=== PATIENT | male | born 1945 | race Caucasian/White ===

== ENCOUNTER → 2019-11-29 13:04 | Outpatient (BNVA) | payer MEDICARE, SELFPAY | PROVIDERS: PCP Internal Medicine; Visit Provider Internal Medicine | DX: Z86.718 Personal history of other venous thrombosis and embolism (principal); Z79.01 Long term (current) use of anticoagulants; Z51.81 Encounter for therapeutic drug level monitoring | CPT/HCPCS: 85610; 99211 ==

== ENCOUNTER → 2019-12-05 09:19 | Outpatient (BNVA) | payer MEDICARE, SELFPAY | PROVIDERS: PCP Internal Medicine; Visit Provider Internal Medicine | DX: Z86.718 Personal history of other venous thrombosis and embolism (principal); Z51.81 Encounter for therapeutic drug level monitoring; Z79.01 Long term (current) use of anticoagulants | CPT/HCPCS: 85610; 99211 ==

== ENCOUNTER → 2019-12-08 13:10 | Outpatient (BNVA) | payer MEDICARE, SELFPAY | PROVIDERS: PCP Internal Medicine; Visit Provider Internal Medicine | DX: Z86.718 Personal history of other venous thrombosis and embolism (principal); Z51.81 Encounter for therapeutic drug level monitoring; Z79.01 Long term (current) use of anticoagulants | CPT/HCPCS: 85610; 99211 ==

== ENCOUNTER → 2019-12-15 13:49 | Outpatient (BNVA) | payer MEDICARE, SELFPAY | PROVIDERS: PCP Internal Medicine; Referring Provider Internal Medicine; Visit Provider Internal Medicine | DX: I82.622 Acute embolism and thrombosis of deep veins of left upper extremity (principal); Z79.01 Long term (current) use of anticoagulants; Z51.81 Encounter for therapeutic drug level monitoring | CPT/HCPCS: 85610; 99211 ==

== ENCOUNTER → 2019-12-29 13:13 | Outpatient (BNVA) | payer MEDICARE, SELFPAY | PROVIDERS: PCP Internal Medicine; Visit Provider Internal Medicine | DX: Z86.718 Personal history of other venous thrombosis and embolism (principal); Z51.81 Encounter for therapeutic drug level monitoring; Z79.01 Long term (current) use of anticoagulants | CPT/HCPCS: 85610; 99211 ==

== ENCOUNTER → 2020-01-22 13:05 | Outpatient (BNVA) | payer MEDICARE, SELFPAY | PROVIDERS: PCP Internal Medicine; Visit Provider Internal Medicine | DX: Z86.718 Personal history of other venous thrombosis and embolism (principal); Z51.81 Encounter for therapeutic drug level monitoring; Z79.01 Long term (current) use of anticoagulants | CPT/HCPCS: 85610; 99211 ==

== ENCOUNTER → 2020-02-06 13:13 | Outpatient (BNVA) | payer MEDICARE, SELFPAY | PROVIDERS: PCP Internal Medicine; Visit Provider Internal Medicine | DX: Z86.718 Personal history of other venous thrombosis and embolism (principal); Z51.81 Encounter for therapeutic drug level monitoring; Z79.01 Long term (current) use of anticoagulants | CPT/HCPCS: 85610; 99211 ==

== ENCOUNTER → 2020-02-20 13:04 | Outpatient (BNVA) | payer MEDICARE, SELFPAY | PROVIDERS: PCP Internal Medicine; Visit Provider Internal Medicine | DX: Z86.718 Personal history of other venous thrombosis and embolism (principal); Z79.01 Long term (current) use of anticoagulants; Z51.81 Encounter for therapeutic drug level monitoring | CPT/HCPCS: 85610; 99211 ==

== ENCOUNTER → 2020-03-12 13:05 | Outpatient (BNVA) | payer MEDICARE, SELFPAY | PROVIDERS: PCP Internal Medicine; Visit Provider Internal Medicine | DX: Z86.718 Personal history of other venous thrombosis and embolism (principal); Z51.81 Encounter for therapeutic drug level monitoring; Z79.01 Long term (current) use of anticoagulants | CPT/HCPCS: 85610; 99211 ==

== ENCOUNTER → 2020-04-09 13:00 | Outpatient (BNVA) | payer MEDICARE, SELFPAY | PROVIDERS: PCP Internal Medicine; Visit Provider Internal Medicine | DX: Z86.718 Personal history of other venous thrombosis and embolism (principal); Z51.81 Encounter for therapeutic drug level monitoring; Z79.01 Long term (current) use of anticoagulants | CPT/HCPCS: 85610; 99211 ==

== ENCOUNTER → 2020-05-08 13:05 | Outpatient (BNVA) | payer MEDICARE, SELFPAY | PROVIDERS: PCP Internal Medicine; Visit Provider Internal Medicine | DX: Z86.718 Personal history of other venous thrombosis and embolism (principal); Z51.81 Encounter for therapeutic drug level monitoring; Z79.01 Long term (current) use of anticoagulants | CPT/HCPCS: 85610; 99211 ==

== ENCOUNTER → 2020-06-05 13:22 | Outpatient (BNVA) | payer MEDICARE, SELFPAY | PROVIDERS: PCP Internal Medicine; Visit Provider Internal Medicine | DX: Z86.718 Personal history of other venous thrombosis and embolism (principal); Z51.81 Encounter for therapeutic drug level monitoring; Z79.01 Long term (current) use of anticoagulants | CPT/HCPCS: 85610; 99211 ==

== ENCOUNTER → 2020-06-17 12:58 | Outpatient (BNVA) | payer MEDICARE, SELFPAY | PROVIDERS: PCP Internal Medicine; Visit Provider Internal Medicine | DX: I48.91 Unspecified atrial fibrillation (principal); Z79.01 Long term (current) use of anticoagulants; Z51.81 Encounter for therapeutic drug level monitoring | CPT/HCPCS: 85610; 99211 ==

== ENCOUNTER → 2020-06-27 13:01 | Outpatient (BNVA) | payer MEDICARE, SELFPAY | PROVIDERS: PCP Internal Medicine; Visit Provider Internal Medicine | DX: I48.91 Unspecified atrial fibrillation (principal); Z51.81 Encounter for therapeutic drug level monitoring; Z79.01 Long term (current) use of anticoagulants | CPT/HCPCS: 85610; 99211 ==

== ENCOUNTER → 2020-07-10 13:01 | Outpatient (BNVA) | payer MEDICARE, SELFPAY | PROVIDERS: PCP Internal Medicine; Visit Provider Internal Medicine | DX: I48.91 Unspecified atrial fibrillation (principal); Z51.81 Encounter for therapeutic drug level monitoring; Z79.01 Long term (current) use of anticoagulants | CPT/HCPCS: 85610; 99211 ==

== ENCOUNTER → 2020-07-15 13:31 | Outpatient (BNVA) | payer MEDICARE, SELFPAY | PROVIDERS: PCP Internal Medicine; Visit Provider Internal Medicine | DX: I48.91 Unspecified atrial fibrillation (principal); Z51.81 Encounter for therapeutic drug level monitoring; Z79.01 Long term (current) use of anticoagulants | CPT/HCPCS: 85610; 99211 ==

== ENCOUNTER → 2020-07-19 13:53 | Outpatient (BNVA) | payer MEDICARE, SELFPAY | PROVIDERS: PCP Internal Medicine; Visit Provider Internal Medicine | DX: I48.91 Unspecified atrial fibrillation (principal); Z51.81 Encounter for therapeutic drug level monitoring; Z79.01 Long term (current) use of anticoagulants | CPT/HCPCS: 85610; 99211 ==

== ENCOUNTER → 2020-07-26 13:15 | Outpatient (BNVA) | payer MEDICARE, SELFPAY | PROVIDERS: PCP Internal Medicine; Visit Provider Internal Medicine | DX: I48.91 Unspecified atrial fibrillation (principal); Z51.81 Encounter for therapeutic drug level monitoring; Z79.01 Long term (current) use of anticoagulants | CPT/HCPCS: 85610; 99211 ==

== ENCOUNTER → 2020-08-02 13:34 | Outpatient (BNVA) | payer MEDICARE, SELFPAY | PROVIDERS: PCP Internal Medicine; Visit Provider Internal Medicine | DX: I48.91 Unspecified atrial fibrillation (principal); Z51.81 Encounter for therapeutic drug level monitoring; Z79.01 Long term (current) use of anticoagulants | CPT/HCPCS: 85610; 99211 ==

== ENCOUNTER → 2020-08-09 13:15 | Outpatient (BNVA) | payer MEDICARE, SELFPAY | PROVIDERS: PCP Internal Medicine; Visit Provider Internal Medicine | DX: I48.91 Unspecified atrial fibrillation (principal); Z51.81 Encounter for therapeutic drug level monitoring; Z79.01 Long term (current) use of anticoagulants | CPT/HCPCS: 85610; 99211 ==

== ENCOUNTER → 2020-08-20 13:03 | Outpatient (BNVA) | payer MEDICARE, SELFPAY | PROVIDERS: PCP Internal Medicine; Visit Provider Internal Medicine | DX: I48.91 Unspecified atrial fibrillation (principal); Z51.81 Encounter for therapeutic drug level monitoring; Z79.01 Long term (current) use of anticoagulants | CPT/HCPCS: 85610; 99211 ==

== ENCOUNTER → 2020-08-29 13:28 | Outpatient (BNVA) | payer MEDICARE, SELFPAY | PROVIDERS: PCP Internal Medicine; Visit Provider Internal Medicine | DX: I48.91 Unspecified atrial fibrillation (principal); Z51.81 Encounter for therapeutic drug level monitoring; Z79.01 Long term (current) use of anticoagulants | CPT/HCPCS: 85610; 99211 ==

== ENCOUNTER → 2020-09-05 13:12 | Outpatient (BNVA) | payer MEDICARE, SELFPAY | PROVIDERS: PCP Internal Medicine; Visit Provider Internal Medicine | DX: I82.622 Acute embolism and thrombosis of deep veins of left upper extremity (principal); Z79.01 Long term (current) use of anticoagulants; Z51.81 Encounter for therapeutic drug level monitoring | CPT/HCPCS: 85610; 99212 ==

== ENCOUNTER → 2020-09-12 11:28 | Outpatient (BNVA) | payer MEDICARE, SELFPAY | PROVIDERS: PCP Internal Medicine; Visit Provider Internal Medicine | DX: I48.91 Unspecified atrial fibrillation (principal); Z86.718 Personal history of other venous thrombosis and embolism; Z51.81 Encounter for therapeutic drug level monitoring; Z79.01 Long term (current) use of anticoagulants | CPT/HCPCS: 85610; 99211 ==

== ENCOUNTER → 2020-09-19 13:45 | Outpatient (BNVA) | payer MEDICARE, SELFPAY | PROVIDERS: PCP Internal Medicine; Visit Provider Internal Medicine | DX: Z86.718 Personal history of other venous thrombosis and embolism (principal); I48.91 Unspecified atrial fibrillation; Z79.01 Long term (current) use of anticoagulants; Z51.81 Encounter for therapeutic drug level monitoring | CPT/HCPCS: 85610; 99211 ==

== ENCOUNTER → 2020-10-03 11:13 | Outpatient (BNVA) | payer MEDICARE, SELFPAY | PROVIDERS: PCP Internal Medicine; Visit Provider Internal Medicine | DX: Z86.718 Personal history of other venous thrombosis and embolism (principal); Z51.81 Encounter for therapeutic drug level monitoring; Z79.01 Long term (current) use of anticoagulants | CPT/HCPCS: 85610; 99211 ==

== ENCOUNTER → 2020-10-17 11:25 | Outpatient (BNVA) | payer MEDICARE, SELFPAY | PROVIDERS: PCP Internal Medicine; Visit Provider Internal Medicine | DX: Z86.718 Personal history of other venous thrombosis and embolism (principal); Z51.81 Encounter for therapeutic drug level monitoring; Z79.01 Long term (current) use of anticoagulants | CPT/HCPCS: 85610; 99211 ==

== ENCOUNTER → 2020-10-31 11:31 | Outpatient (BNVA) | payer MEDICARE, SELFPAY | PROVIDERS: PCP Internal Medicine; Visit Provider Internal Medicine | DX: Z86.718 Personal history of other venous thrombosis and embolism (principal); Z51.81 Encounter for therapeutic drug level monitoring; Z79.01 Long term (current) use of anticoagulants | CPT/HCPCS: 85610; 99211 ==

== ENCOUNTER → 2020-11-14 11:34 | Outpatient (BNVA) | payer MEDICARE, SELFPAY | PROVIDERS: PCP Internal Medicine; Visit Provider Internal Medicine | DX: Z86.718 Personal history of other venous thrombosis and embolism (principal); Z51.81 Encounter for therapeutic drug level monitoring; Z79.01 Long term (current) use of anticoagulants | CPT/HCPCS: 85610; 99211 ==

== ENCOUNTER → 2020-11-28 11:29 | Outpatient (BNVA) | payer MEDICARE, SELFPAY | PROVIDERS: PCP Internal Medicine; Visit Provider Internal Medicine | DX: Z86.718 Personal history of other venous thrombosis and embolism (principal); Z51.81 Encounter for therapeutic drug level monitoring; Z79.01 Long term (current) use of anticoagulants | CPT/HCPCS: 85610; 99211 ==

== ENCOUNTER → 2020-12-12 13:14 | Outpatient (BNVA) | payer MEDICARE, SELFPAY | PROVIDERS: PCP Internal Medicine; Visit Provider Internal Medicine | DX: Z86.718 Personal history of other venous thrombosis and embolism (principal); Z51.81 Encounter for therapeutic drug level monitoring; Z79.01 Long term (current) use of anticoagulants | CPT/HCPCS: 85610; 99211 ==

== ENCOUNTER → 2020-12-26 13:03 | Outpatient (BNVA) | payer MEDICARE, SELFPAY | PROVIDERS: PCP Internal Medicine; Visit Provider Internal Medicine | DX: Z86.718 Personal history of other venous thrombosis and embolism (principal); Z51.81 Encounter for therapeutic drug level monitoring; Z79.01 Long term (current) use of anticoagulants | CPT/HCPCS: 85610; 99211 ==

== ENCOUNTER → 2021-01-09 13:28 | Outpatient (BNVA) | payer MEDICARE, SELFPAY | PROVIDERS: PCP Internal Medicine; Visit Provider Internal Medicine | DX: Z86.718 Personal history of other venous thrombosis and embolism (principal); Z51.81 Encounter for therapeutic drug level monitoring; Z79.01 Long term (current) use of anticoagulants | CPT/HCPCS: 85610; 99211 ==

== ENCOUNTER → 2021-01-16 13:06 | Outpatient (BNVA) | payer MEDICARE, SELFPAY | PROVIDERS: PCP Internal Medicine; Visit Provider Internal Medicine | DX: Z86.718 Personal history of other venous thrombosis and embolism (principal); Z51.81 Encounter for therapeutic drug level monitoring; Z79.01 Long term (current) use of anticoagulants | CPT/HCPCS: 85610; 99211 ==

== ENCOUNTER → 2021-01-23 13:02 | Outpatient (BNVA) | payer MEDICARE, SELFPAY | PROVIDERS: PCP Internal Medicine; Visit Provider Internal Medicine | DX: Z86.718 Personal history of other venous thrombosis and embolism (principal); Z51.81 Encounter for therapeutic drug level monitoring; Z79.01 Long term (current) use of anticoagulants | CPT/HCPCS: 85610; 99211 ==

== ENCOUNTER → 2021-02-06 13:04 | Outpatient (BNVA) | payer MEDICARE, SELFPAY | PROVIDERS: PCP Internal Medicine; Visit Provider Internal Medicine | DX: Z86.718 Personal history of other venous thrombosis and embolism (principal); Z51.81 Encounter for therapeutic drug level monitoring; Z79.01 Long term (current) use of anticoagulants | CPT/HCPCS: 85610; 99211 ==

== ENCOUNTER → 2021-02-20 13:05 | Outpatient (BNVA) | payer MEDICARE, SELFPAY | PROVIDERS: PCP Internal Medicine; Visit Provider Internal Medicine | DX: Z86.718 Personal history of other venous thrombosis and embolism (principal); Z51.81 Encounter for therapeutic drug level monitoring; Z79.01 Long term (current) use of anticoagulants | CPT/HCPCS: 85610; 99211 ==

== ENCOUNTER → 2021-02-27 11:32 | Outpatient (BNVA) | payer MEDICARE, SELFPAY | PROVIDERS: PCP Internal Medicine; Visit Provider Internal Medicine | DX: I48.91 Unspecified atrial fibrillation (principal); Z86.718 Personal history of other venous thrombosis and embolism; Z51.81 Encounter for therapeutic drug level monitoring; Z79.01 Long term (current) use of anticoagulants | CPT/HCPCS: 85610; 99211 ==

== ENCOUNTER → 2021-03-13 11:34 | Outpatient (BNVA) | payer MEDICARE, SELFPAY | PROVIDERS: PCP Internal Medicine; Visit Provider Internal Medicine | DX: I48.91 Unspecified atrial fibrillation (principal); Z86.718 Personal history of other venous thrombosis and embolism; Z51.81 Encounter for therapeutic drug level monitoring; Z79.01 Long term (current) use of anticoagulants | CPT/HCPCS: 85610; 99211 ==

== ENCOUNTER → 2021-03-26 11:43 | Outpatient (BNVA) | payer MEDICARE, SELFPAY | PROVIDERS: PCP Internal Medicine; Visit Provider Internal Medicine | DX: I82.402 Acute embolism and thrombosis of unspecified deep veins of left lower extremity (principal); Z51.81 Encounter for therapeutic drug level monitoring; Z79.01 Long term (current) use of anticoagulants | CPT/HCPCS: 85610; 99211 ==

== ENCOUNTER → 2021-04-10 11:35 | Outpatient (BNVA) | payer MEDICARE, SELFPAY | PROVIDERS: PCP Internal Medicine; Visit Provider Internal Medicine | DX: Z86.718 Personal history of other venous thrombosis and embolism (principal); Z51.81 Encounter for therapeutic drug level monitoring; Z79.01 Long term (current) use of anticoagulants | CPT/HCPCS: 85610; 99211 ==

== ENCOUNTER → 2021-04-30 11:11 | Outpatient (BNVA) | payer MEDICARE, SELFPAY | PROVIDERS: PCP Internal Medicine; Visit Provider Internal Medicine | DX: Z86.718 Personal history of other venous thrombosis and embolism (principal); Z51.81 Encounter for therapeutic drug level monitoring; Z79.01 Long term (current) use of anticoagulants | CPT/HCPCS: 85610; 99211 ==

== ENCOUNTER → 2021-05-07 11:23 | Outpatient (BNVA) | payer MEDICARE, SELFPAY | PROVIDERS: PCP Internal Medicine; Visit Provider Internal Medicine | DX: Z86.718 Personal history of other venous thrombosis and embolism (principal); Z51.81 Encounter for therapeutic drug level monitoring; Z79.01 Long term (current) use of anticoagulants | CPT/HCPCS: 85610; 99211 ==

== ENCOUNTER 2021-05-21 11:14 | Outpatient (REF) | payer MEDICARE, SELFPAY ==
[2021-05-21 11:48] LABS: Prothrombin Time 85.7 SEC (9.9-13.0)
[2021-05-21 11:58] LABS: INTERNATIONAL NORM RATIO 7.2 (0.9-1.1)
== END 2021-05-21 11:15 | disposition home or self-care (01) ==
LOC: HO.LAB 11:14
PROVIDERS: PCP Internal Medicine; Visit Provider Internal Medicine
DX: Z79.01 Long term (current) use of anticoagulants (principal)
CPT/HCPCS: 36415; 85610; 99212

== ENCOUNTER → 2021-05-23 11:28 | Outpatient (BNVA) | payer MEDICARE, SELFPAY | PROVIDERS: PCP Internal Medicine; Visit Provider Internal Medicine | DX: Z86.718 Personal history of other venous thrombosis and embolism (principal); Z79.01 Long term (current) use of anticoagulants; Z51.81 Encounter for therapeutic drug level monitoring | CPT/HCPCS: 85610; 99211 ==

== ENCOUNTER → 2021-05-30 11:30 | Outpatient (BNVA) | payer MEDICARE, SELFPAY | PROVIDERS: PCP Internal Medicine; Visit Provider Internal Medicine | DX: Z86.718 Personal history of other venous thrombosis and embolism (principal); Z79.01 Long term (current) use of anticoagulants; Z51.81 Encounter for therapeutic drug level monitoring | CPT/HCPCS: 85610; 99211 ==

== ENCOUNTER → 2021-06-11 11:34 | Outpatient (BNVA) | payer MEDICARE, SELFPAY | PROVIDERS: PCP Internal Medicine; Visit Provider Internal Medicine | DX: Z86.718 Personal history of other venous thrombosis and embolism (principal); Z79.01 Long term (current) use of anticoagulants; Z51.81 Encounter for therapeutic drug level monitoring | CPT/HCPCS: 85610; 99211 ==

== ENCOUNTER → 2021-06-18 11:35 | Outpatient (BNVA) | payer MEDICARE, SELFPAY | PROVIDERS: PCP Internal Medicine; Visit Provider Internal Medicine | DX: Z86.718 Personal history of other venous thrombosis and embolism (principal); Z79.01 Long term (current) use of anticoagulants; Z51.81 Encounter for therapeutic drug level monitoring | CPT/HCPCS: 85610; 99211 ==

== ENCOUNTER → 2021-07-02 11:33 | Outpatient (BNVA) | payer MEDICARE, SELFPAY | PROVIDERS: PCP Internal Medicine; Visit Provider Internal Medicine | DX: Z86.718 Personal history of other venous thrombosis and embolism (principal); Z79.01 Long term (current) use of anticoagulants; Z51.81 Encounter for therapeutic drug level monitoring | CPT/HCPCS: 85610; 99211 ==

== ENCOUNTER → 2021-07-16 11:30 | Outpatient (BNVA) | payer MEDICARE, SELFPAY | PROVIDERS: PCP Internal Medicine; Visit Provider Internal Medicine | DX: Z86.718 Personal history of other venous thrombosis and embolism (principal); Z79.01 Long term (current) use of anticoagulants; Z51.81 Encounter for therapeutic drug level monitoring | CPT/HCPCS: 85610; 99211; 99212; Q3014 ==

== ENCOUNTER → 2021-07-30 11:31 | Outpatient (BNVA) | payer MEDICARE, SELFPAY | PROVIDERS: PCP Internal Medicine; Visit Provider Internal Medicine | DX: Z86.718 Personal history of other venous thrombosis and embolism (principal); Z79.01 Long term (current) use of anticoagulants; Z51.81 Encounter for therapeutic drug level monitoring | CPT/HCPCS: 85610; 99211 ==

== ENCOUNTER → 2021-08-13 11:32 | Outpatient (BNVA) | payer MEDICARE, SELFPAY | PROVIDERS: PCP Internal Medicine; Visit Provider Internal Medicine | DX: Z86.718 Personal history of other venous thrombosis and embolism (principal); Z79.01 Long term (current) use of anticoagulants; Z51.81 Encounter for therapeutic drug level monitoring | CPT/HCPCS: 85610; 99211 ==

== ENCOUNTER → 2021-09-03 11:22 | Outpatient (BNVA) | payer MEDICARE, SELFPAY | PROVIDERS: PCP Internal Medicine; Visit Provider Internal Medicine | DX: Z86.718 Personal history of other venous thrombosis and embolism (principal); Z79.01 Long term (current) use of anticoagulants; Z51.81 Encounter for therapeutic drug level monitoring | CPT/HCPCS: 85610; 99211 ==

== ENCOUNTER → 2021-09-17 11:36 | Outpatient (BNVA) | payer MEDICARE, SELFPAY | PROVIDERS: PCP Internal Medicine; Visit Provider Internal Medicine | DX: Z86.718 Personal history of other venous thrombosis and embolism (principal); Z79.01 Long term (current) use of anticoagulants; Z51.81 Encounter for therapeutic drug level monitoring | CPT/HCPCS: 85610; 99211 ==

== ENCOUNTER → 2021-10-08 11:30 | Outpatient (BNVA) | payer MEDICARE, SELFPAY | PROVIDERS: PCP Internal Medicine; Visit Provider Internal Medicine | DX: Z86.718 Personal history of other venous thrombosis and embolism (principal); Z51.81 Encounter for therapeutic drug level monitoring; Z79.01 Long term (current) use of anticoagulants | CPT/HCPCS: 85610; 99211 ==

== ENCOUNTER → 2021-10-22 11:11 | Outpatient (BNVA) | payer MEDICARE, SELFPAY | PROVIDERS: PCP Internal Medicine; Visit Provider Internal Medicine | DX: Z86.718 Personal history of other venous thrombosis and embolism (principal); Z79.01 Long term (current) use of anticoagulants; Z51.81 Encounter for therapeutic drug level monitoring | CPT/HCPCS: 85610; 99211 ==

== ENCOUNTER → 2021-11-12 11:26 | Outpatient (BNVA) | payer MEDICARE, SELFPAY | PROVIDERS: PCP Internal Medicine; Visit Provider Internal Medicine | DX: Z86.718 Personal history of other venous thrombosis and embolism (principal); Z51.81 Encounter for therapeutic drug level monitoring; Z79.01 Long term (current) use of anticoagulants | CPT/HCPCS: 85610; 99211 ==

== ENCOUNTER → 2021-11-26 11:41 | Outpatient (BNVA) | payer MEDICARE, SELFPAY | PROVIDERS: PCP Internal Medicine; Visit Provider Internal Medicine | DX: Z86.718 Personal history of other venous thrombosis and embolism (principal); Z79.01 Long term (current) use of anticoagulants; Z51.81 Encounter for therapeutic drug level monitoring | CPT/HCPCS: 85610; 99211 ==

== ENCOUNTER → 2021-12-10 11:29 | Outpatient (BNVA) | payer MEDICARE, SELFPAY | PROVIDERS: PCP Internal Medicine; Visit Provider Internal Medicine | DX: Z86.718 Personal history of other venous thrombosis and embolism (principal); Z79.01 Long term (current) use of anticoagulants; Z51.81 Encounter for therapeutic drug level monitoring | CPT/HCPCS: 85610; 99211 ==

== ENCOUNTER → 2021-12-24 11:25 | Outpatient (BNVA) | payer MEDICARE, SELFPAY | PROVIDERS: PCP Internal Medicine; Visit Provider Internal Medicine | DX: Z86.718 Personal history of other venous thrombosis and embolism (principal); Z79.01 Long term (current) use of anticoagulants; Z51.81 Encounter for therapeutic drug level monitoring | CPT/HCPCS: 85610; 99211 ==

== ENCOUNTER → 2022-01-07 11:36 | Outpatient (BNVA) | payer MEDICARE, SELFPAY | PROVIDERS: PCP Internal Medicine; Visit Provider Internal Medicine | DX: Z86.718 Personal history of other venous thrombosis and embolism (principal); Z79.01 Long term (current) use of anticoagulants; Z51.81 Encounter for therapeutic drug level monitoring | CPT/HCPCS: 85610; 99211 ==

== ENCOUNTER → 2022-01-28 11:27 | Outpatient (BNVA) | payer MEDICARE, SELFPAY | PROVIDERS: PCP Internal Medicine; Visit Provider Internal Medicine | DX: Z86.718 Personal history of other venous thrombosis and embolism (principal); Z51.81 Encounter for therapeutic drug level monitoring; Z79.01 Long term (current) use of anticoagulants | CPT/HCPCS: 85610; 99211 ==

== ENCOUNTER → 2022-02-18 11:34 | Outpatient (BNVA) | payer MEDICARE, SELFPAY | PROVIDERS: PCP Internal Medicine; Visit Provider Internal Medicine | DX: Z86.718 Personal history of other venous thrombosis and embolism (principal); Z79.01 Long term (current) use of anticoagulants; Z51.81 Encounter for therapeutic drug level monitoring | CPT/HCPCS: 85610; 99211 ==

== ENCOUNTER → 2022-03-11 11:26 | Outpatient (BNVA) | payer MEDICARE, SELFPAY | PROVIDERS: PCP Internal Medicine; Visit Provider Internal Medicine | DX: Z86.718 Personal history of other venous thrombosis and embolism (principal); Z79.01 Long term (current) use of anticoagulants; Z51.81 Encounter for therapeutic drug level monitoring | CPT/HCPCS: 85610; 99211 ==

== ENCOUNTER → 2022-04-01 11:16 | Outpatient (BNVA) | payer MEDICARE, SELFPAY | PROVIDERS: PCP Internal Medicine; Visit Provider Internal Medicine | DX: Z86.73 Personal history of transient ischemic attack (TIA), and cerebral infarction without residual deficits (principal); Z79.01 Long term (current) use of anticoagulants; Z51.81 Encounter for therapeutic drug level monitoring | CPT/HCPCS: 85610; 99211 ==

== ENCOUNTER → 2022-04-22 11:32 | Outpatient (BNVA) | payer MEDICARE, SELFPAY | PROVIDERS: PCP Internal Medicine; Visit Provider Internal Medicine | DX: Z86.718 Personal history of other venous thrombosis and embolism (principal); Z79.01 Long term (current) use of anticoagulants; Z51.81 Encounter for therapeutic drug level monitoring | CPT/HCPCS: 85610; 99211 ==

== ENCOUNTER → 2022-05-06 11:38 | Outpatient (BNVA) | payer MEDICARE, SELFPAY | PROVIDERS: PCP Internal Medicine; Visit Provider Internal Medicine | DX: Z86.718 Personal history of other venous thrombosis and embolism (principal); Z79.01 Long term (current) use of anticoagulants; Z51.81 Encounter for therapeutic drug level monitoring | CPT/HCPCS: 85610; 99211 ==

== ENCOUNTER → 2022-05-27 11:26 | Outpatient (BNVA) | payer MEDICARE, SELFPAY | PROVIDERS: PCP Internal Medicine; Visit Provider Internal Medicine | DX: Z86.718 Personal history of other venous thrombosis and embolism (principal); Z79.01 Long term (current) use of anticoagulants; Z51.81 Encounter for therapeutic drug level monitoring | CPT/HCPCS: 85610; 99211 ==

== ENCOUNTER → 2022-06-17 11:30 | Outpatient (BNVA) | payer MEDICARE, SELFPAY | PROVIDERS: PCP Internal Medicine; Visit Provider Internal Medicine | DX: Z86.718 Personal history of other venous thrombosis and embolism (principal); Z79.01 Long term (current) use of anticoagulants; Z51.81 Encounter for therapeutic drug level monitoring | CPT/HCPCS: 85610; 99211 ==

== ENCOUNTER → 2022-07-01 11:34 | Outpatient (BNVA) | payer MEDICARE, SELFPAY | PROVIDERS: PCP Internal Medicine; Visit Provider Internal Medicine | DX: Z86.718 Personal history of other venous thrombosis and embolism (principal); Z79.01 Long term (current) use of anticoagulants; Z51.81 Encounter for therapeutic drug level monitoring | CPT/HCPCS: 85610; 99211 ==

== ENCOUNTER → 2022-07-22 11:32 | Outpatient (BNVA) | payer MEDICARE, SELFPAY | PROVIDERS: PCP Internal Medicine; Visit Provider Internal Medicine | DX: Z86.718 Personal history of other venous thrombosis and embolism (principal); Z79.01 Long term (current) use of anticoagulants; Z51.81 Encounter for therapeutic drug level monitoring | CPT/HCPCS: 85610; 99211 ==

== ENCOUNTER → 2022-08-05 11:23 | Outpatient (BNVA) | payer MEDICARE, SELFPAY | PROVIDERS: PCP Internal Medicine; Visit Provider Internal Medicine | DX: Z86.718 Personal history of other venous thrombosis and embolism (principal); Z79.01 Long term (current) use of anticoagulants; Z51.81 Encounter for therapeutic drug level monitoring | CPT/HCPCS: 85610; 99211 ==

== ENCOUNTER 2022-09-16 11:21 | Outpatient (AMB) | payer MEDICARE, SELFPAY ==
--- NOTE | 2022-09-16 11:28 | MHC.OFFVISCO ---
Intake Intake Visit Reasons: Anticoagulation Allergies shrimp Allergy (Mild, Verified 09/16/22 11:22) HIVES FuadA. Allergy (Unknown, Uncoded 09/16/22 11:22) PT STATES NO KNOWN DRUG ALLERGIES Medication List - Last Reconciled 09/16/22 by Zoe Bruce RN amiodarone 200 mg PO DAILY atorvastatin 80 mg PO DAILY blood sugar diagnostic As directed cholecalciferol (vitamin D3) 25 mcg PO DAILY clobetasol 0.05% 1 appl topical BID cyanocobalamin (vitamin B-12) (Vitamin B-12) 500 mcg PO DAILY ferrous sulfate 325 mg PO QAM gabapentin 300 mg PO BEDTIME glipizide 5 mg PO BID lancets (OneTouch Delica Plus Lancet) As directed metformin 1,000 mg PO BID metoprolol succinate ER 75 mg PO DAILY torsemide 100 mg PO BID trazodone 50 mg PO BEDTIME triamcinolone acetonide 0.1% 1 appl topical BID warfarin See Protocol 5MG X1DAY/ 2.5MG X6DAYS; Nursing Note INR 3.1-?? out of therapeutic range Medications and supplements reviewed Patient status: increased stress Medications or supplements: pt states stopped furosemide, enc to speak to md regarding this and purpose of this med, pt weighs himself daily- aware to report weight gain Diet: same Denies any signs and symptoms of bleeding or clotting or unusual bruising Bleeding, bruising, clotting discussed Nutritional guidance given: eat greens today Dose: 2.5mg x 2, 1.25mg x 5 F/U INR Date : pt req 3 weeks?? Patient verbalizing understanding of instructions given. Coding Level of Care Code Est Patient Level 1 Diagnoses Current use of anticoagulant therapy Z79.01 Assessment & Plan Assessment & Plan (1) Current use of anticoagulant therapy: Code(s): Z79.01 - senior care (current) use of anticoagulants Category: Medical
[2022-09-16 11:29] LABS: Prothrombin Time Whole Bld POC 37.3 sec (11.1-13.5); ~PT, ~INR - Anti Coag Clinic 3.1 (0.9-1.1)
== END 2022-09-16 11:37 | disposition home or self-care (01) ==
LOC: HO.ACS 11:21
PROVIDERS: PCP Internal Medicine; Visit Provider Internal Medicine
DX: Z79.01 Long term (current) use of anticoagulants (principal)

== ENCOUNTER → 2022-09-16 11:21 | Outpatient (BNVA) | payer MEDICARE, SELFPAY | PROVIDERS: PCP Internal Medicine; Visit Provider Internal Medicine | DX: Z86.718 Personal history of other venous thrombosis and embolism (principal); Z79.01 Long term (current) use of anticoagulants; Z51.81 Encounter for therapeutic drug level monitoring | CPT/HCPCS: 85610; 99211 ==

== ENCOUNTER 2022-10-07 11:22 | Outpatient (AMB) | payer MEDICARE, SELFPAY ==
[2022-10-07 11:46] LABS: Prothrombin Time Whole Bld POC 33.1 sec (11.1-13.5); ~PT, ~INR - Anti Coag Clinic 2.8 (0.9-1.1)
--- NOTE | 2022-10-07 11:57 | MHC.OFFVISCO ---
Intake Intake Visit Reasons: Anticoagulation Allergies shrimp Allergy (Mild, Verified 10/07/22 11:39) HIVMARIO MeridaA. Allergy (Unknown, Uncoded 09/16/22 11:22) PT STATES NO KNOWN DRUG ALLERGIES Medication List - Last Reconciled 10/07/22 by Frieda Manley RN amiodarone 200 mg PO DAILY atorvastatin 80 mg PO DAILY blood sugar diagnostic As directed cholecalciferol (vitamin D3) 25 mcg PO DAILY clobetasol 0.05% 1 appl topical BID cyanocobalamin (vitamin B-12) (Vitamin B-12) 500 mcg PO DAILY ferrous sulfate 325 mg PO QAM gabapentin 300 mg PO BEDTIME glipizide 5 mg PO BID lancets (OneTouch Delica Plus Lancet) As directed metformin 1,000 mg PO BID metoprolol succinate ER 75 mg PO DAILY torsemide 100 mg PO BID trazodone 50 mg PO BEDTIME triamcinolone acetonide 0.1% 1 appl topical BID warfarin See Protocol 5MG X1DAY/ 2.5MG X6DAYS; Nursing Note NO CFP,SOB,DIET/MED CHANGES,FALLS OR SX OF BLEEDING. CONTINUE PRESENT DOSE AND FOLLOW-UP IN 4 WEEKS. GOOD UNDERSTANDING OF DOSING INSTR. 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
== END 2022-10-07 12:00 | disposition home or self-care (01) ==
LOC: HO.ACS 11:22
PROVIDERS: PCP Internal Medicine; Visit Provider Internal Medicine
DX: Z79.01 Long term (current) use of anticoagulants (principal)

== ENCOUNTER → 2022-10-07 11:22 | Outpatient (BNVA) | payer MEDICARE, SELFPAY | PROVIDERS: PCP Internal Medicine; Visit Provider Internal Medicine | DX: Z86.718 Personal history of other venous thrombosis and embolism (principal); Z79.01 Long term (current) use of anticoagulants; Z51.81 Encounter for therapeutic drug level monitoring | CPT/HCPCS: 85610; 99211 ==

== ENCOUNTER 2022-11-04 11:25 | Outpatient (AMB) | payer MEDICARE, SELFPAY ==
--- NOTE | 2022-11-04 11:36 | MHC.OFFVISCO ---
Intake Intake Visit Reasons: Anticoagulation Allergies shrimp Allergy (Mild, Verified 11/04/22 11:31) JUNE MeridaA. Allergy (Unknown, Uncoded 11/04/22 11:31) PT STATES NO KNOWN DRUG ALLERGIES Medication List - Last Reconciled 11/04/22 by Mary Styles RN amiodarone 200 mg PO DAILY atorvastatin 80 mg PO DAILY blood sugar diagnostic As directed cholecalciferol (vitamin D3) 25 mcg PO DAILY clobetasol 0.05% 1 appl topical BID cyanocobalamin (vitamin B-12) (Vitamin B-12) 500 mcg PO DAILY ferrous sulfate 325 mg PO QAM gabapentin 300 mg PO BEDTIME glipizide 5 mg PO BID lancets (OneTouch Delica Plus Lancet) As directed metformin 1,000 mg PO BID metoprolol succinate ER 75 mg PO DAILY torsemide 100 mg PO BID trazodone 50 mg PO BEDTIME triamcinolone acetonide 0.1% 1 appl topical BID warfarin See Protocol 5MG X1DAY/ 2.5MG X6DAYS; Nursing Note PT VISIT DELAYED DUE TO INTERFACING ISSUES WITH CLINIC METER BY 5-7 MINUTES INR: 2.8 in therapeutic range Medications and supplements reviewed No changes in health, diet, medications, or supplements, Denies any signs and symptoms of bleeding or bruising or clotting. Bleeding, bruising, clotting discussed Nutritional guidance given Dose: 2.5MG X 2 DAYS/ 1.25MG X 5 DAYS F/U INR: 1 MONTH Patient verbalizes understanding of instructions given Coding Level of Care Code Est Patient Level 1 Diagnoses Current use of anticoagulant therapy Z79.01 Assessment & Plan Assessment & Plan (1) Current use of anticoagulant therapy: Code(s): Z79.01 - detention (current) use of anticoagulants Category: Medical
[2022-11-04 11:41] LABS: Prothrombin Time Whole Bld POC 33.2 sec (11.1-13.5); ~PT, ~INR - Anti Coag Clinic 2.8 (0.9-1.1)
== END 2022-11-04 11:48 | disposition home or self-care (01) ==
LOC: HO.ACS 11:25
PROVIDERS: PCP Internal Medicine; Visit Provider Internal Medicine
DX: Z79.01 Long term (current) use of anticoagulants (principal)

== ENCOUNTER → 2022-11-04 11:25 | Outpatient (BNVA) | payer MEDICARE, SELFPAY | PROVIDERS: PCP Internal Medicine; Visit Provider Internal Medicine | DX: Z86.718 Personal history of other venous thrombosis and embolism (principal); Z79.01 Long term (current) use of anticoagulants; Z51.81 Encounter for therapeutic drug level monitoring | CPT/HCPCS: 85610; 99211 ==

== ENCOUNTER 2022-12-03 11:38 | Outpatient (AMB) | payer MEDICARE, SELFPAY ==
[2022-12-03 11:48] LABS: ~PT, ~INR - Anti Coag Clinic 2.3 (0.9-1.1)
--- NOTE | 2022-12-03 11:52 | MHC.OFFVISCO ---
Intake Intake Visit Reasons: Anticoagulation Allergies shrimp Allergy (Mild, Verified 12/03/22 11:38) HIVES N.K.D.A. Allergy (Unknown, Uncoded 12/03/22 11:38) PT STATES NO KNOWN DRUG ALLERGIES Medication List - Last Reconciled 12/03/22 by Adelaida Mccall, RN amiodarone 200 mg PO DAILY atorvastatin 80 mg PO DAILY blood sugar diagnostic As directed cholecalciferol (vitamin D3) 25 mcg PO DAILY cyanocobalamin (vitamin B-12) (Vitamin B-12) 500 mcg PO DAILY ferrous sulfate 325 mg PO QAM glipizide 5 mg PO BID lancets (OneTouch Delica Plus Lancet) As directed metformin 1,000 mg PO BID metoprolol succinate ER 75 mg PO DAILY torsemide 100 mg PO BID triamcinolone acetonide 0.1% 1 appl topical BID warfarin See Protocol 5MG X1DAY/ 2.5MG X6DAYS; Nursing Note Amb to [facility] feeling well Medications and supplements reviewed EMAR updated as a few medds no longer taking for quite a awhile No changes in health, diet, medications, or supplements Flu shot 2 weeks ago and planning on covid vaccine in a week or so Denies any unusual signs and symptoms of bruising, bleeding Denies any new Chest pain, SOB, or clotting INR: 2.3 in therapeutic range Nutritional guidance given: balance greens and reds in diet, be consistent, watch the reds over the Dose: continue usual dosing;2.5mg x 2 days and 1.25mg x 5 days F/U INR: 4 weeks Patient verbalizes understanding of instructions given with accurate read back/ teach back of dosing Coding Level of Care Code Est Patient Level 1 Diagnoses Current use of anticoagulant therapy Z79.01 Time Spent (min) 15 Assessment & Plan Assessment & Plan (1) Current use of anticoagulant therapy: Code(s): Z79.01 - assisted (current) use of anticoagulants Category: Medical
== END 2022-12-03 11:58 | disposition home or self-care (01) ==
LOC: HO.ACS 11:38
PROVIDERS: PCP Internal Medicine; Visit Provider Internal Medicine
DX: Z79.01 Long term (current) use of anticoagulants (principal)

== ENCOUNTER → 2022-12-03 11:38 | Outpatient (BNVA) | payer MEDICARE, SELFPAY | PROVIDERS: PCP Internal Medicine; Visit Provider Internal Medicine | DX: Z86.718 Personal history of other venous thrombosis and embolism (principal); Z79.01 Long term (current) use of anticoagulants; Z51.81 Encounter for therapeutic drug level monitoring | CPT/HCPCS: 85610; 99211 ==

== ENCOUNTER 2023-01-06 11:43 | Outpatient (AMB) | payer MEDICARE, SELFPAY ==
--- NOTE | 2023-01-06 11:50 | MHC.OFFVISCO ---
Intake Intake Visit Reasons: Anticoagulation Allergies shrimp Allergy (Mild, Verified 12/03/22 11:38) HIVES N.K.D.A. Allergy (Unknown, Uncoded 12/03/22 11:38) PT STATES NO KNOWN DRUG ALLERGIES Medication List - Last Reconciled 01/06/23 by Mary Styles RN atorvastatin 80 mg PO DAILY blood sugar diagnostic As directed cholecalciferol (vitamin D3) 25 mcg PO DAILY cyanocobalamin (vitamin B-12) (Vitamin B-12) 500 mcg PO DAILY ferrous sulfate 325 mg PO QAM glipizide 5 mg PO BID lancets (OneTouch Delica Plus Lancet) As directed metformin 1,000 mg PO DAILY metoprolol succinate ER 75 mg PO DAILY torsemide 100 mg PO DAILY triamcinolone acetonide 0.1% 1 appl topical BID warfarin See Protocol 5MG X1DAY/ 2.5MG X6DAYS; Nursing Note INR: 1.9 OUT OF therapeutic range Medications and supplements reviewed- TORSEMIDE DECREASED TO 100MG PO DAIILY AND AMIODARONE WAS D/C 12/17/22 PT ATE A LOT OF GREENS RECENTLY INCLUDING YESTERDAY Denies any signs and symptoms of bleeding or bruising or clotting. Bleeding, bruising, clotting discussed Nutritional guidance given - AVOID GREENS TODAY AND TOMORROW Dose: INCREASE WEEKLKY DOSE DUE TO MED CHANGES 2.5MG X 3 DAYS/ 1.25MG X 4 DAYS F/U INR:2 WEEKS Patient verbalizes understanding of instructions given Coding Level of Care Code Est Patient Level 1 Diagnoses Current use of anticoagulant therapy Z79.01 Results AMB INR Fingerstick AMB INR Fingerstick 1.9 Last Edit by Mary Styles RN on 01/06/23 11:51 MANUAL ENTRY DELAYED INTERFACING Assessment & Plan Assessment & Plan (1) Current use of anticoagulant therapy: Code(s): Z79.01 - senior care (current) use of anticoagulants Category: Medical
[2023-01-07 08:37] LABS: Prothrombin Time Whole Bld POC 23.1 sec (11.1-13.5); ~PT, ~INR - Anti Coag Clinic 1.9 (0.9-1.1)
== END 2023-01-06 12:13 | disposition home or self-care (01) ==
LOC: HO.ACS 11:43
PROVIDERS: PCP Internal Medicine; Visit Provider Internal Medicine
DX: Z79.01 Long term (current) use of anticoagulants (principal)

== ENCOUNTER → 2023-01-06 11:43 | Outpatient (BNVA) | payer MEDICARE, SELFPAY | PROVIDERS: PCP Internal Medicine; Visit Provider Internal Medicine | DX: Z86.718 Personal history of other venous thrombosis and embolism (principal); Z79.01 Long term (current) use of anticoagulants; Z51.81 Encounter for therapeutic drug level monitoring | CPT/HCPCS: 85610; 99211 ==

== ENCOUNTER 2023-01-20 11:29 | Outpatient (AMB) | payer MEDICARE, SELFPAY ==
[2023-01-20 11:45] LABS: ~PT, ~INR - Anti Coag Clinic 3.7 (0.9-1.1)
--- NOTE | 2023-01-20 11:50 | MHC.OFFVISCO ---
Intake Intake Visit Reasons: Anticoagulation Allergies shrimp Allergy (Mild, Verified 01/20/23 11:32) HIVES N.KMichelaD.A. Allergy (Unknown, Uncoded 12/03/22 11:38) PT STATES NO KNOWN DRUG ALLERGIES Medication List - Last Reconciled 01/20/23 by Frieda Malney RN atorvastatin 80 mg PO DAILY blood sugar diagnostic As directed cholecalciferol (vitamin D3) 25 mcg PO DAILY cyanocobalamin (vitamin B-12) (Vitamin B-12) 500 mcg PO DAILY ferrous sulfate 325 mg PO QAM glipizide 5 mg PO BID lancets (OneTouch Delica Plus Lancet) As directed metformin 1,000 mg PO DAILY metoprolol succinate ER 75 mg PO DAILY torsemide 100 mg PO DAILY triamcinolone acetonide 0.1% 1 appl topical BID warfarin See Protocol 5MG X1DAY/ 2.5MG X6DAYS; Nursing Note PT.STATES THAT HE HAS HAD INCREASED STRESS THIS WEEK. NO CP,SOB,DIET/MED CHANGES,FALLS OR SX OF BLEEDING. HOLD WARFARIN TODAY THEN RTEDUCE WEEKLY DOSE SLIGHTLY AND FOLLOW-UP IN 3 WEEKS. GOOD UNDERSTADING OF DOSING INSTR. 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
== END 2023-01-20 11:52 | disposition home or self-care (01) ==
LOC: HO.ACS 11:29
PROVIDERS: PCP Internal Medicine; Visit Provider Internal Medicine
DX: Z79.01 Long term (current) use of anticoagulants (principal)

== ENCOUNTER → 2023-01-20 11:29 | Outpatient (BNVA) | payer MEDICARE, SELFPAY | PROVIDERS: PCP Internal Medicine; Visit Provider Internal Medicine | DX: Z86.718 Personal history of other venous thrombosis and embolism (principal); Z79.01 Long term (current) use of anticoagulants; Z51.81 Encounter for therapeutic drug level monitoring | CPT/HCPCS: 85610; 99211 ==

== ENCOUNTER 2023-02-10 11:15 | Outpatient (AMB) | payer MEDICARE, SELFPAY ==
--- NOTE | 2023-02-10 11:31 | MHC.OFFVISCO ---
Intake Intake Visit Reasons: Anticoagulation Allergies shrimp Allergy (Mild, Verified 02/10/23 11:27) JUNE Sparrow Allergy (Unknown, Uncoded 02/10/23 11:27) PT STATES NO KNOWN DRUG ALLERGIES Medication List - Last Reconciled 02/10/23 by Zoe Bruce, RN atorvastatin 80 mg PO DAILY blood sugar diagnostic As directed cholecalciferol (vitamin D3) 25 mcg PO DAILY cyanocobalamin (vitamin B-12) (Vitamin B-12) 500 mcg PO DAILY ferrous sulfate 325 mg PO QAM glipizide 5 mg PO BID lancets (OneTouch Delica Plus Lancet) As directed metformin 1,000 mg PO DAILY metoprolol succinate ER 75 mg PO DAILY torsemide 100 mg PO DAILY triamcinolone acetonide 0.1% 1 appl topical BID warfarin See Protocol 5MG X1DAY/ 2.5MG X6DAYS; Nursing Note INR: 2.1- in therapeutic range of 2-3 Medications and supplements reviewed No changes in health, diet, medications, or supplements, Denies any signs and symptoms of bleeding or bruising or clotting. 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
== END 2023-02-10 11:37 | disposition home or self-care (01) ==
LOC: HO.ACS 11:15
PROVIDERS: PCP Internal Medicine; Visit Provider Internal Medicine
DX: Z79.01 Long term (current) use of anticoagulants (principal)

== ENCOUNTER → 2023-02-10 11:15 | Outpatient (BNVA) | payer MEDICARE, SELFPAY | PROVIDERS: PCP Internal Medicine; Visit Provider Internal Medicine | DX: Z86.718 Personal history of other venous thrombosis and embolism (principal); Z51.81 Encounter for therapeutic drug level monitoring; Z79.01 Long term (current) use of anticoagulants | CPT/HCPCS: 85610; 99211 ==

== ENCOUNTER 2023-03-03 11:29 | Outpatient (AMB) | payer MEDICARE, SELFPAY ==
--- NOTE | 2023-03-03 11:33 | MHC.OFFVISCO ---
Intake Intake Visit Reasons: Anticoagulation Allergies shrimp Allergy (Mild, Verified 03/03/23 11:29) JUNE MeridaA. Allergy (Unknown, Uncoded 03/03/23 11:29) PT STATES NO KNOWN DRUG ALLERGIES Medication List - Last Reconciled 03/03/23 by Zoe Bruce RN atorvastatin 80 mg PO DAILY blood sugar diagnostic As directed cholecalciferol (vitamin D3) 25 mcg PO DAILY cyanocobalamin (vitamin B-12) (Vitamin B-12) 500 mcg PO DAILY ferrous sulfate 325 mg PO QAM glipizide 5 mg PO BID lancets (OneTouch Delica Plus Lancet) As directed metformin 1,000 mg PO DAILY metoprolol succinate ER 75 mg PO DAILY torsemide 100 mg PO DAILY triamcinolone acetonide 0.1% 1 appl topical BID warfarin See Protocol 5MG X1DAY/ 2.5MG X6DAYS; Nursing Note INR: 2.5- in therapeutic range of 2-3 Medications and supplements reviewed No changes in health, diet, medications, or supplements, Denies any signs and symptoms of bleeding or bruising or clotting. Bleeding, bruising, clotting discussed Nutritional guidance given Dose: 2.5mg x 2, 1.25mg x 5 F/U INR: 3 weeks Patient verbalizes understanding of instructions given Coding Level of Care Code Est Patient Level 1 Diagnoses Current use of anticoagulant therapy Z79.01 Results AMB INR Fingerstick AMB INR Fingerstick 2.5 Last Edit by Zoe Bruce RN on 03/03/23 11:34 Assessment & Plan Assessment & Plan (1) Current use of anticoagulant therapy: Code(s): Z79.01 - shelter (current) use of anticoagulants Category: Medical
[2023-03-03 11:34] LABS: Prothrombin Time Whole Bld POC 29.9 sec (11.1-13.5); ~PT, ~INR - Anti Coag Clinic 2.5 (0.9-1.1)
== END 2023-03-03 11:40 | disposition home or self-care (01) ==
LOC: HO.ACS 11:29
PROVIDERS: PCP Internal Medicine; Visit Provider Internal Medicine
DX: Z79.01 Long term (current) use of anticoagulants (principal)

== ENCOUNTER → 2023-03-03 11:29 | Outpatient (BNVA) | payer MEDICARE, SELFPAY | PROVIDERS: PCP Internal Medicine; Visit Provider Internal Medicine | DX: Z86.718 Personal history of other venous thrombosis and embolism (principal); Z79.01 Long term (current) use of anticoagulants; Z51.81 Encounter for therapeutic drug level monitoring | CPT/HCPCS: 85610; 99211 ==

== ENCOUNTER 2023-03-24 11:30 | Outpatient (AMB) | payer MEDICARE, SELFPAY ==
--- NOTE | 2023-03-24 11:34 | MHC.OFFVISCO ---
Intake Intake Visit Reasons: Anticoagulation Allergies shrimp Allergy (Mild, Verified 03/24/23 11:31) JUNE MeridaA. Allergy (Unknown, Uncoded 03/24/23 11:31) PT STATES NO KNOWN DRUG ALLERGIES Medication List - Last Reconciled 03/24/23 by Zoe Bruce RN atorvastatin 80 mg PO DAILY blood sugar diagnostic As directed cholecalciferol (vitamin D3) 25 mcg PO DAILY cyanocobalamin (vitamin B-12) (Vitamin B-12) 500 mcg PO DAILY ferrous sulfate 325 mg PO QAM glipizide 5 mg PO BID lancets (OneTouch Delica Plus Lancet) As directed metformin 1,000 mg PO DAILY metoprolol succinate ER 75 mg PO DAILY torsemide 100 mg PO DAILY triamcinolone acetonide 0.1% 1 appl topical BID warfarin See Protocol 5MG X1DAY/ 2.5MG X6DAYS; Nursing Note INR: 2.0- in therapeutic range of 2-3 Medications and supplements reviewed- taking mvi/ centrum silver- has 60mcg of vit k also had 2 vaccines 03/18/23 No changes in health, diet, medications, or supplements, Denies any signs and symptoms of bleeding or bruising or clotting. 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
[2023-03-24 11:36] LABS: Prothrombin Time Whole Bld POC 23.5 sec (11.1-13.5)
== END 2023-03-24 11:47 | disposition home or self-care (01) ==
LOC: HO.ACS 11:30
PROVIDERS: PCP Internal Medicine; Visit Provider Internal Medicine
DX: Z79.01 Long term (current) use of anticoagulants (principal)

== ENCOUNTER → 2023-03-24 11:30 | Outpatient (BNVA) | payer MEDICARE, SELFPAY | PROVIDERS: PCP Internal Medicine; Visit Provider Internal Medicine | DX: Z86.718 Personal history of other venous thrombosis and embolism (principal); Z79.01 Long term (current) use of anticoagulants; Z51.81 Encounter for therapeutic drug level monitoring | CPT/HCPCS: 85610; 99211 ==

== ENCOUNTER 2023-04-01 11:19 | Outpatient (AMB) | payer MEDICARE, SELFPAY ==
--- NOTE | 2023-04-01 11:37 | MHC.OFFVISCO ---
Intake Intake Visit Reasons: Anticoagulation Allergies shrimp Allergy (Mild, Verified 04/01/23 11:32) JUNE Sparrow Allergy (Unknown, Uncoded 04/01/23 11:32) PT STATES NO KNOWN DRUG ALLERGIES Medication List - Last Reconciled 04/01/23 by Zoe Bruce, RN atorvastatin 80 mg PO DAILY blood sugar diagnostic As directed cholecalciferol (vitamin D3) 25 mcg PO DAILY cyanocobalamin (vitamin B-12) (Vitamin B-12) 500 mcg PO DAILY ferrous sulfate 325 mg PO QAM glipizide 5 mg PO BID lancets (OneTouch Delica Plus Lancet) As directed metformin 1,000 mg PO DAILY metoprolol succinate ER 75 mg PO DAILY torsemide 100 mg PO DAILY triamcinolone acetonide 0.1% 1 appl topical BID warfarin See Protocol 5MG X1DAY/ 2.5MG X6DAYS; Nursing Note INR 1.8-?? out of therapeutic range of 2-3 Medications and supplements reviewed Patient status: pt states now has cirrhosis, he has been advised by pcp to stop etoh Medications or supplements: recent centrum silver mvi Diet: same Denies any signs and symptoms of bleeding or clotting or unusual bruising Bleeding, bruising, clotting discussed Nutritional guidance given: no greens for 2 days Dose: 2.5mg today and tomm , increase weekly dosing to 2.5mg x 3, 1.25mg x 4 F/U INR Date : 1 week?? Patient verbalizing understanding of instructions given. 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
[2023-04-01 11:38] LABS: Prothrombin Time Whole Bld POC 22.1 sec (11.1-13.5); ~PT, ~INR - Anti Coag Clinic 1.8 (0.9-1.1)
== END 2023-04-01 11:49 | disposition home or self-care (01) ==
LOC: HO.ACS 11:19
PROVIDERS: PCP Internal Medicine; Visit Provider Internal Medicine
DX: Z79.01 Long term (current) use of anticoagulants (principal)

== ENCOUNTER → 2023-04-01 11:19 | Outpatient (BNVA) | payer MEDICARE, SELFPAY | PROVIDERS: PCP Internal Medicine; Visit Provider Internal Medicine | DX: Z86.718 Personal history of other venous thrombosis and embolism (principal); Z79.01 Long term (current) use of anticoagulants; Z51.81 Encounter for therapeutic drug level monitoring | CPT/HCPCS: 85610; 99211 ==

== ENCOUNTER 2023-04-07 11:55 | Outpatient (AMB) | payer MEDICARE, SELFPAY ==
[2023-04-07 12:02] LABS: Prothrombin Time Whole Bld POC 22.6 sec (11.1-13.5); ~PT, ~INR - Anti Coag Clinic 1.9 (0.9-1.1)
--- NOTE | 2023-04-07 12:22 | MHC.OFFVISCO ---
Intake Intake Visit Reasons: Anticoagulation Allergies shrimp Allergy (Mild, Verified 04/07/23 11:56) JUNE MeridaA. Allergy (Unknown, Uncoded 04/07/23 11:56) PT STATES NO KNOWN DRUG ALLERGIES Medication List - Last Reconciled 04/07/23 by Mary Styles RN atorvastatin 80 mg PO DAILY blood sugar diagnostic As directed cholecalciferol (vitamin D3) 25 mcg PO DAILY cyanocobalamin (vitamin B-12) (Vitamin B-12) 500 mcg PO DAILY ferrous sulfate 325 mg PO QAM glipizide 5 mg PO BID lancets (OneTouch Delica Plus Lancet) As directed metformin 1,000 mg PO DAILY metoprolol succinate ER 75 mg PO DAILY gmwmiiffvitp-czanydve-vargyj 1 tab PO DAILY torsemide 100 mg PO DAILY triamcinolone acetonide 0.1% 1 appl topical BID warfarin See Protocol 5MG X1DAY/ 2.5MG X6DAYS; Nursing Note INR: 1.9 ALMOST in therapeutic range Medications and supplements reviewed has stopped ETOH due to cirrhosis and started and MVI both of which may lower INR Denies any signs and symptoms of bleeding or bruising or clotting. Bleeding, bruising, clotting discussed Nutritional guidance given - eat a mix of fruits and vegetables, have orange and reds today Dose: try dose again 2.5mg mwf/ 1.25mg x 4 days F/U INR: 2 weeks due to liver health Patient verbalizes understanding of instructions given Coding Level of Care Code Est Patient Level 1 Diagnoses Current use of anticoagulant therapy Z79.01 Assessment & Plan Assessment & Plan (1) Current use of anticoagulant therapy: Code(s): Z79.01 - custodial (current) use of anticoagulants Category: Medical
== END 2023-04-07 12:26 | disposition home or self-care (01) ==
LOC: HO.ACS 11:55
PROVIDERS: PCP Internal Medicine; Visit Provider Internal Medicine
DX: Z79.01 Long term (current) use of anticoagulants (principal)

== ENCOUNTER → 2023-04-07 11:55 | Outpatient (BNVA) | payer MEDICARE, SELFPAY | PROVIDERS: PCP Internal Medicine; Visit Provider Internal Medicine | DX: Z86.718 Personal history of other venous thrombosis and embolism (principal); Z79.01 Long term (current) use of anticoagulants; Z51.81 Encounter for therapeutic drug level monitoring | CPT/HCPCS: 85610; 99211 ==

== ENCOUNTER 2023-04-21 11:20 | Outpatient (AMB) | payer MEDICARE, SELFPAY ==
[2023-04-21 11:26] LABS: Prothrombin Time Whole Bld POC 21.3 sec (11.1-13.5); ~PT, ~INR - Anti Coag Clinic 1.8 (0.9-1.1)
--- NOTE | 2023-04-21 11:26 | MHC.OFFVISCO ---
Intake Intake Visit Reasons: Anticoagulation Allergies shrimp Allergy (Mild, Verified 04/21/23 11:21) JUNE MeridaA. Allergy (Unknown, Uncoded 04/21/23 11:21) PT STATES NO KNOWN DRUG ALLERGIES Medication List - Last Reconciled 04/21/23 by Zoe Bruce, RN atorvastatin 80 mg PO DAILY blood sugar diagnostic As directed cholecalciferol (vitamin D3) 25 mcg PO DAILY cyanocobalamin (vitamin B-12) (Vitamin B-12) 500 mcg PO DAILY ferrous sulfate 325 mg PO QAM glipizide 5 mg PO BID lancets (OneTouch Delica Plus Lancet) As directed metformin 1,000 mg PO DAILY metoprolol succinate ER 75 mg PO DAILY ddjioiqlwjnr-nwargdai-xydnze 1 tab PO DAILY torsemide 100 mg PO DAILY triamcinolone acetonide 0.1% 1 appl topical BID warfarin See Protocol 5MG X1DAY/ 2.5MG X6DAYS; Nursing Note INR 1.8-? out of therapeutic range of 2-3 Medications and supplements reviewed Patient status: denies missed dose Medications or supplements: no changes Diet: appetite good, ate greens Denies any signs and symptoms of bleeding or clotting or unusual bruising Bleeding, bruising, clotting discussed Nutritional guidance given: no greens for 2 days Dose: 2.5mg today and tomm, then increase weekly dosing 2.5mg x 4, 1.25mg x 3 F/U INR Date : 2 weeks? Patient verbalizing understanding of instructions given. 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
== END 2023-04-21 11:38 | disposition home or self-care (01) ==
LOC: HO.ACS 11:20
PROVIDERS: PCP Internal Medicine; Visit Provider Internal Medicine
DX: Z79.01 Long term (current) use of anticoagulants (principal)

== ENCOUNTER → 2023-04-21 11:20 | Outpatient (BNVA) | payer MEDICARE, SELFPAY | PROVIDERS: PCP Internal Medicine; Visit Provider Internal Medicine | DX: Z86.718 Personal history of other venous thrombosis and embolism (principal); Z79.01 Long term (current) use of anticoagulants; Z51.81 Encounter for therapeutic drug level monitoring | CPT/HCPCS: 85610; 99211 ==

== ENCOUNTER 2023-05-05 11:29 | Outpatient (AMB) | payer MEDICARE, SELFPAY ==
[2023-05-05 11:36] LABS: Prothrombin Time Whole Bld POC 20.2 sec (11.1-13.5); ~PT, ~INR - Anti Coag Clinic 1.7 (0.9-1.1)
--- NOTE | 2023-05-05 11:50 | MHC.OFFVISCO ---
Intake Intake Visit Reasons: Anticoagulation Allergies shrimp Allergy (Mild, Verified 05/05/23 11:30) HIVES PamKMichelaD.A. Allergy (Unknown, Uncoded 05/05/23 11:30) PT STATES NO KNOWN DRUG ALLERGIES Medication List - Last Reconciled 05/05/23 by Mary Styles RN atorvastatin 80 mg PO DAILY blood sugar diagnostic As directed cholecalciferol (vitamin D3) 25 mcg PO DAILY cyanocobalamin (vitamin B-12) (Vitamin B-12) 500 mcg PO DAILY ferrous sulfate 325 mg PO QAM glipizide 5 mg PO BID lancets (OneTouch Delica Plus Lancet) As directed metformin 1,000 mg PO DAILY metoprolol succinate ER 75 mg PO DAILY fluucfntjqvi-trcgwtlu-vyddnw 1 tab PO DAILY torsemide 100 mg PO DAILY triamcinolone acetonide 0.1% 1 appl topical BID warfarin See Protocol 2.5mg x 4, 1.25mg x 3 Nursing Note INR: 1.7 OUT OF therapeutic range Medications and supplements reviewed No changes in health, diet, medications, or supplements, Denies any signs and symptoms of bleeding or bruising or clotting. 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
== END 2023-05-05 11:57 | disposition home or self-care (01) ==
LOC: HO.ACS 11:29
PROVIDERS: PCP Internal Medicine; Visit Provider Internal Medicine
DX: Z79.01 Long term (current) use of anticoagulants (principal)

== ENCOUNTER → 2023-05-05 11:29 | Outpatient (BNVA) | payer MEDICARE, SELFPAY | PROVIDERS: PCP Internal Medicine; Visit Provider Internal Medicine | DX: Z86.718 Personal history of other venous thrombosis and embolism (principal); Z79.01 Long term (current) use of anticoagulants; Z51.81 Encounter for therapeutic drug level monitoring | CPT/HCPCS: 85610; 99211 ==

== ENCOUNTER 2023-05-12 11:26 | Outpatient (AMB) | payer MEDICARE, SELFPAY ==
[2023-05-12 11:33] LABS: Prothrombin Time Whole Bld POC 24.3 sec (11.1-13.5)
--- NOTE | 2023-05-12 11:34 | MHC.OFFVISCO ---
Intake Intake Visit Reasons: Anticoagulation Allergies shrimp Allergy (Mild, Verified 05/12/23 11:27) HIVMARIO MeridaA. Allergy (Unknown, Uncoded 05/12/23 11:27) PT STATES NO KNOWN DRUG ALLERGIES Medication List - Last Reconciled 05/12/23 by Zoe Bruce, RN atorvastatin 80 mg PO DAILY blood sugar diagnostic As directed cholecalciferol (vitamin D3) 25 mcg PO DAILY cyanocobalamin (vitamin B-12) (Vitamin B-12) 500 mcg PO DAILY ferrous sulfate 325 mg PO QAM glipizide 5 mg PO BID lancets (OneTouch Delica Plus Lancet) As directed metformin 1,000 mg PO DAILY metoprolol succinate ER 75 mg PO DAILY [id number]-rtfvfrfv-xobwkp 1 tab PO DAILY torsemide 100 mg PO DAILY triamcinolone acetonide 0.1% 1 appl topical BID warfarin See Protocol 2.5mg x 4, 1.25mg x 3 Nursing Note INR: 2.0- in therapeutic range of 2-3 Medications and supplements reviewed No changes in health, diet, medications, or supplements, Denies any signs and symptoms of bleeding or bruising or clotting. Bleeding, bruising, clotting discussed Nutritional guidance given - no greens for 2 days, eat a red today Dose: 2.5mg x 6, 1.25mg x 1 F/U INR: 2 weeks Patient verbalizes understanding of instructions given Coding Level of Care Code Est Patient Level 1 Diagnoses Current use of anticoagulant therapy Z79.01 Assessment & Plan Assessment & Plan (1) Current use of anticoagulant therapy: Code(s): Z79.01 - [facility] (current) use of anticoagulants Category: Medical
== END 2023-05-12 11:43 | disposition home or self-care (01) ==
LOC: HO.ACS 11:26
PROVIDERS: PCP Internal Medicine; Visit Provider Internal Medicine
DX: Z79.01 Long term (current) use of anticoagulants (principal)

== ENCOUNTER → 2023-05-12 11:26 | Outpatient (BNVA) | payer MEDICARE, SELFPAY | PROVIDERS: PCP Internal Medicine; Visit Provider Internal Medicine | DX: Z86.718 Personal history of other venous thrombosis and embolism (principal); Z51.81 Encounter for therapeutic drug level monitoring; Z79.01 Long term (current) use of anticoagulants | CPT/HCPCS: 85610; 99211 ==

== ENCOUNTER 2023-05-26 11:32 | Outpatient (AMB) | payer MEDICARE, SELFPAY ==
--- NOTE | 2023-05-26 11:41 | MHC.OFFVISCO ---
Intake Intake Visit Reasons: Anticoagulation Allergies shrimp Allergy (Mild, Verified 05/26/23 11:37) HIVES FuadA. Allergy (Unknown, Uncoded 05/26/23 11:37) PT STATES NO KNOWN DRUG ALLERGIES Medication List - Last Reconciled 05/26/23 by Zoe Bruce, RN atorvastatin 80 mg PO DAILY blood sugar diagnostic As directed cholecalciferol (vitamin D3) 25 mcg PO DAILY cyanocobalamin (vitamin B-12) (Vitamin B-12) 500 mcg PO DAILY ferrous sulfate 325 mg PO QAM glipizide 5 mg PO BID lancets (OneTouch Delica Plus Lancet) As directed metformin 1,000 mg PO DAILY metoprolol succinate ER 75 mg PO DAILY emxzeoffimfv-efjvokqx-wkktei 1 tab PO DAILY torsemide 100 mg PO DAILY triamcinolone acetonide 0.1% 1 appl topical BID warfarin See Protocol 2.5mg x 4, 1.25mg x 3 Nursing Note INR: 2.3- in therapeutic range of 2-3 Medications and supplements reviewed- no changes, however stopped mvi approx 2 weeks ago/centrum silver No changes in health, diet, medications, or supplements, Denies any signs and symptoms of bleeding or bruising or clotting. 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
[2023-05-26 11:42] LABS: Prothrombin Time Whole Bld POC 27.2 sec (11.1-13.5); ~PT, ~INR - Anti Coag Clinic 2.3 (0.9-1.1)
== END 2023-05-26 11:57 | disposition home or self-care (01) ==
LOC: HO.ACS 11:32
PROVIDERS: PCP Internal Medicine; Visit Provider Internal Medicine
DX: Z79.01 Long term (current) use of anticoagulants (principal)

== ENCOUNTER → 2023-05-26 11:32 | Outpatient (BNVA) | payer MEDICARE, SELFPAY | PROVIDERS: PCP Internal Medicine; Visit Provider Internal Medicine | DX: I82.622 Acute embolism and thrombosis of deep veins of left upper extremity (principal); Z79.01 Long term (current) use of anticoagulants; Z51.81 Encounter for therapeutic drug level monitoring | CPT/HCPCS: 85610; 99211 ==

== ENCOUNTER 2023-06-09 11:27 | Outpatient (AMB) | payer MEDICARE, SELFPAY ==
--- NOTE | 2023-06-09 11:31 | MHC.OFFVISCO ---
Intake Intake Visit Reasons: Anticoagulation Allergies shrimp Allergy (Mild, Verified 06/09/23 11:27) HIVES NMichelaKMichelaD.A. Allergy (Unknown, Uncoded 06/09/23 11:27) PT STATES NO KNOWN DRUG ALLERGIES Medication List - Last Reconciled 06/09/23 by Zoe Bruce, RN atorvastatin 80 mg PO DAILY blood sugar diagnostic As directed cholecalciferol (vitamin D3) 25 mcg PO DAILY cyanocobalamin (vitamin B-12) (Vitamin B-12) 500 mcg PO DAILY ferrous sulfate 325 mg PO QAM glipizide 5 mg PO BID lancets (OneTouch Delica Plus Lancet) As directed metformin 1,000 mg PO DAILY metoprolol succinate ER 75 mg PO DAILY [id number]-[id number] 1 tab PO DAILY torsemide 100 mg PO DAILY triamcinolone acetonide 0.1% 1 appl topical BID warfarin See Protocol 2.5mg x 4, 1.25mg x 3 Nursing Note INR received from [facility] INR?? 1.8- out of therapeutic range of 2-3j pt states missed a dose on wednesday dosing- 3.75mg today then 2.5mg x 6, 1.25mg x 1 No changes indicated per patient assessment questionnaire No changes in health, diet, supplements or meds No signs and symptoms of bleeding or bruising or clotting- no further nosebleeds Retest 2 weeks Coding Level of Care Code Est Patient Level 1 Diagnoses Current use of anticoagulant therapy Z79.01 Results AMB INR Fingerstick AMB INR Fingerstick 1.8 Last Edit by Zoe Bruce RN on 06/09/23 11:34 Assessment & Plan Assessment & Plan (1) Current use of anticoagulant therapy: Code(s): Z79.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
== END 2023-06-09 11:40 | disposition home or self-care (01) ==
LOC: HO.ACS 11:27
PROVIDERS: PCP Internal Medicine; Visit Provider Internal Medicine
DX: Z79.01 Long term (current) use of anticoagulants (principal)

== ENCOUNTER → 2023-06-09 11:27 | Outpatient (BNVA) | payer MEDICARE, SELFPAY | PROVIDERS: PCP Internal Medicine; Visit Provider Internal Medicine | DX: Z86.718 Personal history of other venous thrombosis and embolism (principal); Z51.81 Encounter for therapeutic drug level monitoring; Z79.01 Long term (current) use of anticoagulants | CPT/HCPCS: 85610; 99211 ==

== ENCOUNTER 2023-06-23 11:38 | Outpatient (AMB) | payer MEDICARE, SELFPAY ==
--- NOTE | 2023-06-23 11:43 | MHC.OFFVISCO ---
Intake Intake Visit Reasons: Anticoagulation Allergies shrimp Allergy (Mild, Verified 06/23/23 11:38) HIVMARIO MeridaA. Allergy (Unknown, Uncoded 06/23/23 11:38) PT STATES NO KNOWN DRUG ALLERGIES Medication List - Last Reconciled 06/23/23 by Zoe Bruce, RN atorvastatin 80 mg PO DAILY blood sugar diagnostic As directed cholecalciferol (vitamin D3) 25 mcg PO DAILY cyanocobalamin (vitamin B-12) (Vitamin B-12) 500 mcg PO DAILY ferrous sulfate 325 mg PO QAM glipizide 5 mg PO BID lancets (OneTouch Delica Plus Lancet) As directed metformin 1,000 mg PO DAILY metoprolol succinate ER 75 mg PO DAILY wbcotmxguebs-andksrod-gryocf 1 tab PO DAILY torsemide 100 mg PO DAILY triamcinolone acetonide 0.1% 1 appl topical BID warfarin See Protocol 2.5mg x 4, 1.25mg x 3 Nursing Note INR: 2.4- in therapeutic range of 2-3 Medications and supplements reviewed- no changes No changes in health, diet, medications, or supplements, Denies any signs and symptoms of bleeding or bruising or clotting. Bleeding, bruising, clotting discussed - no nosebleeds Nutritional guidance given - balance Dose: 1.25mg x 1, 2.5mg x 6 F/U INR: pt req 3 weeks Patient verbalizes understanding of instructions given Coding Level of Care Code Est Patient Level 1 Diagnoses Current use of anticoagulant therapy Z79.01 Assessment & Plan Assessment & Plan (1) Current use of anticoagulant therapy: Code(s): Z79.01 - shelter (current) use of anticoagulants Category: Medical
[2023-06-23 11:44] LABS: Prothrombin Time Whole Bld POC 28.4 sec (11.1-13.5); ~PT, ~INR - Anti Coag Clinic 2.4 (0.9-1.1)
== END 2023-06-23 11:50 | disposition home or self-care (01) ==
LOC: HO.ACS 11:38
PROVIDERS: PCP Internal Medicine; Visit Provider Internal Medicine
DX: Z79.01 Long term (current) use of anticoagulants (principal)

== ENCOUNTER → 2023-06-23 11:38 | Outpatient (BNVA) | payer MEDICARE, SELFPAY | PROVIDERS: PCP Internal Medicine; Visit Provider Internal Medicine | DX: Z86.718 Personal history of other venous thrombosis and embolism (principal); Z79.01 Long term (current) use of anticoagulants; Z51.81 Encounter for therapeutic drug level monitoring | CPT/HCPCS: 85610; 99211 ==

== ENCOUNTER 2023-07-14 12:59 | Outpatient (AMB) | payer MEDICARE, SELFPAY ==
[2023-07-14 13:08] LABS: Prothrombin Time Whole Bld POC 28.6 sec (11.1-13.5); ~PT, ~INR - Anti Coag Clinic 2.4 (0.9-1.1)
--- NOTE | 2023-07-14 13:23 | MHC.OFFVISCO ---
Intake Intake Visit Reasons: Anticoagulation Allergies shrimp Allergy (Mild, Verified 07/14/23 13:01) JUNE MeridaA. Allergy (Unknown, Uncoded 06/23/23 11:38) PT STATES NO KNOWN DRUG ALLERGIES Medication List - Last Reconciled 07/14/23 by Frieda Manley RN atorvastatin 80 mg PO DAILY blood sugar diagnostic As directed cholecalciferol (vitamin D3) 25 mcg PO DAILY cyanocobalamin (vitamin B-12) (Vitamin B-12) 500 mcg PO DAILY ferrous sulfate 325 mg PO QAM glipizide 5 mg PO BID lancets (OneTouch Delica Plus Lancet) As directed metformin 1,000 mg PO DAILY metoprolol succinate ER 75 mg PO DAILY liulmmdcpiwg-hxpgzonm-fciiee 1 tab PO DAILY torsemide 100 mg PO DAILY triamcinolone acetonide 0.1% 1 appl topical BID warfarin See Protocol 2.5mg x 4, 1.25mg x 3 Nursing Note NO CP,SOB,DIET/MED CHANGES,FALLS OR SX OF BLEEDING. CONTINUE PRESENT DOSE AND FOLLOW-UP IN 4 WEEKS. GOOD UNDERSTANDING OF DOSING INSTR./ Coding Level of Care Code Est Patient Level 1 Diagnoses Current use of anticoagulant therapy Z79.01 Assessment & Plan Assessment & Plan (1) Current use of anticoagulant therapy: Code(s): Z79.01 - [facility] (current) use of anticoagulants Category: Medical
== END 2023-07-14 13:24 | disposition home or self-care (01) ==
LOC: HO.ACS 12:59
PROVIDERS: PCP Internal Medicine; Visit Provider Internal Medicine
DX: Z79.01 Long term (current) use of anticoagulants (principal)

== ENCOUNTER → 2023-07-14 12:59 | Outpatient (BNVA) | payer MEDICARE, SELFPAY | PROVIDERS: PCP Internal Medicine; Visit Provider Internal Medicine | DX: Z86.718 Personal history of other venous thrombosis and embolism (principal); Z79.01 Long term (current) use of anticoagulants; Z51.81 Encounter for therapeutic drug level monitoring | CPT/HCPCS: 85610; 99211 ==

== ENCOUNTER 2023-08-11 12:59 | Outpatient (AMB) | payer MEDICARE, SELFPAY ==
--- NOTE | 2023-08-11 13:04 | MHC.OFFVISCO ---
Intake Intake Visit Reasons: Anticoagulation Allergies shrimp Allergy (Mild, Verified 08/11/23 13:01) JUNE MeridaA. Allergy (Unknown, Uncoded 08/11/23 13:01) PT STATES NO KNOWN DRUG ALLERGIES Medication List - Last Reconciled 08/11/23 by Zoe Bruce, RN atorvastatin 80 mg PO DAILY blood sugar diagnostic As directed cholecalciferol (vitamin D3) 25 mcg PO DAILY cyanocobalamin (vitamin B-12) (Vitamin B-12) 500 mcg PO DAILY ferrous sulfate 325 mg PO QAM glipizide 5 mg PO BID lancets (OneTouch Delica Plus Lancet) As directed metformin 1,000 mg PO DAILY metoprolol succinate ER 75 mg PO DAILY scbwrmqyjtmi-gfozdvfi-uekcxe 1 tab PO DAILY torsemide 100 mg PO DAILY triamcinolone acetonide 0.1% 1 appl topical BID warfarin See Protocol 2.5mg x 4, 1.25mg x 3 Nursing Note INR: 2.9-in therapeutic range Medications and supplements reviewed- no changes No changes in health, diet, medications, or supplements, Denies any signs and symptoms of bleeding or bruising or clotting. Bleeding, bruising, clotting discussed Nutritional guidance given Dose: 2.5mg x 6, `1.25mg x 1 F/U INR: 4 weeks Patient verbalizes understanding of instructions given Coding Level of Care Code Est Patient Level 1 Diagnoses Current use of anticoagulant therapy Z79.01 Assessment & Plan Assessment & Plan (1) Current use of anticoagulant therapy: Code(s): Z79.01 - nursing home (current) use of anticoagulants Category: Medical
[2023-08-11 13:05] LABS: Prothrombin Time Whole Bld POC 34.2 sec (11.1-13.5); ~PT, ~INR - Anti Coag Clinic 2.9 (0.9-1.1)
== END 2023-08-11 13:12 | disposition home or self-care (01) ==
LOC: HO.ACS 12:59
PROVIDERS: PCP Internal Medicine; Visit Provider Internal Medicine
DX: Z79.01 Long term (current) use of anticoagulants (principal)

== ENCOUNTER → 2023-08-11 12:59 | Outpatient (BNVA) | payer MEDICARE, SELFPAY | PROVIDERS: PCP Internal Medicine; Visit Provider Internal Medicine | DX: Z86.718 Personal history of other venous thrombosis and embolism (principal); Z51.81 Encounter for therapeutic drug level monitoring; Z79.01 Long term (current) use of anticoagulants | CPT/HCPCS: 85610; 99211 ==

== ENCOUNTER 2023-09-08 12:57 | Outpatient (AMB) | payer MEDICARE, SELFPAY ==
--- NOTE | 2023-09-08 13:07 | MHC.OFFVISCO ---
Intake Intake Visit Reasons: Anticoagulation Allergies shrimp Allergy (Mild, Verified 09/08/23 13:02) HIVMARIO MeridaA. Allergy (Unknown, Uncoded 09/08/23 13:02) PT STATES NO KNOWN DRUG ALLERGIES Medication List - Last Reconciled 09/08/23 by Zoe Bruce RN atorvastatin 80 mg PO DAILY blood sugar diagnostic As directed cholecalciferol (vitamin D3) 25 mcg PO DAILY cyanocobalamin (vitamin B-12) (Vitamin B-12) 500 mcg PO DAILY glipizide 5 mg PO BID lancets (OneTouch Delica Plus Lancet) As directed metformin 1,000 mg PO DAILY metoprolol succinate ER 75 mg PO DAILY teltzhgaqpga-bajdjddv-ykxiwz 1 tab PO DAILY torsemide 100 mg PO DAILY triamcinolone acetonide 0.1% 1 appl topical BID warfarin See Protocol 2.5mg x 4, 1.25mg x 3 Nursing Note INR: 2.3- in therapeutic range of 2-3 Medications and supplements reviewed- no longer taking ferrous sulfate- no interaction with warfarin per micromedex and up to date No changes in health, diet, medications, or supplements, Denies any signs and symptoms of bleeding or bruising or clotting. Bleeding, bruising, clotting discussed Nutritional guidance given Dose: 2.5mg x 6, 1.25mg x 1 F/U INR: 4 weeks Patient verbalizes understanding of instructions given pt states self dosed and took 1.25mg when he had etoh- aware etoh raises inr. pt aware he must follow dosing Coding Level of Care Code Est Patient Level 1 Diagnoses Current use of anticoagulant therapy Z79.01 Results AMB INR Fingerstick AMB INR Fingerstick 2.3 Last Edit by Zoe Bruce RN on 09/08/23 13:09 Assessment & Plan Assessment & Plan (1) Current use of anticoagulant therapy: Code(s): Z79.01 - [facility] (current) use of anticoagulants Category: Medical
[2023-09-08 13:09] LABS: Prothrombin Time Whole Bld POC 27.2 sec (11.1-13.5); ~PT, ~INR - Anti Coag Clinic 2.3 (0.9-1.1)
== END 2023-09-08 13:18 | disposition home or self-care (01) ==
LOC: HO.ACS 12:57
PROVIDERS: PCP Internal Medicine; Visit Provider Internal Medicine
DX: Z79.01 Long term (current) use of anticoagulants (principal)

== ENCOUNTER → 2023-09-08 12:57 | Outpatient (BNVA) | payer MEDICARE, SELFPAY | PROVIDERS: PCP Internal Medicine; Visit Provider Internal Medicine | DX: Z86.718 Personal history of other venous thrombosis and embolism (principal); Z79.01 Long term (current) use of anticoagulants; Z51.81 Encounter for therapeutic drug level monitoring | CPT/HCPCS: 85610; 99211 ==

== ENCOUNTER 2023-10-07 12:59 | Outpatient (AMB) | payer MEDICARE, SELFPAY ==
[2023-10-07 13:12] LABS: Prothrombin Time Whole Bld POC 51.3 sec (11.1-13.5); ~PT, ~INR - Anti Coag Clinic 4.3 (0.9-1.1)
--- NOTE | 2023-10-07 13:22 | MHC.OFFVISCO ---
Intake Intake Visit Reasons: Anticoagulation Allergies shrimp Allergy (Mild, Verified 10/07/23 13:05) JUNE Sparrow Allergy (Unknown, Uncoded 10/07/23 13:05) PT STATES NO KNOWN DRUG ALLERGIES Medication List - Last Reconciled 10/07/23 by Mary Styles RN atorvastatin 80 mg PO DAILY blood sugar diagnostic As directed cholecalciferol (vitamin D3) 25 mcg PO DAILY cyanocobalamin (vitamin B-12) (Vitamin B-12) 500 mcg PO DAILY glipizide 5 mg PO BID lancets (OneTouch Delica Plus Lancet) As directed metformin 1,000 mg PO DAILY metoprolol succinate ER 75 mg PO DAILY torsemide 100 mg PO DAILY triamcinolone acetonide 0.1% 1 appl topical BID warfarin See Protocol 2.5mg x 4, 1.25mg x 3 Nursing Note INR 4.3?? out of therapeutic range Medications and supplements reviewed Patient status: To have labs and some kind of test to be done - pt not sure what it is and to call name of test Medications or supplements: no longer taking MVI Diet: has been eating more fruits like grapes, and had a few beers recently and tylenol last week Denies any signs and symptoms of bleeding or clotting or unusual bruising Bleeding, bruising, clotting discussed Nutritional guidance given: greens today Dose: hold today then resume usual dose 1.25mg x 1 day/ 2.5mg x 6 days F/U INR Date: 2 weeks?? Patient verbalizing understanding of instructions given. Coding Level of Care Code Est Patient Level 1 Diagnoses Current use of anticoagulant therapy Z79.01 Assessment & Plan Assessment & Plan (1) Current use of anticoagulant therapy: Code(s): Z79.01 - correction (current) use of anticoagulants Category: Medical
== END 2023-10-07 13:30 | disposition home or self-care (01) ==
LOC: HO.ACS 12:59
PROVIDERS: PCP Internal Medicine; Visit Provider Internal Medicine
DX: Z79.01 Long term (current) use of anticoagulants (principal)

== ENCOUNTER → 2023-10-07 12:59 | Outpatient (BNVA) | payer MEDICARE, SELFPAY | PROVIDERS: PCP Internal Medicine; Visit Provider Internal Medicine | DX: Z86.718 Personal history of other venous thrombosis and embolism (principal); Z79.01 Long term (current) use of anticoagulants; Z51.81 Encounter for therapeutic drug level monitoring | CPT/HCPCS: 85610; 99211 ==

== ENCOUNTER 2023-10-21 13:38 | Outpatient (AMB) | payer MEDICARE, SELFPAY ==
[2023-10-21 13:49] LABS: Prothrombin Time Whole Bld POC 39.4 sec (11.1-13.5); ~PT, ~INR - Anti Coag Clinic 3.3 (0.9-1.1)
--- NOTE | 2023-10-21 13:57 | MHC.OFFVISCO ---
Intake Intake Visit Reasons: Anticoagulation Allergies shrimp Allergy (Mild, Verified 10/21/23 13:45) JUNE Shahid. Allergy (Unknown, Uncoded 10/21/23 13:45) PT STATES NO KNOWN DRUG ALLERGIES Medication List - Last Reconciled 10/21/23 by Adelaida Alfaro, RN atorvastatin 80 mg PO DAILY blood sugar diagnostic As directed cholecalciferol (vitamin D3) 25 mcg PO DAILY cyanocobalamin (vitamin B-12) (Vitamin B-12) 500 mcg PO DAILY ferrous sulfate 325 mg PO DAILY glipizide 5 mg PO BID lancets (OneTouch Delica Plus Lancet) As directed metformin 1,000 mg PO DAILY metoprolol succinate ER 75 mg PO DAILY torsemide 100 mg PO DAILY triamcinolone acetonide 0.1% 1 appl topical BID warfarin See Protocol 2.5mg x 4, 1.25mg x 3 Nursing Note INR 3.3?out of therapeutic range of 2-3 Medications and supplements reviewed Patient status: feels well Medications or supplements: no changes Diet: pt states he eats different in the summer and now that weather is changing, hes eating less vegetables Denies any signs and symptoms of bleeding or clotting or unusual bruising Bleeding, bruising, clotting discussed Nutritional guidance given: have a serving of greens today. Food list reviewed. Dose: 2.5mg X 6 days and 1.25mg X 1 day F/U INR Date : 3 weeks?? Patient verbalizing understanding of instructions given. 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
== END 2023-10-21 14:00 | disposition home or self-care (01) ==
LOC: HO.ACS 13:38
PROVIDERS: PCP Internal Medicine; Visit Provider Internal Medicine
DX: Z79.01 Long term (current) use of anticoagulants (principal)

== ENCOUNTER → 2023-10-21 13:38 | Outpatient (BNVA) | payer MEDICARE, SELFPAY | PROVIDERS: PCP Internal Medicine; Visit Provider Internal Medicine | DX: Z86.718 Personal history of other venous thrombosis and embolism (principal); Z79.01 Long term (current) use of anticoagulants; Z51.81 Encounter for therapeutic drug level monitoring | CPT/HCPCS: 85610; 99211 ==

== ENCOUNTER 2023-11-10 11:29 | Outpatient (AMB) | payer MEDICARE, SELFPAY ==
[2023-11-10 11:39] LABS: Prothrombin Time Whole Bld POC 35.1 sec (11.1-13.5); ~PT, ~INR - Anti Coag Clinic 2.9 (0.9-1.1)
--- NOTE | 2023-11-10 11:39 | MHC.OFFVISCO ---
Intake Intake Visit Reasons: Anticoagulation Allergies shrimp Allergy (Mild, Verified 11/10/23 11:32) JUNE Sparrow Allergy (Unknown, Uncoded 11/10/23 11:32) PT STATES NO KNOWN DRUG ALLERGIES Medication List - Last Reconciled 11/10/23 by Zoe Bruce RN atorvastatin 80 mg PO DAILY blood sugar diagnostic As directed cholecalciferol (vitamin D3) 25 mcg PO DAILY clobetasol 0.05% topical BID cyanocobalamin (vitamin B-12) (Vitamin B-12) 500 mcg PO DAILY ferrous sulfate 325 mg PO DAILY glipizide 5 mg PO BID hydroxyzine pamoate 25 mg PO TID PRN lancets (OneTouch Delica Plus Lancet) As directed metformin 1,000 mg PO DAILY metoprolol succinate ER 75 mg PO DAILY torsemide 100 mg PO DAILY triamcinolone acetonide 0.1% 1 appl topical BID warfarin See Protocol 2.5mg x 4, 1.25mg x 3 Nursing Note INR: 2.9- in therapeutic range OF 2-3 Medications and supplements reviewed- topical hydroxyzine for itch prn- no interaction per micromedex No changes in health, diet, medications, or supplements, Denies any signs and symptoms of bleeding or bruising or clotting. Bleeding, bruising, clotting discussed Nutritional guidance given Dose: 1.25MG X 1, 2.5MG X6 F/U INR: 2 WEEKS Patient verbalizes understanding of instructions given pt unsure if missed a dose Questionnaires HAS-BLED Does the patient had uncontrolled Hypertension?: No Does the patient have renal disease?: No Does the patient have liver disease?: No (denies) Does the patient have a history of stroke?: No Has the patient had major bleeding or predisposition to bleeding?: Yes Does the patient have labile INRs?: No Is the patient over 65 years of age?: Yes Is the patient on medications that gives them a predisposition to bleeding?: Yes Does the patient use alcohol?: Yes HAS-BLED Score: 4 CHADSVASC Age: 75 or over Gender: Male Does the patient have a history of CHF?: No Does the patient have a history of Hypertension?: No Does the patient have a history of Stroke/TIA/Thromboembolism?: No Does the patient have a history of Vascular Disease (prior TX, PAD or aortic plaque)?: No Does the patient have a history of Diabetes?: Yes CHADS VACS Score: 3 Tacos Prediction Score Rsk VTE Active Cancer: No Previous VTE, excluding superficial vein thrombosis: Yes Reduced mobility: No Already known Thrombophilic Condition: No With-in last month Trauma and/or Surgery: No Elderly 70 year or older: Yes Heart and/or Respiratory Failure: No Acute Myocardial infarction and/or Ischemic Stroke: No Acute Infection and/or Rheumatologic Disorder: No (PT STATES A KID HE WAS ALWAYS SOB) Obesity (BMI 30 or greater): No Ongoing Hormonal Treatment: No Score: 4 Tacos Score less than 4; Low Risk of VTE Tacos Score 4 or greater; High Risk of VTE Coding Level of Care Code Est Patient Level 1 Diagnoses Current use of anticoagulant therapy Z79.01 Assessment & Plan Assessment & Plan (1) Current use of anticoagulant therapy: Code(s): 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
== END 2023-11-10 11:57 | disposition home or self-care (01) ==
LOC: HO.ACS 11:29
PROVIDERS: PCP Internal Medicine; Visit Provider Internal Medicine
DX: Z79.01 Long term (current) use of anticoagulants (principal)

== ENCOUNTER → 2023-11-10 11:29 | Outpatient (BNVA) | payer MEDICARE, SELFPAY | PROVIDERS: PCP Internal Medicine; Visit Provider Internal Medicine | DX: Z86.718 Personal history of other venous thrombosis and embolism (principal); Z79.01 Long term (current) use of anticoagulants; Z51.81 Encounter for therapeutic drug level monitoring | CPT/HCPCS: 85610; 99211 ==

== ENCOUNTER 2023-11-24 11:23 | Outpatient (AMB) | payer MEDICARE, SELFPAY ==
--- NOTE | 2023-11-24 11:41 | MHC.OFFVISCO ---
Intake Intake Visit Reasons: Anticoagulation Allergies shrimp Allergy (Mild, Verified 11/24/23 11:37) HIVMARIO NMichelaKGabby.A. Allergy (Unknown, Uncoded 11/24/23 11:37) PT STATES NO KNOWN DRUG ALLERGIES Medication List - Last Reconciled 11/24/23 by Zoe Bruce RN atorvastatin 80 mg PO DAILY blood sugar diagnostic As directed cholecalciferol (vitamin D3) 25 mcg PO DAILY clobetasol 0.05% topical BID cyanocobalamin (vitamin B-12) (Vitamin B-12) 500 mcg PO DAILY ferrous sulfate 325 mg PO DAILY glipizide 5 mg PO BID hydroxyzine pamoate 25 mg PO TID PRN lancets (OneTouch Delica Plus Lancet) As directed metformin 1,000 mg PO DAILY metoprolol succinate ER 75 mg PO DAILY torsemide 100 mg PO DAILY triamcinolone acetonide 0.1% 1 appl topical BID warfarin See Protocol 2.5mg x 4, 1.25mg x 3 Nursing Note INR 3.9-?? out of therapeutic range of 2-3 Medications and supplements reviewed Patient status: pt states had etoh Medications or supplements: flu vaccine wednesday Diet: same Denies any signs and symptoms of bleeding or clotting or unusual bruising Bleeding, bruising, clotting discussed Nutritional guidance given: eat greens to lower, no reds for 2 days Dose: no warfarin today- then cont reg 1.25mg x 1. 2.5mg x 6 F/U INR Date : pt req 2 weeks Patient verbalizing understanding of instructions given. 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
[2023-11-24 11:52] LABS: Prothrombin Time Whole Bld POC 47.2 sec (11.1-13.5); ~PT, ~INR - Anti Coag Clinic 3.9 (0.9-1.1)
== END 2023-11-24 11:51 | disposition home or self-care (01) ==
LOC: HO.ACS 11:23
PROVIDERS: PCP Internal Medicine; Visit Provider Internal Medicine
DX: Z79.01 Long term (current) use of anticoagulants (principal)

== ENCOUNTER → 2023-11-24 11:23 | Outpatient (BNVA) | payer MEDICARE, SELFPAY | PROVIDERS: PCP Internal Medicine; Visit Provider Internal Medicine | DX: Z86.718 Personal history of other venous thrombosis and embolism (principal); Z79.01 Long term (current) use of anticoagulants; Z51.81 Encounter for therapeutic drug level monitoring | CPT/HCPCS: 85610; 99211 ==

== ENCOUNTER 2023-12-08 11:28 | Outpatient (AMB) | payer MEDICARE, SELFPAY ==
[2023-12-08 11:42] LABS: Prothrombin Time Whole Bld POC 39.8 sec (11.1-13.5); ~PT, ~INR - Anti Coag Clinic 3.3 (0.9-1.1)
--- NOTE | 2023-12-08 11:51 | MHC.OFFVISCO ---
Intake Intake Visit Reasons: Anticoagulation Allergies shrimp Allergy (Mild, Verified 12/08/23 11:35) HIVES N.K.D.A. Allergy (Unknown, Uncoded 11/24/23 11:37) PT STATES NO KNOWN DRUG ALLERGIES Medication List - Last Reconciled 12/08/23 by Frieda Manley RN atorvastatin 80 mg PO DAILY blood sugar diagnostic As directed cholecalciferol (vitamin D3) 25 mcg PO DAILY clobetasol 0.05% topical BID cyanocobalamin (vitamin B-12) (Vitamin B-12) 500 mcg PO DAILY ferrous sulfate 325 mg PO DAILY glipizide 5 mg PO BID hydroxyzine pamoate 25 mg PO TID PRN lancets (OneTouch Delica Plus Lancet) As directed metformin 1,000 mg PO DAILY metoprolol succinate ER 75 mg PO DAILY torsemide 100 mg PO DAILY triamcinolone acetonide 0.1% 1 appl topical BID warfarin See Protocol 2.5mg x 4, 1.25mg x 3 Nursing Note NO CP,SOB,DIET/MED CHANGES,FALLS OR SX OF BLEEDING. REDUCE WEEKLY DOSE AND FOLLOW-UP IN 3 WEEKS. 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
== END 2023-12-08 11:52 | disposition home or self-care (01) ==
LOC: HO.ACS 11:28
PROVIDERS: PCP Internal Medicine; Visit Provider Internal Medicine
DX: Z79.01 Long term (current) use of anticoagulants (principal)

== ENCOUNTER → 2023-12-08 11:28 | Outpatient (BNVA) | payer MEDICARE, SELFPAY | PROVIDERS: PCP Internal Medicine; Visit Provider Internal Medicine | DX: Z86.718 Personal history of other venous thrombosis and embolism (principal); Z79.01 Long term (current) use of anticoagulants; Z51.81 Encounter for therapeutic drug level monitoring | CPT/HCPCS: 85610; 99211 ==

== ENCOUNTER 2023-12-29 11:33 | Outpatient (AMB) | payer MEDICARE, SELFPAY ==
--- NOTE | 2023-12-29 11:41 | MHC.OFFVISCO ---
Intake Intake Visit Reasons: Anticoagulation Allergies shrimp Allergy (Mild, Verified 12/29/23 11:37) HIVES N.K.D.A. Allergy (Unknown, Uncoded 12/29/23 11:37) PT STATES NO KNOWN DRUG ALLERGIES Medication List - Last Reconciled 12/29/23 by Zoe Bruce RN atorvastatin 80 mg PO DAILY blood sugar diagnostic As directed cholecalciferol (vitamin D3) 25 mcg PO DAILY clobetasol 0.05% topical BID cyanocobalamin (vitamin B-12) (Vitamin B-12) 500 mcg PO DAILY ferrous sulfate 325 mg PO DAILY glipizide 5 mg PO BID hydroxyzine pamoate 25 mg PO TID PRN lancets (OneTouch Delica Plus Lancet) As directed metformin 1,000 mg PO DAILY metoprolol succinate ER 75 mg PO DAILY torsemide 100 mg PO DAILY triamcinolone acetonide 0.1% 1 appl topical BID warfarin See Protocol 2.5mg x 4, 1.25mg x 3 Nursing Note INR: 2.6- in therapeutic range of 2-3 Medications and supplements reviewed No changes in health, diet, medications, or supplements, Denies any signs and symptoms of bleeding or bruising or clotting. Bleeding, bruising, clotting discussed Nutritional guidance given Dose: 1.25mg x 2, 2.5mg x 5 F/U INR: pt req 2 weeks Patient verbalizes understanding of instructions given pt c.o cold symptoms, bobby cough, yellow sputum, no fever at present - instructed to go to urgent care or pcp for f/u Coding Level of Care Code Est Patient Level 1 Diagnoses Current use of anticoagulant therapy Z79.01 Results AMB INR Fingerstick AMB INR Fingerstick 2.6 Last Edit by Zoe Bruce RN on 12/29/23 11:43 interface delay Assessment & Plan Assessment & Plan (1) Current use of anticoagulant therapy: Code(s): Z79.01 - half-way (current) use of anticoagulants Category: Medical
[2023-12-30 09:30] LABS: Prothrombin Time Whole Bld POC 31.6 sec (11.1-13.5); ~PT, ~INR - Anti Coag Clinic 2.6 (0.9-1.1)
== END 2023-12-29 11:48 | disposition home or self-care (01) ==
LOC: HO.ACS 11:33
PROVIDERS: PCP Internal Medicine; Visit Provider Internal Medicine
DX: Z79.01 Long term (current) use of anticoagulants (principal)

== ENCOUNTER → 2023-12-29 11:33 | Outpatient (BNVA) | payer MEDICARE, SELFPAY | PROVIDERS: PCP Internal Medicine; Visit Provider Internal Medicine | DX: Z86.718 Personal history of other venous thrombosis and embolism (principal); Z79.01 Long term (current) use of anticoagulants; Z51.81 Encounter for therapeutic drug level monitoring | CPT/HCPCS: 85610; 99211 ==

== ENCOUNTER 2024-01-12 11:36 | Outpatient (AMB) | payer MEDICARE, SELFPAY ==
[2024-01-12 11:42] LABS: Prothrombin Time Whole Bld POC 37.6 sec (11.1-13.5); ~PT, ~INR - Anti Coag Clinic 3.1 (0.9-1.1)
--- NOTE | 2024-01-12 11:51 | MHC.OFFVISCO ---
Intake Intake Visit Reasons: Anticoagulation Allergies shrimp Allergy (Mild, Verified 01/12/24 11:37) JUNE MeridaA. Allergy (Unknown, Uncoded 12/29/23 11:37) PT STATES NO KNOWN DRUG ALLERGIES Medication List - Last Reconciled 01/12/24 by Frieda Manley RN atorvastatin 80 mg PO DAILY blood sugar diagnostic As directed cholecalciferol (vitamin D3) 25 mcg PO DAILY clobetasol 0.05% topical BID cyanocobalamin (vitamin B-12) (Vitamin B-12) 500 mcg PO DAILY ferrous sulfate 325 mg PO DAILY glipizide 5 mg PO BID hydroxyzine pamoate 25 mg PO TID PRN lancets (OneTouch Delica Plus Lancet) As directed metformin 1,000 mg PO DAILY metoprolol succinate ER 75 mg PO DAILY torsemide 100 mg PO DAILY triamcinolone acetonide 0.1% 1 appl topical BID warfarin See Protocol 2.5mg x 4, 1.25mg x 3 Nursing Note NO CP,SOB,DIET/MED CHANGES,FALLS OR SX OF BLEEDING. CONTINUE PRESENT DOSE AND FOLLOW-UP IN 3 WEEKS. PATRICIA DOS SANTOS GOOD UNDERSTANDING OF DOSING INSTR. 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
== END 2024-01-12 12:13 | disposition home or self-care (01) ==
LOC: HO.ACS 11:36
PROVIDERS: PCP Internal Medicine; Visit Provider Internal Medicine
DX: Z79.01 Long term (current) use of anticoagulants (principal)

== ENCOUNTER → 2024-01-12 11:36 | Outpatient (BNVA) | payer MEDICARE, SELFPAY | PROVIDERS: PCP Internal Medicine; Visit Provider Internal Medicine | DX: Z86.718 Personal history of other venous thrombosis and embolism (principal); Z79.01 Long term (current) use of anticoagulants; Z51.81 Encounter for therapeutic drug level monitoring | CPT/HCPCS: 85610; 99211 ==

== ENCOUNTER 2024-01-31 11:24 | Outpatient (AMB) | payer MEDICARE, SELFPAY ==
--- NOTE | 2024-01-31 11:30 | MHC.OFFVISCO ---
Intake Intake Visit Reasons: Anticoagulation Allergies shrimp Allergy (Mild, Verified 01/31/24 11:26) HIVES N.K.D.A. Allergy (Unknown, Uncoded 01/31/24 11:26) PT STATES NO KNOWN DRUG ALLERGIES Medication List - Last Reconciled 01/31/24 by Zoe Bruce RN atorvastatin 80 mg PO DAILY blood sugar diagnostic As directed cholecalciferol (vitamin D3) 25 mcg PO DAILY clobetasol 0.05% topical BID cyanocobalamin (vitamin B-12) (Vitamin B-12) 500 mcg PO DAILY ferrous sulfate 325 mg PO DAILY glipizide 5 mg PO BID hydroxyzine pamoate 25 mg PO TID PRN lancets (OneTouch Delica Plus Lancet) As directed metformin 1,000 mg PO DAILY metoprolol succinate ER 75 mg PO DAILY torsemide 100 mg PO DAILY triamcinolone acetonide 0.1% 1 appl topical BID warfarin See Protocol 2.5mg x 4, 1.25mg x 3 Nursing Note INR: 2.8- in therapeutic range of 2-3 Medications and supplements reviewed- no changes No changes in health, diet, medications, or supplements, Denies any signs and symptoms of bleeding or bruising or clotting. Bleeding, bruising, clotting discussed Nutritional guidance given Dose: 1,25ng x 2m 2,5ng x 5 F/U INR: 3 weeks Patient verbalizes understanding of instructions given Coding Level of Care Code Est Patient Level 1 Diagnoses Current use of anticoagulant therapy Z79.01 Results AMB INR Fingerstick AMB INR Fingerstick 2.8 Last Edit by Zoe Bruce RN on 01/31/24 11:31 Assessment & Plan Assessment & Plan (1) Current use of anticoagulant therapy: Code(s): Z79.01 - retirement (current) use of anticoagulants Category: Medical
[2024-01-31 11:32] LABS: ~PT, ~INR - Anti Coag Clinic 2.8 (0.9-1.1)
== END 2024-01-31 11:37 | disposition home or self-care (01) ==
LOC: HO.ACS 11:24
PROVIDERS: PCP Internal Medicine; Visit Provider Internal Medicine
DX: Z79.01 Long term (current) use of anticoagulants (principal)

== ENCOUNTER → 2024-01-31 11:24 | Outpatient (BNVA) | payer MEDICARE, SELFPAY | PROVIDERS: PCP Internal Medicine; Visit Provider Internal Medicine | DX: Z86.718 Personal history of other venous thrombosis and embolism (principal); Z79.01 Long term (current) use of anticoagulants; Z51.81 Encounter for therapeutic drug level monitoring | CPT/HCPCS: 85610; 99211 ==

== ENCOUNTER 2024-02-23 11:33 | Outpatient (AMB) | payer MEDICARE, SELFPAY ==
[2024-02-23 11:47] LABS: Prothrombin Time Whole Bld POC 29.8 sec (11.1-13.5); ~PT, ~INR - Anti Coag Clinic 2.5 (0.9-1.1)
--- NOTE | 2024-02-23 11:59 | MHC.OFFVISCO ---
Intake Intake Visit Reasons: Anticoagulation Allergies shrimp Allergy (Mild, Verified 02/23/24 11:40) JUNE Shahid. Allergy (Unknown, Uncoded 01/31/24 11:26) PT STATES NO KNOWN DRUG ALLERGIES Medication List - Last Reconciled 02/23/24 by Frieda Manley RN atorvastatin 80 mg PO DAILY blood sugar diagnostic As directed cholecalciferol (vitamin D3) 25 mcg PO DAILY clobetasol 0.05% topical BID cyanocobalamin (vitamin B-12) (Vitamin B-12) 500 mcg PO DAILY ferrous sulfate 325 mg PO DAILY glipizide 5 mg PO BID hydroxyzine pamoate 25 mg PO TID PRN lancets (OneTouch Delica Plus Lancet) As directed metformin 1,000 mg PO DAILY metoprolol succinate ER 75 mg PO DAILY torsemide 100 mg PO DAILY triamcinolone acetonide 0.1% 1 appl topical BID warfarin See Protocol 2.5mg x 4, 1.25mg x 3 Nursing Note NO CP,SOB,DIET/MED CHANGES,FALLS OR SX OF BLEEDING. CONTINUE PRESENT DOSE AND FOLLOW-UP IN 4 WEEKS. GOOD UNDERSTANDING OF DOSING INSTR. 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
== END 2024-02-23 12:01 | disposition home or self-care (01) ==
LOC: HO.ACS 11:33
PROVIDERS: PCP Internal Medicine; Visit Provider Internal Medicine
DX: Z79.01 Long term (current) use of anticoagulants (principal)

== ENCOUNTER → 2024-02-23 11:33 | Outpatient (BNVA) | payer MEDICARE, SELFPAY | PROVIDERS: PCP Internal Medicine; Visit Provider Internal Medicine | DX: Z86.718 Personal history of other venous thrombosis and embolism (principal); Z79.01 Long term (current) use of anticoagulants; Z51.81 Encounter for therapeutic drug level monitoring | CPT/HCPCS: 85610; 99211 ==

== ENCOUNTER 2024-03-22 11:21 | Outpatient (AMB) | payer MEDICARE, SELFPAY ==
[2024-03-22 11:28] LABS: Prothrombin Time Whole Bld POC 28.3 sec (11.1-13.5); ~PT, ~INR - Anti Coag Clinic 2.4 (0.9-1.1)
--- NOTE | 2024-03-22 11:39 | MHC.OFFVISCO ---
Intake Intake Visit Reasons: Anticoagulation Allergies shrimp Allergy (Mild, Verified 03/22/24 11:23) JUNE Shahid. Allergy (Unknown, Uncoded 01/31/24 11:26) PT STATES NO KNOWN DRUG ALLERGIES Medication List - Last Reconciled 03/22/24 by Frieda Manley RN atorvastatin 80 mg PO DAILY blood sugar diagnostic As directed cholecalciferol (vitamin D3) 25 mcg PO DAILY clobetasol 0.05% topical BID cyanocobalamin (vitamin B-12) (Vitamin B-12) 500 mcg PO DAILY ferrous sulfate 325 mg PO DAILY glipizide 5 mg PO BID hydroxyzine pamoate 25 mg PO TID PRN lancets (OneTouch Delica Plus Lancet) As directed metformin 1,000 mg PO DAILY metoprolol succinate ER 75 mg PO DAILY torsemide 100 mg PO DAILY triamcinolone acetonide 0.1% 1 appl topical BID warfarin See Protocol 2.5mg x 4, 1.25mg x 3 Nursing Note NO CP,SOB,DIET/MED CHANGES,FALLS OR SX OF BLEEDING. CONTINUE PRESENT DOSE AND FOLLOW-UP IN 4 WEEKS. GOOD UNDERSTANDING OF DOSING INSTR. 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
== END 2024-03-22 11:41 | disposition home or self-care (01) ==
LOC: HO.ACS 11:21
PROVIDERS: PCP Internal Medicine; Visit Provider Internal Medicine
DX: Z79.01 Long term (current) use of anticoagulants (principal)

== ENCOUNTER → 2024-03-22 11:21 | Outpatient (BNVA) | payer MEDICARE, SELFPAY | PROVIDERS: PCP Internal Medicine; Visit Provider Internal Medicine | DX: Z86.718 Personal history of other venous thrombosis and embolism (principal); Z79.01 Long term (current) use of anticoagulants; Z51.81 Encounter for therapeutic drug level monitoring | CPT/HCPCS: 85610; 99211 ==

== ENCOUNTER 2024-04-19 11:33 | Outpatient (AMB) | payer MEDICARE, SELFPAY ==
--- NOTE | 2024-04-19 11:37 | MHC.OFFVISCO ---
Intake Intake Visit Reasons: Anticoagulation Allergies shrimp Allergy (Mild, Verified 04/19/24 11:33) JUNE Sparrow Allergy (Unknown, Uncoded 04/19/24 11:33) PT STATES NO KNOWN DRUG ALLERGIES Medication List - Last Reconciled 04/19/24 by Zoe Bruce RN atorvastatin 80 mg PO DAILY blood sugar diagnostic As directed cholecalciferol (vitamin D3) 25 mcg PO DAILY clobetasol 0.05% topical BID cyanocobalamin (vitamin B-12) (Vitamin B-12) 500 mcg PO DAILY ferrous sulfate 325 mg PO DAILY glipizide 5 mg PO BID hydroxyzine pamoate 25 mg PO TID PRN lancets (OneTouch Delica Plus Lancet) As directed metformin 1,000 mg PO DAILY metoprolol succinate ER 75 mg PO DAILY torsemide 100 mg PO DAILY triamcinolone acetonide 0.1% 1 appl topical BID warfarin See Protocol 2.5mg x 4, 1.25mg x 3 Nursing Note INR 4.3-?? out of therapeutic range of 2-3 Medications and supplements reviewed Patient status: pt with increased stress, states had etoh and dark chocolate Medications or supplements: no changes Diet: same Denies any signs and symptoms of bleeding or clotting or unusual bruising Bleeding, bruising, clotting discussed - aware risk of bleeding Nutritional guidance given: eat greens to lower, no reds for 2 days Dose: hold dose today then cont reg 1.25mg x 2. 5mg x 5 F/U INR Date : ??pt req 2 weeks Patient verbalizing understanding of instructions given. 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
[2024-04-19 11:38] LABS: Prothrombin Time Whole Bld POC 51.3 sec (11.1-13.5); ~PT, ~INR - Anti Coag Clinic 4.3 (0.9-1.1)
== END 2024-04-19 11:44 | disposition home or self-care (01) ==
LOC: HO.ACS 11:33
PROVIDERS: PCP Internal Medicine; Visit Provider Internal Medicine
DX: Z79.01 Long term (current) use of anticoagulants (principal)

== ENCOUNTER → 2024-04-19 11:33 | Outpatient (BNVA) | payer MEDICARE, SELFPAY | PROVIDERS: PCP Internal Medicine; Visit Provider Internal Medicine | DX: Z86.718 Personal history of other venous thrombosis and embolism (principal); Z79.01 Long term (current) use of anticoagulants; Z51.81 Encounter for therapeutic drug level monitoring | CPT/HCPCS: 85610; 99211 ==

== ENCOUNTER 2024-05-03 11:10 | Outpatient (AMB) | payer MEDICARE, SELFPAY ==
--- NOTE | 2024-05-03 11:21 | MHC.OFFVISCO ---
Intake Intake Visit Reasons: Anticoagulation Allergies shrimp Allergy (Mild, Verified 05/03/24 11:16) HIVES N.K.D.A. Allergy (Unknown, Uncoded 05/03/24 11:16) PT STATES NO KNOWN DRUG ALLERGIES Medication List - Last Reconciled 05/03/24 by Zoe Bruce RN atorvastatin 80 mg PO DAILY blood sugar diagnostic As directed cholecalciferol (vitamin D3) 25 mcg PO DAILY clobetasol 0.05% topical BID cyanocobalamin (vitamin B-12) (Vitamin B-12) 500 mcg PO DAILY ferrous sulfate 325 mg PO DAILY glipizide 5 mg PO BID hydroxyzine pamoate 25 mg PO TID PRN lancets (OneTouch Delica Plus Lancet) As directed metformin 1,000 mg PO DAILY metoprolol succinate ER 75 mg PO DAILY torsemide 100 mg PO BID triamcinolone acetonide 0.1% 1 appl topical BID warfarin See Protocol 2.5mg x 4, 1.25mg x 3 Nursing Note INR: 2.4- in therapeutic range 2-3 Medications and supplements reviewed- torsemide increased to bid due to issues with sob, but may decrease to daily soon per pt No changes in health, diet, medications, or supplements, Denies any signs and symptoms of bleeding or bruising or clotting. 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
[2024-05-03 15:50] LABS: Prothrombin Time Whole Bld POC 29.1 sec (11.1-13.5); ~PT, ~INR - Anti Coag Clinic 2.4 (0.9-1.1)
== END 2024-05-03 11:27 | disposition home or self-care (01) ==
LOC: HO.ACS 11:10
PROVIDERS: PCP Internal Medicine; Visit Provider Internal Medicine Medical Oncology
DX: Z79.01 Long term (current) use of anticoagulants (principal)

== ENCOUNTER → 2024-05-03 11:10 | Outpatient (BNVA) | payer MEDICARE, SELFPAY | PROVIDERS: PCP Internal Medicine; Visit Provider Internal Medicine Medical Oncology | DX: Z86.718 Personal history of other venous thrombosis and embolism (principal); Z51.81 Encounter for therapeutic drug level monitoring; Z79.01 Long term (current) use of anticoagulants | CPT/HCPCS: 85610; 99211 ==

== ENCOUNTER 2024-05-17 11:31 | Outpatient (AMB) | payer MEDICARE, SELFPAY ==
[2024-05-17 11:39] LABS: Prothrombin Time Whole Bld POC 40.1 sec (11.1-13.5); ~PT, ~INR - Anti Coag Clinic 3.3 (0.9-1.1)
--- NOTE | 2024-05-17 11:50 | MHC.OFFVISCO ---
Intake Intake Visit Reasons: Anticoagulation Allergies shrimp Allergy (Mild, Verified 05/17/24 11:32) JUNE MeridaA. Allergy (Unknown, Uncoded 05/03/24 11:16) PT STATES NO KNOWN DRUG ALLERGIES Medication List - Last Reconciled 05/17/24 by Frieda Manley RN atorvastatin 80 mg PO DAILY blood sugar diagnostic As directed cholecalciferol (vitamin D3) 25 mcg PO DAILY clobetasol 0.05% topical BID cyanocobalamin (vitamin B-12) (Vitamin B-12) 500 mcg PO DAILY ferrous sulfate 325 mg PO DAILY glipizide 5 mg PO BID hydroxyzine pamoate 25 mg PO TID PRN lancets (OneTouch Delica Plus Lancet) As directed metformin 1,000 mg PO DAILY metoprolol succinate ER 75 mg PO DAILY torsemide 100 mg PO BID triamcinolone acetonide 0.1% 1 appl topical BID warfarin See Protocol 2.5mg x 4, 1.25mg x 3 Nursing Note NO CP,SOB,DIET/MED CHANGES,FALLS OR SX OF BLEEDING. DECREASE DOSE TODAY THEN RESUME USUAL DOSING AND FOLLOW-UP IN 2 WEEKS. GREENS TODAY GOOD UNDERSTANDING VERB. Coding Level of Care Code Est Patient Level 1 Diagnoses Current use of anticoagulant therapy Z79.01 Assessment & Plan Assessment & Plan (1) Current use of anticoagulant therapy: Code(s): Z79.01 - custodial (current) use of anticoagulants Category: Medical
== END 2024-05-17 11:52 | disposition home or self-care (01) ==
LOC: HO.ACS 11:31
PROVIDERS: PCP Internal Medicine; Visit Provider Internal Medicine Medical Oncology
DX: Z79.01 Long term (current) use of anticoagulants (principal)

== ENCOUNTER → 2024-05-17 11:31 | Outpatient (BNVA) | payer MEDICARE, SELFPAY | PROVIDERS: PCP Internal Medicine; Visit Provider Internal Medicine Medical Oncology | DX: Z86.718 Personal history of other venous thrombosis and embolism (principal); Z79.01 Long term (current) use of anticoagulants; Z51.81 Encounter for therapeutic drug level monitoring | CPT/HCPCS: 85610; 99211 ==

== ENCOUNTER 2024-06-01 11:32 | Outpatient (AMB) | payer MEDICARE, SELFPAY ==
--- NOTE | 2024-06-01 11:47 | MHC.OFFVISCO ---
Intake Intake Visit Reasons: Anticoagulation Allergies shrimp Allergy (Mild, Verified 06/01/24 11:35) HIVES N.KMichelaD.A. Allergy (Unknown, Uncoded 06/01/24 11:35) PT STATES NO KNOWN DRUG ALLERGIES Medication List - Last Reconciled 06/01/24 by Adelaida Alfaro, RN atorvastatin 80 mg PO DAILY blood sugar diagnostic As directed cholecalciferol (vitamin D3) 25 mcg PO DAILY clobetasol 0.05% topical BID cyanocobalamin (vitamin B-12) (Vitamin B-12) 500 mcg PO DAILY ferrous sulfate 325 mg PO DAILY glipizide 5 mg PO BID hydroxyzine pamoate 25 mg PO TID PRN lancets (OneTouch Delica Plus Lancet) As directed metformin 1,000 mg PO DAILY metoprolol succinate ER 75 mg PO DAILY torsemide 100 mg PO BID triamcinolone acetonide 0.1% 1 appl topical BID warfarin See Protocol 2.5mg x 4, 1.25mg x 3 Nursing Note INR: 2.9 in therapeutic range of 2-3 Medications and supplements reviewed No changes in health, diet, medications, or supplements, Denies any signs and symptoms of bleeding or bruising or clotting. 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
[2024-06-01 11:49] LABS: Prothrombin Time Whole Bld POC 35.3 sec (11.1-13.5); ~PT, ~INR - Anti Coag Clinic 2.9 (0.9-1.1)
== END 2024-06-01 11:50 | disposition home or self-care (01) ==
LOC: HO.ACS 11:32
PROVIDERS: PCP Internal Medicine; Visit Provider Internal Medicine Medical Oncology
DX: Z79.01 Long term (current) use of anticoagulants (principal)

== ENCOUNTER → 2024-06-01 11:32 | Outpatient (BNVA) | payer MEDICARE, SELFPAY | PROVIDERS: PCP Internal Medicine; Visit Provider Internal Medicine Medical Oncology | DX: Z86.718 Personal history of other venous thrombosis and embolism (principal); Z79.01 Long term (current) use of anticoagulants; Z51.81 Encounter for therapeutic drug level monitoring | CPT/HCPCS: 85610; 99211 ==

== ENCOUNTER 2024-06-21 11:26 | Outpatient (AMB) | payer MEDICARE, SELFPAY ==
[2024-06-21 11:37] LABS: Prothrombin Time Whole Bld POC 40.7 sec (11.1-13.5); ~PT, ~INR - Anti Coag Clinic 3.4 (0.9-1.1)
--- NOTE | 2024-06-21 11:49 | MHC.OFFVISCO ---
Intake Intake Visit Reasons: Anticoagulation Allergies shrimp Allergy (Mild, Verified 06/21/24 11:31) JUNE MeridaA. Allergy (Unknown, Uncoded 06/01/24 11:35) PT STATES NO KNOWN DRUG ALLERGIES Medication List - Last Reconciled 06/21/24 by Frieda Manley RN atorvastatin 80 mg PO DAILY blood sugar diagnostic As directed cholecalciferol (vitamin D3) 25 mcg PO DAILY clobetasol 0.05% topical BID cyanocobalamin (vitamin B-12) (Vitamin B-12) 500 mcg PO DAILY ferrous sulfate 325 mg PO DAILY glipizide 5 mg PO BID hydroxyzine pamoate 25 mg PO TID PRN lancets (OneTouch Delica Plus Lancet) As directed metformin 1,000 mg PO DAILY metoprolol succinate ER 75 mg PO DAILY torsemide 100 mg PO BID triamcinolone acetonide 0.1% 1 appl topical BID warfarin See Protocol 2.5mg x 4, 1.25mg x 3 Nursing Note NO CP,SOB,DIET/MED CHANGES,FALLS OR SX OF BLEEDING. HOLD WARFARIN TODAY THEN RESUME USUAL DOSE AND FOLLOW-UP IN 3 WEEKS. GOOD UNDERSTANDING OF DOSING INSTR. Coding Level of Care Code Est Patient Level 1 Diagnoses Current use of anticoagulant therapy Z79.01 Assessment & Plan Assessment & Plan (1) Current use of anticoagulant therapy: Code(s): Z79.01 - [facility] (current) use of anticoagulants Category: Medical
== END 2024-06-21 11:51 | disposition home or self-care (01) ==
LOC: HO.ACS 11:26
PROVIDERS: PCP Internal Medicine; Visit Provider Internal Medicine Medical Oncology
DX: Z79.01 Long term (current) use of anticoagulants (principal)

== ENCOUNTER → 2024-06-21 11:26 | Outpatient (BNVA) | payer MEDICARE, SELFPAY | PROVIDERS: PCP Internal Medicine; Visit Provider Internal Medicine Medical Oncology | DX: Z86.718 Personal history of other venous thrombosis and embolism (principal); Z79.01 Long term (current) use of anticoagulants; Z51.81 Encounter for therapeutic drug level monitoring | CPT/HCPCS: 85610; 99211 ==

== ENCOUNTER 2024-07-12 11:20 | Outpatient (AMB) | payer MEDICARE, SELFPAY ==
[2024-07-12 11:28] LABS: Prothrombin Time Whole Bld POC 27.1 sec (11.1-13.5); ~PT, ~INR - Anti Coag Clinic 2.3 (0.9-1.1)
--- NOTE | 2024-07-12 11:33 | MHC.OFFVISCO ---
Intake Intake Visit Reasons: Anticoagulation Allergies shrimp Allergy (Mild, Verified 07/12/24 11:24) JUNE MeridaA. Allergy (Unknown, Uncoded 06/01/24 11:35) PT STATES NO KNOWN DRUG ALLERGIES Medication List - Last Reconciled 07/12/24 by Frieda Manley RN atorvastatin 80 mg PO DAILY blood sugar diagnostic As directed cholecalciferol (vitamin D3) 25 mcg PO DAILY clobetasol 0.05% topical BID cyanocobalamin (vitamin B-12) (Vitamin B-12) 500 mcg PO DAILY ferrous sulfate 325 mg PO DAILY glipizide 5 mg PO BID hydroxyzine pamoate 25 mg PO TID PRN lancets (OneTouch Delica Plus Lancet) As directed metformin 1,000 mg PO DAILY metoprolol succinate ER 75 mg PO DAILY torsemide 100 mg PO BID triamcinolone acetonide 0.1% 1 appl topical BID warfarin See Protocol 2.5mg x 4, 1.25mg x 3 Nursing Note NO CP,SOB,DIET/MED CHANGES,FALLS OR SX OF BLEEDING. CONTINUE PRESENT DOSING AND FOLLOW-UP IN 4 WEEKS GOOD UNDERSTANDING OF DOSING INSTR. Coding Level of Care Code Est Patient Level 1 Diagnoses Current use of anticoagulant therapy Z79.01 Assessment & Plan Assessment & Plan (1) Current use of anticoagulant therapy: Code(s): Z79.01 - senior care (current) use of anticoagulants Category: Medical
== END 2024-07-12 11:34 | disposition home or self-care (01) ==
LOC: HO.ACS 11:20
PROVIDERS: PCP Internal Medicine; Visit Provider Internal Medicine Medical Oncology
DX: Z79.01 Long term (current) use of anticoagulants (principal)

== ENCOUNTER → 2024-07-12 11:20 | Outpatient (BNVA) | payer MEDICARE, SELFPAY | PROVIDERS: PCP Internal Medicine; Visit Provider Internal Medicine Medical Oncology | DX: Z86.718 Personal history of other venous thrombosis and embolism (principal); Z79.01 Long term (current) use of anticoagulants; Z51.81 Encounter for therapeutic drug level monitoring | CPT/HCPCS: 85610; 99211 ==

== ENCOUNTER 2024-08-09 11:31 | Outpatient (AMB) | payer MEDICARE, SELFPAY ==
--- NOTE | 2024-08-09 11:39 | MHC.OFFVISCO ---
Intake Intake Visit Reasons: Anticoagulation Allergies shrimp Allergy (Mild, Verified 08/09/24 11:36) HIVES N.K.D.A. Allergy (Unknown, Uncoded 08/09/24 11:36) PT STATES NO KNOWN DRUG ALLERGIES Medication List - Last Reconciled 08/09/24 by Zoe Bruce RN atorvastatin 80 mg PO DAILY blood sugar diagnostic As directed cholecalciferol (vitamin D3) 25 mcg PO DAILY clobetasol 0.05% topical BID cyanocobalamin (vitamin B-12) (Vitamin B-12) 500 mcg PO DAILY ferrous sulfate 325 mg PO DAILY glipizide 5 mg PO BID hydroxyzine pamoate 25 mg PO TID PRN lancets (OneTouch Delica Plus Lancet) As directed metformin 1,000 mg PO DAILY metoprolol succinate ER 75 mg PO DAILY torsemide 100 mg PO BID triamcinolone acetonide 0.1% 1 appl topical BID warfarin See Protocol 2.5mg x 4, 1.25mg x 3 Nursing Note INR: 2.9- in therapeutic range 2-3 Medications and supplements reviewed- no changes No changes in health, diet, medications, or supplements, Denies any signs and symptoms of bleeding or bruising or clotting. Bleeding, bruising, clotting discussed Nutritional guidance given Dose: 1.25mg x 2, 2.5mg x 5 F/U INR: 4 weeks Patient verbalizes understanding of instructions given Coding Level of Care Code Est Patient Level 1 Diagnoses Current use of anticoagulant therapy Z79.01 Results AMB INR Fingerstick AMB INR Fingerstick 2.9 Last Edit by Zoe Bruce RN on 08/09/24 11:41 interface delay Assessment & Plan Assessment & Plan (1) Current use of anticoagulant therapy: Code(s): Z79.01 - assisted (current) use of anticoagulants Category: Medical
[2024-08-09 12:42] LABS: Prothrombin Time Whole Bld POC 34.8 sec (11.1-13.5); ~PT, ~INR - Anti Coag Clinic 2.9 (0.9-1.1)
== END 2024-08-09 11:51 | disposition home or self-care (01) ==
LOC: HO.ACS 11:31
PROVIDERS: PCP Internal Medicine; Visit Provider Internal Medicine Medical Oncology
DX: Z79.01 Long term (current) use of anticoagulants (principal)

== ENCOUNTER → 2024-08-09 11:31 | Outpatient (BNVA) | payer MEDICARE, SELFPAY | PROVIDERS: PCP Internal Medicine; Visit Provider Internal Medicine Medical Oncology | DX: Z86.718 Personal history of other venous thrombosis and embolism (principal); Z79.01 Long term (current) use of anticoagulants; Z51.81 Encounter for therapeutic drug level monitoring | CPT/HCPCS: 85610; 99211 ==

== ENCOUNTER 2024-09-06 11:11 | Outpatient (AMB) | payer MEDICARE, SELFPAY ==
--- NOTE | 2024-09-06 11:24 | MHC.OFFVISCO ---
Intake Intake Visit Reasons: Anticoagulation Allergies shrimp Allergy (Mild, Verified 09/06/24 11:20) HIVES N.K.D.A. Allergy (Unknown, Uncoded 09/06/24 11:20) PT STATES NO KNOWN DRUG ALLERGIES Medication List - Last Reconciled 09/06/24 by Zoe Bruce RN atorvastatin 80 mg PO DAILY blood sugar diagnostic As directed cholecalciferol (vitamin D3) 25 mcg PO DAILY clobetasol 0.05% topical BID cyanocobalamin (vitamin B-12) (Vitamin B-12) 500 mcg PO DAILY ferrous sulfate 325 mg PO DAILY glipizide 5 mg PO BID hydroxyzine pamoate 25 mg PO TID PRN lancets (OneTouch Delica Plus Lancet) As directed metformin 1,000 mg PO DAILY metoprolol succinate ER 75 mg PO DAILY torsemide 100 mg PO BID triamcinolone acetonide 0.1% 1 appl topical BID warfarin See Protocol 2.5mg x 4, 1.25mg x 3 Nursing Note INR: 2.4- in therapeutic range of 2-3 Medications and supplements reviewed- no changes No changes in health, diet, medications, or supplements, Denies any signs and symptoms of bleeding or bruising or clotting. Bleeding, bruising, clotting discussed Nutritional guidance given Dose: 2.5mg x 5, 1.25mg x 2 F/U INR: 4 weeks Patient verbalizes understanding of instructions given Coding Level of Care Code Est Patient Level 1 Diagnoses Current use of anticoagulant therapy Z79.01 Results AMB INR Fingerstick AMB INR Fingerstick 2.4 Last Edit by Zoe Bruce RN on 09/06/24 11:25 interface delay Assessment & Plan Assessment & Plan (1) Current use of anticoagulant therapy: Code(s): Z79.01 - assisted (current) use of anticoagulants Category: Medical
[2024-09-06 16:06] LABS: Prothrombin Time Whole Bld POC 28.6 sec (11.1-13.5); ~PT, ~INR - Anti Coag Clinic 2.4 (0.9-1.1)
== END 2024-09-06 11:32 | disposition home or self-care (01) ==
LOC: HO.ACS 11:11
PROVIDERS: PCP Internal Medicine; Visit Provider Internal Medicine Medical Oncology
DX: Z79.01 Long term (current) use of anticoagulants (principal)

== ENCOUNTER → 2024-09-06 11:11 | Outpatient (BNVA) | payer MEDICARE, SELFPAY | PROVIDERS: PCP Internal Medicine; Visit Provider Internal Medicine Medical Oncology | DX: Z86.718 Personal history of other venous thrombosis and embolism (principal); Z79.01 Long term (current) use of anticoagulants; Z51.81 Encounter for therapeutic drug level monitoring | CPT/HCPCS: 85610; 99211 ==

== ENCOUNTER 2024-10-04 11:35 | Outpatient (AMB) | payer MEDICARE, SELFPAY ==
--- OUTSIDE RECORDS SUMMARY | 2024-10-04 12:34 | XMS_ITS | Encounter Summary ---
Author Organization [facility] Address [address] [place] [address] Phone Care Team Providers Care Senior Accounting Manager Name Role Phone Jose Elaine MD Unavailable Fahad Nolasco MD Primary Care Provider Junior Mclain MD Unavailable [phone] Encounter Details Date Type Department Care Team (Late st Contact Info) Description 03/09/2022 Procedure Pass Non-Invasive Cardiology [address] [place] [address] Social History Tobacco Use Types Packs/Day Years Used Date Smoking Tobacco: Former Cigarettes 0.5 30 1 958 - 1987 Smokeless Tobacco: Never Alcohol Use Standard Drinks/Week Comments Not Currently 20 (1 standard drink = 0.6 oz pu re alcohol) Sex and Gender Information Value Date Recorded Sex Assigned at Male 02/15/2017 9:38 AM EST Legal Sex Male 10:07 PM EDT Gender Identity Male 02/15/2017 9:38 AM EST Sexual Orientation Straight 02/15/2017 9: 38 AM EST documented as of this encounter Plan of Treatment Upcoming Encounters Date Type Department Care Team (Late st Contact Info) Description 01/12/2025 10:40 AM EST Office Visit [facility] [address] Floor, [address] [place] [address] Dillon Zazueta MD [address] [place] [address] documented as of this encounter Visit Diagnoses Not on filedocumented in this encounter Additional Health Concerns Assessment Noted Time PHQ-2 Depression Total Score: 0 07/12/19 19 2:17 PM EDT documented as of this encounter Care Teams Senior Accounting Manager Relationship Specialty Start Date End Date Fahad Nolasco MD [address] [place] [address], [address] [place] [address] PCP - General 07/11/18 Jose Elaine MD [address] [place] [address], [address] [place] [address] Loop Sewer Cardiology 04/21/18 Junior Mclain MD [address] [place] [address] Gastroenterology 12/01/19 documented as of this encounter Additional Source Comments The information contained in this document represents components of the legal health record. It is not the complete legal health record.[facility]
--- OUTSIDE RECORDS SUMMARY | 2024-10-04 12:34 | XMS_ITS | Encounter Summary ---
Author Organization [facility] Address [address] [place] [address] Phone Care Team Providers Care Integrity Engineer Name Role Phone Jose Elaine MD Unavailable [phone] Fahad Nolasco MD Primary Care Provider Junior Mclain MD Unavailable [phone] Encounter Details Date Type Department Care Team (Late st Contact Info) Description 05/11/2022 Procedure Pass [facility] [address] [place] [address] Social History Tobacco Use Types Packs/Day Years Used Date Smoking Tobacco: Former Cigarettes 0.5 30 1 958 - 1988 Smokeless Tobacco: Never Alcohol Use Standard Drinks/Week [...] Description 01/12/2025 10:40 AM EST Office Visit [facility] [address], [address] [place], [place] [id number] Dillon Zazueta MD [address] [place] [address] documented as of this encounter Visit Diagnoses Not on filedocumented in this encounter Additional Health Concerns Assessment Noted Time PHQ-2 Depression Total Score: 0 07/12/19 19 2:17 PM EDT documented as of this encounter Care Teams Integrity Engineer Relationship Specialty Start Date End Date Fahad Nolasco MD [address] [place] [address], [address] [place] [address] PCP - General 07/11/18 Jose Elaine MD [address] [place] [address], [address] [place] [address] Roofer Cardiology 04/21/18 Junior Mclain MD [address] [place] [address] Gastroenterology 12/01/19 documented as of this encounter Additional Source Comments The information contained in this document represents components of the legal health record. It is not the complete legal health record.[facility]
--- OUTSIDE RECORDS SUMMARY | 2024-10-04 12:34 | XMS_ITS | Encounter Summary ---
Author Organization [facility] Address [address] [place] [address] Phone Care Team Providers Care Fingerprint Clerk Name Role Phone Jose Elaine MD Unavailable [phone] Fahad Nolasco MD Primary Care Provider [phone] Junior Mclain MD Unavailable [phone] Encounter Details Date Type Department Care Team (Late st Contact Info) Description 12/11/2020 Procedure Pass Non-Invasive Cardiology [address] [place] [address] Social History Tobacco Use Types Packs/Day Years Used Date Smoking Tobacco: Former Cigarettes 0.5 30 1 958 - 1988 Smokeless Tobacco: Never Alcohol Use Standard Drinks/Week Comments Yes 20 (1 standard drink = 0.6 oz [...] Description 01/12/2025 10:40 AM EST Office Visit [facility] [address], [address] [place] [address] Dillon Zazueta MD [address] [place] [address] documented as of this encounter Visit Diagnoses Not on filedocumented in this encounter Additional Health Concerns Infection Onset Date Last Indicated Resolved Time CoV-Risk 07/24/2021 07/24/2021 08/04/2021 1:22 AM EDT Assessment Noted Time PHQ-2 Depression Total Score: 0 07/12/19 2:17 PM EDT documented as of this encounter Care Teams Fingerprint Clerk Relationship Specialty Start Date End Date Fahad Nolasco MD [address] [place] [address], [address] [place] [address] PCP - General 07/11/18 Jose Elaine MD [address] [place] [address], [address] [place] [address] Outreach Consultant Cardiology 04/21/18 Junior Mclain MD [address] [place] [address] Gastroenterology 12/01/19 documented as of this encounter Additional Source Comments The information contained in this document represents components of the legal health record. It is not the complete legal health record.[facility]
--- OUTSIDE RECORDS SUMMARY | 2024-10-04 12:34 | XMS_ITS | Encounter Summary ---
Author Organization [facility] Address [address] [place] [address] Phone Care Team Providers Care Melangeur Operator Name Role Phone Jose Elaine MD Unavailable [phone] Fahad Nolasco MD Primary Care Provider Junior Mclain MD Unavailable [phone] Encounter Details Date Type Department Care Team (Late st Contact Info) Description 12/11/2020 Procedure Pass Echo Lab [facility] [address] [place] [address] Social History Tobacco Use Types Packs/Day Years [...] Description 01/12/2025 10:40 AM EST Office Visit [facility] [address], [address] [place] [address] Dillon Zazueta MD [address] [place] [address] documented as of this encounter Visit Diagnoses Not on filedocumented in this encounter Additional Health Concerns Infection Onset Date Last Indicated Resolved Time CoV-Risk 07/24/2021 07/24/2021 08/04/2021 1:22 AM EDT Assessment Noted Time PHQ-2 Depression Total Score: 0 07/12/19 2:17 PM EDT documented as of this encounter Care Teams Melangeur Operator Relationship Specialty Start Date End Date Fahad Nolasco MD [address] [place] [address], [address] [place] [address] PCP - General 07/11/18 Jose Elaine MD [address] [place] [address], [address] [place] [address] Side Sawyer Cardiology 04/21/18 Junior Mclain MD [address] [place] [address] Gastroenterology 12/01/19 documented as of this encounter Additional Source Comments The information contained in this document represents components of the legal health record. It is not the complete legal health record.[facility]
--- OUTSIDE RECORDS SUMMARY | 2024-10-04 12:34 | XMS_ITS | Encounter Summary ---
Author Organization [facility] Address [address] [place] [address] Phone Care Team Providers Care Furnace Erector Name Role Phone Jose Elaine MD Unavailable [phone] Fahad Nolasco MD Primary Care Provider [phone] Junior Mclain MD Unavailable [phone] Encounter Details Date Type Department Care Team (Late st Contact Info) Description 11/19/2021 Procedure Pass Non-Invasive Cardiology [address] [place] [address] Social History Tobacco Use Types Packs/Day Years [...] Description 01/12/2025 10:40 AM EST Office Visit [facility] [address], [address] [place] [address] Dillon Zazueta MD [address] [place] [address] documented as of this encounter Visit Diagnoses Not on filedocumented in this encounter Additional Health Concerns Assessment Noted Time PHQ-2 Depression Total Score: 0 07/12/19 19 2:17 PM EDT documented as of this encounter Care Teams Furnace Erector Relationship Specialty Start Date End Date Fahad Nolasco MD [address] [place] [address], [address] [place] [address] PCP - General 07/11/18 Jose Elaine MD [address] [place] [address], [address] [place] [address] Radio Assembler Cardiology 04/21/18 Junior Mclain MD [address] [place] [address] Gastroenterology 12/01/19 documented as of this encounter Additional Source Comments The information contained in this document represents components of the legal health record. It is not the complete legal health record.[facility]
--- OUTSIDE RECORDS SUMMARY | 2024-10-04 12:34 | XMS_ITS | Encounter Summary ---
Author Organization [facility] Address [address] [place] [address] Phone Care Team Providers Care Vp Scientific Affairs Name Role Phone Jose Elaine MD Unavailable [phone] Fahad Nolasco MD Primary Care Provider Junior Mclain MD Unavailable [phone] Encounter Details Date Type Department Care Team (Late st Contact Info) Description 01/08/2020 Procedure Pass Echo [facility] [address] [place] [address] Social History Tobacco Use Types Packs/Day Years Used Date Smoking Tobacco: Former Cigarettes Q uit: 1988 Smokeless Tobacco: Former Alcohol Use Standard Drinks/Week Comments Not Currently 7 (1 standard drink = 0.6 oz pure alcohol) has stopped drinking weeks ago Sex and Gender Information Value Date Recorded Sex Assigned at Male 02/15/2017 9:38 AM EST Legal Sex Male 10:07 PM EDT Gender Identity Male 02/15/2017 9:38 AM EST Sexual Orientation Straight 02/15/2017 9: 38 AM EST documented as of this encounter Plan of Treatment Upcoming Encounters Date Type Department Care Team (Late st Contact Info) Description 01/12/2025 10:40 AM EST Office Visit [facility] [address], [address] [place] [address] Dillon Zazueta MD [address] [place] [address] documented as of this encounter Visit Diagnoses Not on filedocumented in this encounter Additional Health Concerns Infection Onset Date Last Indicated Resolved Time CoV-Risk 07/24/2021 07/24/2021 08/04/2021 1:22 AM EDT Assessment Noted Time PHQ-2 Depression Total Score: 0 07/12/19 2:17 PM EDT documented as of this encounter Care Teams Vp Scientific Affairs Relationship Specialty Start Date End Date Fahad Nolasco MD [address] [place] [address], [address] [place] [address] PCP - General 07/11/18 Jose Elaine MD [address] [place] [address], [address] [place] [address] Pay Agent Cardiology 04/21/18 Junior Mclain MD [address] [place] [id number] Gastroenterology 12/01/19 documented as of this encounter Additional Source Comments The information contained in this document represents components of the legal health record. It is not the complete legal health record.[facility]
--- OUTSIDE RECORDS SUMMARY | 2024-10-04 12:35 | XMS_ITS | Encounter Summary ---
Author Organization [facility] Address [address] [place] [address] Phone Care Team Providers Care Uniform Force Captain Name Role Phone Jose Elaine MD Unavailable [phone] Fahad Nolasco MD Primary Care Provider Junior Mclain MD Unavailable [phone] Encounter Details Date Type Department Care Team (Late st Contact Info) Description 07/31/2020 Procedure Pass Non-Invasive Cardiology [address] [place] [address] Social History Tobacco Use Types Packs/Day Years [...] Description 01/12/2025 10:40 AM EST Office Visit [facility] [address], [address] [place] [address] Dillon Zazueta MD [address] [place] [address] documented as of this encounter Visit Diagnoses Not on filedocumented in this encounter Additional Health Concerns Infection Onset Date Last Indicated Resolved Time CoV-Risk 07/24/2021 07/24/2021 08/04/2021 1:22 AM EDT Assessment Noted Time PHQ-2 Depression Total Score: 0 07/12/19 2:17 PM EDT documented as of this encounter Care Teams Uniform Force Captain Relationship Specialty Start Date End Date Fahad Nolasco MD [address] [place] [address], [address] [place] [address] PCP - General 07/11/18 Jose Elaine MD [address] [place] [address], [address] [place] [address] Student Development Specialist Cardiology 04/21/18 Junior Mclain MD [address] [place] [address] Gastroenterology 12/01/19 documented as of this encounter Additional Source Comments The information contained in this document represents components of the legal health record. It is not the complete legal health record.[facility]
--- OUTSIDE RECORDS SUMMARY | 2024-10-04 12:35 | XMS_ITS | Encounter Summary ---
Author Organization [facility] Address [address] [place] [address] Phone Care Team Providers Care [employer] Boat [employer] Finisher Name Role Phone Jose Elaine MD Unavailable [phone] Fahad Nolasco MD Primary Care Provider [phone] Junior Mclain MD Unavailable [phone] Encounter Details Date Type Department Care Team (Late st Contact Info) Description 03/17/2021 Procedure Pass Non-Invasive Cardiology [address] [place] [address] Social History Tobacco Use Types Packs/Day Years [...] Description 01/12/2025 10:40 AM EST Office Visit [facility] [address], [address] [place] [address] Dillon Zazueta MD [address] [place] [address] documented as of this encounter Visit Diagnoses Not on filedocumented in this encounter Additional Health Concerns Infection Onset Date Last Indicated Resolved Time CoV-Risk 07/24/2021 07/24/2021 08/04/2021 1:22 AM EDT Assessment Noted Time PHQ-2 Depression Total Score: 0 07/12/19 2:17 PM EDT documented as of this encounter Care Teams [employer] Boat [employer] Finisher Relationship Specialty Start Date End Date Fahad Nolasco MD [address] [place] [address], [address] [place] [address] PCP - General 07/11/18 Jose Elaine MD [address] [place] [address], [address] [place] [address] Merchandise Adjustment Clerk Cardiology 04/21/18 Junior Mclain MD [address] [place] [address] Gastroenterology 12/01/19 documented as of this encounter Additional Source Comments The information contained in this document represents components of the legal health record. It is not the complete legal health record.[facility]
--- OUTSIDE RECORDS SUMMARY | 2024-10-04 12:35 | XMS_ITS | Encounter Summary ---
Author Organization [facility] Address [address] [place] [address] Phone Care Team Providers Care Home Comfort Advisor Name Role Phone Jose Elaine MD Unavailable [phone] Fahad Nolasco MD Primary Care Provider Junior Mclain MD Unavailable [phone] Encounter Details Date Type Department Care Team (Late st Contact Info) Description 09/13/2018 Ancillary Orders Non-Invasive Cardiology [address] [place] [address] [place] [address] Kem Bowers MD [address] [place] [address] [email or web address] CHB (complete heart block) Social History Tobacco Use Types Packs/Day Years Used Date Smoking Tobacco: Former Cigarettes Q uit: 1988 Smokeless Tobacco: Former Alcohol Use Standard Drinks/Week Comments Yes 7 (1 standard drink = 0.6 oz pur e alcohol) Sex and Gender Information Value Date Recorded Sex Assigned at Male 02/15/2017 9:38 AM EST Legal Sex Male 10:07 PM EDT Gender Identity Male 02/15/2017 9:38 AM EST Sexual Orientation Straight 02/15/2017 9: 38 AM EST documented as of this encounter Plan of Treatment Upcoming Encounters Date Type Department Care Team (Late st Contact Info) Description 01/12/2025 10:40 AM EST Office Visit [facility] [address], [address] [place], [place] [id number] Dillon Zazueta MD [address] [place] [address] [email or web address] documented as of this encounter Visit Diagnoses Diagnosis CHB (complete heart block) Atrioventricular block, complete documented in this encounter Additional Health Concerns Infection Onset Date Last Indicated Resolved Time CoV-Risk 07/24/2021 07/24/2021 08/04/2021 1:22 AM EDT Assessment Noted Time PHQ-2 Depression Total Score: 0 07/12/19 2:17 PM EDT documented as of this encounter Care Teams Home Comfort Advisor Relationship Specialty Start Date End Date Fahad Nolasco MD [address] [place] [address], [address] [place] [address] PCP - General 07/11/18 Jose Elaine MD [address] [place] [address], [address] [place] [address] Newspaper Peddler Cardiology 04/21/18 Junior Mclain MD [address] [place] [address] Gastroenterology 12/01/19 documented as of this encounter Additional Source Comments The information contained in this document represents components of the legal health record. It is not the complete legal health record.[facility]
--- OUTSIDE RECORDS SUMMARY | 2024-10-04 12:35 | XMS_ITS | Encounter Summary ---
Author Organization [facility] Address [address] [place] [address] Phone Care Team Providers Care Attending Physician Name Role Phone Jose Elaine MD Unavailable [phone] Fahad Nolasco MD Primary Care Provider Junior Mclain MD Unavailable [phone] Encounter Details Date Type Department Care Team (Late st Contact Info) Description 10/21/2020 Procedure Pass Non-Invasive Cardiology [address] [place] [address] Social History Tobacco Use Types Packs/Day Years [...] Description 01/12/2025 10:40 AM EST Office Visit [facility] [address], [address] [place] [address] Dillon Zazueta MD [address] [place] [address] documented as of this encounter Visit Diagnoses Not on filedocumented in this encounter Additional Health Concerns Infection Onset Date Last Indicated Resolved Time CoV-Risk 07/24/2021 07/24/2021 08/04/2021 1:22 AM EDT Assessment Noted Time PHQ-2 Depression Total Score: 0 07/12/19 2:17 PM EDT documented as of this encounter Care Teams Attending Physician Relationship Specialty Start Date End Date Fahad Nolasco MD [address] [place] [address], [address] [place] [address] PCP - General 07/11/18 Jose Elaine MD [address] [place] [address], [address] [place] [address] Promotions Intern Cardiology 04/21/18 Junior Mclain MD [address] [place] [address] Gastroenterology 12/01/19 documented as of this encounter Additional Source Comments The information contained in this document represents components of the legal health record. It is not the complete legal health record.[facility]
--- OUTSIDE RECORDS SUMMARY | 2024-10-04 12:35 | XMS_ITS | Clinical Summary ---
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 echocardiogram but he still has moderate pulmonary hypertension. The cause is unclear. It may be due to diastolic heart failure versus lung disease. I suspect he has obstructive sleep apnea. I would like to get a sleep study to see if this is the case. If his symptoms do not improve, then I may consider a right left heart catheterization. Assessment & Plan (12/14/2016 3:55 PM EST): He has moderate pulmonary hypertension and had severe pulmonary hypertension on his echo when he was in the hospital. He continues to have severe shortness of breath. It's unclear why he has such severe pulmonary hypertension. I would like to get a chest CT to evaluate for pulmonary disease and rule out chronic thromboembolic pulmonary hypertension. I will set up a CTA with contrast and will follow-up with him after this is done. If no clear cause for his pulmonary hypertension can be found then I will set up a right left heart catheterization. Leg pain, right 12/14/2016 Assessment & Plan (12/14/2016 3:55 PM EST): His pain is better. He had no evidence of significant peripheral arterial disease. Pure hypercholesterolemia 12/14/2016 Assessment & Plan (04/30/2022 2:05 PM EDT): LDL 42 Continue high statin therapy Assessment & Plan (11/20/2021 11:53 AM EDT): Continue high intensity statin with Lipitor 80 mg daily. Assessment & Plan (05/03/2017 2:45 PM EDT): Continue atorvastatin. Assessment & Plan (01/14/2017 4:43 PM EST): Continue atorvastatin. Assessment & Plan (12/14/2016 3:55 PM EST): Continue atorvastatin. Shortness of breath 12/14/2016 Assessment & Plan (12/14/2016 3:56 PM EST): The cause of his severe pulmonary hypertension is unclear. I am getting a try going up on his furosemide to 40 mg daily and see if this improves his symptoms. He's not getting much of a diuretic effect from the 20 mg dose. I'll plan to see him back after the CTA of his chest is done in a few weeks. Anemia Overview (03/07/2021): never transfused. Lab testing in October shows B12 and iron deficiency. December 2019: Needed RBC and Ferraheme at [facility] in November, EGD/COLO neg, capsule planned. Stopped etoh. June 2020: Likely still has low-grade ongoing bleeding, requires daily iron. Has not yet seen GI to schedule capsule endoscopy. CT scan ordered due to firmness palpable in the lower abdomen. Feb 2021: Recheck CBC. CT essentially neg. Never went to Gi. Assessment & Plan (10/28/2023 1:59 PM EDT): Being monitored, continued eval by GI. Assessment & Plan (05/30/2018 1:50 PM EDT): He has had some anemia postoperatively. I have ordered a CBC which he will have drawn today after this visit. 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 Assessment & Plan (06/28/2018 10:26 AM EDT): Blood pressure in the office is normal on his current meds. Assessment & Plan (05/30/2018 1:51 PM EDT): Blood pressure today is normal on his current meds. Sleep apnea Overview (04/05/2018): no CPAP Resolved Problems Problem Noted Date Diagnosed Date Resolved Date Preop examination 05/03/2017 10/14/2018 Assessment & Plan (05/03/2017 2:49 PM EDT): He has intermediate risk factors for perioperative cardiac vascular events. A umbilical hernia repair is a low risk surgery. I will feel that there are any contraindications to proceeding with this time. His warfarin will likely need to be held 5 days prior to the surgery but should be restarted as soon postoperatively as possible. Encounters Date Type Department Care Team Description 10/01/[address] [place] [address] Rinku Avery CNP Medication Refill 09/27/2024 Telephone [facility] [address] [place] [address] Fahad Nolasco MD Referral ([facility]) 09/01/2024 Orders Only [facility] [address] [place] [address] 3rd Floor, [address] [place] [address] ProviderCharles MD 09/01/[address] [place] [address] Viktoria Buckner MA Forms & Paperwork (Orthotics and prosthetics lab Diabetic shoes ) 08/10/2024 Telephone [facility] [address] [place] [address] Viktoria Buckner MA Forms & Paperwork ([facility]) 07/19/2024 Telephone [facility] [address] [place] [address] Fahad Nolasco MD Referral ([facility]) 07/13/2024 11:30 AM EDT Office Visit [facility] [address] [place] [address] Dr [address]rd Floor, [address] [place] [address] Sadaf Nava DNP Muse, Hannah, DNP Permanent atrial fibrillation (Primary Dx); Primary hypertension; Complete heart block; Pacemaker 07/13/2024 Refill [facility] [address] [place] [address] Fahad Nolasco MD Medication Refill from Last 3 Months Immunizations Immunization Administration Dates Next Due COVID-19 (Pre-11/30) Pfizer Vaccine, mRNA, PF 01/29/2021,07/11/2020,06/15/2020 Influenza High-Dose Quadriva lent Preservative Free IM 11/21/2022,12/03/2019 Influenza Quadrivalent Adjuv anted Preservative Free IM 11/25/2021,01/29/2021 Pneumococcal conjugate PCV20 03/18/2023 Td (adult),2 Lf Tetanus Toxo id, PF, Adsorbed 03/18/2023 Zoster recombinant 10/09/2020,08/10/2020, 020 Family History Medical History Relation Comments No Known Problems Father No Known Problems Mother Cancer Neg Hx Coronary artery disease Neg Hx Relation Status Comments Brother Father Mother Sister 1 Alive Sister 2 Alive Son 1 Alive Son 2 Alive Social History Tobacco Use Types Packs/Day Years Used Date Smoking Tobacco: Former Cigarettes 30 1 958 - 1987 Smokeless Tobacco: Never Tobacco Cessation:Counseling Given: Not Answered Alcohol Use Standard Drinks/Week Comments Yes 3 (1 standard drink = 0.6 oz pure alcohol) prior 20-30 beers/wk, alcohol abuse Education Answer Date Recorded Are you interested in more education? Not on renzo e 06/05/2022 Are you concerned about learning? Not on file 06/05/2022 No 06/05/2022 No 06/05/2022 Digital Access Answer Date Recorded No 07/03/2022 No 07/03/2022 Reliable internet access at home? Not on file 07/03/2022 Device with a working camera? Not on file Intimate Partner Violence Answer Date R ecorded Denied Basic Needs Not on file 03/18/2023 In the past 12 months have y ou been in a relationship with a person who hurts, threatens, or tries to control you? No 03/18/2023 Worried food would run out Not on file 03/18 In the past 12 months have y ou been in a relationship with a person who hurts, threatens, or tries to control you? No 03/18/2023 Sex and Gender Information Value Date Recorded Sex Assigned at Male 02/15/2017 9:38 AM EST Legal Sex Male 10:07 PM EDT Gender Identity Male 02/15/2017 9:38 AM EST Sexual Orientation Straight 02/15/2017 9: 38 AM EST Last Filed Vital Signs Vital Sign Reading Time Taken Comments Blood Pressure 148/70 07/13/2024 11:29 AM EDT Pulse 80 07/13/2024 11:29 AM EDT Temperature 36.7 C (98.1 F) 10/28/2023 1:44 PM EDT Respiratory Rate 16 08/28/2022 2:11 PM EDT Oxygen Saturation 98% 07/13/2024 11:29 AM EDT Inhaled Oxygen Concentration 40% 04/12/2018 1 0:51 PM EST Weight 80 kg (176 lb 6.4 oz) 07/13/2024 11:29 AM EDT Height 166 cm (5' 5.35 ) 01/10/2024 11:01 AM EST Body Mass Index 29.04 01/10/2024 11:01 AM EST Plan of Treatment Upcoming Encounters Date Type Department Care Team (Late st Contact Info) Description 01/12/2025 10:40 AM EST Office Visit [facility] [address] 3rd Floor, [address] [place] [address] Dillon Zazueta MD [address] [place] [id number] Health Maintenance Due Date Last Done Comments SMOKING Hx and SMOKELESS TOBACCO SCREENING 1958 HEPATITIS A VACCINES (1 of 2 - Risk 2-dose series) 1964 RSV VACCINE (1 - 1-dose 75+ series) 2020 COVID-19 VACCINE ( - season) 2023 01/02/2023, 01/29/2021, 07/11/2020, Additional history exists DEPRESSION SCREENING 03/18/2024 03/18/2023 HEMOGLOBIN A1C 05/03/2024 11/04/2023, 0209/2023, 03/13/2022, Additional history exists INFLUENZA VACCINE (#1) 2024 , 11/25/2021, 01/29/2021, Additional history exists CREATININE LEVEL 11/03/2024 11/04/2023, 01/2024, 05/03/2023, Additional history exists BLOOD PRESSURE 01/12/2025 07/13/2024 DIABETIC EYE EXAM 01/31/2025 02/01/2024, , 12/18/2019, Additional history exists Adult Td,Tdap Booster 03/18/2033 03/18/2023 ZOSTER VACCINES Completed 10/09/2020, 07/0 04/2020, 12/28/2019 PNEUMOCOCCAL VACCINES (50+ years) Completed 03/18/2023 HEPATITIS C SCREENING Completed 05/03/2023, 024 HIB VACCINES Aged Out No longer eligi ble based on patient's age to complete this topic MENINGOCOCCAL VACCINES (ACWY) Aged Out No longer eligible based on patient's age to complete this topic MENINGOCOCCAL VACCINES (B) Aged Out N o longer eligible based on patient's age to complete this topic Medical Devices Implanted Type Area Contractor Field Hauling Device Identifier Shelf Expiration Date Model / Serial / Lot Lead Pacemaker Capsure Fix Novus Is-1 Bi Atr/Vntr Pia 58 Cm - [id number] Implanted:Qty: 1 on 04/16/2018 by Katerin Carmona MD, MS at [facility] Lead Right: Ventricle [employer] 01/28/2020 5076-58 / [id number] / Lead Pacemaker Capsure Fix Novus Is-1 Bi Atr/Vntr Pia 52 Cm - [id number] Implanted:Qty: 1 on 04/16/2018 by Katerin Carmona MD, MS at [facility] Lead Atrium [employer] 02/16/2020 [id number] / [id number] / Device Pacemaker [place] Xt Mri - [id number] Implanted:Qty: 1 on 04/16/2018 by Katerin Carmona MD, MS at [facility] Pacemaker Left: Chest [employer] 08/22/2019 [id number] / [id number] / Ring Annuloplasty 32mm Sjm Graft Cardiovascular Saddle Titanium Core Rigid - [id number] Implanted:Qty: 1 on 04/12/2018 by Doc Funes MD at [facility] SMDA N/A: Heart [employer] 04/27/2021 [id number]-[id number] / [id number] / Ring Annuloplasty 34mm Mc3 Titanium Alloy Silicone Polyester Tricuspid - [id number] Implanted:Qty: 1 on 04/12/2018 by Doc Funes MD at [facility] SMDA N/A: Heart [employer] 10/19/2021 [id number] / [id number] / Procedures Procedure Name Priority Date/Time Associated Diagnosis Comments OUTSIDE EP STUDY Routine 07/28/2024 3:58 PM EDT DIABETES EYE EXAM FOR RESULT ENTRY ONLY Routine 02/01/2024 2:23 PM EST HEMOGLOBIN A1C Routine 11/04/2023 11:42 AM EDT Type 2 diabetes mellitus with chronic kidney disease, without long-term current use of insulin, unspecified CKD stage BASIC METABOLIC PANEL Routine 11/04/2023 11:42 AM EDT Type 2 diabetes mellitus with chronic kidney disease, without long-term current use of insulin, unspecified CKD stage HEPATITIS C ANTIBODY, QUALITATIVE Routine 05/03/2023 11:17 AM EDT Anemia, unspecified type Abnormal finding on GI tract imaging from Last 3 Months or Most Recently Relevant to Health Maintenance Results * Outside EP Study Report Only (07/28/2024 3:58 PM EDT) Historical Provider CV ELECTROPHYSIOLOGY KIM ONEIL Final Result * DIABETES EYE EXAM FOR RESULT ENTRY ONLY (02/01/2024 2:23 PM EST) Historical Provider HEALTH MAINTENANCE Edited Result - Final * Hemoglobin A1c (11/04/2023 11:42 AM EDT) HEMOGLOBIN A1C 5.8 4.3 - 5.8 % [facility] Blood 11/04/2023 11:4 2 AM EDT 11/04/2023 4:00 PM EDT Fahad Nolasco MD LAB BLOOD ORDERABLES Final Resu lt [address] [address] * (ABNORMAL) Basic metabolic panel (11/04/2023 11:42 AM EDT) SODIUM 138 133 - 146 mmol/L [facility] CHLORIDE 99 96 - 108 mmol/L [facility] POTASSIUM 4.3 3.3 - 5.1 mmol/L [facility] CO2 27 21 - 35 mmol/L [facility] BUN 30(H) 6 - 19 mg/dL [facility] CREATININE 1.10 0.5 - 1.5 mg/dL [facility] GLUCOSE 145(H) 70 - 99 mg/dL [facility] CALCIUM 9.1 8.4 - 10.3 mg/dL [facility] EGFR 69 >59 mL/min/1.7 3m2 [facility] Comment:Estimated glomerular filtration rate calculated using the CKD-EPI refit equation. ANION GAP 16 10 - 20 mmol/L [facility] Blood 11/04/2023 11:4 2 AM EDT 11/04/2023 12:03 PM EDT us Fahad Nolasco MD LAB BLOOD ORDERABLES Final Resu lt Performing Organization Address City/[facility]/ZIP Co de Phone Number [address] [address] * Hepatitis C antibody, qualitative (05/03/2023 11:17 AM EDT) HCV NON-REACTIV E NON-REACTI VE [facility] Blood 05/03/2023 11:1 7 AM EDT 05/03/2023 11:21 AM EDT us Isabel Katz PA-C LAB BLOOD ORDERABLES Final Resu lt Performing Organization Address City/[facility]/ZIP Co de Phone Number [address] [address] from Last 3 Months or Most Recently Relevant to Health Maintenance Insurance [employer] Advance Directives For more information, please contact: [phone] (9AM - 5PM [facility], Wednesday-Wednesday) Documents on File Type Date Recorded Patient Cullet Crusher Expl anation Healthcare Proxy 04/13/2018 12:43 PM E-SIGN HIPAA * Full Code (Latest Code Status on File) Date Activated Date Inactivated Comments 12/01/2019 4:13 PM Question Answer Comments Code Status Confirmed With: Patient Code Status Communicated To: Inpatient Attending * Full Code (Presumed) Date Activated Date Inactivated Comments 04/16/2018 4:33 PM 04/18/2018 2:18 PM * Full Code (Presumed) Date Activated Date Inactivated Comments 04/12/2018 7:48 PM 04/16/2018 4:33 PM * Full Code (Presumed) Date Activated Date Inactivated Comments 03/10/2018 9:12 AM 03/11/2018 6:24 AM * Full Code (Presumed) Date Activated Date Inactivated Comments 12/16/2017 8:00 AM 12/17/2017 6:45 AM Healthcare Agents on File Name Relationship Healthcare Agent Relationshi p Communication Marissa Warren Spouse .Primary Health Care Agent (Proxy form on file) Care Teams Economic Development Director Relationship Specialty Start Date End Date Fahad Nolasco MD [address] [place] [address], [address] [place], [place] [id number] PCP - General 07/11/18 Jose Elaine MD [address] [place] [address], [facility] [address] [place] [address] Spring Tacker Cardiology 04/21/18 Junior Mclain MD [address] [place] [address] Gastroenterology 12/01/19 Additional Source Comments The information contained in this document represents components of the legal health record. It is not the complete legal health record.[facility]
--- OUTSIDE RECORDS SUMMARY | 2024-10-04 12:35 | XMS_ITS | Encounter Summary ---
Author Organization [facility] Address [address] [place] [address] Phone Care Team Providers Care Deflector Operator Name Role Phone Jose Elaine MD Unavailable [phone] Fahad Nolasco MD Primary Care Provider [phone] Junior Mclain MD Unavailable [phone] Encounter Details Date Type Department Care Team (Late st Contact Info) Description 03/09/2020 Procedure Pass Non-Invasive Cardiology [address] [place] [address] Social History Tobacco Use Types Packs/Day Years [...] Description 01/12/2025 10:40 AM EST Office Visit [facility] [address] Floor, [address] [place], [place] [id number] Dillon Zazueta MD [address] [place] [address] documented as of this encounter Visit Diagnoses Not on filedocumented in this encounter Additional Health Concerns Infection Onset Date Last Indicated Resolved Time CoV-Risk 07/24/2021 07/24/2021 08/04/2021 1:22 AM EDT Assessment Noted Time PHQ-2 Depression Total Score: 0 07/12/19 2:17 PM EDT documented as of this encounter Care Teams Deflector Operator Relationship Specialty Start Date End Date Fahad Nolasco MD [address] [place] [address], [address] [place] [address] PCP - General 07/11/18 Jose Elaine MD [address] [place] [address], [address] [place] [address] Communications Program Manager Cardiology 04/21/18 Junior Mclain MD [address] [place] [address] Gastroenterology 12/01/19 documented as of this encounter Additional Source Comments The information contained in this document represents components of the legal health record. It is not the complete legal health record.[facility]
--- OUTSIDE RECORDS SUMMARY | 2024-10-04 12:35 | XMS_ITS | Encounter Summary ---
Author Organization [facility] Address [address] [facility] [place] [address] Phone Care Team Providers Care Electrician Supervisor Name Role Phone Jose Elaine MD Unavailable [phone] Fahad Nolasco MD Primary Care Provider Junior Mclain MD Unavailable [phone] Encounter Details Date Type Department Care Team (Late st Contact Info) Description 09/06/2019 Ancillary Orders Non-Invasive Cardiology [address] [place] [address] Kem Bowers MD [address] [place] [address] [email or web address] Complete heart block Social History Tobacco Use Types Packs/Day Years [...] Description 01/12/2025 10:40 AM EST Office Visit [facility] [address], [address] [place], [place] [phone] Dillon Zazueta MD [address] [place] [address] [email or web address] documented as of this encounter Results * DEVICE CHECK: PPM IN-HOME INTERROGATION (09/25/2019 10:41 AM EDT) Narrative Kem Bowers MD - 09/26/2019 1:03 PM EDT Reason for appointment: Remote pacemaker interrogation HPI: Routine 3 month remote pacemaker interrogation. No device related complaints. Indication for device: CHB. Examination: Device type: Pacemaker Reinsurance Analyst: [employer]tr[employer] Mode: AAIR-DDDR LRL/UPL: 70/120 bpm Mode switches: 40 episodes, AF burden 31.5% High V rates: 0 Thresholds, impedances, and sensing stable. AF/AT: Patient is currently taking Coumadin daily. Atrial pacin.9% Ventricular pacin.9% Battery: 12.4 yrs Additional comments: Device functioning appropriately. Normal device function. Patient to follow-up for continued monitoring every 3 months. Report prepared by Maya Zaragoza RN us Kem Bowers MD CV CARDIAC SERVICES ORDER [email or web address] Final Result documented in this encounter Visit Diagnoses Diagnosis Complete heart block Atrioventricular block, complete Complete heart block Atrioventricular block, complete documented in this encounter Additional Health Concerns Infection Onset Date Last Indicated Resolved Time CoV-Risk 07/24/2021 07/24/2021 08/04/2021 1:22 AM EDT Assessment Noted Time PHQ-2 Depression Total Score: 0 07/12/19 19 2:17 PM EDT documented as of this encounter Care Teams Electrician Supervisor Relationship Specialty Start Date End Date Fahad Nolasco MD [address] [place] [address], [address] [place] [address] [email or web address] PCP - General 07/11/18 Jose Elaine MD [address] [place] [address], [address] [place] [address] [email or web address] Glass Blowing Instructor Cardiology 04/21/18 Junior Mclain MD [address] [place] [address] [email or web address] Gastroenterology 12/01/19 documented as of this encounter Additional Source Comments The information contained in this document represents components of the legal health record. It is not the complete legal health record.[facility]
--- OUTSIDE RECORDS SUMMARY | 2024-10-04 12:35 | XMS_ITS | Encounter Summary ---
Author Organization [facility] Address [address] [place] [address] Phone Care Team Providers Care Engraver Wood Name Role Phone Jose Elaine MD Unavailable [phone] Fahad Nolasco MD Primary Care Provider Junior Mclain MD Unavailable [phone] Encounter Details Date Type Department Care Team (Late st Contact Info) Description 12/02/2019 Procedure Pass [facility] Endoscopy Admitting Dept Virtual Department [address] [place] [address] Social History Tobacco Use Types Packs/Day Years [...] Encounters Date Type Department Care Team (Late Contact Info) Description 01/12/2025 10:40 AM EST Office Visit [facility] [address] [facility] 3rd Floor, [address] [place] [address] Dillon Zazueta MD [address] [place] [address] documented as of this encounter Visit Diagnoses Not on filedocumented in this encounter Additional Health Concerns Infection Onset Date Last Indicated Resolved Time CoV-Risk 07/24/2021 07/24/2021 08/04/2021 1:22 AM EDT Assessment Noted Time PHQ-2 Depression Total Score: 0 07/12/19 2:17 PM EDT documented as of this encounter Care Teams Engraver Wood Relationship Specialty Start Date End Date Fahad Nolasco MD [address] [place] [address], [address] [place] [address] PCP - General 07/11/18 Jose Elaine MD [address] [place] [address], [address] [place] [address] Real Estate Marketing Coordinator Cardiology 04/21/18 Junior Mclain MD [address] [place] [address] Gastroenterology 12/01/19 documented as of this encounter Additional Source Comments The information contained in this document represents components of the legal health record. It is not the complete legal health record.[facility]
--- OUTSIDE RECORDS SUMMARY | 2024-10-04 12:35 | XMS_ITS | Encounter Summary ---
Author Organization [facility] Address [address] [place] [address] Phone Care Team Providers Care Jigger Machine Operator Name Role Phone Jose Elaine MD Unavailable [phone] Fahad Nolasco MD Primary Care Provider [phone] Junior Mclain MD Unavailable [phone] Encounter Details Date Type Department Care Team (Late st Contact Info) Description 06/10/2021 Procedure Pass Non-Invasive Cardiology [address] [place] [address] Social History Tobacco Use Types Packs/Day Years [...] Description 01/12/2025 10:40 AM EST Office Visit [facility] [address], [address] [place] [address] Dillon Zazueta MD [address] [place] [address] documented as of this encounter Visit Diagnoses Not on filedocumented in this encounter Additional Health Concerns Infection Onset Date Last Indicated Resolved Time CoV-Risk 07/24/2021 07/24/2021 08/04/2021 1:22 AM EDT Assessment Noted Time PHQ-2 Depression Total Score: 0 07/12/19 2:17 PM EDT documented as of this encounter Care Teams Jigger Machine Operator Relationship Specialty Start Date End Date Fahad Nolasco MD [address] [place] [address], [address] [place] [address] PCP - General 07/11/18 Jose Elaine MD [address] [place] [address], [address] [place] [address] Anthropology Professor Cardiology 04/21/18 Junior Mclain MD [address] [place] [address] Gastroenterology 12/01/19 documented as of this encounter Additional Source Comments The information contained in this document represents components of the legal health record. It is not the complete legal health record.[facility]
--- OUTSIDE RECORDS SUMMARY | 2024-10-04 12:35 | XMS_ITS | Encounter Summary ---
Author Organization [facility] Address [address] [place] [address] Phone Care Team Providers Care Padder Cushion Name Role Phone Jose Elaine MD Unavailable [phone] Fahad Nolasco MD Primary Care Provider Junior Mclain MD Unavailable [phone] Encounter Details Date Type Department Care Team (Latest Contact Info) Description 11/30/2019 Transcribe Orders [facility] [address] [place] [address] Isabel Katz PA-C [address], [address] [place] [address] [email or web address] Iron deficiency anemia, unspecified iron deficiency anemia type (Primary Dx) Social History Tobacco Use Types Packs/Day Years [...] Description 01/12/2025 10:40 AM EST Office Visit [facility] [address] [place] [address] 3rd Floor, [address] [place] [address] Dillon Zazueta MD [address] [place] [address] [email or web address] documented as of this encounter Results * Vitamin B12 (11/30/2019 12:16 PM EDT) VITAMIN B12 491 232 - 1,245 pg/mL [facility] Blood 11/30/2019 12:1 6 PM EDT 11/30/2019 12:23 PM EDT us Isabel Katz PA-C LAB BLOOD ORDERABLES Final Resu lt Performing Organization Address City/[facility]/ZIP Co de Phone Number [address] [address] * (ABNORMAL) Ferritin (11/30/2019 12:16 PM EDT) FERRITIN 19(L) 30 - 400 ug/L [facility] Blood 11/30/2019 12:1 6 PM EDT 11/30/2019 12:23 PM EDT us Isabel Katz PA-C LAB BLOOD ORDERABLES Final Resu lt Performing Organization Address [facility]/ZIP Co de Phone Number [address] [address] * Folate (11/30/2019 12:16 PM EDT) FOLIC ACID 15.7 4.2 - 19.9 ng/mL [facility] Blood 11/30/2019 12:1 6 PM EDT 11/30/2019 12:23 PM EDT us Isabel Katz PA-C LAB BLOOD ORDERABLES Final Resu lt Performing Organization Address [facility]/ZIP Co de Phone Number [address] [address] * (ABNORMAL) Iron and iron binding capacity (11/30/2019 12:16 PM EDT) IRON 25(L) 45 - 160 ug/dL [facility] IRON BINDING CAPACITY 510(H) 228 - 428 ug/dL [facility] TRANSFERRIN SATURAT. 5(L) 20 - 55 % [facility] Blood 11/30/2019 12:1 6 PM EDT 11/30/2019 12:23 PM EDT us Isabel Katz PA-C LAB BLOOD ORDERABLES Final Resu lt [facility] [address] [place] [address] * (ABNORMAL) Comprehensive metabolic panel (11/30/2019 12:16 PM EDT) SODIUM 133 133 - 146 mmol/L [facility] POTASSIUM 4.7 3.3 - 5.1 mmol/L [facility] CHLORIDE 95(L) 96 - 108 mmol/L [facility] CO2 23 21 - 35 mmol/L [facility] BUN 13 6 - 19 mg/dL [facility] CREATININE 0.70 0.5 - 1.5 mg/dL [facility] GLUCOSE 159(H) 70 - 99 mg/dL [facility] ALBUMIN 4.2 3.9 - 4.8 g/dL [facility] TOTAL PROTEIN 6.9 6.5 - 8.0 g/dL [facility] CALCIUM 9.2 8.4 - 10.3 mg/dL [facility] ALKALINE PHOSPHATASE 72 39 - 117 U/L [facility] TOTAL BILIRUBIN 0.5 0.0 - 1.2 mg/dL [facility] AST 39(H) 0 - 37 U/L [facility] ALT 25 0 - 40 U/L [facility] GLOBULIN 2.7 1 - 4.8 g/dL [facility] EGFR 93 >59 mL/min/1.7 3m2 [facility] Comment:Estimated glomerular filtration rate calculated using the CKD-EPI equation. ANION GAP 20 10 - 20 mmol/L [facility] Blood 11/30/2019 12:1 6 PM EDT 11/30/2019 12:23 PM EDT us Isabel Katz PA-C LAB BLOOD ORDERABLES Final Resu lt Performing Organization Address City/[facility]/ZIP Co de Phone Number [address] [address] * (ABNORMAL) CBC (11/30/2019 12:16 PM EDT) WBC 5.84 4.00 - 11.00 K/uL [facility] Comment:Note Reference Range updates to all CBC and Differential results. RBC 2.83(L) 3.90 - 5.69 M/uL [facility] HGB 7.0(LL) 12.4 - 17.3 g/dL [facility] Comment: checked by repeat analysis This result has been called to PROSPER Lundberg by Madhuri Butt on 11 30 2019 at 1601, and has been read back. Note updated Reference Ranges for all CBC and Differential results. HCT 23.2(L) 37.0 - 51.0 % [facility] PLT 294 140 - 430 K/uL [facility] MCV 82.0 78.0 - 97.0 fL [facility] MCH 24.7(L) 25.0 - 33.0 pg [facility] MCHC 30.2(L) 32.0 - 36.0 g/dL [facility] RDW 14.7 11.0 - 15.0 % [facility] MPV 10.3 8.4 - 12.8 fl [facility] NRBC 0.00 0 /100 WBCs [facility] ABSOLUTE NRBC 0.00 0 K/uL [facility] Blood 11/30/2019 12:1 6 PM EDT 11/30/2019 12:23 PM EDT us Isabel Katz PA-C LAB BLOOD ORDERABLES Final Resu lt Performing Organization Address [facility]/ZIP Co de Phone Number [address] [address] * (ABNORMAL) Immunoglobulin A (11/30/2019 12:16 PM EDT) IgA 460(H) 70 - 400 mg/dL [facility] Blood 11/30/2019 12:1 6 PM EDT 11/30/2019 12:23 PM EDT us Isabel Katz PA-C LAB BLOOD ORDERABLES Final Resu lt Performing Organization Address City/[facility]/ZIP Co de Phone Number [facility] [address] [place] [address] * Tissue transglutaminase IgA (11/30/2019 12:16 PM EDT) TTG IGA ANTIBODY <1.2 <4.0 (Negative) U/mL [facility] Blood 11/30/2019 12:1 6 PM EDT 11/30/2019 12:22 PM EDT Isabel Katz PA-C LAB BLOOD ORDERABLES Final Resu lt [facility] [address] [place] [address] documented in this encounter Visit Diagnoses Diagnosis Iron deficiency anemia, unspecified iron deficiency anemia type- Primary documented in this encounter Additional Health Concerns Infection Onset Date Last Indicated Resolved Time CoV-Risk 07/24/2021 07/24/2021 08/04/2021 1:22 AM EDT Assessment Noted Time PHQ-2 Depression Total Score: 0 07/12/19 19 2:17 PM EDT documented as of this encounter Care Teams Padder Cushion Relationship Specialty Start Date End Date Fahad Nolasco MD [address] [facility] [place] [address] PCP - General 07/11/18 Jose Elaine MD [address] [facility], [address] [place] [address] Blow Torch Operator Cardiology 04/21/18 Junior Mclain MD [address] [place] [address] [email or web address] Gastroenterology 12/01/19 documented as of this encounter Additional Source Comments The information contained in this document represents components of the legal health record. It is not the complete legal health record.[facility]
--- OUTSIDE RECORDS SUMMARY | 2024-10-04 12:35 | XMS_ITS | Encounter Summary ---
Author Organization [facility] Address [address] [place] [address] Phone Care Team Providers Care Radiation Protection Technician Name Role Phone Jose Elaine MD Unavailable [phone] Fahad Nolasco MD Primary Care Provider Junior Mclain MD Unavailable [phone] Encounter Details Date Type Department Care Team (Latest Contact Info) Description 08/10/2023 Transcribe Orders [facility] Laboratory [address] 2nd [place] [address] Isabel Katz PA-C [address] [place] [address] Anemia, unspecified type (Primary Dx) Social History Tobacco Use Types Packs/Day Years Used Date Smoking Tobacco: Former Cigarettes 30 1 958 - 1988 Smokeless Tobacco: Never Alcohol Use Standard Drinks/Week Comments Yes 3 [...] Description 01/12/2025 10:40 AM EST Office Visit [facility] [address] [place] [address] 3rd Floor, [address] [place] [address] Dillon Zazueta MD [address] [place] [address] documented as of this encounter Results * Ferritin (08/10/2023 2:26 PM EDT) FERRITIN 89 30 - 400 ug/L [facility] Blood 08/10/2023 2:26 PM EDT 08/10/2023 2:28 PM EDT us Isabel Katz PA-C LAB BLOOD ORDERABLES Final Resu lt [facility] [address] [place] [address] * Iron and iron binding capacity (08/10/2023 2:26 PM EDT) IRON 92 45 - 160 ug/dL [facility] IRON BINDING CAPACITY 366 228 - 428 ug/dL [facility] TRANSFERRIN SATURAT. 25 20 - 55 % [facility] Blood 08/10/2023 2:26 PM EDT 08/10/2023 2:28 PM EDT Isabel Katz PA-C LAB BLOOD ORDERABLES Final Resu lt Performing Organization Address City/[facility]/ZIP Co de Phone Number [address] [address] * (ABNORMAL) CBC (08/10/2023 2:26 PM EDT) Pathologist [facility] WBC 7.41 4.00 - 11.00 K/uL [facility] RBC 3.58(L) 3.90 - 5.69 M/uL [facility] HGB 11.0(L) 12.4 - 17.3 g/dL [facility] HCT 34.4(L) 37.0 - 51.0 % [facility] PLT 183 140 - 430 K/uL [facility] MCV 96.1 78.0 - 97.0 fL [facility] MCH 30.7 25.0 - 33.0 pg [facility] MCHC 32.0 32.0 - 36.0 g/dL [facility] RDW 12.9 11.0 - 15.0 % [facility] MPV 11.9 8.4 - 12.8 fl [facility] Blood 08/10/2023 2:26 PM EDT 08/10/2023 2:28 PM EDT Isabel Katz PA-C LAB BLOOD ORDERABLES Final Resu lt Performing Organization Address City/[facility]/ZIP Co de Phone Number [address] [address] documented in this encounter Visit Diagnoses Diagnosis Anemia, unspecified type- Primary documented in this encounter Additional Health Concerns Assessment Noted Time PHQ-2 Depression Total Score: 0 03/18/19 24 1:10 PM EST documented as of this encounter Care Teams Radiation Protection Technician Relationship Specialty Start Date End Date Fahad Nolasco MD [address] [place] [address], [address] [place] [address] PCP - General 07/11/18 Jose Elaine MD [address] [place] [address] [address] [place] [address] Software Installer Cardiology 04/21/18 Junior Mclain MD [address] [place] [address] [email or web address] Gastroenterology 12/01/19 documented as of this encounter Additional Source Comments The information contained in this document represents components of the legal health record. It is not the complete legal health record.[facility]
--- OUTSIDE RECORDS SUMMARY | 2024-10-04 12:35 | XMS_ITS | Encounter Summary ---
Author Organization [facility] Address [address] [facility] [address] [place] [address] Phone Care Team Providers Care Draw Hand Name Role Phone Jose Elaine MD Unavailable [phone] Andrew Bah MD Primary Care Provider [phone] Andrew Bah MD Primary Care Provider [phone] Fahad Nolasco MD Primary Care Provider [phone] Andrew Bah MD Primary Care Provider [phone] Fahad Nolasco MD Primary Care Provider [phone] Junior Mclain MD Unavailable Encounter Details Date Type Department Care Team (Late st Contact Info) Description 12/14/2016 Procedure Pass [facility], Ct Scan - [address] [address] Social History Tobacco Use Types Packs/Day Years Used Date Smoking Tobacco: Former Smokeless Tobacco: Former Alcohol Use Standard Drinks/Week Comments Yes 0 (1 standard drink = 0.6 oz pur e alcohol) occasionally Sex and Gender Information Value Date Recorded Sex Assigned at Male 02/15/2017 9:38 AM EST Legal Sex Male 10:07 PM EDT Gender Identity Male 02/15/2017 9:38 AM EST Sexual Orientation Straight 02/15/2017 9: 38 AM EST documented as of this encounter Plan of Treatment Upcoming Encounters Date Type Department Care Team (Late st Contact Info) Description 01/12/2025 10:40 AM EST Office Visit [facility] [address] [place] [address] 3rd Floor, [address] [place] [address] Dillon Zazueta MD [address] [place] [address] [email or web address] documented as of this encounter Visit Diagnoses Not on filedocumented in this encounter Additional Health Concerns Infection Onset Date Last Indicated Resolved Time CoV-Risk 07/24/2021 07/24/2021 08/04/2021 1:22 AM EDT documented as of this encounter Care Teams Draw Hand Relationship Specialty Start Date End Date Andrew Bah MD [address] [place] [address], [address] [place] [address] PCP - General Family Medicine 05/17/18 05/30/18 Andrew Bah MD [address] [place] [address], [address] [place] [address] PCP - General 06/07/18 06/29/18 Fahad Nolasco MD [address] [place] [address], [address] [place] [address] PCP - General 07/11/18 Andrew Bah MD [address] [place] [address], [address] [place] [address] PCP - General 07/05/18 07/09/18 Fahad Nolasco MD [address] [place] [address], [address] [place] [address] PCP - General Internal Medicine 07/10/18 07/10/18 Jose Elaine MD [address] [place] [address], [facility] [address] [place] [address] [email or web address] Data Warehousing Specialist Cardiology 04/21/18 Junior Mclain MD [address] [place] [address] [email or web address] Gastroenterology 12/01/19 documented as of this encounter Additional Source Comments The information contained in this document represents components of the legal health record. It is not the complete legal health record.[facility]
--- OUTSIDE RECORDS SUMMARY | 2024-10-04 12:35 | XMS_ITS | Encounter Summary ---
Author Organization [facility] Address [address] [place] [address] Phone Care Team Providers Care Product Development Coordinator Name Role Phone Jose Elaine MD Unavailable [phone] Fahad Nolasco MD Primary Care Provider [phone] Junior Mclain MD Unavailable [phone] Encounter Details Date Type Department Care Team (Late st Contact Info) Description 05/06/2023 Procedure Pass [facility], Ct Scan - [facility] [address] [place] [address] Social History Tobacco Use Types Packs/Day Years Used Date Smoking Tobacco: Former Cigarettes 03 09 1 958 - 1987 Smokeless Tobacco: Never [...] Description 01/12/2025 10:40 AM EST Office Visit [facility] [address] [place] [address] 3rd Floor, [address] [place] [address] Dillon Zazueta MD [address] [place] [address] [email or web address] documented as of this encounter Visit Diagnoses Not on filedocumented in this encounter Additional Health Concerns Assessment Noted Time PHQ-2 Depression Total Score: 0 03/18/19 24 1:10 PM EST documented as of this encounter Care Teams Product Development Coordinator Relationship Specialty Start Date End Date Fahad Nolasco MD [address] [place] [address], [address] [place] [address] PCP - General 07/11/18 Jose Elaine MD [address] [place] [address], [address] [place] [address] Weight Loss Physician Cardiology 04/21/18 Junior Mclain MD [address] [place] [address] Gastroenterology 12/01/19 documented as of this encounter Additional Source Comments The information contained in this document represents components of the legal health record. It is not the complete legal health record.[facility]
--- OUTSIDE RECORDS SUMMARY | 2024-10-04 12:35 | XMS_ITS | Encounter Summary ---
Author Organization [facility] Address [address] [place] [address] Phone Care Team Providers Care Vp Packaging Name Role Phone Jose Elaine MD Unavailable [phone] Fahad Nolasco MD Primary Care Provider [phone] Junior Mclain MD Unavailable [phone] Encounter Details Date Type Department Care Team (Late st Contact Info) Description 12/03/2019 Procedure Pass [facility] Endoscopy Admitting Dept Virtual Department [address] [place] [address] Social History Tobacco Use Types Packs/Day Years [...] Description 01/12/2025 10:40 AM EST Office Visit [facility] [address] [facility] 3rd Floor, [address] [place] [address] Dillon Zazueta MD [address] [place] [address] documented as of this encounter Visit Diagnoses Not on filedocumented in this encounter Additional Health Concerns Infection Onset Date Last Indicated Resolved Time CoV-Risk 07/24/2021 07/24/2021 08/04/2021 1:22 AM EDT Assessment Noted Time PHQ-2 Depression Total Score: 0 07/12/19 2:17 PM EDT documented as of this encounter Care Teams Vp Packaging Relationship Specialty Start Date End Date Fahad Nolasco MD [address] [place] [address], [address] [place] [address] PCP - General 07/11/18 Jose Elaine MD [address] [place] [address], [address] [place] [address] Bottle House Pumper Cardiology 04/21/18 Junior Mclain MD [address] [place] [address] Gastroenterology 12/01/19 documented as of this encounter Additional Source Comments The information contained in this document represents components of the legal health record. It is not the complete legal health record.[facility]
--- OUTSIDE RECORDS SUMMARY | 2024-10-04 12:35 | XMS_ITS | Encounter Summary ---
Author Organization [facility] Address [address] [facility] [address] [place] [address] Phone Care Team Providers Care Bag Loader Name Role Phone Jose Elaine MD Unavailable [phone] Fahad Nolasco MD Primary Care Provider [phone] Junior Mclain MD Unavailable [phone] Encounter Details Date Type Department Care Team (Late st Contact Info) Description 02/20/2019 Ancillary Orders Non-Invasive Cardiology [address] [place] [address] Kem Bowers MD [address] [place] [address] [email or web address] Complete heart block Social History Tobacco Use [...] Description 01/12/2025 10:40 AM EST Office Visit [facility] [address] Floor, [address] [place], [place] [address] Dillon Zazueta MD [address] [place] [address] [email or web address] documented as of this encounter Results * DEVICE CHECK: PPM REMOTE INTERROGATION WITH CLAY DRY PRESS MIXER OPERATOR REVIEW (03/21/2019 4:59 PM EST) Narrative Kem Bowers MD - 03/22/2019 12:39 PM EST Reason for appointment: Remote pacemaker interrogation HPI: Routine 3 month remote pacemaker interrogation. No device related complaints. Indication for device: CHB. Examination: Device type: Pacemaker Business Intelligence Engineer: [employer] Mode: AAIR-DDDR LRL/UPL: 70/120 bpm Mode switches: Continuous since end of summer High V rates: 0 Thresholds, impedances, and sensing stable. AF/AT: Patient is currently taking Coumadin daily. Atrial pacin.6% Ventricular pacin.1% Battery: 13.4 yrs Additional comments: Device functioning appropriately. Normal [...] documented as of this encounter Care Teams Bag Loader Relationship Specialty Start Date End Date Fahad Nolasco MD [address] [facility] [place] [address] [email or web address] PCP - General 07/11/18 Jose Elaine MD [address] [place] [address], [address] [place] [address] [email or web address] Hearing Therapy Director Cardiology 04/21/18 Junior Mclain MD [address] [place] [address] [email or web address] Gastroenterology 12/01/19 documented as of this encounter Additional Source Comments The information contained in this document represents components of the legal health record. It is not the complete legal health record.[facility]
--- OUTSIDE RECORDS SUMMARY | 2024-10-04 12:35 | XMS_ITS | Encounter Summary ---
Author Organization [facility] Address [address] [place] [address] Phone Care Team Providers Care Senior Controls Technician Name Role Phone Jose Elaine MD Unavailable [phone] Fahad Nolasco MD Primary Care Provider Junior Mclain MD Unavailable Encounter Details Date Type Department Care Team (Late st Contact Info) Description 12/15/2021 Procedure Pass [facility], Ct Scan - [facility] [address] [place] [address] Social History Tobacco Use Types Packs/Day Years [...] Description 01/12/2025 10:40 AM EST Office Visit [facility] [address] [place] [address] 3rd Floor, [address] [place] [address] Dillon Zazueta MD [address] [place] [address] documented as of this encounter Visit Diagnoses Not on filedocumented in this encounter Additional Health Concerns Assessment Noted Time PHQ-2 Depression Total Score: 0 07/12/19 19 2:17 PM EDT documented as of this encounter Care Teams Senior Controls Technician Relationship Specialty Start Date End Date Fahad Nolasco MD [address] [facility] [place] [address] PCP - General 07/11/18 Jose Elaine MD [address] [facility], [address] [place] [address] Quail Farmer Cardiology 04/21/18 Junior Mclain MD [address] [place] [address] Gastroenterology 12/01/19 documented as of this encounter Additional Source Comments The information contained in this document represents components of the legal health record. It is not the complete legal health record.[facility]
--- OUTSIDE RECORDS SUMMARY | 2024-10-04 12:35 | XMS_ITS | Encounter Summary ---
Author Organization [facility] Address [address] [place] [address] Phone Care Team Providers Care Youth Services Specialist Name Role Phone Jose Elaine MD Unavailable [phone] Fahad Nolasco MD Primary Care Provider Junior Mclain MD Unavailable [phone] Encounter Details Date Type Department Care Team (Late st Contact Info) Description 06/11/2020 Procedure Pass [facility], Ct Scan - [address] [address] Social History Tobacco Use Types Packs/Day Years Used Date Smoking Tobacco: Former Cigarettes Q uit: 1988 Smokeless Tobacco: Never Alcohol Use Standard Drinks/Week Comments Not Currently 0 (1 standard drink = 0.6 oz pur e alcohol) Stopped 12/01/2019 Sex and Gender Information Value Date Recorded Sex Assigned at Male 02/15/2017 9:38 AM EST Legal Sex Male 10:07 PM EDT Gender Identity Male 02/15/2017 9:38 AM EST Sexual Orientation Straight 02/15/2017 9: 38 AM EST documented as of this encounter Plan of Treatment Upcoming Encounters Date Type Department Care Team (Late st Contact Info) Description 01/12/2025 10:40 AM EST Office Visit [facility] [address] [facility] 3rd Floor, [address] [place] [address] Dillon Zazueta MD [address] [place] [address] documented as of this encounter Visit Diagnoses Not on filedocumented in this encounter Additional Health Concerns Infection Onset Date Last Indicated Resolved Time CoV-Risk 07/24/2021 07/24/2021 08/04/2021 1:22 AM EDT Assessment Noted Time PHQ-2 Depression Total Score: 0 07/12/19 2:17 PM EDT documented as of this encounter Care Teams Youth Services Specialist Relationship Specialty Start Date End Date Fahad Nolasco MD [address] [place] [address], [address] [place] [address] PCP - General 07/11/18 Jose Elaine MD [address] [place] [address], [address] [place] [address] Lead Systems Developer Cardiology 04/21/18 Junior Mclain MD [address] [place] [address] Gastroenterology 12/01/19 documented as of this encounter Additional Source Comments The information contained in this document represents components of the legal health record. It is not the complete legal health record.[facility]
--- OUTSIDE RECORDS SUMMARY | 2024-10-04 12:35 | XMS_ITS | Encounter Summary ---
Author Organization [facility] Address [address] [place] [address] Phone Care Team Providers Care Accounting Manager Name Role Phone Jose Elaine MD Unavailable [phone] Fahad Nolasco MD Primary Care Provider [phone] Junior Mclain MD Unavailable [phone] Encounter Details Date Type Department Care Team (Late st Contact Info) Description 04/08/2020 Procedure Pass Non-Invasive Cardiology [address] [place] [address] Social History Tobacco Use Types Packs/Day Years [...] Description 01/12/2025 10:40 AM EST Office Visit [facility] [address], [address] [place], [place] [id number] Dillon Zazueta MD [address] [place] [address] documented as of this encounter Visit Diagnoses Not on filedocumented in this encounter Additional Health Concerns Infection Onset Date Last Indicated Resolved Time CoV-Risk 07/24/2021 07/24/2021 08/04/2021 1:22 AM EDT Assessment Noted Time PHQ-2 Depression Total Score: 0 07/12/19 2:17 PM EDT documented as of this encounter Care Teams Accounting Manager Relationship Specialty Start Date End Date Fahad Nolasco MD [address] [place] [address], [address] [place] [address] PCP - General 07/11/18 Jose Elaine MD [address] [place] [address], [address] [place] [address] Operations Forester Cardiology 04/21/18 Junior Mclain MD [address] [place] [address] Gastroenterology 12/01/19 documented as of this encounter Additional Source Comments The information contained in this document represents components of the legal health record. It is not the complete legal health record.[facility]
--- OUTSIDE RECORDS SUMMARY | 2024-10-04 12:35 | XMS_ITS | Encounter Summary ---
Author Organization [facility] Address [address] [place] [address] Phone Care Team Providers Care Filemaker Developer Name Role Phone Jose Elaine MD Unavailable Fahad Nolasco MD Primary Care Provider Junior Mclain MD Unavailable [phone] Encounter Details Date Type Department Care Team (Late st Contact Info) Description 08/30/2018 Prep for Surgery [facility] [address], [address] [place], [place] [id number] Jose Elaine MD [address] [facility], [address] [place] [address] [phone] [email or web address] Social History Tobacco Use Types Packs/Day Years [...] Description 01/12/2025 10:40 AM EST Office Visit [facility] [address], [address] [place], [place] 7[address] Dillon Zazueta MD [address] [place] [address] documented as of this encounter Visit Diagnoses Not on filedocumented in this encounter Additional Health Concerns Infection Onset Date Last Indicated Resolved Time CoV-Risk 07/24/2021 07/24/2021 08/04/2021 1:22 AM EDT Assessment Noted Time PHQ-2 Depression Total Score: 0 07/12/19 2:17 PM EDT documented as of this encounter Care Teams Filemaker Developer Relationship Specialty Start Date End Date Fahad Nolasco MD [address] [facility], [address] [place] [address] PCP - General 07/11/18 Jose Elaine MD [address] [place] [address], [address] [place] [address] Supervisor Area Cardiology 04/21/18 Junior Mclain MD [address] [place] [address] Gastroenterology 12/01/19 documented as of this encounter Additional Source Comments The information contained in this document represents components of the legal health record. It is not the complete legal health record.[facility]
--- OUTSIDE RECORDS SUMMARY | 2024-10-04 12:35 | XMS_ITS | Encounter Summary ---
Author Organization [facility] Address [address] [facility] [address] [place] [address] Phone Care Team Providers Care Chief Science Officer Name Role Phone Jose Elanie MD Unavailable [phone] Fahad Nolasco MD Primary Care Provider [phone] Junior Mclain MD Unavailable [phone] Encounter Details Date Type Department Care Team (Late st Contact Info) Description 09/25/2019 Ancillary Orders Non-Invasive Cardiology [address] [place] [address] Kem Bowers MD [address] [place] [address] [email or web address] Complete heart block Social History Tobacco [...] Description 01/12/2025 10:40 AM EST Office Visit [facility] [address], [address] [place], [place] [phone] Dillon Zazueta MD [address] [place] [address] [email or web address] documented as of this encounter Visit Diagnoses Diagnosis Complete heart block Atrioventricular block, complete documented in this encounter Additional Health Concerns Infection Onset Date Last Indicated Resolved Time CoV-Risk 07/24/2021 07/24/2021 08/04/2021 1:22 AM EDT Assessment Noted Time PHQ-2 Depression Total Score: 0 07/12/19 2:17 PM EDT documented as of this encounter Care Teams Chief Science Officer Relationship Specialty Start Date End Date Fahad Nolasco MD [address] [place] [address], [address] [place] [address] PCP - General 07/11/18 Jose Elaine MD [address] [place] [address], [address] [place] [address] Campaign Fundraiser Cardiology 04/21/18 Junior Mclain MD [address] [place] [address] Gastroenterology 12/01/19 documented as of this encounter Additional Source Comments The information contained in this document represents components of the legal health record. It is not the complete legal health record.[facility]
--- OUTSIDE RECORDS SUMMARY | 2024-10-04 12:35 | XMS_ITS | Encounter Summary ---
Author Organization [facility] Address [address] [place] [address] Phone Care Team Providers Care Letterer Name Role Phone Jose Elaine MD Unavailable [phone] Fahad Nolasco MD Primary Care Provider [phone] Junior Mclain MD Unavailable Encounter Details Date Type Department Care Team (Late st Contact Info) Description 07/10/2020 Procedure Pass Non-Invasive Cardiology [address] [place] [address] Social History Tobacco Use Types Packs/Day Years [...] Description 01/12/2025 10:40 AM EST Office Visit [facility] [address], [address] [place], [place] [address] Dillon Zazueta MD [address] [place] [address] documented as of this encounter Visit Diagnoses Not on filedocumented in this encounter Additional Health Concerns Infection Onset Date Last Indicated Resolved Time CoV-Risk 07/24/2021 07/24/2021 08/04/2021 1:22 AM EDT Assessment Noted Time PHQ-2 Depression Total Score: 0 07/12/19 2:17 PM EDT documented as of this encounter Care Teams Letterer Relationship Specialty Start Date End Date Fahad Nolasco MD [address] [place] [address], [address] [place] [address] PCP - General 07/11/18 Jose Elaine MD [address] [place] [address], [address] [place] [address] Registered Nurse Hh Case Manager Cardiology 04/21/18 Junior Mclain MD [address] [place] [address] Gastroenterology 12/01/19 documented as of this encounter Additional Source Comments The information contained in this document represents components of the legal health record. It is not the complete legal health record.[facility]
--- OUTSIDE RECORDS SUMMARY | 2024-10-04 12:35 | XMS_ITS | Encounter Summary ---
Author Organization [facility] Address [address] [place] [address] Phone Care Team Providers Care Satellite Tv Technician Name Role Phone Jose Elaine MD Unavailable [phone] Fahad Nolasco MD Primary Care Provider [phone] Junior Mclain MD Unavailable [phone] Encounter Details Date Type Department Care Team (Late st Contact Info) Description 09/13/2018 Ancillary Orders [facility] [address] [place] [address] Kem Bowers MD [address] [place], [place] [id number] [email or web address] Social History Tobacco Use Types Packs/Day Years [...] Description 01/12/2025 10:40 AM EST Office Visit [facility] [address], [address] [place], [place] [address] Dillon Zazueta MD [address] [place] [address] documented as of this encounter Visit Diagnoses Not on filedocumented in this encounter Additional Health Concerns Infection Onset Date Last Indicated Resolved Time CoV-Risk 07/24/2021 07/24/2021 08/04/2021 1:22 AM EDT Assessment Noted Time PHQ-2 Depression Total Score: 0 07/12/19 2:17 PM EDT documented as of this encounter Care Teams Satellite Tv Technician Relationship Specialty Start Date End Date Fahad Nolasco MD [address] [place] [address], [address] [place] [address] PCP - General 07/11/18 Jose Elaine MD [address] [place] [address], [address] [place] [address] Lining Caser Cardiology 04/21/18 Junior Mclain MD [address] [place] [address] Gastroenterology 12/01/19 documented as of this encounter Additional Source Comments The information contained in this document represents components of the legal health record. It is not the complete legal health record.[facility]
--- OUTSIDE RECORDS SUMMARY | 2024-10-04 12:35 | XMS_ITS | Encounter Summary ---
Author Organization [facility] Address [address] [place] [address] Phone Care Team Providers Care Operations Mgr Name Role Phone Jose Elaine MD Unavailable [phone] Fahad Nolasco MD Primary Care Provider Junior Mclain MD Unavailable [phone] Encounter Details Date Type Department Care Team (Late st Contact Info) Description 10/21/2020 Procedure Pass Non-Invasive Cardiology [address] [place] [address] Social History Tobacco Use Types Packs/Day Years [...] Description 01/12/2025 10:40 AM EST Office Visit [facility] [address], [address] [place], [place] [address] Dillon Zazueta MD [address] [place] [address] documented as of this encounter Visit Diagnoses Not on filedocumented in this encounter Additional Health Concerns Infection Onset Date Last Indicated Resolved Time CoV-Risk 07/24/2021 07/24/2021 08/04/2021 1:22 AM EDT Assessment Noted Time PHQ-2 Depression Total Score: 0 07/12/19 2:17 PM EDT documented as of this encounter Care Teams Operations Mgr Relationship Specialty Start Date End Date Fahad Nolasco MD [address] [facility], [address] [place] [address] PCP - General 07/11/18 Jose Elaine MD [address] [place] [address], [address] [place] [address] Software Asset Management Analyst Cardiology 04/21/18 Junior Mclain MD [address] [place] [address] Gastroenterology 12/01/19 documented as of this encounter Additional Source Comments The information contained in this document represents components of the legal health record. It is not the complete legal health record.[facility]
--- OUTSIDE RECORDS SUMMARY | 2024-10-04 12:35 | XMS_ITS | Encounter Summary ---
Author Organization [facility] Address [address] [facility] [address] [place] [address] Phone Care Team Providers Care Claims Processor Name Role Phone Jose Elaine MD Unavailable [phone] Andrew Bah MD Primary Care Provider [phone] Andrew Bah MD Primary Care Provider [phone] Fahad Nolasco MD Primary Care Provider [phone] Andrew Bah MD Primary Care Provider [phone] Fahad Nolasco MD Primary Care Provider [phone] Junior Mclain MD Unavailable [phone] Encounter Details Date Type Department Care Team (Latest Contact Info) Description 03/23/2017 Transcribe Orders [facility] [address] [place] [address] Pieter Alamo DO [address] [place] [address] Essential hypertension, benign (Primary Dx); 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, without long-term current use of insulin; Vitamin D insufficiency Social History Tobacco Use Types Packs/Day Years [...] Description 01/12/2025 10:40 AM EST Office Visit [facility] [address], [address] [place] [address] Dillon Zazueta MD [address] [place] [address] [email or web address] documented as of this encounter Results * Microalbumin/creatinine ratio, random urine (10/22/2017 10:08 AM EDT) [facility] URINE MICROALBUMIN 0.8 0 - 2.3 mg/dL [facility] URINE CREATININE 52 mg/dL [facility] MICROALB/CRE RATIO NOT CALCULATED 0 - 20 mg/g Cre [facility] Comment:due to Microalbumin <1.2 Urine (Urine) 10/22/2017 10: 08 AM EDT 10/22/2017 10:11 AM EDT Pietre Alamo DO URINE ORDERABLES Final Result Performing Organization Address [facility] Co de Phone Number [address] [address] * (ABNORMAL) 25-OH vitamin D (03/23/2017 3:01 PM EST) [facility] 25 [place] VIT D (TOTAL) 27(L) 30 - 1,000 ng/mL [facility] Blood 03/23/2017 3:01 PM EST 03/23/2017 3:03 PM EST Pieter Alamo DO LAB BLOOD ORDERABLES Final Resu lt Performing Organization Address [facility] Co de Phone Number [address] [address] * (ABNORMAL) CBC and differential (03/23/2017 3:01 PM EST) WBC 8.50 3.40 - 11.20 K/uL [facility] RBC 3.86(L) 4.50 - 5.50 M/uL [facility] HGB 10.3(L) 13.0 - 17.0 g/dL [facility] HCT 32.7(L) 40.0 - 51.0 % [facility] PLT 179 130 - 400 K/uL [facility] MCV 84.7 79.0 - 98.0 fL [facility] MCH 26.7(L) 27.0 - 34.8 pg [facility] MCHC 31.5 31.5 - 36.0 g/dL [facility] RDW 17.7(H) 10.8 - 14.6 % [facility] MPV 11.7 9.4 - 12.4 fl [facility] NRBC 0.00 /100 WBCs [facility] ABSOLUTE NRBC 0.00 K/uL [facility] DIFF METHOD Auto [facility] NEUTS 61.4 45.30 - 77.70 % [facility] LYMPHS 26.8 12.30 - 39.70 % [facility] MONOS 9.6 4.10 - 12.80 % [facility] EOS 1.6 0 - 7.2 % [facility] BASOS 0.5 0 - 2.80 % [facility] Granulocytes, immature (%) 0.1 0.0 - 0.9 % [facility] ABSOLUTE NEUTS 5.21 1.40 - 7.70 K/uL [facility] ABSOLUTE LYMPHS 2.28 0.60 - 3.20 K/uL [facility] ABSOLUTE MONOS 0.82(H) 0.11 - 0.59 K/uL [facility] ABSOLUTE EOS 0.14 0.01 - 0.50 K/uL [facility] ABSOLUTE BASOS 0.04 0.00 - 0.08 K/uL [facility] Granulocytes, immature 0.01 0.00 - 0.05 K/uL [facility] Blood 03/23/2017 3:01 PM EST 03/23/2017 3:03 PM EST Pieter Alamo DO LAB BLOOD ORDERABLES Final Resu lt Performing Organization Address [facility]/ZIP Co de Phone Number [address] [address] * (ABNORMAL) Lipid panel (03/23/2017 3:01 PM EST) HDL 39 mg/dL [facility] Comment: Interpretation: Risk Level Males Decreased >45 mg/dL Average 40-45 mg/dL Increased <40 mg/dL CHOLESTEROL 111 0 - 240 mg/dL [facility] TRIGLYCERIDES 61 30 - 160 mg/dL [facility] LDL 60 50 - 129 mg/dL [facility] Comment: LDL levels in terms of risk for coronary heart disease: <100 mg/dL: Optimal 100-129 mg/dL: Near or above optimal 130-159 mg/dL: Borderline high 160-189 mg/dL: High >190 mg/dL: Very High CARDIAC RISK RATIO 2.8(L) 3.4 - 5.0 [facility] Blood 03/23/2017 3:01 PM EST 03/23/2017 3:03 PM EST [facility] LAB BLOOD ORDERABLES Final Resu lt Performing Organization Address [facility] Co de Phone Number [address] [address] * (ABNORMAL) Hemoglobin A1c (03/23/2017 3:01 PM EST) HEMOGLOBIN A1C 6.3(H) 4.3 - 5.8 % [facility] Blood 03/23/2017 3:01 PM EST 03/23/2017 3:03 PM EST [facility] LAB BLOOD ORDERABLES Final Resu lt Performing Organization Address [facility]/ZIP Co de Phone Number [address] [address] * Comprehensive metabolic panel (03/23/2017 3:01 PM EST) SODIUM 135 133 - 146 mmol/L [facility] POTASSIUM 4.7 3.3 - 5.1 mmol/L [facility] CHLORIDE 98 96 - 108 mmol/L [facility] CO2 27 21 - 35 mmol/L [facility] BUN 15 6 - 19 mg/dL [facility] CREATININE 0.60 0.5 - 1.5 mg/dL [facility] GLUCOSE 90 70 - 99 mg/dL [facility] ALBUMIN 4.1 3.9 - 4.8 g/dL [facility] TOTAL PROTEIN 7.0 6.5 - 8.0 g/dL [facility] CALCIUM 8.8 8.4 - 10.3 mg/dL [facility] ALKALINE PHOSPHATASE 66 39 - 117 U/L [facility] TOTAL BILIRUBIN 0.5 0 - 1.2 mg/dL [facility] AST 26 0 - 37 U/L [facility] ALT 24 0 - 40 U/L [facility] GLOBULIN 2.9 1 - 4.8 g/dL [facility] EGFR >60 mL/min/1.7 3m2 [facility] Comment:Abnormal if <60. If patient is -Russian, multiply the result by 1.21. 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, without long-term current use of insulin Vitamin D insufficiency documented in this encounter Additional Health Concerns Infection Onset Date Last Indicated Resolved Time CoV-Risk 07/24/2021 07/24/2021 08/04/2021 1:22 AM EDT documented as of this encounter Care Teams Claims Processor Relationship Specialty Start Date End Date Andrew Bah MD [address] [place] [address], [address] [place] [address] PCP - General Family Medicine 05/17/18 05/30/18 Andrew Bah MD [address] [place] [address], [address] [place] [address] PCP - General 06/07/18 06/29/18 Fahad Nolasco MD [address] [place] [address], [address] [place] [address] PCP - General 07/11/18 Andrew Bah MD [address] [place] [address], [address] [place] [address] PCP - General 07/05/18 07/09/18 Fahad Nolasco MD [address] [place] [address], [address] [place] [address] PCP - General Internal Medicine 07/10/18 07/10/18 Jose Elaine MD [address] [place] [address], [address] [place] [address] Butter Maker Cardiology 04/21/18 Junior Mclain MD [address] [place] [address] Gastroenterology 12/01/19 documented as of this encounter Additional Source Comments The information contained in this document represents components of the legal health record. It is not the complete legal health record.[facility]
--- OUTSIDE RECORDS SUMMARY | 2024-10-04 12:35 | XMS_ITS | Encounter Summary ---
Author Organization [facility] Address [address] [place] [address] Phone Care Team Providers Care Automotive Accessory Installer Name Role Phone Jose Elaine MD Unavailable [phone] Fahad Nolasco MD Primary Care Provider Junior Mclain MD Unavailable [phone] Encounter Details Date Type Department Care Team (Late st Contact Info) Description 08/05/2020 Procedure Pass [facility] [address] [place] [address] Social History Tobacco Use Types Packs/Day Years [...] EST Office Visit [facility] [address] [facility] 3rd Floor, [address] [place] [address] Dillon Zazueta MD [address] [place] [address] documented as of this encounter Visit Diagnoses Not on filedocumented in this encounter Additional Health Concerns Infection Onset Date Last Indicated Resolved Time CoV-Risk 07/24/2021 07/24/2021 08/04/2021 1:22 AM EDT Assessment Noted Time PHQ-2 Depression Total Score: 0 07/12/19 2:17 PM EDT documented as of this encounter Care Teams Automotive Accessory Installer Relationship Specialty Start Date End Date Fahad Nolasco MD [address] [place] [address], [address] [place] [address] PCP - General 07/11/18 Jose Elaine MD [address] [place] [address], [address] [place] [address] Special Warfare Operator Cardiology 04/21/18 Junior Mclain MD [address] [place] [address] Gastroenterology 12/01/19 documented as of this encounter Additional Source Comments The information contained in this document represents components of the legal health record. It is not the complete legal health record.[facility]
--- OUTSIDE RECORDS SUMMARY | 2024-10-04 12:35 | XMS_ITS | Encounter Summary ---
Author Organization [facility] Address [address] [place] [address] Phone Care Team Providers Care Golf Club Manager Name Role Phone Jose Elaine MD Unavailable [phone] Fahad Nolasco MD Primary Care Provider [phone] Junior Mclain MD Unavailable [phone] Encounter Details Date Type Department Care Team (Late st Contact Info) Description 09/01/2024 Orders Only [facility] [address] Floor, [address] [place] [address] Provider, MD Charles [facility] [place] [address] Social History Tobacco Use Types Packs/Day Years Used Date Smoking Tobacco: Former Cigarettes 1 30 1 958 - 1988 Smokeless Tobacco: [...] Description 01/12/2025 10:40 AM EST Office Visit [facility] [address] [place] [address] 3rd Floor, [address] [place] [address] Dillon Zazueta MD [address] [place] [address] documented as of this encounter Procedures Procedure Name Priority Date/Time Associated Diagnosis Comments OUTSIDE EP STUDY Routine 07/28/2024 3:58 PM EDT documented in this encounter Results * Outside EP Study Report Only (07/28/2024 3:58 PM EDT) us Historical Provider CV ELECTROPHYSIOLOGY KIM ONEIL Final Result documented in this encounter Visit Diagnoses Not on filedocumented in this encounter Additional Health Concerns Assessment Noted Time PHQ-2 Depression Total Score: 0 03/18/19 24 1:10 PM EST documented as of this encounter Care Teams Golf Club Manager Relationship Specialty Start Date End Date Fahad Nolasco MD [address] [place] [address], [address] [place] [address] PCP - General 07/11/18 Jose Elaine MD [address] [place] [address], [address] [place] [address] General Superintendent Cardiology 04/21/18 Junior Mclain MD [address] [place] [address] [email or web address] Gastroenterology 12/01/19 documented as of this encounter Additional Source Comments The information contained in this document represents components of the legal health record. It is not the complete legal health record.[facility]
--- OUTSIDE RECORDS SUMMARY | 2024-10-04 12:35 | XMS_ITS | Encounter Summary ---
Author Organization [facility] Address [address] [place] [address] Phone Care Team Providers Care Land Manager Name Role Phone Jose Elaine MD Unavailable Fahad Nolasco MD Primary Care Provider [phone] Junior Mclain MD Unavailable Encounter Details Date Type Department Care Team (Latest Contact Info) Description 10/21/2020 Ancillary Orders [facility] [address] Floor, [address] [place] [address] Ayala Morfin MD [address] [place] [phone] [email or web address] Complete heart block Social History Tobacco Use [...] Description 01/12/2025 10:40 AM EST Office Visit [facility] [address] Floor, [address] [place] [address] Dillon Zazueta MD [address] [place] [address] [email or web address] documented as of this encounter Visit Diagnoses Diagnosis Complete heart block Atrioventricular block, complete documented in this encounter Additional Health Concerns Infection Onset Date Last Indicated Resolved Time CoV-Risk 07/24/2021 07/24/2021 08/04/2021 1:22 AM EDT Assessment Noted Time PHQ-2 Depression Total Score: 0 07/12/19 2:17 PM EDT documented as of this encounter Care Teams Land Manager Relationship Specialty Start Date End Date Fahad Nolasco MD [address] [place] [address], [address] [place] [address] PCP - General 07/11/18 Jose Elaine MD [address] [place] [address], [address] [place] [address] Jewelry Sales Associate Cardiology 04/21/18 Junior Mclain MD [address] [place] [address] Gastroenterology 12/01/19 documented as of this encounter Additional Source Comments The information contained in this document represents components of the legal health record. It is not the complete legal health record.[facility]
--- OUTSIDE RECORDS SUMMARY | 2024-10-04 12:35 | XMS_ITS | Encounter Summary ---
Author Organization [facility] Address [address] [facility] [address] [place] [address] Phone Care Team Providers Care Clinical Data Management Director Name Role Phone Jose Elaine MD Unavailable [phone] Andrew Bah MD Primary Care Provider [phone] Andrew Bah MD Primary Care Provider [phone] Fahad Nolasco MD Primary Care Provider [phone] Andrew Bah MD Primary Care Provider [phone] Fahad Nolasco MD Primary Care Provider [phone] Junior Mclain MD Unavailable [phone] Encounter Details Date Type Department Care Team (Latest Contact Info) Description 10/22/2017 Transcribe Orders [facility] [address] [place] [address] Pieter Alamo DO [address] [place] [address] Hyperlipidemia, unspecified hyperlipidemia type (Primary Dx); Essential hypertension, malignant Social History Tobacco Use Types Packs/Day Years [...] Description 01/12/2025 10:40 AM EST Office Visit [facility] [address] Floor, [address] [place] [address] Dillon Zazueta MD [address] [place] [address] [email or web address] documented as of this encounter Procedures Procedure Name Priority Date/Time Associated Diagnosis Comments ALANINE AMINOTRANSFERASE (ALT) Routine 10/22/2017 10:08 AM EDT Hyperlipidemia, unspecified hyperlipidemia type Essential hypertension, malignant ASPARTATE AMINOTRANSFERASE (AST) Routine 10/22/2017 10:08 AM EDT Hyperlipidemia, unspecified hyperlipidemia type Essential hypertension, malignant documented in this encounter Results * (ABNORMAL) Comprehensive metabolic panel (10/22/2017 10:08 AM EDT) SODIUM 139 133 - 146 mmol/L [facility] POTASSIUM 5.4(H) 3.3 - 5.1 mmol/L [facility] CHLORIDE 100 96 - 108 mmol/L [facility] CO2 24 21 - 35 mmol/L [facility] BUN 18 6 - 19 mg/dL [facility] CREATININE 0.70 0.5 - 1.5 mg/dL [facility] GLUCOSE 141(H) 70 - 99 mg/dL [facility] ALBUMIN 4.4 3.9 - 4.8 g/dL [facility] TOTAL PROTEIN 7.6 6.5 - 8.0 g/dL [facility] CALCIUM 9.7 8.4 - 10.3 mg/dL [facility] ALKALINE PHOSPHATASE 75 39 - 117 U/L [facility] TOTAL BILIRUBIN 0.6 0.0 - 1.2 mg/dL [facility] AST 23 0 - 37 U/L [facility] ALT 20 0 - 40 U/L [facility] GLOBULIN 3.2 1 - 4.8 g/dL [facility] EGFR 95 >59 mL/min/1.7 3m2 [facility] Comment:If patient is black, multiply result by 1.159. Estimated glomerular filtration rate calculated using the CKD-EPI equation. ANION GAP 20 10 - 20 mmol/L [facility] Blood 10/22/2017 10:0 8 AM EDT 10/22/2017 10:10 AM EDT [facility] LAB BLOOD ORDERABLES Final Resu lt Performing Organization Address [facility] Co de Phone Number [address] [address] * Alanine aminotransferase (ALT) (10/22/2017 10:08 AM EDT) ALT 20 0 - 40 U/L [facility] Blood 10/22/2017 10:0 8 AM EDT 10/22/2017 10:11 AM EDT [facility] LAB BLOOD ORDERABLES Final Resu lt Performing Organization Address [facility] de Phone Number [address] [address] * Aspartate aminotransferase (AST) (10/22/2017 10:08 AM EDT) AST 24 0 - 37 U/L [facility] Blood 10/22/2017 10:0 8 AM EDT 10/22/2017 10:11 AM EDT [facility] LAB BLOOD ORDERABLES Final Resu lt Performing Organization Address [facility] Co de Phone Number [address] [address] * (ABNORMAL) Lipid panel (10/22/2017 10:08 AM EDT) HDL 42 mg/dL [facility] Comment: Interpretation: Risk Level Males Decreased >45 mg/dL Average 40-45 mg/dL Increased <40 mg/dL CHOLESTEROL 107 0 - 240 mg/dL [facility] TRIGLYCERIDES 51 30 - 160 mg/dL [facility] LDL 55 50 - 129 mg/dL [facility] Comment: LDL levels in terms of risk for coronary heart disease: <100 mg/dL: Optimal 100-129 mg/dL: Near or above optimal 130-159 mg/dL: Borderline high 160-189 mg/dL: High >190 mg/dL: Very High CARDIAC RISK RATIO 2.5(L) 3.4 - 5.0 [facility] Blood 10/22/2017 10:0 8 AM EDT 10/22/2017 10:10 AM EDT [facility] LAB BLOOD ORDERABLES Final Resu lt [facility] [address] [place] [address] documented in this encounter Visit Diagnoses Diagnosis Hyperlipidemia, unspecified hyperlipidemia type- Primary Essential hypertension, malignant documented in this encounter Additional Health Concerns Infection Onset Date Last Indicated Resolved Time CoV-Risk 07/24/2021 07/24/2021 08/04/2021 1:22 AM EDT documented as of this encounter Care Teams Clinical Data Management Director Relationship Specialty Start Date End Date Andrew Bah MD [address] [place] [address], [address] [place] [address] [email or web address] PCP - General Family Medicine 05/17/18 05/30/18 Andrew Bah MD [address] [place] [address], [address] [place] [address] PCP - General 06/07/18 06/29/18 Fahad Nolasco MD [address] [place] [address], [address] [place] [address] PCP - General 07/11/18 Andrew Bah MD [address] [place] [address], [address] [place] [address] PCP - General 07/05/18 07/09/18 Fahad Nolasco MD [address] [place] [address], [address] [place] [address] PCP - General Internal Medicine 07/10/18 07/10/18 Jose Elaine MD [address] [place] [address], [address] [place] [address] Cs Associate Cardiology 04/21/18 Junior Mclain MD [address] [place] [address] Gastroenterology 12/01/19 documented as of this encounter Additional Source Comments The information contained in this document represents components of the legal health record. It is not the complete legal health record.[facility]
--- OUTSIDE RECORDS SUMMARY | 2024-10-04 12:36 | XMS_ITS | Encounter Summary ---
Author Organization [facility] Address [address] [facility] [address] [place] [address] Phone Care Team Providers Care Lining Strap Closer Name Role Phone Jose Elaine MD Unavailable [phone] Andrew Bah MD Primary Care Provider [phone] Andrew Bah MD Primary Care Provider [phone] Fahad Nolasco MD Primary Care Provider [phone] Andrew Bah MD Primary Care Provider [phone] Fahad Nolasco MD Primary Care Provider [phone] Junior Mclain MD Unavailable [phone] Encounter Details Date Type Department Care Team (Late st Contact Info) Description 12/02/2017 Procedure Pass [facility] [address] [place] [address] Social History Tobacco Use Types Packs/Day Years Used Date Smoking Tobacco: Former Cigarettes Q uit: 1988 Smokeless Tobacco: Former Alcohol Use Standard Drinks/Week Comments Yes 0 (1 standard drink = 0.6 oz pur e alcohol) 0-5 beers a day Sex and Gender Information Value Date Recorded Sex Assigned at Male 02/15/2017 9:38 AM EST Legal Sex Male 10:07 PM EDT Gender Identity Male 02/15/2017 9:38 AM EST Sexual Orientation Straight 02/15/2017 9: 38 AM EST documented as of this encounter Plan of Treatment Upcoming Encounters Date Type Department Care Team (Late st Contact Info) Description 01/12/2025 10:40 AM EST Office Visit [facility] [address] [facility] 3rd Floor, [address] [place] [address] Dillon Zazueta MD [address] [place] [address] documented as of this encounter Visit Diagnoses Not on filedocumented in this encounter Additional Health Concerns Infection Onset Date Last Indicated Resolved Time CoV-Risk 07/24/2021 07/24/2021 08/04/2021 1:22 AM EDT documented as of this encounter Care Teams Lining Strap Closer Relationship Specialty Start Date End Date Andrew Bah MD [address] [place] [address], [address] [place] [address] PCP - General Family Medicine 05/17/18 05/30/18 Andrew Bah MD [address] [place] [address], [address] [place] [address] PCP - General 06/07/18 06/29/18 Fahad Nolasco MD [address] [place] [address], [address] [place] [address] PCP - General 07/11/18 Andrew Bah MD [address] [place] [address], [address] [place] [address] PCP - General 07/05/18 07/09/18 Fahad Nolasco MD [address] [place] [address], [address] [place] [address] PCP - General Internal Medicine 07/10/18 07/10/18 Jose Elaine MD [address] [facility] [address] [place] [address] [email or web address] Ballet Teacher Cardiology 04/21/18 Junior Mclain MD [address] [place] [address] [email or web address] Gastroenterology 12/01/19 documented as of this encounter Additional Source Comments The information contained in this document represents components of the legal health record. It is not the complete legal health record.[facility]
--- OUTSIDE RECORDS SUMMARY | 2024-10-04 12:36 | XMS_ITS | Encounter Summary ---
Author Organization [facility] Address [address] [facility] [address] [place] [address] Phone Care Team Providers Care Gelatin Plant Supervisor Name Role Phone Jose Elaine MD Unavailable [phone] Andrew Bah MD Primary Care Provider [phone] Andrew Bah MD Primary Care Provider [phone] Fahad Nolasco MD Primary Care Provider [phone] Andrew Bah MD Primary Care Provider [phone] Fahad Nolasco MD Primary Care Provider [phone] Junior Mclain MD Unavailable [phone] Encounter Details Date Type Department Care Team (Late st Contact Info) Description 04/12/2018 Procedure Pass [facility] [address] [place] [address] Social History Tobacco Use Types Packs/Day Years Used Date Smoking Tobacco: Former Cigarettes Q uit: 1986 Smokeless Tobacco: Former Alcohol Use Standard Drinks/Week Comments Yes 0 (1 standard drink = 0.6 oz pure alcohol) 0-5 beers a day, until 03/17/2017 when stopped all alcohol Sex and Gender Information Value Date Recorded Sex Assigned at Male 02/15/2017 9:38 AM EST Legal Sex Male 10:07 PM EDT Gender Identity Male 02/15/2017 9:38 AM EST Sexual Orientation Straight 02/15/2017 9: 38 AM EST documented as of this encounter Plan of Treatment Upcoming Encounters Date Type Department Care Team (Late st Contact Info) Description 01/12/2025 10:40 AM EST Office Visit [facility] [address] [facility] 3rd Floor, [address] [place] [address] Dillon Zazueta MD [address] [place] [address] documented as of this encounter Visit Diagnoses Not on filedocumented in this encounter Additional Health Concerns Infection Onset Date Last Indicated Resolved Time CoV-Risk 07/24/2021 07/24/2021 08/04/2021 1:22 AM EDT Assessment Noted Time PHQ-2 Depression Total Score: 0 03/17/19 12:19 PM EST documented as of this encounter Care Teams Gelatin Plant Supervisor Relationship Specialty Start Date End Date Andrew Bah MD [address] [place] [address], [address] [place] [address] PCP - General Family Medicine 05/17/18 05/30/18 Andrew Bah MD [address] [place] [address], [address] [place] [address] PCP - General 06/07/18 06/29/18 Fahad Nolasco MD [address] [place] [address], [address] [place] [address] PCP - General 07/11/18 Andrew Bah MD [address] [place] [address], [address] [place] [address] PCP - General 07/05/18 07/09/18 Fahad Nolasco MD [address] [place] [address], [address] [place] [address] [email or web address] PCP - General Internal Medicine 07/10/18 07/10/18 Jose Elaine MD [address] [place] [address] Order Analyst Cardiology 04/21/18 Junior Mclain MD [address] [place] [address] Gastroenterology 12/01/19 documented as of this encounter Additional Source Comments The information contained in this document represents components of the legal health record. It is not the complete legal health record.[facility]
--- OUTSIDE RECORDS SUMMARY | 2024-10-04 12:36 | XMS_ITS | Encounter Summary ---
Author Organization [facility] Address [address] [facility] [address] [place] [address] Phone Care Team Providers Care Traffic Controller Cable Name Role Phone Jose Elaine MD Unavailable [phone] Fahad Nolasco MD Primary Care Provider [phone] Junior Mclain MD Unavailable [phone] Reason for Referral * MRI/CAT Scan - Closed Specialty Diagnoses / Procedures Referred By Aramis t Referred To Contact Radiology Diagnoses Anemia, unspecified type Elevated lipase Procedures CT Abdomen/Pelvis Isabel Katz PA-C Phone: tel: fax: mailto:[email or web address] Referral ID Status Reason Start Date Expiration Date Visits Re quested Visits Authorized [id number] Closed 05/06/2023 05/05/2024 1 1 Encounter Details Date Type Department Care Team (Latest Contact Info) Description 04/30/2023 Transcribe Orders Virtual Department [address] [place] [address] Isabel Katz PA-C [address] [place] [place] [address] [email or web address] Anemia, unspecified type (Primary Dx); Abnormal digestive system diagnostic imaging; Elevated lipase Social History Tobacco Use Types Packs/Day Years Used Date Smoking Tobacco: Former Cigarettes 0.5 30 1 958 - 0355 Smokeless Tobacco: Never Alcohol Use Standard Drinks/Week Comments Not Currently 20 (1 standard drink = 0.6 oz pu re alcohol) Education Answer Date Recorded Are you interested [...] Description 01/12/2025 10:40 AM EST Office Visit [facility] [address] [place] [address] 3rd Floor, [address] [place] [address] Dillon Zazueta MD [address] [place] [address] documented as of this encounter Results * CT ABDOMEN/PELVIS WITH CONTRAST (07/23/2023 12:07 PM EDT) Anatomical Region Laterality Modality Abdomen, Pelvis Computed Tomogra phy 07/24/2023 6:19 AM EDT Impressions 07/25/2023 7:48 PM EDT No cause for anemia identified in the abdomen/pelvis. Narrative 07/25/2023 7:[address] ABDOMEN/PELVIS WITH CONTRAST Referring clinician's provided indication for this examination in [facility]: Outside Radiology Order; anemia TECHNIQUE: Multidetector-row CT of the abdomen and pelvis was performed after administration of intravenous contrast using tailored dose modulation techniques. Images were reconstructed in the axial, coronal, and sagittal planes. COMPARISON: CT abdomen/pelvis 06/27/2020 FINDINGS: Lower Chest: Biatrial enlargement. Partially imaged cardiac pacer wires. Prior mitral valve surgery. No lung base consolidation. Liver: No suspicious focal liver lesion. Biliary: No biliary ductal dilatation. Spleen: Normal. No splenomegaly or focal lesions. Pancreas: Scattered foci of calcification in the pancreas, predominantly in the head and uncinate, likely reflecting sequela of prior pancreatitis. Adrenal Glands: Normal. No nodules. Kidneys/Ureters: No solid renal mass or hydronephrosis. Multiple subcentimeter renal hypodensities are too small to characterize but most likely benign. Multiple subcentimeter renal hypodensities are too small to characterize but most likely benign. Bowel: No bowel obstruction or wall thickening. Normal appendix. Peritoneum/Retroperitoneum: Normal. No masses, pneumoperitoneum, or fluid. Lymph Nodes: Normal. No lymphadenopathy. Pelvic Organs/Bladder: Normal. No mass. Vessels: No abdominal aortic aneurysm. Vascular calcification. Bones/Soft Tissues: No suspicious focal osseous lesion. Spine degenerative changes. Mild T11 compression deformity.Focal thickening subjacent to the umbilicus region, likely related to prior hernia repair surgery. Procedure Note Mikey Iverson MD - 07/25/2023 CT ABDOMEN/PELVIS WITH CONTRAST Referring clinician's provided indication for this examination in [facility]:Outside Radiology Order; anemia TECHNIQUE: Multidetector-row CT of the abdomen and pelvis was performedafter administration of intravenous contrast using tailored dosemodulation techniques. Images were reconstructed in the axial, coronal,and sagittal planes. COMPARISON: CT abdomen/pelvis 06/27/2020 FINDINGS: Lower Chest: Biatrial enlargement. Partially imaged cardiac pacer wires.Prior mitral valve surgery. No lung base consolidation. Liver: No suspicious focal liver lesion. Biliary: No biliary ductal dilatation. Spleen: Normal. No splenomegaly or focal lesions. Pancreas: Scattered foci of calcification in the pancreas, predominantlyin the head and uncinate, likely reflecting sequela of priorpancreatitis. Adrenal Glands: Normal. No nodules. Kidneys/Ureters: No solid renal mass or hydronephrosis. Multiplesubcentimeter renal hypodensities are too small to characterize but mostlikely benign. Multiple subcentimeter renal hypodensities are too small tocharacterize but most likely benign. Bowel: No bowel obstruction or wall thickening. Normal appendix. Peritoneum/Retroperitoneum: Normal. No masses, pneumoperitoneum, orfluid. Lymph Nodes: Normal. No lymphadenopathy. Pelvic Organs/Bladder: Normal. No mass. Vessels: No abdominal aortic aneurysm. Vascular calcification. Bones/Soft Tissues: No suspicious focal osseous lesion. Spine degenerativechanges. Mild T11 compression deformity.Focal thickening subjacent to theumbilicus region, likely related to prior hernia repair surgery. IMPRESSION: No cause for anemia identified in the abdomen/pelvis. us Isabel Katz PA-C IMG CT ABD/PELVIS Final Result * US LIVER WITH ELASTOGRAPHY (05/06/2023 12:16 PM EDT) Anatomical Region Laterality Modality Abdomen Ultrasound 05/06/2023 1:51 PM EDT Impressions 05/06/2023 1:55 PM EDT 1. Mean Liver Stiffness Value 5.48 kPa 2. Echogenic focus at the gallbladder wall with ringdown artifact suggestive of adenomyomatosis Narrative 05/06/2023 1:55 PM EDT US LIVER WITH ELASTOGRAPHY Referring clinician's provided indication for this examination in Epic: Outside Radiology Order; anemia TECHNIQUE: US Limited Abdomen with Liver Elastography. COMPARISON: CT abdomen pelvis 07/05/2020 FINDINGS: MIDLINE VASCULATURE: The visualized IVC is patent. Portal vein is patent. The aorta is patent where visualized. LIVER: No focal lesions. BILIARY: Gallbladder: Normal, nondistended with normal gallbladder wall thickness. There is a 3 mm echogenic focus at the gallbladder wall with ringdown artifact suggestive of adenomyomatosis Common bile duct measures 3 mm. PANCREAS: Incompletely visualized due to overlying bowel gas. PERITONEUM: No free fluid. RIGHT KIDNEY: Normal in size. No hydronephrosis or calculus. Elastography: Sonographic assessment (kPa): 5.48. (IQR/Med: 29 %) Risk of fibrosis: This is less than 9 kPa, which in the absence of other known clinical signs, rules out compensated advanced chronic liver disease. Small echogenic focus at the gallbladder wall with ring down artifact suggesting adenomyomatosis SOCIETY OF RADIOLOGISTS IN ULTRASOUND CONSENSUS: In the setting of elevated liver function tests, nonfasting, vascular congestion, etc., the stage of liver fibrosis may be overestimated. In some patients with NAFLD, the cut-off values for compensated advanced chronic liver disease may be lower. In causes other than viral hepatitis and NAFLD, the cut-off values are not well established. Canelo RG, Eduardo SR, Sukumar D, Cr-Christy G, Howard G. Update to the Society of Radiologists in Ultrasound Liver Elastography Consensus Statement. Radiology. 2020 Sep;296(2):263-274. doi: 10.1148/radiol.0861414074. Epub 2019Jul 17. PMID: 55538652. Procedure Note Marisel De La Cruz MD - 05/06/2023 US LIVER WITH ELASTOGRAPHY Referring clinician's provided indication for this examination in Epic:Outside Radiology Order; anemia TECHNIQUE: US Limited Abdomen with Liver Elastography. COMPARISON: CT abdomen pelvis 07/05/2020 FINDINGS: MIDLINE VASCULATURE: The visualized IVC is patent. Portal vein is patent.The aorta is patent where visualized. LIVER: No focal lesions. BILIARY: Gallbladder: Normal, nondistended with normal gallbladder wallthickness. There is a 3 mm echogenic focus at the gallbladder wall withringdown artifact suggestive of adenomyomatosis Common bile duct measures 3 mm. PANCREAS: Incompletely visualized due to overlying bowel gas. PERITONEUM: No free fluid. RIGHT KIDNEY: Normal in size. No hydronephrosis or calculus. Elastography: Sonographic assessment (kPa): 5.48. (IQR/Med: 29 %) Risk of fibrosis: This is less than 9 kPa, which in theabsence of other known clinical signs, rules out compensated advancedchronic liver disease. Small echogenic focus at the gallbladder wall withring down artifact suggesting adenomyomatosis SOCIETY OF RADIOLOGISTS IN ULTRASOUND CONSENSUS: In the setting of elevated liver function tests, nonfasting, vascularcongestion, etc., the stage of liver fibrosis may be overestimated. Insome patients with NAFLD, the cut-off values for compensated advancedchronic liver disease may be lower. In causes other than viral hepatitisand NAFLD, the cut-off values are not well established. Canelo RG, Eduardo SR, Sukumar D, Charly G, Howard G. Update to theSociety of Radiologists in Ultrasound Liver Elastography ConsensusStatement. Radiology. 2020 Sep;296(2):263-274. doi:10.1148/radiol.4758651517. Epub 2019Jul 17. PMID: 63250041. IMPRESSION: 1. Mean Liver Stiffness Value 5.48 kPa 2. Echogenic focus at the gallbladder wall with ringdown artifactsuggestive of adenomyomatosis us Isabel Katz PA-C IMG US ABDOMEN Final Result documented in this encounter Visit Diagnoses Diagnosis Anemia, unspecified type- Primary Abnormal digestive system diagnostic imaging Elevated lipase Anemia, unspecified type Abnormal digestive system diagnostic imaging Anemia, unspecified type Elevated lipase documented in this encounter Additional Health Concerns Assessment Noted Time PHQ-2 Depression Total Score: 0 03/18/19 24 1:10 PM EST documented as of this encounter Care Teams Traffic Controller Cable Relationship Specialty Start Date End Date Fahad Nolasco MD [address] [place] [address], [address] [place] [address] PCP - General 07/11/18 Jose Elaine MD [address] [place] [address], [address] [place] [address] Charter Driver Cardiology 04/21/18 Junior Mclain MD [address] [place] [address] [email or web address] Gastroenterology 12/01/19 documented as of this encounter Additional Source Comments The information contained in this document represents components of the legal health record. It is not the complete legal health record.[facility]
--- OUTSIDE RECORDS SUMMARY | 2024-10-04 12:36 | XMS_ITS | Encounter Summary ---
Author Organization [facility] Address [address] [place] [address] Phone Care Team Providers Care Steel Handler Name Role Phone Jose Elaine MD Unavailable [phone] Fahad Nolasco MD Primary Care Provider Junior Mclain MD Unavailable [phone] Encounter Details Date Type Department Care Team (Latest Contact Info) Description 08/16/2023 Transcribe Orders Virtual Department [address] [place] [address] Isabel Katz PA-C [address] [place] [address] [email or web address] Anemia, unspecified type (Primary Dx); Pancreatic calcification Social History Tobacco Use Types Packs/Day Years Used Date Smoking Tobacco: Former Cigarettes 30 1 978 - 1987 Smokeless Tobacco: Never Alcohol Use [...] Description 01/12/2025 10:40 AM EST Office Visit [facility] [address] [place] [address] 3rd Floor, [address] [place] [address] Dillon Zazueta MD [address] [place] [address] [email or web address] documented as of this encounter Visit Diagnoses Diagnosis Anemia, unspecified type- Primary Pancreatic calcification documented in this encounter Additional Health Concerns Assessment Noted Time PHQ-2 Depression Total Score: 0 03/18/19 24 1:10 PM EST documented as of this encounter Care Teams Steel Handler Relationship Specialty Start Date End Date Fahad Nolasco MD [address] [place] [address], [address] [place] [address] PCP - General 07/11/18 Jose Elaine MD [address] [place] [address], [address] [place] [address] Civil Rights Representative Cardiology 04/21/18 Junior Mclain MD [address] [place] [address] [email or web address] Gastroenterology 12/01/19 documented as of this encounter Additional Source Comments The information contained in this document represents components of the legal health record. It is not the complete legal health record.[facility]
--- OUTSIDE RECORDS SUMMARY | 2024-10-04 12:36 | XMS_ITS | Encounter Summary ---
Author Organization [facility] Address [address] [facility] [address] [place] [address] Phone Care Team Providers Care Stage Manager Name Role Phone Jose Elaine MD Unavailable [phone] Andrew Bah MD Primary Care Provider [phone] Andrew Bah MD Primary Care Provider [phone] Fahad Nolasco MD Primary Care Provider [phone] Andrew Bah MD Primary Care Provider [phone] Fahad Nolasco MD Primary Care Provider [phone] Junior Mclain MD Unavailable [phone] Encounter Details Date Type Department Care Team (Late st Contact Info) Description 04/18/2018 Procedure Pass [facility] Electrophysiology Lab [address] [place] [address] Social History Tobacco Use Types Packs/Day Years [...] Description 01/12/2025 10:40 AM EST Office Visit [facility] [address] [place] [address] 3rd Floor, [address] [place] [address] Dillon Zazueta MD [address] [place] [address] documented as of this encounter Visit Diagnoses Not on filedocumented in this encounter Additional Health Concerns Infection Onset Date Last Indicated Resolved Time CoV-Risk 07/24/2021 07/24/2021 08/04/2021 1:22 AM EDT Assessment Noted Time PHQ-2 Depression Total Score: 0 03/17/19 12:19 PM EST documented as of this encounter Care Teams Stage Manager Relationship Specialty Start Date End Date Andrew Bah MD [address] [place] [address], [address] [place] [address] PCP - General Family Medicine 05/17/18 05/30/18 Andrew Bah MD [address] [place] [address], [address] [place] [address] PCP - General 06/07/18 06/29/18 Fahad Nolasco MD [address] [place] [address], [address] [place] [address] PCP - General 07/11/18 Andrew Bah MD [address] [place] [address], [address] [place] [address] PCP - General 07/05/18 07/09/18 Fahad Nolasco MD [address] [place] [address], [address] [place] [address] PCP - General Internal Medicine 07/10/18 07/10/18 Jose Ealine MD [address] [place] [address] Metalsmith Apprentice Cardiology 04/21/18 Junior Mclain MD [address] [place] [address] Gastroenterology 12/01/19 documented as of this encounter Additional Source Comments The information contained in this document represents components of the legal health record. It is not the complete legal health record.[facility]
--- OUTSIDE RECORDS SUMMARY | 2024-10-04 12:36 | XMS_ITS | Encounter Summary ---
Author Organization [facility] Address [address] [facility] [address] [place] [address] Phone Care Team Providers Care Career Services Director Name Role Phone Jose Elaine MD Unavailable [phone] Andrew Bah MD Primary Care Provider [phone] Andrew Bah MD Primary Care Provider [phone] Fahad Nolasco MD Primary Care Provider [phone] Andrew Bah MD Primary Care Provider [phone] Fahad Nolasco MD Primary Care Provider [phone] Junior Mclain MD Unavailable [phone] Encounter Details Date Type Department Care Team (Late st Contact Info) Description 04/16/2018 Procedure Pass [facility] Periop [address] [place] [address] Social History Tobacco Use Types Packs/Day Years [...] Description 01/12/2025 10:40 AM EST Office Visit [facility] [address] [facility] 3rd Floor, [address] [place] [address] Dillon Zazueta MD [address] [place] [address] documented as of this encounter Visit Diagnoses Not on filedocumented in this encounter Additional Health Concerns Infection Onset Date Last Indicated Resolved Time CoV-Risk 07/24/2021 07/24/2021 08/04/2021 1:22 AM EDT Assessment Noted Time PHQ-2 Depression Total Score: 0 03/17/19 12:19 PM EST documented as of this encounter Care Teams Career Services Director Relationship Specialty Start Date End Date Andrew Bah MD [address] [place] [address], [address] [place] [address] PCP - General Family Medicine 05/17/18 05/30/18 Andrew Bah MD [address] [place] [address], [address] [place] [address] PCP - General 06/07/18 06/29/18 Fahad Nolasco MD [address] [place] [address], [address] [place] [address] PCP - General 07/11/18 Andrew Bah MD [address] [place] [address], [address] [place] [address] PCP - General 07/05/18 07/09/18 Fahad Nolasco MD [address] [place] [address], [address] [place] [address] [email or web address] PCP - General Internal Medicine 07/10/18 07/10/18 Jose Elaine MD [address] [place] [address] Date Pitter Cardiology 04/21/18 Junior Mclain MD [address] [place] [address] Gastroenterology 12/01/19 documented as of this encounter Additional Source Comments The information contained in this document represents components of the legal health record. It is not the complete legal health record.[facility]
--- OUTSIDE RECORDS SUMMARY | 2024-10-04 12:36 | XMS_ITS | Encounter Summary ---
Author Organization [facility] Address [address] [place] [address] Phone Care Team Providers Care Airplane Pilot Crop Dusting Name Role Phone Jose Elaine MD Unavailable [phone] Fahad Nolasco MD Primary Care Provider [phone] Junior Mclain MD Unavailable [phone] Reason for Visit * Reason Comments Medication Refill Encounter Details Date Type Department Care Team (Late st Contact Info) Description 10/01/2024 Refill [facility] Medicine [address] [place], [place] [id number] Rinku Avery, INSPECTOR PACKAGER [address] [facility], [address] [place] [address] [email or web address] Medication Refill Social History Tobacco Use Types Packs/Day Years [...] AM EST documented as of this encounter Progress Notes * Viktoria Buckner MA - 10/02/2024 11:05 AM EDT Rx Care Gap Status - Instructions for Clinical Staff (prescriber discretion applies): > Mismatch review guide > At least one request does not meet full criteria. Specifics below. > No future appt: Please schedule if appropriate. > Labs due: Please remind patient. > Orders needed: Click OPA and Accept to open SmartSet. A1c - Needs order * Lipid panel Urine Microalbumin - Needs order * Visit Info Last visit: 10/28/2023 Fahad Nolasco MD - Family Medicine [facility] > Requested f/u: Not specified Upcoming visit: None ACTIONS TAKEN BY Viktoria Buckner MA - Protocol not met. Diabetes Rx Protocol (on Diabetes Registry) - glipizide Criteria not met; renew for up to 3 months. Visit in the past 14 months: Yes Clinical criteria: - BMP within past year: Yes - A1c within past 6 months: No - Lipid panel within past year: None (has active order) (LDL 50 on 03/18/2023) - Urine microalbumin within past year or on CHIKI/ARB: No Lab Results Component Value Date SODIUM 138 11/04/2023 POTASSIUM 4.3 11/04/2023 CHLORIDE 99 11/04/2023 CO2 27 11/04/2023 BUN 30 (H) 11/04/2023 CREATININE 1.10 11/04/2023 EGFR 69 11/04/2023 Lab Results Component Value Date HEMOGLOBIN A1C 5.8 11/04/2023 MICROALB/CRE RATIO NOT CALCULATED 06/23/2023 URINE MICROALBUMIN <1.2 06/23/2023 Lab Results Component Value Date LDL 50 03/18/2023 HDL 62 03/18/2023 CARDIAC RISK RATIO 2.0 (L) 03/18/2023 TRIGLYCERIDES 70 03/18/2023 CHOLESTEROL 126 03/18/2023 Health Maintenance Labs Due / Due Soon Topic Date Due HEMOGLOBIN A1C 05/03/2024 documented in this encounter Plan of Treatment Upcoming Encounters Date Type Department Care Team (Late st Contact Info) Description 01/12/2025 10:40 AM EST Office Visit [facility] [address] [place] [address] [address]rd [facility], [address] [place] [address] Dillon Zazueta MD [address] [place] [address] Scheduled Orders Name Type Priority Associated Diagnoses Orde r Schedule Hemoglobin A1c Lab Routine Type 2 diabetes mellitus with chronic kidney disease, without long-term current use of insulin, unspecified CKD stage Expected: 10/02/2024, Expires: 01/02/2025 Microalbumin/creatinine ratio, random urine Lab Routine Type 2 diabetes mellitus with chronic kidney disease, without long-term current use of insulin, unspecified CKD stage Expected: 10/02/2024, Expires: 01/02/2025 documented as of this encounter Visit Diagnoses Diagnosis Type 2 diabetes mellitus with chronic kidney disease, without long-term current use of insulin, unspecified CKD stage- Primary documented in this encounter Additional Health Concerns Assessment Noted Time PHQ-2 Depression Total Score: 0 03/18/19 24 1:10 PM EST documented as of this encounter Care Teams Airplane Pilot Crop Dusting Relationship Specialty Start Date End Date Fahad Nolasco MD [address] [place] [address], [address] [place] [address] PCP - General 07/11/18 Jose Elaine MD [address] [place] [address], [facility] [address] [place] [address] [email or web address] Double Surface Operator Cardiology 04/21/18 Junior Mclain MD [address] [place] [address] [email or web address] Gastroenterology 12/01/19 documented as of this encounter Additional Source Comments The information contained in this document represents components of the legal health record. It is not the complete legal health record.[facility]
--- OUTSIDE RECORDS SUMMARY | 2024-10-04 12:36 | XMS_ITS | Encounter Summary ---
Author Organization [facility] Address [address] [facility] [address] [place] [address] Phone Care Team Providers Care Valet Runner Name Role Phone Jose Elaine MD Unavailable [phone] Fahad Nolasco MD Primary Care Provider Junior Mclain MD Unavailable [phone] Encounter Details Date Type Department Care Team (Late st Contact Info) Description 11/10/2022 Procedure Pass Non-Invasive Cardiology [address] [place] [address] Social History Tobacco Use Types Packs/Day Years [...] with a working camera? Not on file Sex and Gender Information Value Date Recorded Sex Assigned at Male 02/15/2017 9:38 AM EST Legal Sex Male 10:07 PM EDT Gender Identity Male 02/15/2017 9:38 AM EST Sexual Orientation Straight 02/15/2017 9: 38 AM EST documented as of this encounter Plan of Treatment Upcoming Encounters Date Type Department Care Team (Late st Contact Info) Description 01/12/2025 10:40 AM EST Office Visit [facility] [address] [facility] 3rd Floor, [address] [place] [address] Dillon Zazueta MD [address] [place] [address] documented as of this encounter Visit Diagnoses Not on filedocumented in this encounter Additional Health Concerns Assessment Noted Time PHQ-2 Depression Total Score: 0 07/12/19 19 2:17 PM EDT documented as of this encounter Care Teams Valet Runner Relationship Specialty Start Date End Date Fahad Nolasco MD [address] [place] [address], [address] [place] [address] PCP - General 07/11/18 Jose Elaine MD [address] [place] [address], [address] [place] [address] Hog Stomach Preparer Cardiology 04/21/18 Junior Mclain MD [address] [place] [address] Gastroenterology 12/01/19 documented as of this encounter Additional Source Comments The information contained in this document represents components of the legal health record. It is not the complete legal health record.[facility]
--- OUTSIDE RECORDS SUMMARY | 2024-10-04 12:36 | XMS_ITS | Encounter Summary ---
Author Organization [facility] Address [address] [place] [address] Phone Care Team Providers Care Drag Car Racer Name Role Phone Jose Elaine MD Unavailable [phone] Fahad Nolasco MD Primary Care Provider Junior Mclain MD Unavailable [phone] Encounter Details Date Type Department Care Team (Late st Contact Info) Description 01/11/2020 Procedure Pass [facility] Endoscopy Admitting Dept Virtual Department [address] [place] [address] Social History Tobacco Use Types Packs/Day Years [...] Description 01/12/2025 10:40 AM EST Office Visit [facility] [address] [facility] 3rd Floor, [address] [place] [address] Dillon Zazueta MD [address] [place] [address] documented as of this encounter Visit Diagnoses Not on filedocumented in this encounter Additional Health Concerns Infection Onset Date Last Indicated Resolved Time CoV-Risk 07/24/2021 07/24/2021 08/04/2021 1:22 AM EDT Assessment Noted Time PHQ-2 Depression Total Score: 0 07/12/19 2:17 PM EDT documented as of this encounter Care Teams Drag Car Racer Relationship Specialty Start Date End Date Fahad Nolasco MD [address] [place] [address], [address] [place] [address] [email or web address] PCP - General 07/11/18 Jose Elaine MD [address] [place] [address], [address] [place] [address] Avionics Manager Cardiology 04/21/18 Junior Mclain MD [address] [place] [address] Gastroenterology 12/01/19 documented as of this encounter Additional Source Comments The information contained in this document represents components of the legal health record. It is not the complete legal health record.[facility]
--- OUTSIDE RECORDS SUMMARY | 2024-10-04 12:36 | XMS_ITS | Encounter Summary ---
Author Organization [facility] Address [address] [facility] [address] [place] [address] Phone Care Team Providers Care Program Aide Group Work Name Role Phone Jose Elaine MD Unavailable [phone] Andrew Bah MD Primary Care Provider [phone] Andrew Bah MD Primary Care Provider [phone] Fahad Nolasco MD Primary Care Provider [phone] Andrew Bah MD Primary Care Provider [phone] Fahad Nolasco MD Primary Care Provider [phone] Junior Mclain MD Unavailable [phone] Encounter Details Date Type Department Care Team (Latest Contact Info) Description 04/14/2018 Transcribe Orders [facility] Echocardiography [address] [place] [address] Sadaf Martinez [address] [place] [address] [email or web address] Cardiac arrhythmia, unspecified cardiac arrhythmia type (Primary Dx) Social History Tobacco Use Types Packs/Day Years Used Date Smoking Tobacco: Former Cigarettes Q uit: 1985 Smokeless Tobacco: Former Alcohol Use Standard Drinks/Week [...] Description 01/12/2025 10:40 AM EST Office [facility] [address] [place], [place] [id number] Dillon Zazueta MD [address] [place] [address] [email or web address] documented as of this encounter Procedures Procedure Name Priority Date/Time Associated Diagnosis Comments ECG 12-LEAD Routine 04/14/2018 5:47 AM EST Cardiac arrhythmia, unspecified cardiac arrhythmia type documented in this encounter Results * ECG 12-LEAD (04/14/2018 5:47 AM EST) Systolic Blood Pressure 119 mmHg [facility] Diastolic Blood Pressure 55 mmHg [facility] Ventricular Rate EKG/MIN 54 BPM [facility] QRS Duration 100 ms [facility] QT Interval 434 ms [facility] QTC Interval 411 ms [facility] R Wave [place] 73 degrees [facility] T Wave [place] 34 degrees [facility] 04/14/2018 5:47 AM EST Narrative [facility] - 04/18/2018 4:50 PM EDT Junctional rhythm Occasional , and consecutive Premature ventricular complexes and Fusion complexes Abnormal ECG When compared with ECG of 13-APR-2018 13:58, Premature ventricular complexes are now Present Vent. rate has increased BY 23 BPM QT has lengthened us Saima DOUGLAS ECG ORDERABLES Final Resu lt [facility] documented in this encounter Visit Diagnoses Diagnosis Cardiac arrhythmia, unspecified cardiac arrhythmia type- Primary documented in this encounter Additional Health Concerns Infection Onset Date Last Indicated Resolved Time CoV-Risk 07/24/2021 07/24/2021 08/04/2021 1:22 AM EDT Assessment Noted Time PHQ-2 Depression Total Score: 0 03/17/19 19 12:19 PM EST documented as of this encounter Care Teams Program Aide Group Work Relationship Specialty Start Date End Date Andrew Bah MD [address] [place] [address], [address] [place] [address] PCP - General Family Medicine 05/17/18 05/30/18 Andrew Bah MD [address] [place] [address], [address] [place] [address] PCP - General 06/07/18 06/29/18 Fhaad Nolasco MD [address] [place] [address], [address] [place] [address] PCP - General 07/11/18 Andrew Bah MD [address] [place] [address], [address] [place] [address] PCP - General 07/05/18 07/09/18 Fahad Nolasco MD [address] [place] [address], [address] [place] [address] PCP - General Internal Medicine 07/10/18 07/10/18 Jose Elaine MD [address] [place] [address], [address] [place] [address] Hospital Security Officer Cardiology 04/21/18 Junior Mclain MD [address] [place] [address] [email or web address] Gastroenterology 12/01/19 documented as of this encounter Additional Source Comments The information contained in this document represents components of the legal health record. It is not the complete legal health record.[facility]
--- NOTE | 2024-10-04 14:38 | MHC.OFFVISCO ---
Intake Intake Visit Reasons: Anticoagulation Allergies shrimp Allergy (Mild, Verified 10/04/24 11:39) HIVES N.KMichelaD.A. Allergy (Unknown, Uncoded 09/06/24 11:20) PT STATES NO KNOWN DRUG ALLERGIES Medication List - Last Reconciled 10/04/24 by Frieda Manley RN atorvastatin 80 mg PO DAILY blood sugar diagnostic As directed cholecalciferol (vitamin D3) 25 mcg PO DAILY clobetasol 0.05% topical BID cyanocobalamin (vitamin B-12) (Vitamin B-12) 500 mcg PO DAILY ferrous sulfate 325 mg PO DAILY glipizide 5 mg PO BID hydroxyzine pamoate 25 mg PO TID PRN lancets (OneTouch Delica Plus Lancet) As directed metformin 1,000 mg PO DAILY metoprolol succinate ER 75 mg PO DAILY torsemide 100 mg PO BID triamcinolone acetonide 0.1% 1 appl topical BID warfarin See Protocol 2.5mg x 4, 1.25mg x 3 Nursing Note NO CP,SOB,DIET/MED CHANGES,FALLS OR SX OF BLEEDING. BOOST TO 5MGM TODAY THEN RESUME USUAL DOSING AND FOLLOW-UP IN 4 WEEKS GOOD UNDERSTANDING OF DOSING INSTR. Coding Level of Care Code Est Patient Level 1 Diagnoses Current use of anticoagulant therapy Z79.01 Results AMB INR Fingerstick AMB INR Fingerstick 1.9 Last Edit by Frieda Manley RN on 10/04/24 11:44 Assessment & Plan Assessment & Plan (1) Current use of anticoagulant therapy: Code(s): Z79.01 - terminal carman (current) use of anticoagulants Category: Medical
[2024-10-05 08:08] LABS: Prothrombin Time Whole Bld POC 23.0 sec (11.1-13.5); ~PT, ~INR - Anti Coag Clinic 1.9 (0.9-1.1)
== END 2024-10-04 14:37 | disposition home or self-care (01) ==
LOC: HO.ACS 11:35
PROVIDERS: PCP Internal Medicine; Visit Provider Internal Medicine Medical Oncology
DX: Z79.01 Long term (current) use of anticoagulants (principal)

== ENCOUNTER → 2024-10-04 11:35 | Outpatient (BNVA) | payer MEDICARE, SELFPAY | PROVIDERS: PCP Internal Medicine; Visit Provider Internal Medicine Medical Oncology | DX: Z86.718 Personal history of other venous thrombosis and embolism (principal); Z79.01 Long term (current) use of anticoagulants; Z51.81 Encounter for therapeutic drug level monitoring | CPT/HCPCS: 85610; 99211 ==

== ENCOUNTER 2024-11-03 11:26 | Outpatient (AMB) | payer MEDICARE, SELFPAY ==
--- OUTSIDE RECORDS SUMMARY | 2024-10-31 13:30 | XMS_ITS | Encounter Summary ---
Author Organization [facility] Address [address] [facility] [address] [place] [address] Phone Care Team Providers Care Warehouseman Name Role Phone Jose Elaine MD Unavailable [phone] Fahad Nolasco MD Primary Care Provider Junior Mclain MD Unavailable [phone] Reason for Visit * Reason Comments Diabetes Follow up on medicat ion. Cough Cough x 2 weeks with chest congestion. Denies fever or sore throat Encounter Details Date Type Department Care Team (Latest Contact Info) Description 10/31/2024 1:30 PM EDT Office Visit [facility] Medicine [address] [place] [address] Fahad Nolasco MD [address] [facility], [address] [place] [address] [email or web address] Primary hypertension (Primary Dx); Permanent atrial fibrillation; Chronic combined systolic and diastolic congestive heart failure; Bilateral carpal tunnel syndrome; Type 2 diabetes mellitus with chronic kidney disease, without long-term current use of insulin, unspecified CKD stage; Pure hypercholesterolemia; Vitamin D deficiency, unspecified Social History Tobacco Use Types Packs/Day Years Used Date Smoking Tobacco: Former Cigarettes 1987 Smokeless Tobacco: Never Alcohol Use Standard [...] AM EST documented as of this encounter Last Filed Vital Signs Vital Sign Reading Time Taken Comments Blood Pressure 124/60 10/31/2024 1:31 PM EDT Pulse 77 10/31/2024 1:31 PM EDT Temperature 36.3 C (97.4 F) 10/31/2024 1:31 PM EDT Respiratory Rate - - Oxygen Saturation 97% 10/31/2024 1:31 PM EDT Inhaled Oxygen Concentration - - Weight 78.7 kg (173 lb 6.4 oz) 10/31/2024 1:31 P M EDT Height 166 cm (5' 5.35 ) 10/31/2024 1:31 PM EDT Body Mass Index 28.54 10/31/2024 1:31 PM EDT documented in this encounter Progress Notes * Fahad Nolasco MD - 10/31/2024 1:30 PM EDT Chief Complaint: Diabetes (Follow up on medication. ) and Cough (Cough x 2 weeks with chest congestion. 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 [employer] in [place]. , has 2 children Lives with significant other Stephani Here for medication follow-up last visit with me October 2023. History of atrial fibrillation on anticoagulation, peripheral arterial disease, history of mitral and tricuspid repairs, chronic CHF, pacemaker, type 2 diabetes, hyperlipidemia, cirrhosis. He is followed by cardiology and gastroenterology. I referred him to sleep medicine due to reported history of ROD which he and his were unaware of. Last year I recommended he cut back on alcohol use due to some nodularity of the liver and transaminase elevations. I ordered microalbumin urine, and A1c which have not been done. No routine labs since 2023 Lipids March 2023, LDL 50, HDL 62, TG 70 He is on high-dose atorvastatin, warfarin, metformin, glipizide, metoprolol, torsemide 100 mg Jake Peacock, is a 78 y.o. male reports feeling well overall. Home BS, usually 110 or less, rarely 150 or so. Goes to the clinic. Lots of outdoor work, chopping wood for the winter. 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 Wakes with bilat hand numbness. Has mild CTS. Try noct wrist splints. Just got new DM shoes. History of Present Illness VITALS: BP 124/60 (BP Location: Right arm, Patient Position: Sitting, Cuff Size: Medium) Pulse 77 Temp 36.3 ??C (97.4 ??F) (Temporal) Ht 166 cm (5' 5.35 ) Wt 78.7 kg (173 lb 6.4 oz) SpO2 97% BMI 28.54 kg/m?? Cheerful NAD No JVD REsp CTA CV RRR, no MRG Ext no CCE. Physical Exam Assessment/Plan: 1. Primary hypertension (Primary) - Basic metabolic panel 2. Permanent atrial fibrillation Overview: He is hesitant to start Amio and have cardioversion. Will send msg to Lita Zepeda, to see if they can discuss with him Jan 2019: Doing ok, occas palpitations. June 2020: Need to adjust down his dose of warfarin due to low-grade GI bleeding. We will set new goal for 1.7-2 INR 3. Chronic combined systolic and diastolic congestive heart failure Overview: Wt stable on lasix 40mg BID, advised to increase to 80mg morning/40mg eveing if his weight gets over 190 lbs. Assessment & Plan: Euvolemic, no sx 4. Bilateral carpal tunnel syndrome Overview: Wear splints Ortho ref if needed. 5. Type 2 diabetes mellitus with chronic kidney disease, without long-term current use of insulin, unspecified CKD stage Overview: Has high home glucoses since the heart operation. Runs 200-250 most days. Try to cut out carbs, limit sweets, decrease beer. October: Still poor diet with way too many carbohydrates, needs CEDE f/u. Increase glipizide to bid. Jan 2019: Get CEDE eval dt brittle home glucoses. Orders: - CBC - Hemoglobin A1c - LFTs (hepatic panel) - TSH with reflex - Vitamin B12 6. Pure hypercholesterolemia - Lipid panel 7. Vitamin D deficiency, unspecified - 25-OH vitamin D Other orders - Influenza Vaccine (65yo up) High-Dose Trivalent Preservative Free IM Assessment & Plan I have maintained a long-term, longitudinal relationship with this patient, overseeing care of chronic conditions, including DM, afib, CTS, lipid d/o. This care relationship has significantly influenced my decision-making and treatment plans during today's encounter. Please consider using the newly developed race-neutral PREVENT score to determine CVD risk: https:// professional.heart.org/en/dbsysdhryc-upk-bdtagygvva/prevent-calculator The ASCVD Risk score (Cornelius MC, et al., 2019) failed to calculate for the following reasons: The valid total cholesterol range is 130 to 320 mg/dL No results found for any visits on 10/31/24. There are no Patient Instructions on file for this visit. Future Appointments Date Time Provider Department Center 01/12/2025 10:40 AM Dillon Zazueta MD [email or web address] None No follow-ups on file. Fahad Nolasco MD 10/31/24. 1:47 PM Orders Placed This Encounter Procedures Influenza Vaccine (65yo up) High-Dose Trivalent Preservative Free IM Basic metabolic panel Standing Status: Future Expected Date: 10/31/2024 Expiration Date: 10/31/2025 CBC Standing Status: Future Expected Date: 10/31/2024 Expiration Date: 10/31/2025 25-OH vitamin D Standing Status: Future Expected Date: 10/31/2024 Expiration Date: 10/31/2025 Confirm that instructions were reviewed: Instructions reviewed Yes Hemoglobin A1c Screening for diabetes Standing Status: Future Expected Date: 10/31/2024 Expiration Date: 10/31/2025 LFTs (hepatic panel) Standing Status: Future Expected Date: 10/31/2024 Expiration Date: 10/31/2025 Lipid panel Standing Status: Future Expected Date: 10/31/2024 Expiration Date: 10/31/2025 TSH with reflex Standing Status: Future Expected Date: 10/31/2024 Expiration Date: 10/31/2025 Vitamin B12 Standing Status: Future Expected Date: 10/31/2024 Expiration Date: 10/31/2025 Patient expresses understanding and agrees with plan. All questions were answered satisfactorily. Patient agrees to call with questions or concerns should the need arise This dictation was prepared using i[employer]ard[employer] mild disabilities teacher software. documented in this encounter Miscellaneous Notes * Assessment & Plan Note - Fahad Nolasco MD - 10/31/2024 1:43 PM EDTAssociated Problem(s): Chronic combined systolic and diastolic congestive heart failure Euvolemic, no sx documented in this encounter Plan of Treatment Upcoming Encounters Date Type Department Care Team (Late st Contact Info) Description 01/12/2025 10:40 AM EST Office Visit [facility] [address] [place] [address] 3rd Floor, [address] [place] [address] Dillon Zazueta MD [address] [place] [address] 04/03/2025 2:00 PM EST Office Visit [facility] [address] [place] [address] [place] [address] Fahad Nolasco MD [address] [facility], [address] [place] [address] documented as of this encounter Results * Vitamin B12 (10/31/2024 2:11 PM EDT) VITAMIN B12 1,046 232 - 1,245 pg/mL [facility] Blood 10/31/2024 2:11 PM EDT 10/31/2024 2:17 PM EDT Fahad Nolasco MD LAB BLOOD ORDERABLES Final Resu lt Performing Organization Address City/[facility]/ZIP Co de Phone Number [address] [address] * TSH with reflex (10/31/2024 2:11 PM EDT) TSH 1.00 0.27 - 4.20 uIU/mL [facility] Blood 10/31/2024 2:11 PM EDT 10/31/2024 2:17 PM EDT us Fahad Nolasco MD LAB BLOOD ORDERABLES Final Resu lt Performing Organization Address [facility] Co de Phone Number [address] [address] * (ABNORMAL) Lipid panel (10/31/2024 2:11 PM EDT) HDL 54 mg/dL [facility] Comment: Interpretation <40 mg/dL: Low HDL cholesterol (major risk factor for CHD) Greater than or equal to 60 mg/dL: High HDL cholesterol ( negative risk factor for CHD) HDL - cholesterol is affected by a number of factors, e.g. smoking, excerise, hormones, sex and age. CHOLESTEROL 121 0 - 240 mg/dL [facility] TRIGLYCERIDES 117 30 - 160 mg/dL [facility] LDL 44(L) 50 - 129 mg/dL [facility] Comment: LDL levels in terms of risk for coronary heart disease: <100 mg/dL: Optimal 100-129 mg/dL: Near or above optimal 130-159 mg/dL: Borderline high 160-189 mg/dL: High >190 mg/dL: Very High CARDIAC RISK RATIO 2.2(L) 3.4 - 5.0 [facility] Blood 10/31/2024 2:11 PM EDT 10/31/2024 2:17 PM EDT us Fahad Nolasco MD LAB BLOOD ORDERABLES Final Resu lt Performing Organization Address City/[facility]/ZIP Co de Phone Number [address] [address] * (ABNORMAL) LFTs (hepatic panel) (10/31/2024 2:11 PM EDT) ALKALINE PHOSPHATASE 85 39 - 117 U/L [facility] TOTAL BILIRUBIN 0.8 0.0 - 1.2 mg/dL [facility] DIRECT BILIRUBIN 0.3(H) 0.0 - 0.2 mg/dL [facility] Bilirubin (Indirect) 0.5 0 - 1.5 mg/dL [facility] AST 32 0 - 37 U/L [facility] ALT 22 0 - 40 U/L [facility] TOTAL PROTEIN 7.5 6.5 - 8.0 g/dL [facility] ALBUMIN 4.4 3.9 - 4.8 g/dL [facility] GLOBULIN 3.1 1 - 4.8 g/dL [facility] A/G Ratio 1.42 1.00 - 4.80 RATIO [facility] Blood 10/31/2024 2:11 PM EDT 10/31/2024 2:17 PM EDT us Fahad Nolasco MD LAB BLOOD ORDERABLES Final Resu lt Performing Organization Address City/[facility]/ZIP Co de Phone Number [address] [address] * (ABNORMAL) Hemoglobin A1c (10/31/2024 2:11 PM EDT) HEMOGLOBIN A1C 5.9(H) 4.3 - 5.8 % [facility] Blood 10/31/2024 2:11 PM EDT 10/31/2024 2:17 PM EDT us Fahad Nolasco MD LAB BLOOD ORDERABLES Final Resu lt [address] [address] * 25-OH vitamin D (10/31/2024 2:11 PM EDT) 25 OH VIT D (TOTAL) 50 30 - 60 ng/mL [facility] Blood 10/31/2024 2:11 PM EDT 10/31/2024 2:17 PM EDT us Fahad Nolasco MD LAB BLOOD ORDERABLES Final Resu lt Performing Organization Address City/[facility]/ZIP Co de Phone Number [address] [address] * (ABNORMAL) CBC (10/31/2024 2:11 PM EDT) WBC 7.95 4.00 - 11.00 K/uL [facility] RBC 3.78(L) 4.50 - 5.90 M/uL [facility] HGB 12.5(L) 13.5 - 17.5 g/dL [facility] HCT 37.3(L) 41.0 - 53.0 % [facility] PLT 201 150 - 450 K/uL [facility] MCV 98.7 80.0 - 100.0 fL [facility] MCH 33.1(H) 27.0 - 31.0 pg [facility] MCHC 33.5 32.0 - 36.0 g/dL [facility] RDW 13.0 11.5 - 14.5 % [facility] MPV 11.2 8.4 - 12.0 fL [facility] NRBC 0.00 0.00 /100 WBCs [facility] ABSOLUTE NRBC 0.00 0.00 K/uL [facility] Blood 10/31/2024 2:11 PM EDT 10/31/2024 2:17 PM EDT us Fahad Nolasco MD LAB BLOOD ORDERABLES Final Resu lt Performing Organization Address [facility] Co de Phone Number [address] [address] * (ABNORMAL) Basic metabolic panel (10/31/2024 2:11 PM EDT) SODIUM 136 133 - 146 mmol/L [facility] CHLORIDE 96 96 - 108 mmol/L [facility] POTASSIUM 4.6 3.3 - 5.1 mmol/L [facility] CO2 25 21 - 35 mmol/L [facility] BUN 28(H) 6 - 19 mg/dL [facility] CREATININE 1.40 0.5 - 1.5 mg/dL [facility] GLUCOSE 165(H) 70 - 99 mg/dL [facility] CALCIUM 9.0 8.4 - 10.3 mg/dL [facility] EGFR 51(L) >59 mL/min/1.7 3m2 [facility] Comment:Estimated glomerular filtration rate calculated using the CKD-EPI refit equation. ANION GAP 20 10 - 20 mmol/L [facility] Blood 10/31/2024 2:11 PM EDT 10/31/2024 2:17 PM EDT us Fahad Nolasco MD LAB BLOOD ORDERABLES Final Resu lt Performing Organization Address [facility] Co de Phone Number [address] [address] documented in this encounter Visit Diagnoses Diagnosis Primary hypertension- Primary Unspecified essential hypertension Permanent atrial fibrillation Atrial fibrillation Chronic combined systolic and diastolic congestive heart failure Bilateral carpal tunnel syndrome Carpal tunnel syndrome Type 2 diabetes mellitus with chronic kidney disease, without long-term current use of insulin, unspecified CKD stage Pure hypercholesterolemia Vitamin D deficiency, unspecified documented in this encounter Additional Health Concerns Assessment Noted Time PHQ-2 Depression Total Score: 0 03/18/19 24 1:10 PM EST documented as of this encounter Care Teams Warehouseman Relationship Specialty Start Date End Date Fahad Nolasco MD [address] [facility] [place] [address] PCP - General 07/11/18 Jose Elaine MD [address] [place] [address] Hairspring Studder Cardiology 04/21/18 Junior Mclain MD [address] [place] [address] Gastroenterology 12/01/19 documented as of this encounter Additional Source Comments The information contained in this document represents components of the legal health record. It is not the complete legal health record.[facility]
--- OUTSIDE RECORDS SUMMARY | 2024-10-31 14:02 | XMS_ITS | Encounter Summary ---
Author Organization [facility] Address [address] [place] [address] Phone Care Team Providers Care Senior Javascript Engineer Name Role Phone Jose Elaine MD Unavailable [phone] Fahad Nolasco MD Primary Care Provider [phone] Junior Mclain MD Unavailable [phone] Encounter Details Date Type Department Care Team (Latest Contact Info) Description 10/31/2024 2:02 PM EDT - 10/31/2024 11:59 PM EDT Hospital Encounter [facility] [address] [place], [place] [id number] Fahad Nolasco MD [address] [facility] [place] [address] [email or web address] Discharge Disposition: Home or Self Care Social History Tobacco Use Types Packs/Day Years [...] AM EST documented as of this encounter Medications at Time of Discharge atorvastatin (LIPITOR) 80 MG tabletIndications:Pure hypercholesterolemia TAKE ONE TABLET BY MOUTH EVERY DAY 90 tablet 10/24/19 25 blood-glucose meter kitIndications:Type 2 diabetes mellitus with stage 2 chronic kidney disease, without long-term current use of insulin Use as instructed 1 each 01/26/20 20 cholecalciferol (VITAMIN D3) 1,000 unit tablet Take 1,000 Units by mouth daily. clobetasol (TEMOVATE) 0.05 % cream APPLY TOPICALLY TWO TIMES A DAY 60 g 5 10/21/19 24 cyanocobalamin, vitamin B-12, (VITAMIN B-12 ORAL) Take 500 mcg by mouth daily. ferrous sulfate 325 mg (65 mg [place] iron) tabletIndications:Medica tion refill TAKE ONE TABLET BY MOUTH EVERY DAY WITH BREAKFAST 90 tablet 10/24/19 25 glipiZIDE (GLUCOTROL) 5 MG tablet TAKE ONE TABLET BY MOUTH TWICE A DAY 180 tablet 10/03/19 25 JANTOVEN 2.5 mg tablet TAKE ONE TABLET BY MOUTH EVERY DAY 90 tablet 10/24/19 25 metFORMIN (GLUCOPHAGE) 1000 MG tablet TAKE ONE TABLET BY MOUTH TWICE A DAY WITH MEALS 180 tablet 1 01/14/20 24 metoprolol succinate (TOPROL-XL) 50 MG 24 hr tabletIndications:Acute on chronic diastolic heart failure TAKE ONE AND ONE-HALF TABLETS BY MOUTH EVERY DAY 135 tablet 3 01/10/20 24 ONETOUCH DELICA LANCETS 30 gauge Misc 1 each by Miscellaneous route 3 (three) times a day before meals. 100 each 1 09/30/19 22 ONETOUCH ULTRA TEST Strp stripsIndications:Type 2 diabetes mellitus with stage 2 chronic kidney disease, without long-term current use of insulin USE 1 STRIP THREE TIMES A DAY DAILY BEFORE MEALS 200 strip 2 05/26/19 25 torsemide (DEMADEX) 100 MG tabletIndications:Chroni c combined systolic and diastolic congestive heart failure TAKE ONE TABLET BY MOUTH TWICE A DAY 180 tablet 3 02/20/19 25 documented as of this encounter Plan of Treatment Upcoming Encounters Date Type Department Care Team (Late st Contact Info) Description 01/12/2025 10:40 AM EST Office Visit [facility] [address] 3[address], [address] [place] [address] Dillon Zazueta MD 50 [place] [address] 04/03/2025 2:00 PM EST Office Visit [facility] [address] [place] [address] [place] [address] Fahad Nolasco MD [address] [facility] [place] [address] documented as of this encounter Procedures Procedure Name Priority Date/Time Associated Diagnosis Comments TSH WITH REFLEX Routine 10/31/2024 2:11 PM EDT Type 2 diabetes mellitus with chronic kidney disease, without long-term current use of insulin, unspecified CKD stage LFTS (HEPATIC PANEL) Routine 10/31/2024 2:11 PM EDT Type 2 diabetes mellitus with chronic kidney disease, without long-term current use of insulin, unspecified CKD stage 25-OH VITAMIN D Routine 10/31/2024 2:11 PM EDT Vitamin D deficiency, unspecified CBC Routine 10/31/2024 2:11 PM EDT Type 2 diabetes mellitus with chronic kidney disease, without long-term current use of insulin, unspecified CKD stage HEMOGLOBIN A1C Routine 10/31/2024 2:11 PM EDT Type 2 diabetes mellitus with chronic kidney disease, without long-term current use of insulin, unspecified CKD stage VITAMIN B12 Routine 10/31/2024 2:11 PM EDT Type 2 diabetes mellitus with chronic kidney disease, without long-term current use of insulin, unspecified CKD stage LIPID PANEL Routine 10/31/2024 2:11 PM EDT Pure hypercholesterolemia BASIC METABOLIC PANEL Routine 10/31/2024 2:11 PM EDT Primary hypertension documented in this encounter Results * (ABNORMAL) Basic metabolic panel (10/31/2024 2:11 PM EDT) SODIUM 136 133 - 146 mmol/L [facility] CHLORIDE 96 96 - 108 mmol/L [facility] POTASSIUM 4.6 3.3 - 5.1 mmol/L [facility] CO2 25 21 - 35 mmol/L [facility] BUN 28(H) 6 - 19 mg/dL [facility] CREATININE 1.40 0.5 - 1.5 mg/dL [facility] GLUCOSE 165(H) 70 - 99 mg/dL [facility] CALCIUM 9.0 8.4 - 10.3 mg/dL [facility] EGFR 51(L) >59 mL/min/1.7 3m2 [facility] Comment:Estimated glomerular filtration rate calculated using the CKD-EPI refit equation. ANION GAP 20 10 - 20 mmol/L [facility] Blood 10/31/2024 2:11 PM EDT 10/31/2024 2:17 PM EDT us Fahad Nolasco MD LAB BLOOD ORDERABLES Final Resu lt [facility] [address] [place] [address] * (ABNORMAL) CBC (10/31/2024 2:11 PM EDT) WBC 7.95 4.00 - 11.00 K/uL [facility] RBC 3.78(L) 4.50 - 5.90 M/uL [facility] HGB 12.5(L) 13.5 - 17.5 g/dL [facility] HCT 37.3(L) 41.0 - 53.0 % [facility] PLT 201 150 - 450 K/uL [facility] MCV 98.7 80.0 - 100.0 fL [facility] MCH 33.1(H) 27.0 - 31.0 pg [facility] MCHC 33.5 32.0 - 36.0 g/dL [facility] RDW 13.0 11.5 - 14.5 % [facility] MPV 11.2 8.4 - 12.0 fL [facility] NRBC 0.00 0.00 /100 WBCs [facility] ABSOLUTE NRBC 0.00 0.00 K/uL [facility] Blood 10/31/2024 2:11 PM EDT 10/31/2024 2:17 PM EDT us Fahad Nolasco MD LAB BLOOD ORDERABLES Final Resu lt Performing Organization Address City/[facility]/ZIP Co de Phone Number [address] [address] * 25-OH vitamin D (10/31/2024 2:11 PM EDT) 25 OH VIT D (TOTAL) 50 30 - 60 ng/mL [facility] Blood 10/31/2024 2:11 PM EDT 10/31/2024 2:17 PM EDT us Fahad Nolasco MD LAB BLOOD ORDERABLES Final Resu lt Performing Organization Address [facility] Co de Phone Number [address] [address] * (ABNORMAL) Hemoglobin A1c (10/31/2024 2:11 PM EDT) Pathologist [facility] HEMOGLOBIN A1C 5.9(H) 4.3 - 5.8 % [facility] Blood 10/31/2024 2:11 PM EDT 10/31/2024 2:17 PM EDT us Fahad Nolasco MD LAB BLOOD ORDERABLES Final Resu lt Performing Organization Address City/[facility]/ZIP Co de Phone Number [address] [address] * (ABNORMAL) LFTs (hepatic panel) (10/31/2024 2:11 PM EDT) [facility] ALKALINE PHOSPHATASE 85 39 - 117 U/L [facility] TOTAL BILIRUBIN 0.8 0.0 - 1.2 mg/dL [facility] DIRECT BILIRUBIN 0.3(H) 0.0 - 0.2 mg/dL [facility] Bilirubin (Indirect) 0.5 0 - 1.5 mg/dL [facility] AST 32 0 - 37 U/L [facility] ALT 22 0 - 40 U/L [facility] TOTAL PROTEIN 7.5 6.5 - 8.0 g/dL [facility] ALBUMIN 4.4 3.9 - 4.8 g/dL [facility] GLOBULIN 3.1 1 - 4.8 g/dL [facility] A/G Ratio 1.42 1.00 - 4.80 RATIO [facility] Blood 10/31/2024 2:11 PM EDT 10/31/2024 2:17 PM EDT us Fahad Nolasco MD LAB BLOOD ORDERABLES Final Resu lt [address] [address] * (ABNORMAL) Lipid panel (10/31/2024 2:11 PM EDT) Pathologist [facility] HDL 54 mg/dL [facility] Comment: Interpretation <40 mg/dL: Low HDL cholesterol (major risk factor for CHD) Greater than or equal to 60 mg/dL: High HDL cholesterol ( negative risk factor for CHD) HDL - cholesterol is affected by a number of factors, e.g. smoking, excerise, hormones, sex and age. CHOLESTEROL 121 0 - 240 mg/dL [facility] TRIGLYCERIDES 117 30 - 160 mg/dL [facility] LDL 44(L) 50 - 129 mg/dL [facility] Comment: LDL levels in terms of risk for coronary heart disease: <100 mg/dL: Optimal 100-129 mg/dL: Near or above optimal 130-159 mg/dL: Borderline high 160-189 mg/dL: High >190 mg/dL: Very High CARDIAC RISK RATIO 2.2(L) 3.4 - 5.0 [facility] Blood 10/31/2024 2:11 PM EDT 10/31/2024 2:17 PM EDT us Fahad Nolasco MD LAB BLOOD ORDERABLES Final Resu lt Performing Organization Address [facility] Co de Phone Number [address] [address] * TSH with reflex (10/31/2024 2:11 PM EDT) TSH 1.00 0.27 - 4.20 uIU/mL [facility] Blood 10/31/2024 2:11 PM EDT 10/31/2024 2:17 PM EDT us Fahad Nolasco MD LAB BLOOD ORDERABLES Final Resu lt Performing Organization Address [facility]/ZIP Co de Phone Number [address] [address] * Vitamin B12 (10/31/2024 2:11 PM EDT) VITAMIN B12 1,046 232 - 1,245 pg/mL [facility] Blood 10/31/2024 2:11 PM EDT 10/31/2024 2:17 PM EDT us Fahad Nolasco MD LAB BLOOD ORDERABLES Final Resu lt [facility] [address] [place] [address] documented in this encounter Visit Diagnoses Diagnosis Type 2 diabetes mellitus with chronic kidney disease, without long-term current use of insulin, unspecified CKD stage Pure hypercholesterolemia Vitamin D deficiency, unspecified Primary hypertension Unspecified essential hypertension documented in this encounter Additional Health Concerns Assessment Noted Time PHQ-2 Depression Total Score: 0 03/18/19 24 1:10 PM EST documented as of this encounter Care Teams Senior Javascript Engineer Relationship Specialty Start Date End Date Fahad Nolasco MD [address] [place] [address] PCP - General 07/11/18 Jose Elaine MD [address], [address] [place] [address] Disulfurizer Tender Cardiology 04/21/18 Junior Mclain MD [address] [place] [address] Gastroenterology 12/01/19 documented as of this encounter Additional Source Comments The information contained in this document represents components of the legal health record. It is not the complete legal health record.[facility]
[2024-11-03 11:53] LABS: Prothrombin Time Whole Bld POC 36.8 sec (11.1-13.5); ~PT, ~INR - Anti Coag Clinic 3.1 (0.9-1.1)
--- NOTE | 2024-11-03 11:59 | MHC.OFFVISCO ---
Intake Intake Visit Reasons: Anticoagulation Allergies shrimp Allergy (Mild, Verified 11/03/24 11:44) JUNE Shahid. Allergy (Unknown, Uncoded 11/03/24 11:44) PT STATES NO KNOWN DRUG ALLERGIES Medication List - Last Reconciled 11/03/24 by Mary Styles RN atorvastatin 80 mg PO DAILY blood sugar diagnostic As directed cholecalciferol (vitamin D3) 25 mcg PO DAILY clobetasol 0.05% topical BID cyanocobalamin (vitamin B-12) (Vitamin B-12) 500 mcg PO DAILY ferrous sulfate 325 mg PO DAILY glipizide 5 mg PO BID hydroxyzine pamoate 25 mg PO TID PRN lancets (OneTouch Delica Plus Lancet) As directed metformin 1,000 mg PO DAILY metoprolol succinate ER 75 mg PO DAILY torsemide 100 mg PO BID triamcinolone acetonide 0.1% 1 appl topical BID warfarin See Protocol 2.5mg x 4, 1.25mg x 3 Nursing Note Pt ambulatory wearing a face mask today INR: 3.1 almost in therapeutic range Medications and supplements reviewed- no changes *pt states he has been fighting a cold just about over it No changes in diet, medications, or supplements, Denies any signs and symptoms of bleeding or bruising or clotting. Bleeding, bruising, clotting discussed Nutritional guidance given - eat greens today to help keep INR in range Dose: keep usual dose 1.25mg x 2 days/ 2.5mg x 5 days F/U INR: 1 month Patient verbalizes understanding of instructions given Coding Level of Care Code Est Patient Level 1 Diagnoses Current use of anticoagulant therapy Z79.01 Assessment & Plan Assessment & Plan (1) Current use of anticoagulant therapy: Code(s): Z79.01 - detention (current) use of anticoagulants Category: Medical
--- OUTSIDE RECORDS SUMMARY | 2024-11-03 13:18 | XMS_ITS | Encounter Summary ---
Author Organization [facility] Address [address] [place] [address] Phone Care Team Providers Care Assistant Superintendent For Curriculum Name Role Phone Jose Elaine MD Unavailable [phone] Fahad Nolasco MD Primary Care Provider [phone] Junior Mclain MD Unavailable [phone] Encounter Details Date Type Department Care Team (Late st Contact Info) Description 11/19/2021 Procedure Pass Non-Invasive Cardiology [address] [place] [address] Social History Tobacco Use Types Packs/Day Years [...] Description 01/12/2025 10:40 AM EST Office Visit [facility] [address], [address] [place] [address] Dillon Zazueta MD [address] [place] [address] 04/03/2025 2:00 PM EST [facility] [address] [place] [address] Fahad Nolasco MD [address] [facility] [place] [address] [email or web address] documented as of this encounter Visit Diagnoses Not on filedocumented in this encounter Additional Health Concerns Assessment Noted Time PHQ-2 Depression Total Score: 0 07/12/19 19 2:17 PM EDT documented as of this encounter Care Teams Assistant Superintendent For Curriculum Relationship Specialty Start Date End Date Fahad Nolasco MD [address] [place] [address], [address] [place] [address] PCP - General 07/11/18 Jose Elaine MD [address] [place] [address], [address] [place] [address] Sales Agent Pest Control Service Cardiology 04/21/18 Junior Mclain MD [address] [place] [address] Gastroenterology 12/01/19 documented as of this encounter Additional Source Comments The information contained in this document represents components of the legal health record. It is not the complete legal health record.[facility]
--- OUTSIDE RECORDS SUMMARY | 2024-11-03 13:18 | XMS_ITS | Encounter Summary ---
Author Organization [facility] Address [address] [place] [address] Phone Care Team Providers Care Auto Crane Driver Name Role Phone Jose Elaine MD Unavailable [phone] Fahad Nolasco MD Primary Care Provider Junior Mclain MD Unavailable [phone] Encounter Details Date Type Department Care Team (Late st Contact Info) Description 03/09/2022 Procedure Pass Non-Invasive Cardiology [address] [place] [address] Social History Tobacco Use Types Packs/Day Years [...] Description 01/12/2025 10:40 AM EST Office Visit [facility] [address] 3[address] Floor, [address] [place] [address] Dillon Zazueta MD 50 [place] [address] 04/03/2025 2:00 PM EST [facility] [address] [place] [address] Fahad Nolasco MD [address] [facility] [place] [address] [email or web address] documented as of this encounter Visit Diagnoses Not on filedocumented in this encounter Additional Health Concerns Assessment Noted Time PHQ-2 Depression Total Score: 0 07/12/19 19 2:17 PM EDT documented as of this encounter Care Teams Auto Crane Driver Relationship Specialty Start Date End Date Fahad Nolasco MD [address] [place] [address], [address] [place] [address] PCP - General 07/11/18 Jose Elaine MD [address] [place] [address], [address] [place] [address] Blocklayer Cardiology 04/21/18 Junior Mclain MD [address] [place] [address] Gastroenterology 12/01/19 documented as of this encounter Additional Source Comments The information contained in this document represents components of the legal health record. It is not the complete legal health record.[facility]
--- OUTSIDE RECORDS SUMMARY | 2024-11-03 13:18 | XMS_ITS | Encounter Summary ---
Author Organization [facility] Address [address] [place] [address] Phone Care Team Providers Care Fire Crew Worker Name Role Phone Jose Elaine MD Unavailable [phone] Fahad Nolasco MD Primary Care Provider Junior Mclain MD Unavailable [phone] Encounter Details Date Type Department Care Team (Late st Contact Info) Description 02/20/2019 Ancillary Orders Non-Invasive Cardiology [address] [place] [address] Kem Bowers MD [address] [place] [address] [email or web address] Complete heart block Social History Tobacco [...] Description 01/12/2025 10:40 AM EST Office Visit [facility] [address], [address] [place], [place] [address] Dillon Zazueta MD [address] [place] [address] [email or web address] 04/03/2025 2:00 PM EST Office Visit [address] [place] [address] Fahad Nolasco MD [address] [place] [address], [address] [place] [address] [email or web address] documented as of this encounter Results * DEVICE CHECK: PPM REMOTE INTERROGATION WITH BLOW UP OPERATOR REVIEW (03/21/2019 4:59 PM EST) Narrative Kem Bowers MD - 03/22/2019 12:39 PM EST Reason for appointment: Remote pacemaker interrogation HPI: Routine 3 month remote pacemaker interrogation. No device related complaints. Indication for device: CHB. Examination: Device type: Pacemaker Napkin Band Wrapper: Medtronic Mode: AAIR-DDDR LRL/UPL: 70/120 bpm Mode switches: Continuous since end summer High V rates: 0 Thresholds, impedances, and sensing stable. AF/AT: Patient is currently taking Coumadin daily. Atrial pacin.6% Ventricular pacin.1% Battery: 13.4 yrs Additional comments: Device functioning appropriately. Normal device function. Patient to follow-up for continued monitoring every 3 months. Report prepared by Maya Zaragoza RN Kem Bowers MD [facility] ORDER [...] documented as of this encounter Care Teams Fire Crew Worker Relationship Specialty Start Date End Date Fahad Nolasco MD [address] [place] [address], [address] [place] [address] PCP - General 07/11/18 Jose Elaine MD [address] [facility], [address] [place] [address] Operations Architect Cardiology 04/21/18 Junior Mclain MD [address] [place] [address] Gastroenterology 12/01/19 documented as of this encounter Additional Source Comments The information contained in this document represents components of the legal health record. It is not the complete legal health record.[facility]
--- OUTSIDE RECORDS SUMMARY | 2024-11-03 13:18 | XMS_ITS | Encounter Summary ---
Author Organization [facility] Address [address] [place] [address] Phone Care Team Providers Care Supervisor Commissary Production Name Role Phone Jose Elaine MD Unavailable [phone] Fahad Nolasco MD Primary Care Provider Junior Mclain MD Unavailable Encounter Details Date Type Department Care Team (Late st Contact Info) Description 12/15/2021 Procedure Pass [employer] Scan - [facility] [address] [place] [address] Social History Tobacco Use Types Packs/Day Years [...] Description 01/12/2025 10:40 AM EST Office Visit [facility] [address] [place] [address] 3rd Floor, [address] [place] [address] Dillon Zazueta MD [address] [place] [address] 04/03/2025 2:00 PM EST [facility] [address] [place] [address] Fahad Nolasco MD [address] [place] [address], [address] [place] [address] documented as of this encounter Visit Diagnoses Not on filedocumented in this encounter Additional Health Concerns Assessment Noted Time PHQ-2 Depression Total Score: 0 07/12/19 19 2:17 PM EDT documented as of this encounter Care Teams Supervisor Commissary Production Relationship Specialty Start Date End Date Fahad Nolasco MD [address] [place] [address], [address] [place] [address] PCP - General 07/11/18 Jose Elaine MD [address] [place] [address], [address] [place] [address] Agricultural Real Estate Agent Cardiology 04/21/18 Junior Mclain MD [address] [place] [address] Gastroenterology 12/01/19 documented as of this encounter Additional Source Comments The information contained in this document represents components of the legal health record. It is not the complete legal health record.[facility]
--- OUTSIDE RECORDS SUMMARY | 2024-11-03 13:18 | XMS_ITS | Encounter Summary ---
Author Organization [facility] Address [address] [place] [address] Phone Care Team Providers Care Skilled Nursing Facilities Professional Name Role Phone Jose Elaine MD Unavailable [phone] Fahad Nolasco MD Primary Care Provider Junior Mclain MD Unavailable [phone] Encounter Details Date Type Department Care Team (Late st Contact Info) Description 03/09/2020 Procedure Pass Non-Invasive Cardiology [address] [place] [address] Social History Tobacco Use Types Packs/Day Years [...] Description 01/12/2025 10:40 AM EST Office Visit [facility] [address], [address] [place], [place] [phone] Dillon Zazueta MD [address] [place] [address] 04/03/2025 2:00 PM EST Office Visit [facility] [address] [place] [address] Fahad Nolasco MD [address] [place] [address], [address] [place] [address] [email or web address] documented as of this encounter Visit Diagnoses Not on filedocumented in this encounter Additional Health Concerns Infection Onset Date Last Indicated Resolved Time CoV-Risk 07/24/2021 07/24/2021 08/04/2021 1:22 AM EDT Assessment Noted Time PHQ-2 Depression Total Score: 0 07/12/19 2:17 PM EDT documented as of this encounter Care Teams Skilled Nursing Facilities Professional Relationship Specialty Start Date End Date Fahad Nolasco MD [address] [place] [address], [address] [place] [address] PCP - General 07/11/18 Jose Elaine MD [address] [place] [address], [address] [place] [address] Rn Office Cardiology 04/21/18 Junior Mclain MD [address] [place] [address] Gastroenterology 12/01/19 documented as of this encounter Additional Source Comments The information contained in this document represents components of the legal health record. It is not the complete legal health record.[facility]
--- OUTSIDE RECORDS SUMMARY | 2024-11-03 13:18 | XMS_ITS | Encounter Summary ---
Author Organization [facility] Address [address] [place] [address] Phone Care Team Providers Care Biofuels Plant Manager Name Role Phone Jose Elaine MD Unavailable [phone] Fahad Nolasco MD Primary Care Provider Junior Mclain MD Unavailable [phone] Encounter Details Date Type Department Care Team (Late st Contact Info) Description 03/17/2021 Procedure Pass Non-Invasive Cardiology [address] [address] Social History Tobacco Use Types Packs/Day Years [...] Description 01/12/2025 10:40 AM EST Office Visit [facility] [address] Floor, [address] [place] [address] Dillon Zazueta MD 50 [place] [address] 04/03/2025 2:00 PM EST Office Visit [facility] 22 [place] [address] Fahad Nolasco MD [address] [facility] [place] [address] [email or web address] documented as of this encounter Visit Diagnoses Not on filedocumented in this encounter Additional Health Concerns Infection Onset Date Last Indicated Resolved Time CoV-Risk 07/24/2021 07/24/2021 08/04/2021 1:22 AM EDT Assessment Noted Time PHQ-2 Depression Total Score: 0 07/12/19 2:17 PM EDT documented as of this encounter Care Teams Biofuels Plant Manager Relationship Specialty Start Date End Date Fahad Nolasco MD [address] [place] [address], [address] [place] [address] PCP - General 07/11/18 Jose Elaine MD [address] [place] [address], [address] [place] [address] Customer Energy Specialist Cardiology 04/21/18 Junior Mclain MD [address] [place] [address] Gastroenterology 12/01/19 documented as of this encounter Additional Source Comments The information contained in this document represents components of the legal health record. It is not the complete legal health record.[facility]
--- OUTSIDE RECORDS SUMMARY | 2024-11-03 13:18 | XMS_ITS | Encounter Summary ---
Author Organization [facility] Address [address] [place] [address] Phone Care Team Providers Care Fishing Boat Mate Name Role Phone Jose Elaine MD Unavailable [phone] Fahad Nolasco MD Primary Care Provider Junior Mclain MD Unavailable [phone] Encounter Details Date Type Department Care Team (Late st Contact Info) Description 01/08/2020 Procedure Pass Echo Lab [place] [place] [address] Social History Tobacco Use Types Packs/Day Years [...] Description 01/12/2025 10:40 AM EST Office Visit [facility] [address], [address] [place] [address] Dillon Zazueta MD 50 [place] [address] 04/03/2025 2:00 PM EST Office Visit [facility] 22 [place] [address] Fahad Nolasco MD [address] [facility] [place] [address] [email or web address] documented as of this encounter Visit Diagnoses Not on filedocumented in this encounter Additional Health Concerns Infection Onset Date Last Indicated Resolved Time CoV-Risk 07/24/2021 07/24/2021 08/04/2021 1:22 AM EDT Assessment Noted Time PHQ-2 Depression Total Score: 0 07/12/19 2:17 PM EDT documented as of this encounter Care Teams Fishing Boat Mate Relationship Specialty Start Date End Date Fahad Nolasco MD [address] [place] [address], [address] [place] [address] PCP - General 07/11/18 Jose Elaine MD [address] [place] [address], [address] [place] [address] Sales Representative Wire Rope Cardiology 04/21/18 Junior Mclain MD [address] [place] [address] Gastroenterology 12/01/19 documented as of this encounter Additional Source Comments The information contained in this document represents components of the legal health record. It is not the complete legal health record.[facility]
--- OUTSIDE RECORDS SUMMARY | 2024-11-03 13:18 | XMS_ITS | Encounter Summary ---
Author Organization [facility] Address [address] [place] [address] Phone Care Team Providers Care Delinquent Account Clerk Name Role Phone Jose Elaine MD Unavailable [phone] Fahad Nolasco MD Primary Care Provider Junior Mclain MD Unavailable [phone] Encounter Details Date Type Department Care Team (Late st Contact Info) Description 12/11/2020 Procedure Pass Echo Lab [place] [address] [place] [address] Social History Tobacco Use Types Packs/Day Years [...] Description 01/12/2025 10:40 AM EST Office Visit [facility] [address] [address], [address] [place] [address] Dillon Zazueta MD 50 [place] [address] 04/03/2025 2:00 PM EST Office Visit [facility] 22 [place] [address] Fahad Nolasco MD [address] [facility] [place] [address] [email or web address] documented as of this encounter Visit Diagnoses Not on filedocumented in this encounter Additional Health Concerns Infection Onset Date Last Indicated Resolved Time CoV-Risk 07/24/2021 07/24/2021 08/04/2021 1:22 AM EDT Assessment Noted Time PHQ-2 Depression Total Score: 0 07/12/19 2:17 PM EDT documented as of this encounter Care Teams Delinquent Account Clerk Relationship Specialty Start Date End Date Fahad Nolasco MD [address] [place] [address], [address] [place] [address] PCP - General 07/11/18 Jose Elaine MD [address] [place] [address], [address] [place] [address] Director Emergency Department Cardiology 04/21/18 Junior Mclain MD [address] [place] [address] Gastroenterology 12/01/19 documented as of this encounter Additional Source Comments The information contained in this document represents components of the legal health record. It is not the complete legal health record.[facility]
--- OUTSIDE RECORDS SUMMARY | 2024-11-03 13:18 | XMS_ITS | Encounter Summary ---
Author Organization [facility] Address [address] [place] [address] Phone Care Team Providers Care Printed Circuit Board Reworker Name Role Phone Jose Elaine MD Unavailable [phone] Fahad Nolasco MD Primary Care Provider Junior Mclain MD Unavailable [phone] Encounter Details Date Type Department Care Team (Late st Contact Info) Description 12/11/2020 Procedure Pass Non-Invasive Cardiology [address] [place] [address] Social History Tobacco Use Types Packs/Day Years [...] 01/12/2025 10:40 AM EST Office Visit [facility] [address], [address] [place] [address] Dillon Zazueta MD 50 [place] [address] 04/03/2025 2:00 PM EST Office Visit [facility] 22 [place] [address] Fahad Nolasco MD [address] [facility], [address] [place] [address] [email or web address] documented as of this encounter Visit Diagnoses Not on filedocumented in this encounter Additional Health Concerns Infection Onset Date Last Indicated Resolved Time CoV-Risk 07/24/2021 07/24/2021 08/04/2021 1:22 AM EDT Assessment Noted Time PHQ-2 Depression Total Score: 0 07/12/19 2:17 PM EDT documented as of this encounter Care Teams Printed Circuit Board Reworker Relationship Specialty Start Date End Date Fahad Nolasco MD [address] [place] [address], [address] [place] [address] PCP - General 07/11/18 Jose Elaine MD [address] [place] [address], [address] [place] [address] Traffic Control Specialist Cardiology 04/21/18 Junior Mclain MD [address] [place] [address] Gastroenterology 12/01/19 documented as of this encounter Additional Source Comments The information contained in this document represents components of the legal health record. It is not the complete legal health record.[facility]
--- OUTSIDE RECORDS SUMMARY | 2024-11-03 13:18 | XMS_ITS | Encounter Summary ---
Author Organization [facility] Address [address] [place] [address] Phone Care Team Providers Care Assembler Piano Name Role Phone Jose Elaine MD Unavailable [phone] Fahad Nolasco MD Primary Care Provider [phone] Junior Mclain MD Unavailable [phone] Encounter Details Date Type Department Care Team (Late st Contact Info) Description 04/08/2020 Procedure Pass Non-Invasive Cardiology [address] [place] [address] Social History Tobacco Use Types Packs/Day Years [...] Description 01/12/2025 10:40 AM EST Office Visit [facility] [address], [address] [place], [place] [address] Dillon Zazueta MD 50 [place] [address] 04/03/2025 2:00 PM EST Office Visit [facility] [address] [place] [address] Fahad Nolasco MD [address] [place] [address], [address] [place] [address] documented as of this encounter Visit Diagnoses Not on filedocumented in this encounter Additional Health Concerns Infection Onset Date Last Indicated Resolved Time CoV-Risk 07/24/2021 07/24/2021 08/04/2021 1:22 AM EDT Assessment Noted Time PHQ-2 Depression Total Score: 0 07/12/19 2:17 PM EDT documented as of this encounter Care Teams Assembler Piano Relationship Specialty Start Date End Date Fahad Nolasco MD [address] [place] [address], [address] [place] [address] PCP - General 07/11/18 Jose Elaine MD [address] [place] [address], [address] [place] [address] Medical Doctor Md/Medical Director Cardiology 04/21/18 Junior Mclain MD [address] [place] [address] Gastroenterology 12/01/19 documented as of this encounter Additional Source Comments The information contained in this document represents components of the legal health record. It is not the complete legal health record.[facility]
--- OUTSIDE RECORDS SUMMARY | 2024-11-03 13:18 | XMS_ITS | Encounter Summary ---
Author Organization [facility] Address [address] [place] [address] Phone Care Team Providers Care Reception Interviewer Name Role Phone Jose Elaine MD Unavailable [phone] Fahad Nolasco MD Primary Care Provider Junior Mclain MD Unavailable [phone] Encounter Details Date Type Department Care Team (Late st Contact Info) Description 05/11/2022 Procedure Pass Echo Lab [place] [address] [place] [address] Social History Tobacco Use Types Packs/Day Years [...] Description 01/12/2025 10:40 AM EST Office Visit [facility] [address] [facility] 3rd Floor, [address] [place], [place] [address] Dillon Zazueta MD 50 [place] [address] 04/03/2025 2:00 PM EST [facility] 22 [place] [address] Fahad Nolasco MD 22 [facility], [address] [place] [address] [email or web address] documented as of this encounter Visit Diagnoses Not on filedocumented in this encounter Additional Health Concerns Assessment Noted Time PHQ-2 Depression Total Score: 0 07/12/19 19 2:17 PM EDT documented as of this encounter Care Teams Reception Interviewer Relationship Specialty Start Date End Date Fahad Nolasco MD [address] [place] [address], [address] [place] [address] PCP - General 07/11/18 Jose Elaine MD [address] [place] [address], [address] [place] [address] Card Services Specialist Cardiology 04/21/18 Junior Mclain MD [address] [place] [address] Gastroenterology 12/01/19 documented as of this encounter Additional Source Comments The information contained in this document represents components of the legal health record. It is not the complete legal health record.[facility]
--- OUTSIDE RECORDS SUMMARY | 2024-11-03 13:19 | XMS_ITS | Encounter Summary ---
Author Organization [facility] Address [address] [place] [address] Phone Care Team Providers Care Display Mechanic Name Role Phone Jose Elaine MD Unavailable [phone] Fahad Nolasco MD Primary Care Provider Junior Mclain MD Unavailable [phone] Encounter Details Date Type Department Care Team (Late st Contact Info) Description 10/21/2020 Procedure Pass Non-Invasive Cardiology [address] [place] [address] Social History Tobacco Use Types Packs/Day Years [...] Description 01/12/2025 10:40 AM EST Office Visit [facility] [address], [address] [place] [address] Dillon Zazueta MD 50 [place] [address] 04/03/2025 2:00 PM EST Office Visit [facility] 22 [place] [address] Fahad Nolasco MD 22 [facility], [address] [place] [address] [email or web address] documented as of this encounter Visit Diagnoses Not on filedocumented in this encounter Additional Health Concerns Infection Onset Date Last Indicated Resolved Time CoV-Risk 07/24/2021 07/24/2021 08/04/2021 1:22 AM EDT Assessment Noted Time PHQ-2 Depression Total Score: 0 07/12/19 2:17 PM EDT documented as of this encounter Care Teams Display Mechanic Relationship Specialty Start Date End Date Fahad Nolasco MD [address] [place] [address], [address] [place] [address] PCP - General 07/11/18 Jose Elaine MD [address] [place] [address], [address] [place] [address] Train System Operator Cardiology 04/21/18 Junior Mclain MD [address] [place] [address] Gastroenterology 12/01/19 documented as of this encounter Additional Source Comments The information contained in this document represents components of the legal health record. It is not the complete legal health record.[facility]
--- OUTSIDE RECORDS SUMMARY | 2024-11-03 13:19 | XMS_ITS | Encounter Summary ---
Author Organization [facility] Address [address] [place] [address] Phone Care Team Providers Care Vegetable Buncher Name Role Phone Jose Elaine MD Unavailable [phone] Andrew Bah MD Primary Care Provider [phone] Andrew Bah MD Primary Care Provider [phone] Fahad Nolasco MD Primary Care Provider [phone] Andrew Bah MD Primary Care Provider [phone] Fahad Nolasco MD Primary Care Provider [phone] Junior Mclain MD Unavailable [phone] Encounter Details Date Type Department Care Team (Latest Contact Info) Description 03/23/2017 Transcribe Orders [facility] [address] [place] [address] Pieter Alamo DO [address] [place] [address] Essential hypertension, benign (Primary Dx); Uncontrolled type [...] Description 01/12/2025 10:40 AM EST Office Visit [facility] [address], [address] [place] [address] Dillon Zazueta MD 50 [place] [address] 04/03/2025 2:00 PM EST Office Visit [facility] [address] [place] [address] Faahd Nolasco MD [address] [facility], [address] [place] [address] [email or web address] documented as of this encounter Results * Microalbumin/creatinine ratio, random urine (10/22/2017 10:08 AM EDT) URINE MICROALBUMIN 0.8 0 - 2.3 mg/dL [facility] URINE CREATININE 52 mg/dL [facility] MICROALB/CRE RATIO NOT CALCULATED 0 - 20 mg/g Cre [facility] Comment:due to Microalbumin <1.2 Urine (Urine) 10/22/2017 10: 08 AM EDT 10/22/2017 10:[address] [facility] DO URINE ORDERABLES Final Result [facility] [address] [place] [address] * (ABNORMAL) 25-OH vitamin D (03/23/2017 3:01 PM EST) 25 OH VIT D (TOTAL) 27(L) 30 - 1,000 ng/mL [facility] Blood 03/23/2017 3:01 PM EST 03/23/2017 3:03 PM EST us [facility] LAB BLOOD ORDERABLES Final Resu lt [address] [address] * (ABNORMAL) CBC and differential (03/23/2017 3:01 PM EST) WBC 8.50 3.40 - 11.20 K/uL [facility] RBC 3.86(L) 4.50 - 5.50 M/uL [facility] HGB 10.3(L) 13.0 - 17.0 g/dL [facility] HCT 32.7(L) 40.0 - 51.0 % [facility] PLT 179 130 - 400 K/uL [facility] MCV 84.7 79.0 - 98.0 fL [facility] MCH 26.7(L) 27.0 - 34.8 pg [facility] MCHC 31.5 31.5 - 36.0 g/dL [facility] RDW 17.7(H) 10.8 - 14.6 % [facility] MPV 11.7 9.4 - 12.4 fl [facility] NRBC 0.00 /100 WBCs [facility] ABSOLUTE NRBC 0.00 K/uL [facility] DIFF METHOD Auto [facility] NEUTS 61.4 45.30 - 77.70 % [facility] LYMPHS 26.8 12.30 - 39.70 % [facility] MONOS 9.6 4.10 - 12.80 % [facility] EOS 1.6 0 - 7.2 % [facility] BASOS 0.5 0 - 2.80 % [facility] Granulocytes, immature (%) 0.1 0.0 - 0.9 % [facility] ABSOLUTE NEUTS 5.21 1.40 - 7.70 K/uL [facility] ABSOLUTE LYMPHS 2.28 0.60 - 3.20 K/uL [facility] ABSOLUTE MONOS 0.82(H) 0.11 - 0.59 K/uL [facility] ABSOLUTE EOS 0.14 0.01 - 0.50 K/uL [facility] ABSOLUTE BASOS 0.04 0.00 - 0.08 K/uL [facility] Granulocytes, immature 0.01 0.00 - 0.05 K/uL [facility] Blood 03/23/2017 3:01 PM EST 03/23/2017 3:03 PM EST [facility] LAB BLOOD ORDERABLES Final Resu lt Performing Organization Address City/[facility]/ZIP Co de Phone Number [address] [address] * (ABNORMAL) Lipid panel (03/23/2017 3:01 PM EST) HDL 39 mg/dL [facility] Comment: Interpretation: Risk Level Males Decreased >45 mg/dL Average 40-45 mg/dL Increased <40 mg/dL CHOLESTEROL 111 0 - 240 mg/dL [facility] TRIGLYCERIDES 61 30 - 160 mg/dL [facility] LDL 60 50 - 129 mg/dL [facility] Comment: LDL levels in terms of risk for coronary heart disease: <100 mg/dL: Optimal 100-129 mg/dL: Near or above optimal 130-159 mg/dL: Borderline high 160-189 mg/dL: High >190 mg/dL: Very High CARDIAC RISK RATIO 2.8(L) 3.4 - 5.0 [facility] Blood 03/23/2017 3:01 PM EST 03/23/2017 3:03 PM EST [facility] LAB BLOOD ORDERABLES Final Resu lt Performing Organization Address [facility]/ZIP Co de Phone Number [address] [address] * (ABNORMAL) Hemoglobin A1c (03/23/2017 3:01 PM EST) HEMOGLOBIN A1C 6.3(H) 4.3 - 5.8 % [facility] Blood 03/23/2017 3:01 PM EST 03/23/2017 3:03 PM EST [facility] LAB BLOOD ORDERABLES Final Resu lt Performing Organization Address City/[facility]/ZIP Co de Phone Number [address] [address] * Comprehensive metabolic panel (03/23/2017 3:01 PM EST) SODIUM 135 133 - 146 mmol/L [facility] POTASSIUM 4.7 3.3 - 5.1 mmol/L [facility] CHLORIDE 98 96 - 108 mmol/L [facility] CO2 27 21 - 35 mmol/L [facility] BUN 15 6 - 19 mg/dL [facility] CREATININE 0.60 0.5 - 1.5 mg/dL [facility] GLUCOSE 90 70 - 99 mg/dL [facility] ALBUMIN 4.1 3.9 - 4.8 g/dL [facility] TOTAL PROTEIN 7.0 6.5 - 8.0 g/dL [facility] CALCIUM 8.8 8.4 - 10.3 mg/dL [facility] ALKALINE PHOSPHATASE 66 39 - 117 U/L [facility] TOTAL BILIRUBIN 0.5 0 - 1.2 mg/dL [facility] AST 26 0 - 37 U/L [facility] ALT 24 0 - 40 U/L [facility] GLOBULIN 2.9 1 - 4.8 g/dL [facility] EGFR >60 mL/min/1.7 3m2 [facility] Comment:Abnormal if <60. If patient is -Bolivian, multiply the result by 1.21. 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, without long-term current use of insulin Vitamin D insufficiency documented in this encounter Additional Health Concerns Infection Onset Date Last Indicated Resolved Time CoV-Risk 07/24/2021 07/24/2021 08/04/2021 1:22 AM EDT documented as of this encounter Care Teams Vegetable Buncher Relationship Specialty Start Date End Date Andrew Bah MD [address] [place] [address], [address] [place] [address] PCP - General Family Medicine 05/17/18 05/30/18 Andrew Bah MD [address] [place] [address], [address] [place] [address] PCP - General 06/07/18 06/29/18 Fahad Nolasco MD [address] [place] [address], [address] [place] [address] PCP - General 07/11/18 Andrew Bah MD [address] [place] [address], [address] [place] [address] PCP - General 07/05/18 07/09/18 Fahad Nolasco MD [address] [place] [address], [address] [place] [address] PCP - General Internal Medicine 07/10/18 07/10/18 Jose Elaine MD [address] [place] [address], [address] [place] [address] Hat Parts Cutter Machine Cardiology 04/21/18 Junior Mclain MD [address] [place] [address] Gastroenterology 12/01/19 documented as of this encounter Additional Source Comments The information contained in this document represents components of the legal health record. It is not the complete legal health record.[facility]
--- OUTSIDE RECORDS SUMMARY | 2024-11-03 13:19 | XMS_ITS | Encounter Summary ---
Author Organization [facility] Address [address] [place] [address] Phone Care Team Providers Care Kieselguhr Regenerator Operator Name Role Phone Jose Elaine MD Unavailable [phone] Fahad Nolasco MD Primary Care Provider Junior Mclain MD Unavailable [phone] Encounter Details Date Type Department Care Team (Late st Contact Info) Description 08/30/2018 Prep for Surgery [facility] [address]rd Floor, [address] [place], [place] [phone] Jose Elaine MD 22 [facility], [address] [place] [phone] [email or web address] Social History Tobacco Use [...] Description 01/12/2025 10:40 AM EST Office Visit [facility] [address], [address] [place], [place] [address] Dillon Zazueta MD [address] [place] [address] 04/03/2025 2:00 PM EST Office Visit [facility] [address] [place] [address] Fahad Nolasco MD [address] [place] [address], [address] [place] [address] documented as of this encounter Visit Diagnoses Not on filedocumented in this encounter Additional Health Concerns Infection Onset Date Last Indicated Resolved Time CoV-Risk 07/24/2021 07/24/2021 08/04/2021 1:22 AM EDT Assessment Noted Time PHQ-2 Depression Total Score: 0 07/12/19 2:17 PM EDT documented as of this encounter Care Teams Kieselguhr Regenerator Operator Relationship Specialty Start Date End Date Fahad Nolasco MD [address] [place] [address], [address] [place] [address] PCP - General 07/11/18 Jose Elaine MD [address] [place] [address], [address] [place] [address] Tailer Out Cardiology 04/21/18 Junior Mclain MD [address] [place] [address] Gastroenterology 12/01/19 documented as of this encounter Additional Source Comments The information contained in this document represents components of the legal health record. It is not the complete legal health record.[facility]
--- OUTSIDE RECORDS SUMMARY | 2024-11-03 13:19 | XMS_ITS | Clinical Summary ---
Author Organization [facility] Address [address] [facility] [address] [place] [address] Phone Care Team Providers Care Avian Keeper Name Role Phone Jose Elaine MD Unavailable [phone] Fahad Nolasco MD Primary Care Provider [phone] Junior Mclain MD Unavailable [phone] Allergies Active Allergy Reactions Criticality Noted Date [...] before meals. 100 each 1 2021 Active clobetasol (TEMOVATE) 0.05 % cream APPLY TOPICALLY TWO TIMES A DAY 60 g 5 2023 Active metoprolol succinate (TOPROL-XL) 50 MG 24 hr tabletIndications:Acut e on chronic diastolic heart failure TAKE ONE AND ONE-HALF TABLETS BY MOUTH EVERY DAY 135 tablet 3 2023 Active metFORMIN (GLUCOPHAGE) 1000 MG tablet TAKE ONE TABLET BY MOUTH TWICE A DAY WITH MEALS 180 tablet 1 2023 Active torsemide (DEMADEX) 100 MG tabletIndications:Lathe Operator patrice combined systolic and diastolic congestive heart [...] TWICE A DAY 180 tablet 2024 Active atorvastatin (LIPITOR) 80 MG tabletIndications:Pure hypercholesterolemia TAKE ONE TABLET BY MOUTH EVERY DAY 90 tablet 2024 Active ferrous sulfate 325 mg (65 mg eyak iron) tabletIndications:Medi cation refill TAKE ONE TABLET BY MOUTH EVERY DAY WITH BREAKFAST 90 tablet 2024 Active JANTOVEN 2.5 mg tablet TAKE ONE TABLET BY MOUTH EVERY DAY 90 tablet 2024 Active losartan (COZAAR) 100 MG tablet Take 1 tablet (100 mg total) by mouth daily. Increase dose to 100 mg daily effective 04/04/21. 90 tablet 1 05/14 Discontinued warfarin (JANTOVEN) 2.5 MG tablet take one tablet by mouth every day 90 tablet 3 10/23 Discontinued hydrOXYzine (VISTARIL) 25 MG capsuleIndications:Pru ritic condition Take 1 capsule (25 mg total) by mouth 3 (three) times a day as needed for itching. 30 capsule 3 10/31 Discontinued( No longer taking) atorvastatin (LIPITOR) 80 MG tabletIndications:Pure hypercholesterolemia take one tablet by mouth every day 90 tablet 3 10/23 Discontinued ferrous sulfate 325 mg (65 mg eyak iron) tabletIndications:Medi cation refill take one tablet by mouth every day with breakfast 90 tablet 3 10/23 Discontinued Active Problems Problem Noted Date Diagnosed Date Bilateral carpal tunnel syndrome 10/31/2024 Overview (10/31/2024): Wear splints Ortho ref if needed. Other cirrhosis of liver 03/18/2023 Overview (03/18/2023): Seen on CT, chronic LFT mild elevation, drinks beer. Advised to cut back Check liver fibrosis test Pacemaker 12/16/2022 Assessment & Plan (07/13/2024 12:11 PM EDT): Device interrogated today. 2.3yr battery life. 51.1% AF. RA and RV sensing stable. RV pacing stable. Unable to test atrial threshold. AP 38.9% and CHANNEL BUSINESS MANAGER 91.4%. Paced AV delay to 220ms and [...] gets over 190 lbs. Assessment & Plan (10/31/2024 1:43 PM EDT): Euvolemic, no sx Assessment & Plan (01/10/2024 11:26 AM EST): [...] He also has a follow-up with his procurement representative in 3 months. Complete heart block 01/08/2020 [...] Doing better, no etoh since his November [facility] admission Assessment & Plan (11/20/2021 11:52 AM [...] valve repair on April 12, 2018 at [facility]. he has done well. Dr. Elaine recommended that he have a repeat echocardiogram but the patient never had it done. I have reordered this. 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 He is doing well postoperatively. He is going to cardiac rehab. Last echocardiogram showed that his EF dropped from 65% to 50%. I increased his metoprolol succinate at his last visit. We will get another echocardiogram in a month or 2. Assessment & Plan (05/30/2018 1:55 PM EDT): Status post mitral valve repair on April 12 at [facility]. He is doing well postoperatively. He will [...] duplex studies that I could see in [facility] that were recent. We will repeat [...] if this helps his symptoms. 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 Patient presented to [facility] for a PATSY cardioversion as his INR [...] on Coumadin which is followed at the [facility]. He is generally rate controlled [...] He goes to the Coumadin clinic at [facility]. Reportedly, his INR has been greater than [...] December 2019: Needed RBC and Ferraheme at [facility] in November, EGD/COLO neg, capsule planned. Stopped [...] for which he had a surgical embolectomy Sleep apnea Overview (04/05/2018): no CPAP Resolved [...] Encounters Date Type Department Care Team Description 10/31/2024 2:02 PM EDT - 10/31/2024 11:59 PM EDT Hospital Encounter [facility] [address] [place] [address] Fahad Nolasco MD Discharge Disposition: Home or Self Care 10/31/2024 1:30 PM EDT Office Visit [address] [place] [address] Fahad Nolasco MD Primary hypertension (Primary Dx); Permanent atrial fibrillation; Chronic combined systolic and diastolic congestive heart failure; Bilateral carpal tunnel syndrome; Type 2 diabetes mellitus with chronic kidney disease, without long-term current use of insulin, unspecified CKD stage; Pure hypercholesterolemia ; Vitamin D deficiency, unspecified 10/23/2024 Refill [facility] [address] [place] [address] Fahad Nolasco MD Medication Refill 10/01/2024 Refill [facility] [address] [place] [address] Rinku Avery CNP Medication Refill 09/27/2024 Telephone [facility] [address] [place] [address] Fahad Nolasco MD Referral ([facility]) 09/01/2024 Orders Only [facility] [address], [address] [place] [address] ProviderCharles MD 09/01/2024 Telephone [facility] [address] [place] [address] Viktoria Buckner MA Forms & Paperwork (Orthotics and prosthetics lab Diabetic shoes ) 08/10/2024 Telephone [facility] [address] [place] [address] Viktoria Buckner MA Forms & Paperwork ([facility]-co[facility]) from Last 3 Months Immunizations Immunization Administration Dates Next Due COVID-19 (Pre-11/30) Pfizer Vaccine, mRNA, PF 01/29/2021,07/11/2020,06/15/2020 Influenza High-Dose Quadriva lent Preservative Free IM 11/21/2022,12/03/2019 Influenza High-Dose Trivalen t Preservative Free IM 10/31/2024 Influenza Quadrivalent Adjuv anted Preservative Free IM 11/25/2021,01/29/2021 Influenza Trivalent Adjuvant ed Preservative free IM 11/22/2023 Pneumococcal conjugate PCV20 03/18/2023 Td (adult),2 Lf [...] Tobacco: Former Cigarettes 1 30 1 958 1987 Smokeless Tobacco: Never Tobacco Cessation:Counseling Given: [...] F) 10/31/2024 1:31 PM EDT Respiratory Rate 16 08/28/2022 2:11 PM EDT Oxygen Saturation 97% 10/31/2024 1:31 PM EDT Inhaled Oxygen Concentration 40% 04/12/2018 1 0:51 PM EST Weight 78.7 kg (173 lb 6.4 oz) 10/31/2024 1:31 P M EDT Height 166 cm (5' 5.35 ) 10/31/2024 1:31 PM EDT Body Mass Index 28.54 10/31/2024 1:31 PM EDT Plan of Treatment Upcoming Encounters Date Type Department Care Team (Late st Contact Info) Description 01/12/2025 10:40 AM EST Office Visit [facility] [address] [facility] [address] Floor, [address] [place] [address] Dillon Zazueta MD [address] [place] [address] 04/03/2025 2:00 PM EST Office Visit [facility] [address] [place] [address] Fahad Nolasco MD [address] [facility], [address] [place] [address] Health Maintenance Due Date Last Done Comments HEPATITIS A VACCINES (1 of 2 - Risk 2-dose series) 1964 RSV VACCINE (1 - 1-dose 75+ series) 2020 DEPRESSION SCREENING 03/18/2024 03/18/2023 COVID-19 VACCINE ( - 2024- season) 2024 01/02/2023, 01/29/2021, 07/11/2020, Additional history exists DIABETIC EYE EXAM 01/31/2025 02/01/2024, , 12/18/2019, Additional history exists BLOOD PRESSURE 04/30/2025 10/31/2024 HEMOGLOBIN A1C 04/30/2025 10/31/2024, 0907/2023, 03/18/2023, Additional history exists CREATININE LEVEL 10/31/2025 10/31/2024, , 07/21/2023, Additional history exists Adult Td,Tdap Booster 03/18/2033 03/18/2023 ZOSTER VACCINES Completed 10/09/2020, 07/0 04/2020, 12/28/2019 PNEUMOCOCCAL VACCINES (50+ years) Completed 03/18/2023 HEPATITIS C SCREENING Completed 05/03/2023, 024 INFLUENZA VACCINE Completed 10/31/2024, , 11/21/2022, Additional history exists SMOKING STATUS SCREENING (Once After 26 Yrs) Completed 10/31/2024 HIB VACCINES Aged Out No longer eligi ble based on patient's age to complete this topic MENINGOCOCCAL VACCINES (ACWY) Aged Out No longer eligible based on patient's age to complete this topic MENINGOCOCCAL VACCINES (B) Aged Out N o longer eligible based on patient's age to complete this topic Medical Devices Implanted Type Area Sales Marketing Director Device Identifier Shelf Expiration Date Model / Serial / Lot Lead Pacemaker Capsure Fix Novus Is-1 Bi Atr/Vntr Pia 58 Cm - [id number] Implanted:Qty: 1 on 04/16/2018 by Katerin Carmona MD, MS at [facility] Lead Right: Ventricle [employer] 01/28/2020 5076-58 / [id number] / Lead Pacemaker Capsure Fix Novus Is-1 Bi Atr/Vntr Ipa 52 Cm - [id number] Implanted:Qty: 1 on 04/16/2018 by Katerin Carmona MD, MS at [facility] Lead Atrium [employer] 02/16/2020 [id number] / [id number] / Device Pacemaker Clara Xt Mri - [id number] Implanted:Qty: 1 on 04/16/2018 by Katerin Carmona MD, MS at [facility] Pacemaker Left: Chest [employer] 08/22/2019 [id number] / [id number] / Ring Annuloplasty 32mm Sjm Graft Cardiovascular Saddle Titanium Core Rigid - [id number] Implanted:Qty: 1 on [facility]/12/[facility] Heart [employer] 04/27/2021 [id number] / [id number] / Ring Annuloplasty 34mm Mc3 Titanium Alloy Silicone Polyester Tricuspid - [id number] Implanted:Qty: 1 on 04/12/2018 by Doc Funes MD at [facility] SMDA N/A: Heart [employer] 10/19/2021 [id number] / [id number] / Procedures Procedure Name Priority Date/Time Associated Diagnosis Comments BASIC METABOLIC PANEL Routine 10/31/2024 2:11 PM EDT Primary hypertension CBC Routine 10/31/2024 2:11 PM EDT Type 2 diabetes mellitus with chronic kidney disease, without long-term current use of insulin, unspecified CKD stage 25-OH VITAMIN D Routine 10/31/2024 2:11 PM EDT Vitamin D deficiency, unspecified HEMOGLOBIN A1C Routine 10/31/2024 2:11 PM EDT Type 2 diabetes mellitus with chronic kidney disease, without long-term current use of insulin, unspecified CKD stage LFTS (HEPATIC PANEL) Routine 10/31/2024 2:11 PM EDT Type 2 diabetes mellitus with chronic kidney disease, without long-term current use of insulin, unspecified CKD stage LIPID PANEL Routine 10/31/2024 2:11 PM EDT Pure hypercholesterolemia TSH WITH REFLEX Routine 10/31/2024 2:11 PM EDT Type 2 diabetes mellitus with chronic kidney disease, without long-term current use of insulin, unspecified CKD stage VITAMIN B12 Routine 10/31/2024 2:11 PM EDT Type 2 diabetes mellitus with chronic kidney disease, without long-term current use of insulin, unspecified CKD stage HM DIABETES EYE EXAM FOR RESULT ENTRY ONLY Routine 02/01/2024 2:23 PM EST HEPATITIS C ANTIBODY, QUALITATIVE Routine 05/03/2023 11:17 AM EDT Anemia, unspecified type Abnormal finding on GI tract imaging from Last 3 Months or Most Recently Relevant to Health Maintenance Results * TSH with reflex (10/31/2024 2:11 PM EDT) TSH 1.00 0.27 - 4.20 uIU/mL [facility] Blood 10/31/2024 2:11 PM EDT 10/31/2024 2:17 PM EDT us Fahad Nolasco MD LAB BLOOD ORDERABLES Final Resu lt Performing Organization Address [facility] Co de Phone Number [address] [address] * (ABNORMAL) LFTs (hepatic panel) (10/31/2024 2:11 PM EDT) ALKALINE PHOSPHATASE 85 39 - 117 U/L [facility] TOTAL BILIRUBIN 0.8 0.0 - 1.2 mg/dL [facility] DIRECT BILIRUBIN 0.3(H) 0.0 - 0.2 mg/dL [facility] Bilirubin (Indirect) 0.5 0 - 1.5 mg/dL [facility] AST 32 0 - 37 U/L [facility] ALT 22 0 - 40 U/L [facility] TOTAL PROTEIN 7.5 6.5 - 8.0 g/dL [facility] ALBUMIN 4.4 3.9 - 4.8 g/dL [facility] GLOBULIN 3.1 1 - 4.8 g/dL [facility] A/G Ratio 1.42 1.00 - 4.80 RATIO [facility] Blood 10/31/2024 2:11 PM EDT 10/31/2024 2:17 PM EDT us Fahad Nolasco MD LAB BLOOD ORDERABLES Final Resu lt Performing Organization Address City/[facility]/ZIP Co de Phone Number [address] [address] * 25-OH vitamin D (10/31/2024 2:11 PM EDT) 25 OH VIT D (TOTAL) 50 30 - 60 ng/mL [facility] Blood 10/31/2024 2:11 PM EDT 10/31/2024 2:17 PM EDT us Fahad Nolasco MD LAB BLOOD ORDERABLES Final Resu lt Performing Organization Address [facility]/ZIP Co de Phone Number [address] [address] * (ABNORMAL) CBC (10/31/2024 2:11 PM EDT) WBC 7.95 4.00 - 11.00 K/uL [facility] RBC 3.78(L) 4.50 - 5.90 M/uL [facility] HGB 12.5(L) 13.5 - 17.5 g/dL [facility] HCT 37.3(L) 41.0 - 53.0 % [facility] PLT 201 150 - 450 K/uL [facility] MCV 98.7 80.0 - 100.0 fL [facility] MCH 33.1(H) 27.0 - 31.0 pg [facility] MCHC 33.5 32.0 - 36.0 g/dL [facility] RDW 13.0 11.5 - 14.5 % [facility] MPV 11.2 8.4 - 12.0 fL [facility] NRBC 0.00 0.00 /100 WBCs [facility] ABSOLUTE NRBC 0.00 0.00 K/uL [facility] Blood 10/31/2024 2:11 PM EDT 10/31/2024 2:17 PM EDT us Fahad Nolasco MD LAB BLOOD ORDERABLES Final Resu lt [address] [address] * (ABNORMAL) Hemoglobin A1c (10/31/2024 2:11 PM EDT) HEMOGLOBIN A1C 5.9(H) 4.3 - 5.8 % [facility] Blood 10/31/2024 2:11 PM EDT 10/31/2024 2:17 PM EDT us Fahad Nolasco MD LAB BLOOD ORDERABLES Final Resu lt [address] [address] * Vitamin B12 (10/31/2024 2:11 PM EDT) VITAMIN B12 1,046 232 - 1,245 pg/mL [facility] Blood 10/31/2024 2:11 PM EDT 10/31/2024 2:17 PM EDT us Fahad Nolasco MD LAB BLOOD ORDERABLES Final Resu lt Performing Organization Address [facility] Co de Phone Number [address] [address] * (ABNORMAL) Lipid panel (10/31/2024 2:11 PM EDT) HDL 54 mg/dL [facility] Comment: Interpretation <40 mg/dL: Low HDL cholesterol (major risk factor for CHD) Greater than or equal to 60 mg/dL: High HDL cholesterol ( negative risk factor for CHD) HDL - cholesterol is affected by a number of factors, e.g. smoking, excerise, hormones, sex and age. CHOLESTEROL 121 0 - 240 mg/dL [facility] TRIGLYCERIDES 117 30 - 160 mg/dL [facility] LDL 44(L) 50 - 129 mg/dL [facility] Comment: LDL levels in terms of risk for coronary heart disease: <100 mg/dL: Optimal 100-129 mg/dL: Near or above optimal 130-159 mg/dL: Borderline high 160-189 mg/dL: High >190 mg/dL: Very High CARDIAC RISK RATIO 2.2(L) 3.4 - 5.0 [facility] Blood 10/31/2024 2:11 PM EDT 10/31/2024 2:17 PM EDT us Fahad Nolasco MD LAB BLOOD ORDERABLES Final Resu lt Performing Organization Address City/[facility]/ZIP Co de Phone Number [address] [address] * (ABNORMAL) Basic metabolic panel (10/31/2024 2:11 PM EDT) SODIUM 136 133 - 146 mmol/L [facility] CHLORIDE 96 96 - 108 mmol/L [facility] POTASSIUM 4.6 3.3 - 5.1 mmol/L [facility] CO2 25 21 - 35 mmol/L [facility] BUN 28(H) 6 - 19 mg/dL [facility] CREATININE 1.40 0.5 - 1.5 mg/dL [facility] GLUCOSE 165(H) 70 - 99 mg/dL [facility] CALCIUM 9.0 8.4 - 10.3 mg/dL [facility] EGFR 51(L) >59 mL/min/1.7 3m2 [facility] Comment:Estimated glomerular filtration rate calculated using the CKD-EPI refit equation. ANION GAP 20 10 - 20 mmol/L [facility] Blood 10/31/2024 2:11 PM EDT 10/31/2024 2:17 PM EDT us Fahad Nolasco MD LAB BLOOD ORDERABLES Final Resu lt [address] [address] * DIABETES EYE EXAM FOR RESULT ENTRY ONLY (02/01/2024 2:23 PM EST) us Historical Provider HEALTH MAINTENANCE Edited Result - Final * Hepatitis C antibody, qualitative (05/03/2023 11:17 AM EDT) HCV NON-REACTIV E NON-REACTI VE [facility] Blood 05/03/2023 11:1 7 AM EDT 05/03/2023 11:21 AM EDT us Isabel Katz PA-C LAB BLOOD ORDERABLES Final Resu lt [address] [address] from Last 3 Months or Most Recently Relevant to Health Maintenance Insurance [employer] RE[employer]AC[employer] MEDICARE PREFERRED HMO REPLACEMENT [employer] Advance Directives For more information, please contact: [phone] (9AM - 5PM [facility], Wednesday-Wednesday) Documents on File Type Date Recorded Patient Stock Patch Sawyer Expl anation Healthcare Proxy 04/13/2018 12:43 PM [...] Agents on File Name Relationship Healthcare Agent [facility] p Communication Marissa Atkins Spouse .Primary Health Care Agent (Proxy form on file) Care Teams Avian Keeper Relationship Specialty Start Date End Date Fahad Nolasco MD [address] [place] [address], [address] [place] [address] PCP - General 07/11/18 Jose Elaine MD [address] [place] [address], [address] [place] [address] Freight Delivery Driver Cardiology 04/21/18 Junior Mclain MD [address] [place] [address] Gastroenterology 12/01/19 Additional Source Comments The information contained in this document represents components of the legal health record. It is not the complete legal health record.[facility]
--- OUTSIDE RECORDS SUMMARY | 2024-11-03 13:19 | XMS_ITS | Encounter Summary ---
Author Organization [facility] Address [address] [place] [address] Phone Care Team Providers Care Regulator Tester Name Role Phone Jose Elaine MD Unavailable [phone] Fahad Nolasco MD Primary Care Provider Junior Mclain MD Unavailable [phone] Encounter Details Date Type Department Care Team (Late st Contact Info) Description 05/06/2023 Procedure Pass [facility], Ct Scan - [facility] [address] [place] [address] Social History Tobacco Use Types Packs/Day Years [...] Description 01/12/2025 10:40 AM EST Office Visit [facility] [address] [facility] 3rd Floor, [address] [place] [address] Dillon Zazueta MD [address] [place] [address] 04/03/2025 2:00 PM EST Office Visit [facility] [address] [place] [address] Fahad Nolasco MD [address] [place] [address], [address] [place] [address] documented as of this encounter Visit Diagnoses Not on filedocumented in this encounter Additional Health Concerns Assessment Noted Time PHQ-2 Depression Total Score: 0 03/18/19 24 1:10 PM EST documented as of this encounter Care Teams Regulator Tester Relationship Specialty Start Date End Date Fahad Nolasco MD [address] [place] [address], [address] [place] [address] PCP - General 07/11/18 Jose Elaine MD [address] [place] [address], [address] [place] [address] Hat Cleaner Cardiology 04/21/18 Junior Mclain MD [address] [place] [address] [email or web address] Gastroenterology 12/01/19 documented as of this encounter Additional Source Comments The information contained in this document represents components of the legal health record. It is not the complete legal health record.[facility]
--- OUTSIDE RECORDS SUMMARY | 2024-11-03 13:19 | XMS_ITS | Encounter Summary ---
Author Organization [facility] Address [address] [facility] [address] [place] [address] Phone Care Team Providers Care Branch Service Leader Name Role Phone Jose Elaine MD Unavailable [phone] Fahad Nolasco MD Primary Care Provider [phone] Junior Mclain MD Unavailable [phone] Reason for Referral * MRI/CAT Scan - Closed Specialty Diagnoses / Procedures Referred By Aramis t Referred To Contact Radiology Diagnoses Anemia, unspecified type Elevated lipase Procedures CT Abdomen/Pelvis Isabel Katz PA-C Phone: tel: fax: mailto:[email or web address] Referral ID Status Reason Start Date Expiration Date Visits Re quested Visits Authorized [id number] Closed 05/06/2023 05/05/2024 1 1 Encounter Details Date Type Department Care Team (Latest Contact Info) Description 04/30/2023 Transcribe Orders Virtual Department [address] [place] [address] Isabel Katz PA-C [address] [place] [address] [email or web address] Anemia, unspecified type (Primary Dx); Abnormal digestive system diagnostic imaging; Elevated lipase Social History Tobacco Use Types Packs/Day Years Used Date Smoking Tobacco: Former Cigarettes 0.5 30 1 958 - 5283 Smokeless Tobacco: Never Alcohol Use Standard Drinks/Week [...] Description 01/12/2025 10:40 AM EST Office Visit [facility] [address] [place] [address] 3rd Floor, [address] [place] [address] Dillon Zazueta MD [address] [place] [address] 04/03/2025 2:00 PM EST Office Visit [facility] [address] [place] [address] [place] [address] Fahad Nolasco MD [address] [facility], [address] [place] [address] [email or web address] documented as of this encounter Results * [...] in Epic: Outside Radiology Order; anemia TECHNIQUE: Multidetector-row CT [...] clinician's provided indication for this examination in [facility]:Outside Radiology Order; anemia TECHNIQUE: Multidetector-row CT [...] Elastography Consensus Statement. Radiology. 2020 Sep;296(2):263-274. doi: [id number]. Epub 2019Jul 17. PMID: [id number]. Procedure Note Marisel De La Cruz MD - 05/06/2023 US LIVER WITH ELASTOGRAPHY Referring clinician's provided indication for this examination in [facility]:Outside Radiology Order; anemia TECHNIQUE: US Limited Abdomen [...] Ultrasound Liver Elastography ConsensusStatement. Radiology. 2020 Sep;296(2):263-274. doi:[id number]. Epub 2019Jul 17. PMID: [id number]. IMPRESSION: 1. Mean Liver Stiffness Value 5.48 [...] documented as of this encounter Care Teams Branch Service Leader Relationship Specialty Start Date End Date Fahad Nolasco MD [address] [place] [address], [address] [place] [address] PCP - General 07/11/18 Jose Elaine MD [address] [place] [address], [address] [place] [address] [email or web address] Director Of Medical Review Cardiology 04/21/18 Junior Mclain MD [address] [place] [address] [email or web address] Gastroenterology 12/01/19 documented as of this encounter Additional Source Comments The information contained in this document represents components of the legal health record. It is not the complete legal health record.[facility]
--- OUTSIDE RECORDS SUMMARY | 2024-11-03 13:19 | XMS_ITS | Encounter Summary ---
Author Organization [facility] Address [address] [facility] [address] [place] [address] Phone Care Team Providers Care Metal Bed Assembler Name Role Phone Jose Elaine MD Unavailable [phone] Andrew Bah MD Primary Care Provider [phone] Andrew Bah MD Primary Care Provider [phone] Fahad Nolasco MD Primary Care Provider [phone] Andrew Bah MD Primary Care Provider [phone] Fahad Nolasco MD Primary Care Provider [phone] Junior Mclain MD Unavailable [phone] Encounter Details Date Type Department Care Team (Late st Contact Info) Description 12/14/2016 Procedure Pass [facility], Ct Scan - [address] [address] Social History Tobacco Use Types Packs/Day Years [...] Description 01/12/2025 10:40 AM EST Office Visit [facility] [address] [place] [address] Dr 3rd Floor, [address] [place] [address] Dillon Zazueta MD [address] [place] [address] 04/03/2025 2:00 PM EST Office Visit [facility] [address] [place] [address] [place] [address] Fahad Nolasco MD [address] [place] [address], [address] [place] [address] documented as of this encounter Visit Diagnoses Not on filedocumented in this encounter Additional Health Concerns Infection Onset Date Last Indicated Resolved Time CoV-Risk 07/24/2021 07/24/2021 08/04/2021 1:22 AM EDT documented as of this encounter Care Teams Metal Bed Assembler Relationship Specialty Start Date End Date Andrew Bah MD [address] [place] [address], [address] [place] [address] PCP - General Family Medicine 05/17/18 05/30/18 Andrew Bah MD [address] [place] [address], [address] [place] [address] PCP - General 06/07/18 06/29/18 Fahad Nolasco MD [address] [place] [address], [address] [place] [address] PCP - General 07/11/18 Andrew Bah MD [address] [place] [address], [address] [place] [address] PCP - General 07/05/18 07/09/18 Fahad Nolasco MD [address] [place] [address], [address] [place] [address] PCP - General Internal Medicine 07/10/18 07/10/18 Jose Elaine MD [address] [place] [address], [address] [place] [address] Steam Conditioning Operator Cardiology 04/21/18 Junior Mclain MD [address] [place] [address] Gastroenterology 12/01/19 documented as of this encounter Additional Source Comments The information contained in this document represents components of the legal health record. It is not the complete legal health record.[facility]
--- OUTSIDE RECORDS SUMMARY | 2024-11-03 13:19 | XMS_ITS | Encounter Summary ---
Author Organization [facility] Address [address] [place] [address] Phone Care Team Providers Care Instrumentation Engineering Technician Name Role Phone Jose Elaine MD Unavailable [phone] Fahad Nolasco MD Primary Care Provider Junior Mclain MD Unavailable [phone] Encounter Details Date Type Department Care Team (Late st Contact Info) Description 12/03/2019 Procedure Pass [facility] Endoscopy Admitting Dept Virtual Department 30 [place] [address] Social History Tobacco Use Types Packs/Day Years [...] Description 01/12/2025 10:40 AM EST Office Visit [facility] [address] [facility] 3rd Floor, [address] [place] [address] Dillon Zazueta MD [address] [place] [address] 04/03/2025 2:00 PM EST Office Visit [facility] 22 [place] [address] Fahad Nolasco MD [address] [facility], [address] [place] [address] [email or web address] documented as of this encounter Visit Diagnoses Not on filedocumented in this encounter Additional Health Concerns Infection Onset Date Last Indicated Resolved Time CoV-Risk 07/24/2021 07/24/2021 08/04/2021 1:22 AM EDT Assessment Noted Time PHQ-2 Depression Total Score: 0 07/12/19 2:17 PM EDT documented as of this encounter Care Teams Instrumentation Engineering Technician Relationship Specialty Start Date End Date Fahad Nolasco MD [address] [place] [address], [address] [place] [address] PCP - General 07/11/18 Jose Elaine MD [address] [place] [address], [address] [place] [address] Tool Room Supervisor Cardiology 04/21/18 Junior Mclain MD [address] [place] [address] Gastroenterology 12/01/19 documented as of this encounter Additional Source Comments The information contained in this document represents components of the legal health record. It is not the complete legal health record.[facility]
--- OUTSIDE RECORDS SUMMARY | 2024-11-03 13:19 | XMS_ITS | Encounter Summary ---
Author Organization [facility] Address [address] [facility] [address] [place] [address] Phone Care Team Providers Care Tray Line Worker Name Role Phone Jose Elaine MD Unavailable [phone] Fahad Nolasco MD Primary Care Provider Junior Mclain MD Unavailable [phone] Encounter Details Date Type Department Care Team (Late st Contact Info) Description 09/25/2019 Ancillary Orders Non-Invasive Cardiology [address] [place] [address] Kem [place] MD [address] [place] [address] [email or web address] Complete heart block Social History Tobacco [...] Description 01/12/2025 10:40 AM EST Office Visit [facility] [address] [place] 3rd Floor, [address] [place], [place] [address] Dillon Zazueta MD [address] [place] [address] 04/03/2025 2:00 PM EST Office Visit [address] [address] Fahad Nolasco MD [address] [place] [address], [address] [place] [address] [email or web address] documented as of this encounter Visit Diagnoses Diagnosis Complete heart block Atrioventricular block, complete documented in this encounter Additional Health Concerns Infection Onset Date Last Indicated Resolved Time CoV-Risk 07/24/2021 07/24/2021 08/04/2021 1:22 AM EDT Assessment Noted Time PHQ-2 Depression Total Score: 0 07/12/19 2:17 PM EDT documented as of this encounter Care Teams Tray Line Worker Relationship Specialty Start Date End Date Fahad Nolasco MD [address] [place] [address], [address] [place] [address] PCP - General 07/11/18 Jose Elaine MD [address] [place] [address], [address] [place] [address] Bi Tester Cardiology 04/21/18 Junior Mclain MD [address] [place] [address] Gastroenterology 12/01/19 documented as of this encounter Additional Source Comments The information contained in this document represents components of the legal health record. It is not the complete legal health record.[facility]
--- OUTSIDE RECORDS SUMMARY | 2024-11-03 13:19 | XMS_ITS | Encounter Summary ---
Author Organization [facility] Address [address] [facility] [address] [place] [address] Phone Care Team Providers Care Kitchen Chef Name Role Phone Jose Elaine MD Unavailable [phone] Andrew Bah MD Primary Care Provider [phone] Andrew Bah MD Primary Care Provider [phone] Fahad Nolasco MD Primary Care Provider [phone] Andrew Bah MD Primary Care Provider [phone] Fahad Nolasco MD Primary Care Provider [phone] Junior Mclain MD Unavailable [phone] Encounter Details Date Type Department Care Team (Latest Contact Info) Description 10/22/2017 Transcribe Orders [facility] [address] [place] [address] Pieter Alamo DO [address] [place] [address] Hyperlipidemia, unspecified hyperlipidemia type (Primary Dx); Essential [...] Description 01/12/2025 10:40 AM EST Office Visit [facility] [address] Floor, [address] [place] [address] Dillon Zazueta MD [address] [place] [address] [email or web address] 04/03/2025 2:00 PM EST Office Visit [facility] [address] [place] [address] Fahad Nolasco MD [address] [facility], [address] [place] [address] [email or web address] documented as of this encounter Procedures Procedure Name Priority Date/Time Associated Diagnosis Comments ALANINE AMINOTRANSFERASE (ALT) Routine 10/22/2017 10:08 AM EDT Hyperlipidemia, unspecified hyperlipidemia type Essential hypertension, malignant ASPARTATE AMINOTRANSFERASE (AST) Routine 10/22/2017 10:08 AM EDT Hyperlipidemia, unspecified hyperlipidemia type Essential hypertension, malignant documented in this encounter Results * (ABNORMAL) Comprehensive metabolic panel (10/22/2017 10:08 AM EDT) SODIUM 139 133 - 146 mmol/L [facility] POTASSIUM 5.4(H) 3.3 - 5.1 mmol/L [facility] CHLORIDE 100 96 - 108 mmol/L [facility] CO2 24 21 - 35 mmol/L [facility] BUN 18 6 - 19 mg/dL [facility] CREATININE 0.70 0.5 - 1.5 mg/dL [facility] GLUCOSE 141(H) 70 - 99 mg/dL [facility] ALBUMIN 4.4 3.9 - 4.8 g/dL [facility] TOTAL PROTEIN 7.6 6.5 - 8.0 g/dL [facility] CALCIUM 9.7 8.4 - 10.3 mg/dL [facility] ALKALINE PHOSPHATASE 75 39 - 117 U/L [facility] TOTAL BILIRUBIN 0.6 0.0 - 1.2 mg/dL [facility] AST 23 0 - 37 U/L [facility] ALT 20 0 - 40 U/L [facility] GLOBULIN 3.2 1 - 4.8 g/dL [facility] EGFR 95 >59 mL/min/1.7 3m2 [facility] Comment:If patient is black, multiply result by 1.159. Estimated glomerular filtration rate calculated using the CKD-EPI equation. ANION GAP 20 10 - 20 mmol/L [facility] Blood 10/22/2017 10:0 8 AM EDT 10/22/2017 10:10 AM EDT [facility] LAB BLOOD ORDERABLES Final Resu lt Performing Organization Address [facility]/ZIP Co de Phone Number [address] [address] * Alanine aminotransferase (ALT) (10/22/2017 10:08 AM EDT) ALT 20 0 - 40 U/L [facility] Blood 10/22/2017 10:0 8 AM EDT 10/22/2017 10:11 AM EDT [facility] LAB BLOOD ORDERABLES Final Resu lt Performing Organization Address [facility] Co de Phone Number [address] [address] * Aspartate aminotransferase (AST) (10/22/2017 10:08 AM EDT) AST 24 0 - 37 U/L [facility] Blood 10/22/2017 10:0 8 AM EDT 10/22/2017 10:11 AM EDT [facility] LAB BLOOD ORDERABLES Final Resu lt Performing Organization Address [facility]/ZIP Co de Phone Number [address] [address] * (ABNORMAL) Lipid panel (10/22/2017 10:08 AM EDT) HDL 42 mg/dL [facility] Comment: Interpretation: Risk Level Males Decreased >45 mg/dL Average 40-45 mg/dL Increased <40 mg/dL CHOLESTEROL 107 0 - 240 mg/dL [facility] TRIGLYCERIDES 51 30 - 160 mg/dL [facility] LDL 55 50 - 129 mg/dL [facility] Comment: LDL levels in terms of risk for coronary heart disease: <100 mg/dL: Optimal 100-129 mg/dL: Near or above optimal 130-159 mg/dL: Borderline high 160-189 mg/dL: High >190 mg/dL: Very High CARDIAC RISK RATIO 2.5(L) 3.4 - 5.0 [facility] Blood 10/22/2017 10:0 8 AM EDT 10/22/2017 10:10 AM EDT Pieter [facility] DO LAB BLOOD ORDERABLES Final Resu lt Performing Organization Address City/State/[facility] Co de Phone Number [address] [address] documented in this encounter Visit Diagnoses Diagnosis Hyperlipidemia, unspecified hyperlipidemia type- Primary Essential hypertension, malignant documented in this encounter Additional Health Concerns Infection Onset Date Last Indicated Resolved Time CoV-Risk 07/24/2021 07/24/2021 08/04/2021 1:22 AM EDT documented as of this encounter Care Teams Kitchen Chef Relationship Specialty Start Date End Date Andrew Bah MD [address] [place] [address], [address] [address] PCP - General Family Medicine 05/17/18 05/30/18 Andrew Bah MD [address] [place] [address], [address] [address] PCP - General 06/07/18 06/29/18 Fahad Nolasco MD [address] [facility], [address] [place] [address] PCP - General 07/11/18 Andrew Bah MD [address] [place] [address], [address] [place] [address] PCP - General 07/05/18 07/09/18 Fahad Nolasco MD [address] [place] [address], [address] [place] [address] PCP - General Internal Medicine 07/10/18 07/10/18 Jose Elaine MD [address] [place] [address], [address] [place] [address] Supervisor Phosphorus Processing Cardiology 04/21/18 Junior Mclain MD [address] [place] [address] Gastroenterology 12/01/19 documented as of this encounter Additional Source Comments The information contained in this document represents components of the legal health record. It is not the complete legal health record.[facility]
--- OUTSIDE RECORDS SUMMARY | 2024-11-03 13:19 | XMS_ITS | Encounter Summary ---
Author Organization [facility] Address [address] [place] [address] Phone Care Team Providers Care Bushel Worker Name Role Phone Jose Elaine MD Unavailable [phone] Fahad Nolasco MD Primary Care Provider Junior Mclain MD Unavailable [phone] Encounter Details Date Type Department Care Team (Late st Contact Info) Description 07/31/2020 Procedure Pass Non-Invasive Cardiology [address] [place] [address] Social History Tobacco Use Types Packs/Day Years [...] Description 01/12/2025 10:40 AM EST Office Visit [facility] [address] 3rd Floor, [address] [place] [address] Dillon Zazueta MD 50 [place] [address] 04/03/2025 2:00 PM EST Office Visit [facility] 22 [place] [address] Fahad Nolasco MD 22 [facility], [address] [place] [address] [email or web address] documented as of this encounter Visit Diagnoses Not on filedocumented in this encounter Additional Health Concerns Infection Onset Date Last Indicated Resolved Time CoV-Risk 07/24/2021 07/24/2021 08/04/2021 1:22 AM EDT Assessment Noted Time PHQ-2 Depression Total Score: 0 07/12/19 2:17 PM EDT documented as of this encounter Care Teams Bushel Worker Relationship Specialty Start Date End Date Fahad Nolasco MD [address] [place] [address], [address] [place] [address] PCP - General 07/11/18 Jose Elaine MD [address] [place] [address], [address] [place] [address] Bounty Hunter Cardiology 04/21/18 Junior Mclain MD [address] [place] [address] Gastroenterology 12/01/19 documented as of this encounter Additional Source Comments The information contained in this document represents components of the legal health record. It is not the complete legal health record.[facility]
--- OUTSIDE RECORDS SUMMARY | 2024-11-03 13:19 | XMS_ITS | Encounter Summary ---
Author Organization [facility] Address [address] [facility] [place] [address] Phone Care Team Providers Care Arbor Press Operator Name Role Phone Jose Elaine MD Unavailable [phone] Fahad Nolasco MD Primary Care Provider [phone] Junior Mclain MD Unavailable [phone] Encounter Details Date Type Department Care Team (Late st Contact Info) Description 09/13/2018 Ancillary Orders Non-Invasive Cardiology [address] [place] [address] [place] [address] Kem [place] MD [address] [place] [address] [email or web address] CHB (complete heart block) Social History Tobacco [...] Description 01/12/2025 10:40 AM EST Office Visit [facility] [address]rd Floor, [address] [place], [place] [address] Dillon Zazueta MD [address] [place] [address] 04/03/2025 2:00 PM EST Office Visit [facility] 22 [place] [address] Fahad Nolasco MD [address] [place] [address], [address] [place] [address] [email or web address] documented as of this encounter Visit Diagnoses Diagnosis CHB (complete heart block) Atrioventricular block, complete documented in this encounter Additional Health Concerns Infection Onset Date Last Indicated Resolved Time CoV-Risk 07/24/2021 07/24/2021 08/04/2021 1:22 AM EDT Assessment Noted Time PHQ-2 Depression Total Score: 0 07/12/19 2:17 PM EDT documented as of this encounter Care Teams Arbor Press Operator Relationship Specialty Start Date End Date Fahad Nolasco MD [address] [place] [address], [address] [place] [address] PCP - General 07/11/18 Jose Elaine MD [address] [place] [address], [address] [place] [address] Automotive Brake Technician Cardiology 04/21/18 Junior Mclain MD [address] [place] [address] Gastroenterology 12/01/19 documented as of this encounter Additional Source Comments The information contained in this document represents components of the legal health record. It is not the complete legal health record.[facility]
--- OUTSIDE RECORDS SUMMARY | 2024-11-03 13:19 | XMS_ITS | Encounter Summary ---
Author Organization [facility] Address [address] [facility] [address] [place] [address] Phone Care Team Providers Care Order Control Clerk Blood Bank Name Role Phone Jose Elaine MD Unavailable [phone] Andrew Bah MD Primary Care Provider [phone] Andrew Bah MD Primary Care Provider [phone] Fahad Nolasco MD Primary Care Provider [phone] Andrew Bah MD Primary Care Provider [phone] Fahad Nolasco MD Primary Care Provider [phone] Junior Mclain MD Unavailable [phone] Encounter Details Date Type Department Care Team (Late st Contact Info) Description 12/02/2017 Procedure Pass [facility] [address] [place] [address] Social History Tobacco Use Types Packs/Day Years [...] Description 01/12/2025 10:40 AM EST Office Visit [facility] [address] [place] [address] Dr 3rd Floor, [address] [place] [address] Dillon Zazueta MD [address] [place] [address] 04/03/2025 2:00 PM EST Office Visit [facility] [address] [place] [address] [place] [address] Fahad Nolasco MD [address] [place] [address], [address] [place] [address] [email or web address] documented as of this encounter Visit Diagnoses Not on filedocumented in this encounter Additional Health Concerns Infection Onset Date Last Indicated Resolved Time CoV-Risk 07/24/2021 07/24/2021 08/04/2021 1:22 AM EDT documented as of this encounter Care Teams Order Control Clerk Blood Bank Relationship Specialty Start Date End Date Andrew Bah MD [address] [place] [address], [address] [place] [address] PCP - General Family Medicine 05/17/18 05/30/18 Andrew Bah MD [address] [place] [address], [address] [place] [address] PCP - General 06/07/18 06/29/18 Fahad Nolasco MD [address] [place] [address], [address] [place] [address] PCP - General 07/11/18 Andrew Bah MD [address] [place] [address], [address] [place] [address] PCP - General 07/05/18 07/09/18 Fahad Nolasco MD [address] [place] [address], [address] [place] [address] PCP - General Internal Medicine 07/10/18 07/10/18 Jose Elaine MD [address] [place] [address], [address] [place] [address] Medicaid Service Coordinator Cardiology 04/21/18 Junior Mclain MD [address] [place] [address] Gastroenterology 12/01/19 documented as of this encounter Additional Source Comments The information contained in this document represents components of the legal health record. It is not the complete legal health record.[facility]
--- OUTSIDE RECORDS SUMMARY | 2024-11-03 13:19 | XMS_ITS | Encounter Summary ---
Author Organization [facility] Address [address] [place] [address] Phone Care Team Providers Care Wire Winding Machine Operator Name Role Phone Jose Elaine MD Unavailable [phone] Fahad Nolasco MD Primary Care Provider Junior Mclain MD Unavailable [phone] Encounter Details Date Type Department Care Team (Late st Contact Info) Description 07/10/2020 Procedure Pass Non-Invasive Cardiology [address] [place] [address] Social History Tobacco Use Types Packs/Day Years [...] Description 01/12/2025 10:40 AM EST Office Visit [facility] [address] 3rd Floor, [address] [place], [place] [address] Dillon Zazueta MD 50 [place] [address] 04/03/2025 2:00 PM EST Office Visit [facility] [address] [place] [address] Fahad Nolasco MD [address] [place] [address], [address] [place] [address] documented as of this encounter Visit Diagnoses Not on filedocumented in this encounter Additional Health Concerns Infection Onset Date Last Indicated Resolved Time CoV-Risk 07/24/2021 07/24/2021 08/04/2021 1:22 AM EDT Assessment Noted Time PHQ-2 Depression Total Score: 0 07/12/19 2:17 PM EDT documented as of this encounter Care Teams Wire Winding Machine Operator Relationship Specialty Start Date End Date Fahad Nolasco MD [address] [place] [address], [address] [place] [address] PCP - General 07/11/18 Jose Elaine MD [address] [place] [address], [address] [place] [address] Dairy Equipment Repairer Cardiology 04/21/18 Junior Mclain MD [address] [place] [address] Gastroenterology 12/01/19 documented as of this encounter Additional Source Comments The information contained in this document represents components of the legal health record. It is not the complete legal health record.[facility]
--- OUTSIDE RECORDS SUMMARY | 2024-11-03 13:19 | XMS_ITS | Encounter Summary ---
Author Organization [facility] Address [address] [place] [address] Phone Care Team Providers Care Sea Air Land Officer Name Role Phone Jose Elaine MD Unavailable [phone] Fahad Nolasco MD Primary Care Provider Junior Mclain MD Unavailable [phone] Encounter Details Date Type Department Care Team (Latest Contact Info) Description 08/16/2023 Transcribe Orders Virtual Department 30 [place] [address] Isabel Katz PA-C [address] [place] [address] [email or web address] Anemia, unspecified type (Primary Dx); Pancreatic calcification Social History Tobacco Use Types Packs/Day Years Used Date Smoking Tobacco: Former Cigarettes 30 1 718 - 1988 Smokeless Tobacco: Never Alcohol Use [...] Description 01/12/2025 10:40 AM EST Office Visit [facility] [address] [place] [address] 3rd Floor, [address] [place] [address] Dillon Zazueta MD [address] [place] [address] 04/03/2025 2:00 PM EST Office Visit [facility] [address] [place] [address] Fahad Nolasco MD [address] [place] [address], [address] [address] documented as of this encounter Visit Diagnoses Diagnosis Anemia, unspecified type- Primary Pancreatic calcification documented in this encounter Additional Health Concerns Assessment Noted Time PHQ-2 Depression Total Score: 0 03/18/19 24 1:10 PM EST documented as of this encounter Care Teams Sea Air Land Officer Relationship Specialty Start Date End Date Fahad Nolasco MD [address] [place] [address], [address] [place] [address] PCP - General 07/11/18 Jose Elaine MD [address] [place] [address], [address] [place] [address] [email or web address] Calciner Feeder Cardiology 04/21/18 Junior Mclain MD [address] [place] [address] [email or web address] Gastroenterology 12/01/19 documented as of this encounter Additional Source Comments The information contained in this document represents components of the legal health record. It is not the complete legal health record.[facility]
--- OUTSIDE RECORDS SUMMARY | 2024-11-03 13:19 | XMS_ITS | Encounter Summary ---
Author Organization [facility] Address [address] [place] [address] Phone Care Team Providers Care Psychologist Clinical Name Role Phone Jose Elaine MD Unavailable [phone] Fahad Nolasco MD Primary Care Provider Junior Mclain MD Unavailable [phone] Encounter Details Date Type Department Care Team (Late st Contact Info) Description 01/11/2020 Procedure Pass [facility] Endoscopy Admitting Dept Virtual Department 30 [place] [address] Social History Tobacco Use Types Packs/Day Years [...] Description 01/12/2025 10:40 AM EST Office Visit [facility] [address] [facility] [address] Floor, [address] [place] [address] Dillon Zazueta MD 50 [place] [address] 04/03/2025 2:00 PM EST Office Visit [facility] [address] [place] [address] Fahad Nolasco MD [address] [facility], [address] [place] [address] documented as of this encounter Visit Diagnoses Not on filedocumented in this encounter Additional Health Concerns Infection Onset Date Last Indicated Resolved Time CoV-Risk 07/24/2021 07/24/2021 08/04/2021 1:22 AM EDT Assessment Noted Time PHQ-2 Depression Total Score: 0 07/12/19 2:17 PM EDT documented as of this encounter Care Teams Psychologist Clinical Relationship Specialty Start Date End Date Fahad Nolasco MD [address] [place] [address], [address] [place] [address] PCP - General 07/11/18 Jose Elaine MD [address] [place] [address], [address] [place] [address] Hotel Reservation Agent Cardiology 04/21/18 Junior Mclain MD [address] [place] [address] Gastroenterology 12/01/19 documented as of this encounter Additional Source Comments The information contained in this document represents components of the legal health record. It is not the complete legal health record.[facility]
--- OUTSIDE RECORDS SUMMARY | 2024-11-03 13:19 | XMS_ITS | Encounter Summary ---
Author Organization [facility] Address [address] [place] [address] Phone Care Team Providers Care Career Developer Name Role Phone Jose Elaine MD Unavailable [phone] Fahad Nolasco MD Primary Care Provider Junior Mclain MD Unavailable [phone] Encounter Details Date Type Department Care Team (Late st Contact Info) Description 10/21/2020 Procedure Pass Non-Invasive Cardiology [address] [place] [address] Social History Tobacco Use Types Packs/Day Years [...] Description 01/12/2025 10:40 AM EST Office Visit [facility] [address], [address] [place], [place] [address] Dillon Zazueta MD 50 [place] [address] 04/03/2025 2:00 PM EST Office Visit [facility] 22 [place] [address] Fahad Nolasco MD [address] [place] [address], [address] [place] [address] [email or web address] documented as of this encounter Visit Diagnoses Not on filedocumented in this encounter Additional Health Concerns Infection Onset Date Last Indicated Resolved Time CoV-Risk 07/24/2021 07/24/2021 08/04/2021 1:22 AM EDT Assessment Noted Time PHQ-2 Depression Total Score: 0 07/12/19 2:17 PM EDT documented as of this encounter Care Teams Career Developer Relationship Specialty Start Date End Date Fahad Nolasco MD [address] [place] [address], [address] [place] [address] PCP - General 07/11/18 Jose Elaine MD [address] [place] [address], [address] [place] [address] Dividend Deposit Entry Clerk Cardiology 04/21/18 Junior Mclain MD [address] [place] [address] Gastroenterology 12/01/19 documented as of this encounter Additional Source Comments The information contained in this document represents components of the legal health record. It is not the complete legal health record.[facility]
--- OUTSIDE RECORDS SUMMARY | 2024-11-03 13:19 | XMS_ITS | Encounter Summary ---
Author Organization [facility] Address [address] [place] [address] Phone Care Team Providers Care Petroleum Production Engineer Name Role Phone Jose Elaine MD Unavailable [phone] Fahad Nolasco MD Primary Care Provider [phone] Junior Mclain MD Unavailable Encounter Details Date Type Department Care Team (Late st Contact Info) Description 09/06/2019 Ancillary Orders Non-Invasive Cardiology [address] [place] [address] Kem Bowers MD [address] [place] [address] [email or web address] Complete heart block Social History Tobacco [...] Description 01/12/2025 10:40 AM EST Office Visit [facility] [address], [address] [place], [place] [address] Dillon Zazueta MD [address] [place] [address] 04/03/2025 2:00 PM EST Office Visit [address] [place] [address] Fahad Nolasco MD [address] [facility], [address] [place] [address] [email or web address] documented as of this encounter Results * DEVICE CHECK: PPM IN-HOME INTERROGATION (09/25/2019 10:41 AM EDT) Narrative Kem Bowers MD - 09/26/2019 1:03 PM EDT Reason for appointment: Remote pacemaker interrogation HPI: Routine 3 month remote pacemaker interrogation. No device related complaints. Indication for device: CHB. Examination: Device type: Pacemaker Forensic Structural Engineer: Medtronic Mode: AAIR-DDDR LRL/UPL: 70/120 bpm [...] documented as of this encounter Care Teams Petroleum Production Engineer Relationship Specialty Start Date End Date Fahad Nolasco MD [address] [place] [address], [address] [place] [address] PCP - General 07/11/18 Jose Elaine MD [address] [place] [address], [address] [place] [address] Instant Potato Processor Cardiology 04/21/18 Junior Mclain MD [address] [place] [address] Gastroenterology 12/01/19 documented as of this encounter Additional Source Comments The information contained in this document represents components of the legal health record. It is not the complete legal health record.[facility]
--- OUTSIDE RECORDS SUMMARY | 2024-11-03 13:19 | XMS_ITS | Encounter Summary ---
Author Organization [facility] Address [address] [place] [address] Phone Care Team Providers Care Vocational Training Director Name Role Phone Jose Elaine MD Unavailable [phone] Fahad Nolasco MD Primary Care Provider [phone] Junior Mclain MD Unavailable [phone] Encounter Details Date Type Department Care Team (Late st Contact Info) Description 06/11/2020 Procedure Pass [facility] Scan - [address] [address] Social History Tobacco Use Types Packs/Day Years [...] Description 01/12/2025 10:40 AM EST Office Visit [facility] [address] [facility] 3rd Floor, [address] [place] [address] Dillon Zazueta MD 50 [place] [address] 04/03/2025 2:00 PM EST Office Visit [facility] [address] [place] [address] Fahad Nolasco MD [address] [facility], [address] [place] [address] documented as of this encounter Visit Diagnoses Not on filedocumented in this encounter Additional Health Concerns Infection Onset Date Last Indicated Resolved Time CoV-Risk 07/24/2021 07/24/2021 08/04/2021 1:22 AM EDT Assessment Noted Time PHQ-2 Depression Total Score: 0 07/12/19 2:17 PM EDT documented as of this encounter Care Teams Vocational Training Director Relationship Specialty Start Date End Date Fahad Nolasco MD [address] [facility], [address] [place] [address] PCP - General 07/11/18 Jose Elaine MD [address] [place] [address], [address] [place] [address] Machine Deburrer Cardiology 04/21/18 Jnuior Mclain MD [address] [place] [address] Gastroenterology 12/01/19 documented as of this encounter Additional Source Comments The information contained in this document represents components of the legal health record. It is not the complete legal health record.[facility]
--- OUTSIDE RECORDS SUMMARY | 2024-11-03 13:19 | XMS_ITS | Encounter Summary ---
Author Organization [facility] Address [address] [place] [address] Phone Care Team Providers Care Third Grade Teacher Name Role Phone Jose Elaine MD Unavailable [phone] Fahad Nolasco MD Primary Care Provider [phone] Junior Mclain MD Unavailable Encounter Details Date Type Department Care Team (Late st Contact Info) Description 08/05/2020 Procedure Pass [facility] [address] [place] [address] Social History Tobacco Use Types Packs/Day Years [...] Description 01/12/2025 10:40 AM EST Office Visit [facility] [address] [facility] 3rd Floor, [address] [place] [address] Dillon Zazueta MD 50 [place] [address] 04/03/2025 2:00 PM EST Office Visit [facility] 22 [place] [address] Fahad Nolasco MD [address] [facility], [address] [place] [address] [email or web address] documented as of this encounter Visit Diagnoses Not on filedocumented in this encounter Additional Health Concerns Infection Onset Date Last Indicated Resolved Time CoV-Risk 07/24/2021 07/24/2021 08/04/2021 1:22 AM EDT Assessment Noted Time PHQ-2 Depression Total Score: 0 07/12/19 2:17 PM EDT documented as of this encounter Care Teams Third Grade Teacher Relationship Specialty Start Date End Date Fahad Nolasco MD [address] [place] [address], [address] [place] [address] PCP - General 07/11/18 Jose Elaine MD [address] [place] [address], [address] [place] [address] Sales Support Specialist Cardiology 04/21/18 Junior Mclain MD [address] [place] [address] Gastroenterology 12/01/19 documented as of this encounter Additional Source Comments The information contained in this document represents components of the legal health record. It is not the complete legal health record.[facility]
--- OUTSIDE RECORDS SUMMARY | 2024-11-03 13:19 | XMS_ITS | Encounter Summary ---
Author Organization [facility] Address [address] [place] [address] Phone Care Team Providers Care Sample Distributor Name Role Phone Jose Elaine MD Unavailable [phone] Fahad Nolasco MD Primary Care Provider Junior Mclain MD Unavailable [phone] Encounter Details Date Type Department Care Team (Latest Contact Info) Description 10/21/2020 Ancillary Orders [facility] [address] 3[address] Floor, [address] [place] [address] Ayala Morfin MD [address] [place] [phone] [email or web address] Complete heart block Social History Tobacco Use [...] Description 01/12/2025 10:40 AM EST Office Visit [facility] [address], [address] [place] [address] Dillon Zazueta MD [address] [place] [address] 04/03/2025 2:00 PM EST Office Visit [address] [address] Fahad Nolasco MD [address] [place] [address], [address] [place] [address] [email or web address] documented as of this encounter Visit Diagnoses Diagnosis Complete heart block Atrioventricular block, complete documented in this encounter Additional Health Concerns Infection Onset Date Last Indicated Resolved Time CoV-Risk 07/24/2021 07/24/2021 08/04/2021 1:22 AM EDT Assessment Noted Time PHQ-2 Depression Total Score: 0 07/12/19 2:17 PM EDT documented as of this encounter Care Teams Sample Distributor Relationship Specialty Start Date End Date Fahad Nolasco MD [address] [place] [address], [address] [place] [address] PCP - General 07/11/18 Jose Elaine MD [address] [place] [address], [address] [place] [address] Warehouse Packer Cardiology 04/21/18 Junior Mclain MD [address] [place] [address] Gastroenterology 12/01/19 documented as of this encounter Additional Source Comments The information contained in this document represents components of the legal health record. It is not the complete legal health record.[facility]
--- OUTSIDE RECORDS SUMMARY | 2024-11-03 13:19 | XMS_ITS | Encounter Summary ---
Author Organization [facility] Address [address] [place] [address] Phone Care Team Providers Care J2Ee Engineer Name Role Phone Jose Elaine MD Unavailable [phone] Fahad Nolasco MD Primary Care Provider [phone] Junior Mclain MD Unavailable [phone] Encounter Details Date Type Department Care Team (Latest Contact Info) Description 08/10/2023 Transcribe Orders [facility] [address] 2nd [place] [address] Isabel Katz PA-C [address] [place] [address] Anemia, unspecified type (Primary Dx) Social History [...] 01/12/2025 10:40 AM EST Office Visit [facility] [address] [place] [address] 3rd Floor, [address] [place] [address] Dillon Zazueta MD [address] [place] [address] 04/03/2025 2:00 PM EST Office Visit [facility] [address] [place] [address] Fahad Nolasco MD [address] [facility], [address] [place] [address] documented as of this encounter Results * Ferritin (08/10/2023 2:26 PM EDT) FERRITIN 89 30 - 400 ug/L [facility] Blood 08/10/2023 2:26 PM EDT 08/10/2023 2:28 PM EDT us Isabel Katz PA-C LAB BLOOD ORDERABLES Final Resu lt [facility] [address] [place] [address] * Iron and iron binding capacity (08/10/2023 2:26 PM EDT) IRON 92 45 - 160 ug/dL [facility] IRON BINDING CAPACITY 366 228 - 428 ug/dL [facility] TRANSFERRIN SATURAT. 25 20 - 55 % [facility] Blood 08/10/2023 2:26 PM EDT 08/10/2023 2:28 PM EDT us Isabel Katz PA-C LAB BLOOD ORDERABLES Final Resu lt Performing Organization Address [facility]/ZIP Co de Phone Number [address] [address] * (ABNORMAL) CBC (08/10/2023 2:26 PM EDT) WBC 7.41 4.00 - 11.00 K/uL [facility] RBC 3.58(L) 3.90 - 5.69 M/uL [facility] HGB 11.0(L) 12.4 - 17.3 g/dL [facility] HCT 34.4(L) 37.0 - 51.0 % [facility] PLT 183 140 - 430 K/uL [facility] MCV 96.1 78.0 - 97.0 fL [facility] MCH 30.7 25.0 - 33.0 pg [facility] MCHC 32.0 32.0 - 36.0 g/dL [facility] RDW 12.9 11.0 - 15.0 % [facility] MPV 11.9 8.4 - 12.8 fl [facility] Blood 08/10/2023 2:26 PM EDT 08/10/2023 2:28 PM EDT Isabel Katz PA-C LAB BLOOD ORDERABLES Final Resu lt Performing Organization Address City/[facility]/ZIP Co de Phone Number [address] [address] documented in this encounter Visit Diagnoses Diagnosis Anemia, unspecified type- Primary documented in this encounter Additional Health Concerns Assessment Noted Time PHQ-2 Depression Total Score: 0 03/18/19 24 1:10 PM EST documented as of this encounter Care Teams J2Ee Engineer Relationship Specialty Start Date End Date Fahad Nolasco MD [address] [place] [address], [address] [place] [address] PCP - General 07/11/18 Jose Elaine MD [address] [place] [address], [address] [place] [address] Well Drill Operator Rotary Drill Cardiology 04/21/18 Junior Mclain MD [address] [place] [address] Gastroenterology 12/01/19 documented as of this encounter Additional Source Comments The information contained in this document represents components of the legal health record. It is not the complete legal health record.[facility]
--- OUTSIDE RECORDS SUMMARY | 2024-11-03 13:19 | XMS_ITS | Encounter Summary ---
Author Organization [facility] Address [address] [place] [address] Phone Care Team Providers Care Wharf Builder Name Role Phone Jose Elaine MD Unavailable [phone] Fahad Nolasco MD Primary Care Provider Junior Mclain MD Unavailable [phone] Encounter Details Date Type Department Care Team (Late st Contact Info) Description 09/13/2018 Ancillary Orders [facility] [address] [place] [address] Kem Bowers MD [address] [place], [place] [address] [email or web address] Social History Tobacco Use Types Packs/Day Years [...] Description 01/12/2025 10:40 AM EST Office Visit [facility] [address], [address] [place], [place] [address] Dillon Zazueta MD [address] [place] [address] 04/03/2025 2:00 PM EST Office Visit [address] [address] Fahad Nolasco MD [address] [place] [address], [address] [place] [address] documented as of this encounter Visit Diagnoses Not on filedocumented in this encounter Additional Health Concerns Infection Onset Date Last Indicated Resolved Time CoV-Risk 07/24/2021 07/24/2021 08/04/2021 1:22 AM EDT Assessment Noted Time PHQ-2 Depression Total Score: 0 07/12/19 2:17 PM EDT documented as of this encounter Care Teams Wharf Builder Relationship Specialty Start Date End Date Fahad Nolasco MD [address] [place] [address], [address] [place] [address] PCP - General 07/11/18 Jose Elaine MD [address] [place] [address], [address] [place] [address] Package Liner Cardiology 04/21/18 Junior Mclain MD [address] [place] [address] Gastroenterology 12/01/19 documented as of this encounter Additional Source Comments The information contained in this document represents components of the legal health record. It is not the complete legal health record.[facility]
--- OUTSIDE RECORDS SUMMARY | 2024-11-03 13:19 | XMS_ITS | Encounter Summary ---
Author Organization [facility] Address [address] [place] [address] Phone Care Team Providers Care Vehicle Modification Technician Name Role Phone Jose Elaine MD Unavailable [phone] aFhad Nolasco MD Primary Care Provider Junior Mclain MD Unavailable [phone] Encounter Details Date Type Department Care Team (Late st Contact Info) Description 12/02/2019 Procedure Pass [facility] Endoscopy Admitting Dept Virtual Department [address] [place] [address] Social History Tobacco Use Types Packs/Day Years [...] Description 01/12/2025 10:40 AM EST Office Visit [facility] 22 [facility] 3rd Floor, [address] [place] [address] Dillon Zazueta MD 50 [place] [address] 04/03/2025 2:00 PM EST Office Visit [facility] 22 [place] [address] Fahad Nolasco MD [address] [facility], [address] [place] [address] [email or web address] documented as of this encounter Visit Diagnoses Not on filedocumented in this encounter Additional Health Concerns Infection Onset Date Last Indicated Resolved Time CoV-Risk 07/24/2021 07/24/2021 08/04/2021 1:22 AM EDT Assessment Noted Time PHQ-2 Depression Total Score: 0 07/12/19 2:17 PM EDT documented as of this encounter Care Teams Vehicle Modification Technician Relationship Specialty Start Date End Date Fahad Nolasco MD [address] [place] [address], [address] [place] [address] PCP - General 07/11/18 Jose Elaine MD [address] [place] [address], [address] [place] [address] Orchid Transplanter Cardiology 04/21/18 Junior Mclain MD [address] [place] [address] Gastroenterology 12/01/19 documented as of this encounter Additional Source Comments The information contained in this document represents components of the legal health record. It is not the complete legal health record.[facility]
--- OUTSIDE RECORDS SUMMARY | 2024-11-03 13:19 | XMS_ITS | Encounter Summary ---
Author Organization [facility] Address [address] [place] [address] Phone Care Team Providers Care Strategic Account Executive Name Role Phone Jose Elaine MD Unavailable [phone] Fahad Nolasco MD Primary Care Provider Junior Mclain MD Unavailable [phone] Encounter Details Date Type Department Care Team (Latest Contact Info) Description 11/30/2019 Transcribe Orders [facility] [address] [place] [address] Isabel Katz PA-C [address], [address] [place] [address] [email or web address] Iron deficiency anemia, unspecified iron deficiency anemia [...] Description 01/12/2025 10:40 AM EST Office Visit [facility] [address] [place] [address] 3rd Floor, [address] [place] [address] Dillon Zazueta MD [address] [place] [address] 04/03/2025 2:00 PM EST Office Visit [address] [address] Fahad Nolasco MD [address] [facility], [address] [place] [address] [email or web address] documented as of this encounter Results * Vitamin B12 (11/30/2019 12:16 PM EDT) VITAMIN B12 491 232 - 1,245 pg/mL [facility] Blood 11/30/2019 12:1 6 PM EDT 11/30/2019 12:23 PM EDT us Isabel Katz PA-C LAB BLOOD ORDERABLES Final Resu lt [address] [address] * (ABNORMAL) Ferritin (11/30/2019 12:16 PM EDT) FERRITIN 19(L) 30 - 400 ug/L [facility] Blood 11/30/2019 12:1 6 PM EDT 11/30/2019 12:23 PM EDT us Isabel Katz PA-C LAB BLOOD ORDERABLES Final Resu lt [address] [address] * Folate (11/30/2019 12:16 PM EDT) FOLIC ACID 15.7 4.2 - 19.9 ng/mL [facility] Blood 11/30/2019 12:1 6 PM EDT 11/30/2019 12:23 PM EDT Isabel Katz PA-C LAB BLOOD ORDERABLES Final Resu lt [address] [address] * (ABNORMAL) Iron and iron binding capacity (11/30/2019 12:16 PM EDT) IRON 25(L) 45 - 160 ug/dL [facility] IRON BINDING CAPACITY 510(H) 228 - 428 ug/dL [facility] TRANSFERRIN SATURAT. 5(L) 20 - 55 % [facility] Blood 11/30/2019 12:1 6 PM EDT 11/30/2019 12:23 PM EDT Isabel Katz PA-C LAB BLOOD ORDERABLES Final Resu lt [address] [address] * (ABNORMAL) Comprehensive metabolic panel (11/30/2019 12:16 PM EDT) SODIUM 133 133 - 146 mmol/L [facility] POTASSIUM 4.7 3.3 - 5.1 mmol/L [facility] CHLORIDE 95(L) 96 - 108 mmol/L [facility] CO2 23 21 - 35 mmol/L [facility] BUN 13 6 - 19 mg/dL [facility] CREATININE 0.70 0.5 - 1.5 mg/dL [facility] GLUCOSE 159(H) 70 - 99 mg/dL [facility] ALBUMIN 4.2 3.9 - 4.8 g/dL [facility] TOTAL PROTEIN 6.9 6.5 - 8.0 g/dL [facility] CALCIUM 9.2 8.4 - 10.3 mg/dL [facility] ALKALINE PHOSPHATASE 72 39 - 117 U/L [facility] TOTAL BILIRUBIN 0.5 0.0 - 1.2 mg/dL [facility] AST 39(H) 0 - 37 U/L [facility] ALT 25 0 - 40 U/L [facility] GLOBULIN 2.7 1 - 4.8 g/dL [facility] EGFR 93 >59 mL/min/1.7 3m2 [facility] Comment:Estimated glomerular filtration rate calculated using the CKD-EPI equation. ANION GAP 20 10 - 20 mmol/L [facility] Blood 11/30/2019 12:1 6 PM EDT 11/30/2019 12:23 PM EDT us Isabel Katz PA-C LAB BLOOD ORDERABLES Final Resu lt [facility] [address] [place] [address] * (ABNORMAL) CBC (11/30/2019 12:16 PM EDT) WBC 5.84 4.00 - 11.00 K/uL [facility] Comment:Note Reference Range updates to all CBC and Differential results. RBC 2.83(L) 3.90 - 5.69 M/uL [facility] HGB 7.0(LL) 12.4 - 17.3 g/dL [facility] Comment: checked by repeat analysis This result has been called to PROSPER Lundberg by Madhuri Butt on 11 30 2019 at 1601, and has been read back. Note updated Reference Ranges for all CBC and Differential results. HCT 23.2(L) 37.0 - 51.0 % [facility] PLT 294 140 - 430 K/uL [facility] MCV 82.0 78.0 - 97.0 fL [facility] MCH 24.7(L) 25.0 - 33.0 pg [facility] MCHC 30.2(L) 32.0 - 36.0 g/dL [facility] RDW 14.7 11.0 - 15.0 % [facility] MPV 10.3 8.4 - 12.8 fl [facility] NRBC 0.00 0 /100 WBCs [facility] ABSOLUTE NRBC 0.00 0 K/uL [facility] Blood 11/30/2019 12:1 6 PM EDT 11/30/2019 12:23 PM EDT us Isabel Katz PA-C LAB BLOOD ORDERABLES Final Resu lt Performing Organization Address City/[facility]/ZIP Co de Phone Number [address] [address] * (ABNORMAL) Immunoglobulin A (11/30/2019 12:16 PM EDT) IgA 460(H) 70 - 400 mg/dL [facility] Blood 11/30/2019 12:1 6 PM EDT 11/30/2019 12:23 PM EDT Isabel Katz PA-C LAB BLOOD ORDERABLES Final Resu lt Performing Organization Address [facility]/[place] Co de Phone Number [address] [address] * Tissue transglutaminase IgA (11/30/2019 12:16 PM EDT) TTG IGA ANTIBODY <1.2 <4.0 (Negative) U/mL [facility] Blood 11/30/2019 12:1 6 PM EDT 11/30/2019 12:22 PM EDT Isabel Katz PA-C LAB BLOOD ORDERABLES Final Resu lt Performing Organization Address City/[facility]/ZIP Co de Phone Number [facility] [address] [place] [address] documented in this encounter Visit Diagnoses Diagnosis Iron deficiency anemia, unspecified iron deficiency anemia type- Primary documented in this encounter Additional Health Concerns Infection Onset Date Last Indicated Resolved Time CoV-Risk 07/24/2021 07/24/2021 08/04/2021 1:22 AM EDT Assessment Noted Time PHQ-2 Depression Total Score: 0 07/12/19 19 2:17 PM EDT documented as of this encounter Care Teams Strategic Account Executive Relationship Specialty Start Date End Date Fahad Nolasco MD [address] [place] [address], [address] [place] [address] PCP - General 07/11/18 Jose Elaine MD [address] [place] [address] Crane Follower Cardiology 04/21/18 Junior Mclain MD [address] [place] [address] Gastroenterology 12/01/19 documented as of this encounter Additional Source Comments The information contained in this document represents components of the legal health record. It is not the complete legal health record.[facility]
--- OUTSIDE RECORDS SUMMARY | 2024-11-03 13:19 | XMS_ITS | Encounter Summary ---
Author Organization [facility] Address [address] [place] [address] Phone Care Team Providers Care Home Planning Consultant Salesperson Name Role Phone Jose Elaine MD Unavailable [phone] Fahad Nolasco MD Primary Care Provider Junior Mclain MD Unavailable [phone] Encounter Details Date Type Department Care Team (Late st Contact Info) Description 06/10/2021 Procedure Pass Non-Invasive Cardiology [address] [place] [address] Social History Tobacco Use Types Packs/Day Years [...] Description 01/12/2025 10:40 AM EST Office Visit [facility] [address] 3rd Floor, [address] [place] [address] Dillon Zazueta MD [address] [place] [address] 04/03/2025 2:00 PM EST Office Visit [facility] [address] [place] [address] Fahad Nolasco MD [address] [place] [address], [address] [place] [address] [email or web address] documented as of this encounter Visit Diagnoses Not on filedocumented in this encounter Additional Health Concerns Infection Onset Date Last Indicated Resolved Time CoV-Risk 07/24/2021 07/24/2021 08/04/2021 1:22 AM EDT Assessment Noted Time PHQ-2 Depression Total Score: 0 07/12/19 2:17 PM EDT documented as of this encounter Care Teams Home Planning Consultant Salesperson Relationship Specialty Start Date End Date Fahad Nolasco MD [address] [place] [address], [address] [place] [address] PCP - General 07/11/18 Jose Elaine MD [address] [place] [address], [address] [place] [address] Licensing Registration Examiner Cardiology 04/21/18 Junior Mclain MD [address] [place] [address] Gastroenterology 12/01/19 documented as of this encounter Additional Source Comments The information contained in this document represents components of the legal health record. It is not the complete legal health record.[facility]
--- OUTSIDE RECORDS SUMMARY | 2024-11-03 13:20 | XMS_ITS | Encounter Summary ---
Author Organization [facility] Address [address] [facility] [address] [place] [address] Phone Care Team Providers Care Rope Laying Machine Operator Name Role Phone Jose Elaine MD Unavailable [phone] Fahad Nolasco MD Primary Care Provider Junior Mclain MD Unavailable [phone] Encounter Details Date Type Department Care Team (Late st Contact Info) Description 11/10/2022 Procedure Pass Non-Invasive Cardiology [address] [place] [address] Social History Tobacco Use Types Packs/Day Years [...] Description 01/12/2025 10:40 AM EST Office Visit [facility] [address] [facility] 3rd Floor, [address] [place] [address] Dillon Zazueta MD [address] [place] [address] 04/03/2025 2:00 PM EST Office Visit [facility] [address] [place] [address] Fahad Nolasco MD [address] [place] [address], [address] [place] [address] documented as of this encounter Visit Diagnoses Not on filedocumented in this encounter Additional Health Concerns Assessment Noted Time PHQ-2 Depression Total Score: 0 07/12/19 19 2:17 PM EDT documented as of this encounter Care Teams Rope Laying Machine Operator Relationship Specialty Start Date End Date Fahad Nolasco MD 22 [facility], [address] [place] [address] PCP - General 07/11/18 Jose Elaine MD [address] [place] [address], [address] [place] [address] Tube Room Supervisor Cardiology 04/21/18 Junior Mclain MD [address] [address] Gastroenterology 12/01/19 documented as of this encounter Additional Source Comments The information contained in this document represents components of the legal health record. It is not the complete legal health record.[facility]
--- OUTSIDE RECORDS SUMMARY | 2024-11-03 13:20 | XMS_ITS | Encounter Summary ---
Author Organization [facility] Address [address] [facility] [address] [place] [address] Phone Care Team Providers Care Anatomic Pathology Manager Name Role Phone Jose Elaine MD Unavailable [phone] Andrew Bah MD Primary Care Provider [phone] Andrew Bah MD Primary Care Provider [phone] Fahad Nolasco MD Primary Care Provider [phone] Andrew Bah MD Primary Care Provider [phone] Fahad Nolasco MD Primary Care Provider [phone] Junior Mclain MD Unavailable Encounter Details Date Type Department Care Team (Late st Contact Info) Description 04/16/2018 Procedure Pass [facility] Periop [address] [place] [address] Social History Tobacco Use Types Packs/Day Years [...] Description 01/12/2025 10:40 AM EST Office Visit [facility] [address] [place] [address] Dr 3rd Floor, [address] [place] [address] Dillon Zazueta MD [address] [place] [address] 04/03/2025 2:00 PM EST Office Visit [facility] [address] [place] [address] [place] [address] Fahad Nolasco MD [address] [place] [address], [address] [place] [address] documented as of this encounter Visit Diagnoses Not on filedocumented in this encounter Additional Health Concerns Infection Onset Date Last Indicated Resolved Time CoV-Risk 07/24/2021 07/24/2021 08/04/2021 1:22 AM EDT Assessment Noted Time PHQ-2 Depression Total Score: 0 03/17/19 12:19 PM EST documented as of this encounter Care Teams Anatomic Pathology Manager Relationship Specialty Start Date End Date Andrew Bah MD [address] [place] [address], [address] [place] [address] PCP - General Family Medicine 05/17/18 05/30/18 Andrew Bah MD [address] [place] [address], [address] [place] [address] PCP - General 06/07/18 06/29/18 Fahad Nolasco MD [address] [place] [address], [address] [place] [address] PCP - General 07/11/18 Andrew Bah MD [address] [place] [address], [address] [place] [address] PCP - General 07/05/18 07/09/18 Fahad Nolasco MD [address] [place] [address], [address] [place] [address] PCP - General Internal Medicine 07/10/18 07/10/18 Jose Elaine MD [address] [place] [address], [address] [place] [address] Supervisor Securities Vault Cardiology 04/21/18 Junior Mclain MD [address] [place] [address] Gastroenterology 12/01/19 documented as of this encounter Additional Source Comments The information contained in this document represents components of the legal health record. It is not the complete legal health record.[facility]
--- OUTSIDE RECORDS SUMMARY | 2024-11-03 13:20 | XMS_ITS | Encounter Summary ---
Author Organization [facility] Address [address] [facility] [address] [place] [address] Phone Care Team Providers Care Hotel Guest Service Agent Name Role Phone Jose Elaine MD Unavailable [phone] Andrew Bah MD Primary Care Provider [phone] Andrew Bah MD Primary Care Provider [phone] Fahad Nolasco MD Primary Care Provider [phone] Anrdew Bah MD Primary Care Provider [phone] Fahad Nolasco MD Primary Care Provider [phone] Junior Mclain MD Unavailable [phone] Encounter Details Date Type Department Care Team (Late st Contact Info) Description 04/12/2018 Procedure Pass [facility] Periop [address] [place] [address] Social History Tobacco Use Types Packs/Day Years [...] Description 01/12/2025 10:40 AM EST Office Visit [facility] [address] [place] [address] Dr 3rd Floor, [address] [place] [address] Dillon Zazueta MD [address] [place] [address] 04/03/2025 2:00 PM EST Office Visit [facility] Medicine [address] [place] [address] [place] [address] Fahad Nolasco MD [address] [place] [address], [address] [place] [address] documented as of this encounter Visit Diagnoses Not on filedocumented in this encounter Additional Health Concerns Infection Onset Date Last Indicated Resolved Time CoV-Risk 07/24/2021 07/24/2021 08/04/2021 1:22 AM EDT Assessment Noted Time PHQ-2 Depression Total Score: 0 03/17/19 12:19 PM EST documented as of this encounter Care Teams Hotel Guest Service Agent Relationship Specialty Start Date End Date Andrew Bah MD [address] [place] [address], [address] [place] [address] PCP - General Family Medicine 05/17/18 05/30/18 Andrew Bah MD [address] [place] [address], [address] [place] [address] PCP - General 06/07/18 06/29/18 Fahad Nolasco MD [address] [place] [address], [address] [place] [address] PCP - General 07/11/18 Andrew Bah MD [address] [place] [address], [address] [place] [address] PCP - General 07/05/18 07/09/18 Fahad Nolasco MD [address] [place] [address], [address] [place] [address] PCP - General Internal Medicine 07/10/18 07/10/18 Jose Elaine MD [address] [place] [address], [address] [place] [address] Petal Shaper Hand Cardiology 04/21/18 Junior Mclain MD [address] [place] [address] Gastroenterology 12/01/19 documented as of this encounter Additional Source Comments The information contained in this document represents components of the legal health record. It is not the complete legal health record.[facility]
--- OUTSIDE RECORDS SUMMARY | 2024-11-03 13:20 | XMS_ITS | Encounter Summary ---
Author Organization [facility] Address [address] [facility] [address] [place] [address] Phone Care Team Providers Care Yarn Wrapper Name Role Phone Jose Elaine MD Unavailable [phone] Andrew Bah MD Primary Care Provider [phone] Andrew Bah MD Primary Care Provider [phone] Fahad Nolasco MD Primary Care Provider [phone] Andrew Bah MD Primary Care Provider [phone] Fahad Nolasco MD Primary Care Provider [phone] Junior Mclain MD Unavailable [phone] Encounter Details Date Type Department Care Team (Late st Contact Info) Description 04/18/2018 Procedure Pass [facility] Electrophysiology Lab [address] [place] [address] Social History Tobacco Use Types Packs/Day Years [...] Description 01/12/2025 10:40 AM EST Office Visit [facility] [address] [place] [address] Dr 3rd Floor, [address] [place] [address] Dillon Zazueta MD [address] [place] [address] 04/03/2025 2:00 PM EST Office Visit [facility] [address] [place] [address] [place] [address] Fahad Nolasco MD [address] [place] [address], [address] [place] [address] documented as of this encounter Visit Diagnoses Not on filedocumented in this encounter Additional Health Concerns Infection Onset Date Last Indicated Resolved Time CoV-Risk 07/24/2021 07/24/2021 08/04/2021 1:22 AM EDT Assessment Noted Time PHQ-2 Depression Total Score: 0 03/17/19 12:19 PM EST documented as of this encounter Care Teams Yarn Wrapper Relationship Specialty Start Date End Date Andrew Bah MD [address] [place] [address], [address] [place] [address] PCP - General Family Medicine 05/17/18 05/30/18 Andrew Bah MD [address] [place] [address], [address] [place] [address] PCP - General 06/07/18 06/29/18 Fahad Nolasco MD [address] [place] [address], [address] [place] [address] PCP - General 07/11/18 Andrew Bah MD [address] [place] [address], [address] [place] [address] PCP - General 07/05/18 07/09/18 Fahad Nolasco MD [address] [place] [address], [address] [place] [address] PCP - General Internal Medicine 07/10/18 07/10/18 Jose Elaine MD [address] [place] [address], [address] [place] [address] Clinical Investigator Cardiology 04/21/18 Junior Mclain MD [address] [place] [address] Gastroenterology 12/01/19 documented as of this encounter Additional Source Comments The information contained in this document represents components of the legal health record. It is not the complete legal health record.[facility]
--- OUTSIDE RECORDS SUMMARY | 2024-11-03 13:20 | XMS_ITS | Encounter Summary ---
Author Organization [facility] Address [address] [place] [address] Phone Care Team Providers Care Jai Alai Player Name Role Phone Jose Elaine MD Unavailable [phone] Andrew Bah MD Primary Care Provider [phone] Andrew Bah MD Primary Care Provider [phone] Fahad Nolasco MD Primary Care Provider [phone] Andrew Bah MD Primary Care Provider [phone] Fahad Nolasco MD Primary Care Provider [phone] Junior Mclain MD Unavailable [phone] Encounter Details Date Type Department Care Team (Latest Contact Info) Description 04/14/2018 Transcribe Orders [facility] Echocardiography [address] [place] [address] [email or web address] Cardiac arrhythmia, unspecified cardiac arrhythmia type (Primary [...] Description 01/12/2025 10:40 AM EST Office Visit [facility] [address] Floor, [address] [place] [address] Dillon Zazueta MD [address] [place] [address] [email or web address] 04/03/2025 2:00 PM EST Office Visit [facility] [address] [place] [address] Fahad Nolasco MD [address] [facility], [address] [place] [address] [email or web address] documented as of this encounter Procedures Procedure [...] QTC Interval 411 ms [facility] R Wave [employer] 73 degrees [facility] T Wave [employer] 34 degrees [facility] 04/14/2018 5:47 AM EST Narrative [facility] - 04/18/2018 4:50 PM EDT Junctional rhythm Occasional , and consecutive Premature ventricular complexes and Fusion complexes Abnormal ECG When compared with ECG of 13-APR-2018 13:58, Premature ventricular complexes are now Present Vent. rate has increased BY 23 BPM QT has lengthened Saima DOUGLAS ECG ORDERABLES Final Resu lt [facility] documented in this encounter Visit Diagnoses Diagnosis Cardiac arrhythmia, unspecified cardiac arrhythmia type- Primary documented in this encounter Additional Health Concerns Infection Onset Date Last Indicated Resolved Time CoV-Risk 07/24/2021 07/24/2021 08/04/2021 1:22 AM EDT Assessment Noted Time PHQ-2 Depression Total Score: 0 03/17/19 12:19 PM EST documented as of this encounter Care Teams Jai Alai Player Relationship Specialty Start Date End Date Andrew Bah MD [address] [place] [address], [address] [place] [address] [email or web address] PCP - General Family Medicine 05/17/18 05/30/18 Andrew Bah MD [address] [place] [address], [address] [place] [address] PCP - General 06/07/18 06/29/18 Fahad Nolasco MD [address] [place] [address], [address] [place] [address] PCP - General 07/11/18 Andrew Bah MD [address] [place] [address], [address] [place] [address] PCP - General 07/05/18 07/09/18 Fahad Nolasco MD [address] [place] [address], [address] [place] [address] PCP - General Internal Medicine 07/10/18 07/10/18 Jose Elaine MD [address] [place] [address], [address] [place] [address] [email or web address] Lean Coach Cardiology 04/21/18 Junior Mclain MD [address] [place] [address] [email or web address] Gastroenterology 12/01/19 documented as of this encounter Additional Source Comments The information contained in this document represents components of the legal health record. It is not the complete legal health record.[facility]
== END 2024-11-03 12:02 | disposition home or self-care (01) ==
LOC: HO.ACS 11:26
PROVIDERS: PCP Internal Medicine; Visit Provider Internal Medicine Medical Oncology
DX: Z79.01 Long term (current) use of anticoagulants (principal)

== ENCOUNTER → 2024-11-03 11:26 | Outpatient (BNVA) | payer MEDICARE, SELFPAY | PROVIDERS: PCP Internal Medicine; Visit Provider Internal Medicine Medical Oncology | DX: Z86.718 Personal history of other venous thrombosis and embolism (principal); Z79.01 Long term (current) use of anticoagulants; Z51.81 Encounter for therapeutic drug level monitoring | CPT/HCPCS: 85610; 99211 ==

== ENCOUNTER 2024-11-29 11:29 | Outpatient (AMB) | payer MEDICARE, SELFPAY ==
[2024-11-29 11:34] LABS: Prothrombin Time Whole Bld POC 32.5 sec (11.1-13.5); ~PT, ~INR - Anti Coag Clinic 2.7 (0.9-1.1)
--- NOTE | 2024-11-29 14:50 | MHC.OFFVISCO ---
Intake Intake Visit Reasons: Anticoagulation Allergies shrimp Allergy (Mild, Verified 11/29/24 11:29) JUNE MeridaA. Allergy (Unknown, Uncoded 11/03/24 11:44) PT STATES NO KNOWN DRUG ALLERGIES Medication List - Last Reconciled 11/29/24 by Frieda Manley RN atorvastatin 80 mg PO DAILY blood sugar diagnostic As directed cholecalciferol (vitamin D3) 25 mcg PO DAILY clobetasol 0.05% topical BID cyanocobalamin (vitamin B-12) (Vitamin B-12) 500 mcg PO DAILY ferrous sulfate 325 mg PO DAILY glipizide 5 mg PO BID hydroxyzine pamoate 25 mg PO TID PRN lancets (OneTouch Delica Plus Lancet) As directed metformin 1,000 mg PO DAILY metoprolol succinate ER 75 mg PO DAILY torsemide 100 mg PO BID triamcinolone acetonide 0.1% 1 appl topical BID warfarin See Protocol 2.5mg x 4, 1.25mg x 3 Nursing Note NO CP,SOB,DIET/MED CHANGES,FALLS OR SX OF BLEEDING. CONTINUE PRESENT DOSE AND FOLLOW-UP IN 4 WEEKS GOOD UNDERSTANDING OF DOSING INSTR. Coding Level of Care Code Est Patient Level 1 Diagnoses Current use of anticoagulant therapy Z79.01 Assessment & Plan Assessment & Plan (1) Current use of anticoagulant therapy: Code(s): Z79.01 - long term care pharmacist (current) use of anticoagulants Category: Medical
== END 2024-11-29 11:40 | disposition home or self-care (01) ==
LOC: HO.ACS 11:29
PROVIDERS: PCP Internal Medicine; Visit Provider Internal Medicine Medical Oncology
DX: Z79.01 Long term (current) use of anticoagulants (principal)

== ENCOUNTER → 2024-11-29 11:29 | Outpatient (BNVA) | payer MEDICARE, SELFPAY | PROVIDERS: PCP Internal Medicine; Visit Provider Internal Medicine Medical Oncology | DX: Z86.718 Personal history of other venous thrombosis and embolism (principal); Z51.81 Encounter for therapeutic drug level monitoring; Z79.01 Long term (current) use of anticoagulants | CPT/HCPCS: 85610; 99211 ==

== ENCOUNTER 2024-12-27 11:36 | Outpatient (AMB) | payer MEDICARE, SELFPAY ==
[2024-12-27 11:44] LABS: Prothrombin Time Whole Bld POC 37.1 sec (11.1-13.5); ~PT, ~INR - Anti Coag Clinic 3.1 (0.9-1.1)
--- NOTE | 2024-12-27 12:04 | MHC.OFFVISCO ---
Intake Intake Visit Reasons: Anticoagulation Allergies shrimp Allergy (Mild, Verified 12/27/24 11:37) JUNE MeridaA. Allergy (Unknown, Uncoded 11/03/24 11:44) PT STATES NO KNOWN DRUG ALLERGIES Medication List - Last Reconciled 12/27/24 by Frieda Manley RN atorvastatin 80 mg PO DAILY blood sugar diagnostic As directed cholecalciferol (vitamin D3) 25 mcg PO DAILY clobetasol 0.05% topical BID cyanocobalamin (vitamin B-12) (Vitamin B-12) 500 mcg PO DAILY ferrous sulfate 325 mg PO DAILY glipizide 5 mg PO BID hydroxyzine pamoate 25 mg PO TID PRN lancets (OneTouch Delica Plus Lancet) As directed metformin 1,000 mg PO DAILY metoprolol succinate ER 75 mg PO DAILY torsemide 100 mg PO BID triamcinolone acetonide 0.1% 1 appl topical BID warfarin See Protocol 2.5mg x 4, 1.25mg x 3 Nursing Note NO CP,SOB,DIET/MED CHANGES,FALLS OR SX OF BLEEDING. CONTINUE PRESENT DOSE AND FOLLOW-UP IN 4 WEEKS GOOD UNDERSTANDING OF DOSWING INSTR. Coding Level of Care Code Est Patient Level 1 Diagnoses Current use of anticoagulant therapy Z79.01 Assessment & Plan Assessment & Plan (1) Current use of anticoagulant therapy: Code(s): Z79.01 - adjunct faculty for medical terminology (current) use of anticoagulants Category: Medical
--- OUTSIDE RECORDS SUMMARY | 2024-12-27 22:41 | XMS_ITS | Encounter Summary ---
Author Organization [facility] Address [address] [place] [address] Phone Care Team Providers Care Expert Witness Name Role Phone Jose Elaine MD Unavailable [phone] Fahad Nolasco MD Primary Care Provider [phone] Junior Mclain MD Unavailable [phone] Encounter Details Date Type Department Care Team (Late st Contact Info) Description 02/20/2019 Ancillary Orders Non-Invasive Cardiology [address] [place] [address] Kem Bowers MD [address] [place] [address] [email or web address] Complete heart block Social [...] Care Team (Late st Contact Info) Description 02/07/2025 10:40 AM EST Office Visit [facility] [address] Floor, [address] [place], [place] [address] Dillon Zazueta MD [address] [place] [address] 04/03/2025 2:00 PM EST Office Visit [address] [place] [address] Fahad Nolasco MD [address] [place] [address], [address] [place] [address] [email or web address] documented as of this encounter Results * DEVICE CHECK: PPM REMOTE INTERROGATION WITH LODE MINER BLASTING REVIEW (03/21/2019 4:59 PM EST) Narrative Kem Bowers MD - 03/22/2019 12:39 PM EST Reason for appointment: Remote pacemaker interrogation HPI: Routine 3 month remote pacemaker interrogation. No device related complaints. Indication for device: CHB. Examination: Device type: Pacemaker Food Service Substitute: Medtronic Mode: AAIR-DDDR LRL/UPL: 70/120 bpm Mode switches: Continuous since end summer High V rates: 0 Thresholds, impedances, and sensing stable. AF/AT: Patient is currently taking Coumadin daily. Atrial pacin.6% Ventricular pacin.1% Battery: 13.4 yrs Additional comments: Device functioning appropriately. Normal device function. Patient to follow-up for continued monitoring every 3 months. Report prepared by Maya Zaragoza RN Kme Bowers MD [facility] ORDER NIKO [...] documented as of this encounter Care Teams Expert Witness Relationship Specialty Start Date End Date Fahad Nolasco MD [address] [place] [address], [address] [place] [address] PCP - General 07/11/18 Jose Elaine MD 22 [facility], [address] [place] [address] Trade Promotion Analyst Cardiology 04/21/18 Junior Mclain MD [address] [place] [address] Gastroenterology 12/01/19 documented as of this encounter Additional Source Comments The information contained in this document represents components of the legal health record. It is not the complete legal health record.[facility]
--- OUTSIDE RECORDS SUMMARY | 2024-12-27 22:41 | XMS_ITS | Encounter Summary ---
Author Organization [facility] Address [address] [place] [address] Phone Care Team Providers Care Congressional District Aide Name Role Phone Jose Elaine MD Unavailable [phone] Fahad Nolasco MD Primary Care Provider Junior Mclain MD Unavailable [phone] Encounter Details Date Type Department Care Team (Late st Contact Info) Description 06/10/2021 Procedure Pass Non-Invasive Cardiology [address] [place] [address] Social History Tobacco Use Types Packs/Day Years [...] Description 02/07/2025 10:40 AM EST Office Visit [facility] [address] Floor, [address] [place] [address] Dillon Zazutea MD [address] [place] [address] 04/03/2025 2:00 PM EST Office Visit [facility] 22 [place] [address] Fahad Nolasco MD [address] [place] [address], [address] [place] [address] [email or web address] documented as of this encounter Visit Diagnoses Not on filedocumented in this encounter Additional Health Concerns Infection Onset Date Last Indicated Resolved Time CoV-Risk 07/24/2021 07/24/2021 08/04/2021 1:22 AM EDT Assessment Noted Time PHQ-2 Depression Total Score: 0 07/12/19 2:17 PM EDT documented as of this encounter Care Teams [place] Aide Relationship Specialty Start Date End Date Fahad Nolasco MD [address] [place] [address], [address] [place] [address] PCP - General 07/11/18 Jose Elaine MD [address] [place] [address], [address] [place] [address] Renovator Machine Operator Cardiology 04/21/18 Junior Mclain MD [address] [place] [address] Gastroenterology 12/01/19 documented as of this encounter Additional Source Comments The information contained in this document represents components of the legal health record. It is not the complete legal health record.[facility]
--- OUTSIDE RECORDS SUMMARY | 2024-12-27 22:41 | XMS_ITS | Encounter Summary ---
Author Organization [facility] Address [address] [place] [address] Phone Care Team Providers Care Industrial Millwright Name Role Phone Jose Elaine MD Unavailable [phone] Fahad Nolasco MD Primary Care Provider Junior Mclain MD Unavailable [phone] Encounter Details Date Type Department Care Team (Late st Contact Info) Description 11/19/2021 Procedure Pass Non-Invasive Cardiology [address] [place] [address] Social History Tobacco Use Types Packs/Day Years [...] Description 02/07/2025 10:40 AM EST Office Visit [facility] [address] Floor, [address] [place] [address] Dillon Zazueta MD 50 [place] [address] 04/03/2025 2:00 PM EST [facility] 22 [place] [address] Fahad Nolasco MD 22 [facility], [address] [place] [address] [email or web address] documented as of this encounter Visit Diagnoses Not on filedocumented in this encounter Additional Health Concerns Assessment Noted Time PHQ-2 Depression Total Score: 0 07/12/19 19 2:17 PM EDT documented as of this encounter Care Teams Industrial Millwright Relationship Specialty Start Date End Date Fahad Nolasco MD [address] [place] [address], [address] [place] [address] PCP - General 07/11/18 Jose Elaine MD [address] [place] [address], [address] [place] [address] Transport Coordinator Cardiology 04/21/18 Junior Mclain MD [address] [place] [address] Gastroenterology 12/01/19 documented as of this encounter Additional Source Comments The information contained in this document represents components of the legal health record. It is not the complete legal health record.[facility]
--- OUTSIDE RECORDS SUMMARY | 2024-12-27 22:41 | XMS_ITS | Encounter Summary ---
Author Organization [facility] Address [address] [place] [address] Phone Care Team Providers Care Analog Ic Design Architect Name Role Phone Jose Elaine MD Unavailable [phone] Fahad Nolasco MD Primary Care Provider Junior Mclain MD Unavailable [phone] Encounter Details Date Type Department Care Team (Late st Contact Info) Description 12/11/2020 Procedure Pass [facility] [address] [place] [address] Social History Tobacco Use Types Packs/Day Years [...] Description 02/07/2025 10:40 AM EST Office Visit [facility] [address] [facility] 3rd Floor, [address] [place] [address] Dillon Zazueta MD [address] [place] [address] 04/03/2025 2:00 PM EST Office Visit [facility] 22 [place] [address] Fahad Nolasco MD 22 [facility], [address] [place] [address] [email or web address] documented as of this encounter Visit Diagnoses Not on filedocumented in this encounter Additional Health Concerns Infection Onset Date Last Indicated Resolved Time CoV-Risk 07/24/2021 07/24/2021 08/04/2021 1:22 AM EDT Assessment Noted Time PHQ-2 Depression Total Score: 0 07/12/19 2:17 PM EDT documented as of this encounter Care Teams Analog Ic Design Architect Relationship Specialty Start Date End Date Fahad Nolasco MD [address] [place] [address], [address] [place] [address] PCP - General 07/11/18 Jose Elaine MD [address] [place] [address], [address] [place] [address] Family Centered Specialist Cardiology 04/21/18 Junior Mclain MD [address] [place] [address] Gastroenterology 12/01/19 documented as of this encounter Additional Source Comments The information contained in this document represents components of the legal health record. It is not the complete legal health record.[facility]
--- OUTSIDE RECORDS SUMMARY | 2024-12-27 22:41 | XMS_ITS | Encounter Summary ---
Author Organization [facility] Address [address] [place] [address] Phone Care Team Providers Care Paid Internship Name Role Phone Jose Elaine MD Unavailable [phone] Fahad Nolasco MD Primary Care Provider Junior Mclain MD Unavailable [phone] Encounter Details Date Type Department Care Team (Late st Contact Info) Description 01/08/2020 Procedure Pass [facility] [address] [place] [address] Social History Tobacco Use Types Packs/Day Years [...] Description 02/07/2025 10:40 AM EST Office Visit [facility] [address] [facility] 3rd Floor, [address] [place] [address] Dillon Zazueta MD 50 [place] [address] 04/03/2025 2:00 PM EST Office Visit [facility] 22 [place] [address] Fahad Nolasco MD 22 [facility], [address] [place] [address] [email or web address] documented as of this encounter Visit Diagnoses Not on filedocumented in this encounter Additional Health Concerns Infection Onset Date Last Indicated Resolved Time CoV-Risk 07/24/2021 07/24/2021 08/04/2021 1:22 AM EDT Assessment Noted Time PHQ-2 Depression Total Score: 0 07/12/19 2:17 PM EDT documented as of this encounter Care Teams Paid Internship Relationship Specialty Start Date End Date Fahad Nolasco MD [address] [place] [address], [address] [place] [address] PCP - General 07/11/18 Jose Elaine MD [address] [place] [address], [address] [place] [address] Medical Physics Teacher Cardiology 04/21/18 Junior Mclain MD [address] [place] [address] Gastroenterology 12/01/19 documented as of this encounter Additional Source Comments The information contained in this document represents components of the legal health record. It is not the complete legal health record.[facility]
--- OUTSIDE RECORDS SUMMARY | 2024-12-27 22:41 | XMS_ITS | Encounter Summary ---
Author Organization [facility] Address [address] [place] [address] Phone Care Team Providers Care Finance Teacher Name Role Phone Jose Elaine MD Unavailable [phone] Fahad Nolasco MD Primary Care Provider Junior Mclain MD Unavailable [phone] Encounter Details Date Type Department Care Team (Late st Contact Info) Description 03/09/2020 Procedure Pass Non-Invasive Cardiology [address] [place] [address] Social History Tobacco Use Types Packs/Day Years [...] Description 02/07/2025 10:40 AM EST Office Visit [facility] [address], [address] [place], [place] [address] Dillon Zazueta MD [address] [place] [address] 04/03/2025 2:00 PM EST Office Visit [facility] 22 [place] [address] Fahad Nolasco MD [address] [place] [address], [address] [place] [address] [email or web address] documented as of this encounter Visit Diagnoses Not on filedocumented in this encounter Additional Health Concerns Infection Onset Date Last Indicated Resolved Time CoV-Risk 07/24/2021 07/24/2021 08/04/2021 1:22 AM EDT Assessment Noted Time PHQ-2 Depression Total Score: 0 07/12/19 2:17 PM EDT documented as of this encounter Care Teams Finance Teacher Relationship Specialty Start Date End Date Fahad Nolasco MD [address] [place] [address], [address] [place] [address] PCP - General 07/11/18 Jose Elaine MD [address] [place] [address], [address] [place] [address] Foreclosure Specialist Cardiology 04/21/18 Junior Mclain MD [address] [place] [address] Gastroenterology 12/01/19 documented as of this encounter Additional Source Comments The information contained in this document represents components of the legal health record. It is not the complete legal health record.[facility]
--- OUTSIDE RECORDS SUMMARY | 2024-12-27 22:41 | XMS_ITS | Encounter Summary ---
Author Organization [facility] Address [address] [facility] [address] [place] [address] Phone Care Team Providers Care Necktie Maker Name Role Phone Jose Elaine MD Unavailable [phone] Fahad Nolasco MD Primary Care Provider [phone] Junior Mclain MD Unavailable [phone] Encounter Details Date Type Department Care Team (Late st Contact Info) Description 09/06/2019 Ancillary Orders Non-Invasive Cardiology [address] [place] [address] Kem Bowers MD [address] [place] [address] [email or web address] Complete heart block Social History [...] Description 02/07/2025 10:40 AM EST Office Visit [facility] [address], [address] [place], [place] [address] Dillon Zazueta MD [address] [place] [address] [email or web address] 04/03/2025 2:00 PM EST Office Visit [address] [place] [address] Fahad Nolasco MD 22 [facility], [address] [place] [address] [email or web address] documented as of this encounter Results * DEVICE CHECK: PPM IN-HOME INTERROGATION (09/25/2019 10:41 AM EDT) Narrative Kem Bowers MD - 09/26/2019 1:03 PM EDT Reason for appointment: Remote pacemaker interrogation HPI: Routine 3 month remote pacemaker interrogation. No device related complaints. Indication for device: CHB. Examination: Device type: Pacemaker Call Center Trainer: Medtronic Mode: AAIR-DDDR LRL/UPL: 70/120 bpm Mode [...] documented as of this encounter Care Teams Necktie Maker Relationship Specialty Start Date End Date Fahad Nolasco MD [address] [place] [address], [address] [place] [address] PCP - General 07/11/18 Jose Elaine MD [address] [place] [address], [address] [place] [address] Bulb Farmworker Cardiology 04/21/18 Junior Mclain MD [address] [place] [address] Gastroenterology 12/01/19 documented as of this encounter Additional Source Comments The information contained in this document represents components of the legal health record. It is not the complete legal health record.[facility]
--- OUTSIDE RECORDS SUMMARY | 2024-12-27 22:41 | XMS_ITS | Encounter Summary ---
Author Organization [facility] Address [address] [place] [address] Phone Care Team Providers Care Accounts Payable Associate Name Role Phone Jose Elaine MD Unavailable [phone] Fahad Nolasco MD Primary Care Provider [phone] Junior Mclain MD Unavailable [phone] Encounter Details Date Type Department Care Team (Late st Contact Info) Description 12/15/2021 Procedure Pass [facility], Ct Scan - [facility] [address] [place] [address] Social History Tobacco Use Types Packs/Day Years [...] Description 02/07/2025 10:40 AM EST Office Visit [facility] [address] [place] [address] 3rd Floor, [address] [place] [address] Dillon Zazueta MD 50 [place] [address] 04/03/2025 2:00 PM EST [facility] 22 [place] [address] Fahad Nolasco MD [address] [place] [address], [address] [place] [address] documented as of this encounter Visit Diagnoses Not on filedocumented in this encounter Additional Health Concerns Assessment Noted Time PHQ-2 Depression Total Score: 0 07/12/19 19 2:17 PM EDT documented as of this encounter Care Teams Accounts Payable Associate Relationship Specialty Start Date End Date Fahad Nolasco MD [address] [place] [address], [address] [place] [address] PCP - General 07/11/18 Jose Elaine MD [address] [place] [address], [address] [place] [address] Tooling Engineering Tech Cardiology 04/21/18 Junior Mclain MD [address] [place] [address] Gastroenterology 12/01/19 documented as of this encounter Additional Source Comments The information contained in this document represents components of the legal health record. It is not the complete legal health record.[facility]
--- OUTSIDE RECORDS SUMMARY | 2024-12-27 22:41 | XMS_ITS | Encounter Summary ---
Author Organization [facility] Address [address] [place] [address] Phone Care Team Providers Care Tester Armature Or Fields Name Role Phone Jose Elaine MD Unavailable [phone] Fahad Nolasco MD Primary Care Provider Junior Mclain MD Unavailable [phone] Encounter Details Date Type Department Care Team (Late st Contact Info) Description 07/10/2020 Procedure Pass Non-Invasive Cardiology [address] [place] [address] Social History Tobacco Use Types Packs/Day Years [...] Description 02/07/2025 10:40 AM EST Office Visit [facility] [address], [address] [place], [place] [address] Dillon Zazueta MD 50 [place] [address] 04/03/2025 2:00 PM EST Office Visit [facility] [address] [place] [address] Fahad Nolasco MD [address] [place] [address], [address] [place] [address] documented as of this encounter Visit Diagnoses Not on filedocumented in this encounter Additional Health Concerns Infection Onset Date Last Indicated Resolved Time CoV-Risk 07/24/2021 07/24/2021 08/04/2021 1:22 AM EDT Assessment Noted Time PHQ-2 Depression Total Score: 0 07/12/19 2:17 PM EDT documented as of this encounter Care Teams Tester Armature Or Fields Relationship Specialty Start Date End Date Fahad Nolasco MD [address] [place] [address], [address] [place] [address] PCP - General 07/11/18 Jose Elaine MD [address] [place] [address], [address] [place] [address] Top And Trim Worker Cardiology 04/21/18 Junior Mclain MD [address] [place] [address] Gastroenterology 12/01/19 documented as of this encounter Additional Source Comments The information contained in this document represents components of the legal health record. It is not the complete legal health record.[facility]
--- OUTSIDE RECORDS SUMMARY | 2024-12-27 22:41 | XMS_ITS | Encounter Summary ---
Author Organization [facility] Address [address] [place] [address] Phone Care Team Providers Care Boiler Tester Name Role Phone Jose Elaine MD Unavailable [phone] Fahad Nolasco MD Primary Care Provider [phone] Junior Mclain MD Unavailable [phone] Encounter Details Date Type Department Care Team (Late st Contact Info) Description 03/09/2022 Procedure Pass Non-Invasive Cardiology [address] [place] [address] Social History Tobacco Use Types Packs/Day Years [...] Description 02/07/2025 10:40 AM EST Office Visit [facility] [address] 3[address], [address] [place] [address] Dillon Zazueta MD [address] [place] [address] 04/03/2025 2:00 PM EST [facility] 22 [place] [address] Fahad Nolasco MD 22 [facility], [address] [place] [address] [email or web address] documented as of this encounter Visit Diagnoses Not on filedocumented in this encounter Additional Health Concerns Assessment Noted Time PHQ-2 Depression Total Score: 0 07/12/19 19 2:17 PM EDT documented as of this encounter Care Teams Boiler Tester Relationship Specialty Start Date End Date Fahad Nolasco MD [address] [place] [address], [address] [place] [address] PCP - General 07/11/18 Jose Elaine MD [address] [place] [address], [address] [place] [address] Manager Pricing Cardiology 04/21/18 Junior Mclain MD [address] [place] [address] Gastroenterology 12/01/19 documented as of this encounter Additional Source Comments The information contained in this document represents components of the legal health record. It is not the complete legal health record.[facility]
--- OUTSIDE RECORDS SUMMARY | 2024-12-27 22:41 | XMS_ITS | Encounter Summary ---
Author Organization [facility] Address [address] [place] [address] Phone Care Team Providers Care Cat And Dog Bather Name Role Phone Jose Elaine MD Unavailable [phone] Fahad Nolasco MD Primary Care Provider [phone] Junior Mclain MD Unavailable [phone] Encounter Details Date Type Department Care Team (Late st Contact Info) Description 06/11/2020 Procedure Pass [facility], Ct Scan - [address] [address] Social History Tobacco Use Types Packs/Day Years [...] Description 02/07/2025 10:40 AM EST Office Visit [facility] [address] [facility] 3rd Floor, [address] [place] [address] Dillon Zazueta MD [address] [place] [address] 04/03/2025 2:00 PM EST Office Visit [facility] [address] [place] [address] Fahad Nolasco MD [address] [facility], [address] [place] [address] documented as of this encounter Visit Diagnoses Not on filedocumented in this encounter Additional Health Concerns Infection Onset Date Last Indicated Resolved Time CoV-Risk 07/24/2021 07/24/2021 08/04/2021 1:22 AM EDT Assessment Noted Time PHQ-2 Depression Total Score: 0 07/12/19 2:17 PM EDT documented as of this encounter Care Teams Cat And Dog Bather Relationship Specialty Start Date End Date Faahd Nolasco MD [address] [facility], [address] [place] [address] PCP - General 07/11/18 Jose Elaine MD [address] [place] [address], [address] [place] [address] Net Fisher Cardiology 04/21/18 Junior Mclain MD [address] [place] [address] Gastroenterology 12/01/19 documented as of this encounter Additional Source Comments The information contained in this document represents components of the legal health record. It is not the complete legal health record.[facility]
--- OUTSIDE RECORDS SUMMARY | 2024-12-27 22:41 | XMS_ITS | Encounter Summary ---
Author Organization [facility] Address [address] [place] [address] Phone Care Team Providers Care Recording Engineer Name Role Phone Jose Elaine MD Unavailable [phone] Fahad Nolasco MD Primary Care Provider Junior Mclain MD Unavailable [phone] Encounter Details Date Type Department Care Team (Late st Contact Info) Description 04/08/2020 Procedure Pass Non-Invasive Cardiology [address] [place] [address] Social History Tobacco Use Types Packs/Day Years [...] Description 02/07/2025 10:40 AM EST Office Visit [facility] [address] 3[address] Floor, [address] [place], [place] [id number] Dillon Zazueta MD 50 [place] [address] 04/03/2025 2:00 PM EST Office Visit [facility] [address] [place] [address] Fahad Nolasco MD [address] [place] [address], [address] [place] [address] documented as of this encounter Visit Diagnoses Not on filedocumented in this encounter Additional Health Concerns Infection Onset Date Last Indicated Resolved Time CoV-Risk 07/24/2021 07/24/2021 08/04/2021 1:22 AM EDT Assessment Noted Time PHQ-2 Depression Total Score: 0 07/12/19 2:17 PM EDT documented as of this encounter Care Teams Recording Engineer Relationship Specialty Start Date End Date Fahad Nolasco MD [address] [place] [address], [address] [place] [address] PCP - General 07/11/18 Jose Elaine MD [address] [place] [address], [address] [place] [address] Dog Catcher Cardiology 04/21/18 Junior Mclain MD [address] [place] [address] Gastroenterology 12/01/19 documented as of this encounter Additional Source Comments The information contained in this document represents components of the legal health record. It is not the complete legal health record.[facility]
--- OUTSIDE RECORDS SUMMARY | 2024-12-27 22:41 | XMS_ITS | Encounter Summary ---
Author Organization [facility] Address [address] [place] [address] Phone Care Team Providers Care Automation Technician Name Role Phone Jose Elaine MD Unavailable [phone] Fahad Nolasco MD Primary Care Provider Junior Mclain MD Unavailable [phone] Encounter Details Date Type Department Care Team (Late st Contact Info) Description 08/05/2020 Procedure Pass [facility] [address] [place] [address] Social History Tobacco Use Types Packs/Day Years [...] Description 02/07/2025 10:40 AM EST Office Visit [facility] [address] [facility] [address] [facility] 3rd Floor, [address] [place] [address] Dillon Zazueta MD 50 [place] [address] 04/03/2025 2:00 PM EST Office Visit [facility] 22 [place] [address] Fahad Nolasco MD [address] [facility], [address] [place] [address] [email or web address] documented as of this encounter Visit Diagnoses Not on filedocumented in this encounter Additional Health Concerns Infection Onset Date Last Indicated Resolved Time CoV-Risk 07/24/2021 07/24/2021 08/04/2021 1:22 AM EDT Assessment Noted Time PHQ-2 Depression Total Score: 0 07/12/19 2:17 PM EDT documented as of this encounter Care Teams Automation Technician Relationship Specialty Start Date End Date Fahad Nolasco MD [address] [place] [address], [address] [place] [address] PCP - General 07/11/18 Jose Elaine MD [address] [place] [address], [address] [place] [address] Cardiology Manager Cardiology 04/21/18 Junior Mclain MD [address] [place] [address] Gastroenterology 12/01/19 documented as of this encounter Additional Source Comments The information contained in this document represents components of the legal health record. It is not the complete legal health record.[facility]
--- OUTSIDE RECORDS SUMMARY | 2024-12-27 22:41 | XMS_ITS | Encounter Summary ---
Author Organization [facility] Address [address] [place] [address] Phone Care Team Providers Care Lgsw Name Role Phone Jose Elaine MD Unavailable [phone] Fahad Nolasco MD Primary Care Provider Junior Mclain MD Unavailable [phone] Encounter Details Date Type Department Care Team (Late st Contact Info) Description 05/11/2022 Procedure Pass Echo [facility] [place] [address] [place] [address] Social History Tobacco Use Types Packs/Day Years [...] Description 02/07/2025 10:40 AM EST Office Visit [facility] [address] [facility] 3rd Floor, [address] [place], [place] [address] Dillon Zazueta MD 50 [place] [address] 04/03/2025 2:00 PM EST [facility] 22 [place] [address] Fahad Nolasco MD [address] [facility], [address] [place] [address] [email or web address] documented as of this encounter Visit Diagnoses Not on filedocumented in this encounter Additional Health Concerns Assessment Noted Time PHQ-2 Depression Total Score: 0 07/12/19 19 2:17 PM EDT documented as of this encounter Care Teams Lgsw Relationship Specialty Start Date End Date Fahad Nolasco MD [address] [place] [address], [address] [place] [address] PCP - General 07/11/18 Jose Elaine MD [address] [place] [address], [address] [place] [address] Commissions Specialist Cardiology 04/21/18 Junior Mclain MD [address] [place] [address] Gastroenterology 12/01/19 documented as of this encounter Additional Source Comments The information contained in this document represents components of the legal health record. It is not the complete legal health record.[facility]
--- OUTSIDE RECORDS SUMMARY | 2024-12-27 22:41 | XMS_ITS | Encounter Summary ---
Author Organization [facility] Address [address] [place] [address] Phone Care Team Providers Care [employer] Retailer Sales Consultant Name Role Phone Jose Elaine MD Unavailable [phone] Fahad Nolasco MD Primary Care Provider [phone] Junior Mclain MD Unavailable [phone] Encounter Details Date Type Department Care Team (Late st Contact Info) Description 03/17/2021 Procedure Pass Non-Invasive Cardiology [address] [place] [address] Social History Tobacco Use Types Packs/Day Years [...] Description 02/07/2025 10:40 AM EST Office Visit [facility] [address] 3[address] Floor, [address] [place] [address] Dillon Zazueta MD 50 [place] [address] 04/03/2025 2:00 PM EST Office Visit [facility] 22 [place] [address] Fahad Nolasco MD [address] [facility], [address] [place] [address] [email or web address] documented as of this encounter Visit Diagnoses Not on filedocumented in this encounter Additional Health Concerns Infection Onset Date Last Indicated Resolved Time CoV-Risk 07/24/2021 07/24/2021 08/04/2021 1:22 AM EDT Assessment Noted Time PHQ-2 Depression Total Score: 0 07/12/19 2:17 PM EDT documented as of this encounter Care Teams [employer] Retailer Sales Consultant Relationship Specialty Start Date End Date Fahad Nolasco MD [address] [place] [address], [address] [place] [address] PCP - General 07/11/18 Jose Elaine MD [address] [place] [address], [address] [place] [address] Electrical Design Technician Cardiology 04/21/18 Junior Mclain MD [address] [place] [address] Gastroenterology 12/01/19 documented as of this encounter Additional Source Comments The information contained in this document represents components of the legal health record. It is not the complete legal health record.[facility]
--- OUTSIDE RECORDS SUMMARY | 2024-12-27 22:41 | XMS_ITS | Encounter Summary ---
Author Organization [facility] Address [address] [place] [address] Phone Care Team Providers Care Shoe Laster Name Role Phone Jose Elaine MD Unavailable [phone] Fahad Nolasco MD Primary Care Provider [phone] Junior Mclain MD Unavailable [phone] Encounter Details Date Type Department Care Team (Late st Contact Info) Description 12/11/2020 Procedure Pass Non-Invasive Cardiology [address] [place] [address] Social History Tobacco Use Types Packs/Day Years [...] Description 02/07/2025 10:40 AM EST Office Visit [facility] [address] Floor, [address] [place] [address] Dillon Zazueta MD 50 [place] [address] 04/03/2025 2:00 PM EST Office Visit [facility] 22 [place] [address] Fahad Nolasco MD 22 [facility], [address] [place] [address] [email or web address] documented as of this encounter Visit Diagnoses Not on filedocumented in this encounter Additional Health Concerns Infection Onset Date Last Indicated Resolved Time CoV-Risk 07/24/2021 07/24/2021 08/04/2021 1:22 AM EDT Assessment Noted Time PHQ-2 Depression Total Score: 0 07/12/19 2:17 PM EDT documented as of this encounter Care Teams Shoe Laster Relationship Specialty Start Date End Date Fahad Nolasco MD [address] [place] [address], [address] [place] [address] PCP - General 07/11/18 Jose Elaine MD [address] [place] [address], [address] [place] [address] [place] Cardiology 04/21/18 Junior Mclain MD [address] [place] [address] Gastroenterology 12/01/19 documented as of this encounter Additional Source Comments The information contained in this document represents components of the legal health record. It is not the complete legal health record.[facility]
--- OUTSIDE RECORDS SUMMARY | 2024-12-27 22:41 | XMS_ITS | Encounter Summary ---
Author Organization [facility] Address [address] [place] [address] Phone Care Team Providers Care Animal Husbandry Teacher Name Role Phone Jose Elaine MD Unavailable Fahad Nolasco MD Primary Care Provider Junior Mclain MD Unavailable [phone] Encounter Details Date Type Department Care Team (Late st Contact Info) Description 09/25/2019 Ancillary Orders Non-Invasive Cardiology [address] [place] [address] Kem Bowers MD [address] [place] [address] [email or web address] Complete heart block Social History Tobacco [...] Description 02/07/2025 10:40 AM EST Office Visit [facility] [address], [address] [place], [place] [address] Dillon Zazueta MD [address] [place] [address] 04/03/2025 2:00 PM EST Office Visit [address] [address] Fahad Nolasco MD [address] [place] [address], [address] [place] [address] [email or web address] documented as of this encounter Visit Diagnoses Diagnosis Complete heart block Atrioventricular block, complete documented in this encounter Additional Health Concerns Infection Onset Date Last Indicated Resolved Time CoV-Risk 07/24/2021 07/24/2021 08/04/2021 1:22 AM EDT Assessment Noted Time PHQ-2 Depression Total Score: 0 07/12/19 2:17 PM EDT documented as of this encounter Care Teams Animal Husbandry Teacher Relationship Specialty Start Date End Date Fahad Nolasco MD [address] [place] [address], [address] [place] [address] PCP - General 07/11/18 Jose Elaine MD [address] [place] [address], [address] [place] [address] Clerical Proofreader Cardiology 04/21/18 Junior Mclain MD [address] [place] [address] Gastroenterology 12/01/19 documented as of this encounter Additional Source Comments The information contained in this document represents components of the legal health record. It is not the complete legal health record.[facility]
--- OUTSIDE RECORDS SUMMARY | 2024-12-27 22:42 | XMS_ITS | Encounter Summary ---
Author Organization [facility] Address [address] [place] [address] Phone Care Team Providers Care Steamfitter Apprentice Name Role Phone Jose Elaine MD Unavailable [phone] Fahad Nolasco MD Primary Care Provider Junior Mclain MD Unavailable [phone] Encounter Details Date Type Department Care Team (Latest Contact Info) Description 11/30/2019 Transcribe Orders [facility] [place] [address] [place] [address] Isabel Katz PA-C [address] [place] [address] [email or web address] Iron deficiency anemia, unspecified iron deficiency anemia [...] Description 02/07/2025 10:40 AM EST Office Visit [facility] [address] [place] [address] 3rd Floor, [address] [place] [address] Dillon Zazueta MD 50 [place] [address] 04/03/2025 2:00 PM EST Office Visit [address] [address] Fhaad Nolasco MD 22 [facility], [address] [place] [address] [email or web address] documented as of this encounter Results * Vitamin B12 (11/30/2019 12:16 PM EDT) VITAMIN B12 491 232 - 1,245 pg/mL [facility] Blood 11/30/2019 12:1 6 PM EDT 11/30/2019 12:23 PM EDT us Isabel Katz PA-C LAB BLOOD BKR ORDERABLES Final Result [address] [address] * (ABNORMAL) Ferritin (11/30/2019 12:16 PM EDT) FERRITIN 19(L) 30 - 400 ug/L [facility] Blood 11/30/2019 12:1 6 PM EDT 11/30/2019 12:23 PM EDT us Isabel Katz PA-C LAB BLOOD BKR ORDERABLES Final Result [address] [address] * Folate (11/30/2019 12:16 PM EDT) FOLIC ACID 15.7 4.2 - 19.9 ng/mL [facility] Blood 11/30/2019 12:1 6 PM EDT 11/30/2019 12:23 PM EDT Isabel Katz PA-C LAB BLOOD BKR ORDERABLES Final Result [address] [address] * (ABNORMAL) Iron and iron binding capacity (11/30/2019 12:16 PM EDT) IRON 25(L) 45 - 160 ug/dL [facility] IRON BINDING CAPACITY 510(H) 228 - 428 ug/dL [facility] TRANSFERRIN SATURAT. 5(L) 20 - 55 % [facility] Blood 11/30/2019 12:1 6 PM EDT 11/30/2019 12:23 PM EDT Isabel Katz PA-C LAB BLOOD BKR ORDERABLES Final Result [address] [address] * (ABNORMAL) Comprehensive metabolic panel (11/30/2019 12:16 PM EDT) SODIUM 133 133 - 146 mmol/L [facility] POTASSIUM 4.7 3.3 - 5.1 mmol/L [facility] CHLORIDE 95(L) 96 - 108 mmol/L [facility] CO2 23 21 - 35 mmol/L [facility] BUN 13 6 - 19 mg/dL [facility] CREATININE 0.70 0.5 - 1.5 mg/dL [facility] GLUCOSE 159(H) 70 - 99 mg/dL [facility] ALBUMIN 4.2 3.9 - 4.8 g/dL [facility] TOTAL PROTEIN 6.9 6.5 - 8.0 g/dL [facility] CALCIUM 9.2 8.4 - 10.3 mg/dL [facility] ALKALINE PHOSPHATASE 72 39 - 117 U/L [facility] TOTAL BILIRUBIN 0.5 0.0 - 1.2 mg/dL [facility] AST 39(H) 0 - 37 U/L [facility] ALT 25 0 - 40 U/L [facility] GLOBULIN 2.7 1 - 4.8 g/dL [facility] EGFR 93 >59 mL/min/1.7 3m2 [facility] Comment:Estimated glomerular filtration rate calculated using the CKD-EPI equation. ANION GAP 20 10 - 20 mmol/L [facility] Blood 11/30/2019 12:1 6 PM EDT 11/30/2019 12:23 PM EDT us Isabel Katz PA-C LAB BLOOD BKR ORDERABLES Final Result [facility] [address] [place] [address] * (ABNORMAL) CBC (11/30/2019 12:16 PM EDT) WBC 5.84 4.00 - 11.00 K/uL [facility] Comment:Note Reference Range updates to all CBC and Differential results. RBC 2.83(L) 3.90 - 5.69 M/uL [facility] HGB 7.0(LL) 12.4 - 17.3 g/dL [facility] Comment: checked by repeat analysis This result has been called to PROSPER Lundberg by Madhuri Butt on 11 30 2019 at 1601, and has been read back. Note updated Reference Ranges for all CBC and Differential results. HCT 23.2(L) 37.0 - 51.0 % [facility] PLT 294 140 - 430 K/uL [facility] MCV 82.0 78.0 - 97.0 fL [facility] MCH 24.7(L) 25.0 - 33.0 pg [facility] MCHC 30.2(L) 32.0 - 36.0 g/dL [facility] RDW 14.7 11.0 - 15.0 % [facility] MPV 10.3 8.4 - 12.8 [facility] NRBC 0.00 0 /100 WBCs [facility] ABSOLUTE NRBC 0.00 0 K/uL [facility] Blood 11/30/2019 12:1 6 PM EDT 11/30/2019 12:23 PM EDT us Isabel Katz PA-C LAB BLOOD BKR ORDERABLES Final Result [address] [address] * (ABNORMAL) Immunoglobulin A (11/30/2019 12:16 PM EDT) IgA 460(H) 70 - 400 mg/dL [facility] Blood 11/30/2019 12:1 6 PM EDT 11/30/2019 12:23 PM EDT us Isabel Katz PA-C LAB BLOOD BKR ORDERABLES Final Result Performing Organization Address [facility] Co de Phone Number [address] [address] * Tissue transglutaminase IgA (11/30/2019 12:16 PM EDT) TTG IGA ANTIBODY <1.2 <4.0 (Negative) U/mL [facility] Blood 11/30/2019 12:1 6 PM EDT 11/30/2019 12:22 PM EDT Isabel Katz PA-C LAB BLOOD BKR ORDERABLES Final Result Performing Organization Address City/[facility]/ZIP Co de Phone Number [facility] [address] [place] [address] documented in this encounter Visit Diagnoses Diagnosis Iron deficiency anemia, unspecified iron deficiency anemia type- Primary documented in this encounter Additional Health Concerns Infection Onset Date Last Indicated Resolved Time CoV-Risk 07/24/2021 07/24/2021 08/04/2021 1:22 AM EDT Assessment Noted Time PHQ-2 Depression Total Score: 0 07/12/19 19 2:17 PM EDT documented as of this encounter Care Teams Steamfitter Apprentice Relationship Specialty Start Date End Date Fahad Nolasco MD [address] [place] [address], [address] [place] [address] PCP - General 07/11/18 Jose Elaine MD [address] [place] [address] Loan Secretary Cardiology 04/21/18 Junior Mclain MD [address] [place] [address] Gastroenterology 12/01/19 documented as of this encounter Additional Source Comments The information contained in this document represents components of the legal health record. It is not the complete legal health record.[facility]
--- OUTSIDE RECORDS SUMMARY | 2024-12-27 22:42 | XMS_ITS | Encounter Summary ---
Author Organization [facility] Address [address] [facility] [address] [place] [address] Phone Care Team Providers Care Computer Support Analyst Name Role Phone Jose Elaine MD Unavailable [phone] Andrew Bah MD Primary Care Provider [phone] Andrew Bah MD Primary Care Provider [phone] Fahad Nolasco MD Primary Care Provider [phone] Andrew Bah MD Primary Care Provider [phone] Fahad Nolasco MD Primary Care Provider [phone] Junior Mclain MD Unavailable [phone] Encounter Details Date Type Department Care Team (Late st Contact Info) Description 04/16/2018 Procedure Pass [facility] [address] [place] [address] Social History Tobacco Use Types Packs/Day Years [...] Description 02/07/2025 10:40 AM EST Office Visit [facility] [address] [place] [address] Dr 3rd Floor, [address] [place] [address] Dillon Zazueta MD [address] [place] [address] 04/03/2025 2:00 PM EST Office Visit [facility] [address] [place] [address] [place] [address] Fahad Nolasco MD [address] [place] [address], [address] [place] [address] documented as of this encounter Visit Diagnoses Not on filedocumented in this encounter Additional Health Concerns Infection Onset Date Last Indicated Resolved Time CoV-Risk 07/24/2021 07/24/2021 08/04/2021 1:22 AM EDT Assessment Noted Time PHQ-2 Depression Total Score: 0 03/17/19 12:19 PM EST documented as of this encounter Care Teams Computer Support Analyst Relationship Specialty Start Date End Date Andrew Bah MD [address] [place] [address], [address] [place] [address] PCP - General Family Medicine 05/17/18 05/30/18 Andrew Bah MD [address] [place] [address], [address] [place] [address] PCP - General 06/07/18 06/29/18 Fahad Nolasco MD [address] [place] [address], [address] [place] [address] PCP - General 07/11/18 Andrew Bah MD [address] [place] [address], [address] [place] [address] PCP - General 07/05/18 07/09/18 Fahad Nolasco MD [address] [place] [address], [address] [place] [address] PCP - General Internal Medicine 07/10/18 07/10/18 Jose Elaine MD [address] [place] [address], [address] [place] [address] Solar Sales Advisor Cardiology 04/21/18 Junior Mclain MD [address] [place] [address] Gastroenterology 12/01/19 documented as of this encounter Additional Source Comments The information contained in this document represents components of the legal health record. It is not the complete legal health record.[facility]
--- OUTSIDE RECORDS SUMMARY | 2024-12-27 22:42 | XMS_ITS | Encounter Summary ---
Author Organization [facility] Address [address] [facility] [address] [place] [address] Phone Care Team Providers Care Facility Manager Histology Name Role Phone Jose Elaine MD Unavailable [phone] Andrew Bah MD Primary Care Provider [phone] Andrew Bah MD Primary Care Provider [phone] Fahad Nolasco MD Primary Care Provider [phone] Andrew Bah MD Primary Care Provider [phone] Fahad Nolasco MD Primary Care Provider [phone] Junior Mclain MD Unavailable [phone] Encounter Details Date Type Department Care Team (Late st Contact Info) Description 12/02/2017 Procedure Pass [facility] [address] [place] [address] Social History Tobacco Use Types Packs/Day Years [...] Description 02/07/2025 10:40 AM EST Office Visit [facility] [address] [place] [address] Dr 3rd Floor, [address] [place] [address] Dillon Zazueta MD [address] [place] [address] 04/03/2025 2:00 PM EST Office Visit [facility] [address] [place] [address] [place] [address] Fahad Nolasco MD [address] [place] [address], [address] [place] [address] [email or web address] documented as of this encounter Visit Diagnoses Not on filedocumented in this encounter Additional Health Concerns Infection Onset Date Last Indicated Resolved Time CoV-Risk 07/24/2021 07/24/2021 08/04/2021 1:22 AM EDT documented as of this encounter Care Teams Facility Manager Histology Relationship Specialty Start Date End Date Andrew Bah MD [address] [place] [address], [address] [place] [address] PCP - General Family Medicine 05/17/18 05/30/18 Andrew Bah MD [address] [place] [address], [address] [place] [address] PCP - General 06/07/18 06/29/18 Fahad Nolasco MD [address] [place] [address], [address] [place] [address] PCP - General 07/11/18 Andrew Bah MD [address] [place] [address], [address] [place] [address] PCP - General 07/05/18 07/09/18 Fahad Nolasco MD [address] [place] [address], [address] [place] [address] PCP - General Internal Medicine 07/10/18 07/10/18 Jose Elaine MD [address] [place] [address], [address] [place] [address] Mechanical Engineering Teacher Cardiology 04/21/18 Junior Mclain MD [address] [place] [address] Gastroenterology 12/01/19 documented as of this encounter Additional Source Comments The information contained in this document represents components of the legal health record. It is not the complete legal health record.[facility]
--- OUTSIDE RECORDS SUMMARY | 2024-12-27 22:42 | XMS_ITS | Encounter Summary ---
Author Organization [facility] Address [address] [facility] [place] [address] Phone Care Team Providers Care Managing Editor Name Role Phone Jose Elaine MD Unavailable [phone] Fahad Nolasco MD Primary Care Provider Junior Mclain MD Unavailable [phone] Encounter Details Date Type Department Care Team (Late st Contact Info) Description 08/30/2018 Prep for Surgery [facility] [address], [address] [place], [place] [phone] Jose Elaine MD 22 [facility], [address] [place] [address] [id number] [email or web address] Social History Tobacco Use Types Packs/Day Years [...] Description 02/07/2025 10:40 AM EST Office Visit [facility] [address], [address] [place], [place] [phone] Dillon Zazueta MD [address] [place] [address] 04/03/2025 2:00 PM EST Office Visit [facility] Medicine [address] [place] [address] Fahad Nolasco MD [address] [place] [address], [address] [place] [address] documented as of this encounter Visit Diagnoses Not on filedocumented in this encounter Additional Health Concerns Infection Onset Date Last Indicated Resolved Time CoV-Risk 07/24/2021 07/24/2021 08/04/2021 1:22 AM EDT Assessment Noted Time PHQ-2 Depression Total Score: 0 07/12/19 2:17 PM EDT documented as of this encounter Care Teams Managing Editor Relationship Specialty Start Date End Date Fahad Nolasco MD [address] [place] [address], [address] [place] [address] PCP - General 07/11/18 Jose Elaine MD [address] [place] [address], [address] [place] [address] Obstetric Assistant Cardiology 04/21/18 Junior Mclain MD [address] [place] [address] Gastroenterology 12/01/19 documented as of this encounter Additional Source Comments The information contained in this document represents components of the legal health record. It is not the complete legal health record.[facility]
--- OUTSIDE RECORDS SUMMARY | 2024-12-27 22:42 | XMS_ITS | Encounter Summary ---
Author Organization [facility] Address [address] [facility] [address] [facility] [address] [place] [address] Phone Care Team Providers Care Phlebotomy Technician Name Role Phone Jose Elaine MD Unavailable [phone] Fahad Nolasco MD Primary Care Provider Junior Mclain MD Unavailable [phone] Encounter Details Date Type Department Care Team (Latest Contact Info) Description 08/16/2023 Transcribe Orders Virtual Department [address] [place] [address] Isabel Katz PA-C [address] [place] [address] [email or web address] Anemia, unspecified type (Primary Dx); Pancreatic calcification Social History Tobacco Use Types Packs/Day Years Used Date Smoking Tobacco: Former Cigarettes 30 1 938 - 1988 Smokeless Tobacco: Never Alcohol Use [...] Description 02/07/2025 10:40 AM EST Office Visit [facility] [address] [place] [address] 3rd Floor, [address] [place] [address] Dillon Zazueta MD [address] [place] [address] 04/03/2025 2:00 PM EST Office Visit [facility] [address] [place] [address] Fahad Nolasco MD [address] [place] [address], [address] [address] documented as of this encounter Visit Diagnoses Diagnosis Anemia, unspecified type- Primary Pancreatic calcification documented in this encounter Additional Health Concerns Assessment Noted Time PHQ-2 Depression Total Score: 0 03/18/19 24 1:10 PM EST documented as of this encounter Care Teams Phlebotomy Technician Relationship Specialty Start Date End Date Fahad Nolasco MD [address] [place] [address], [address] [place] [address] PCP - General 07/11/18 Jose Elaine MD [address] [place] [address], [address] [place] [address] [email or web address] Humane Agent Cardiology 04/21/18 Junior Mclain MD [address] [place] [address] [email or web address] Gastroenterology 12/01/19 documented as of this encounter Additional Source Comments The information contained in this document represents components of the legal health record. It is not the complete legal health record.[facility]
--- OUTSIDE RECORDS SUMMARY | 2024-12-27 22:42 | XMS_ITS | Encounter Summary ---
Author Organization [facility] Address [address] [facility] [address] [place] [address] Phone Care Team Providers Care Decorative Greens Cutter Name Role Phone Jose Elaine MD Unavailable [phone] Andrew Bah MD Primary Care Provider [phone] Andrew Bah MD Primary Care Provider [phone] Fahad Nolasco MD Primary Care Provider [phone] Andrew Bah MD Primary Care Provider + [phone] Fahad Nolasco MD Primary Care Provider [phone] Junior Mclain MD Unavailable [phone] Encounter Details Date Type Department Care Team (Latest Contact Info) Description 03/23/2017 Transcribe Orders [facility] [address] [place] [address] Pieter Alamo DO [address] [place] [address] Essential hypertension, benign (Primary Dx); Uncontrolled type [...] Description 02/07/2025 10:40 AM EST Office Visit [facility] [address] [facility] 3rd Floor, [address] [place] [address] Dillon Zazueta MD 50 [place] [address] 04/03/2025 2:00 PM EST Office Visit [facility] [address] [place] [address] Fahad Nolasco MD [address] [facility], [address] [place] [address] [email or web address] documented as of this encounter Results * Microalbumin/creatinine ratio, random urine (10/22/2017 10:08 AM EDT) URINE MICROALBUMIN 0.8 0 - 2.3 mg/dL [facility] URINE CREATININE 52 mg/dL [facility] MICROALB/CRE RATIO NOT CALCULATED 0 - 20 mg/g Cre [facility] Comment:due to Microalbumin <1.2 Urine (Urine) 10/22/2017 10: 08 AM EDT 10/22/2017 10:11 AM EDT Pieter Alamo DO LAB URINE ORDERABLES Final Resu lt [facility] [address] [place] [address] * (ABNORMAL) 25-OH vitamin D (03/23/2017 3:01 PM EST) 25 OH VIT D (TOTAL) 27(L) 30 - 1,000 ng/mL [facility] Blood 03/23/2017 3:01 PM EST 03/23/2017 3:03 PM EST us Pieter Alamo DO LAB BLOOD BKR ORDERABLES Final Result [facility] [address] [place] [address] * (ABNORMAL) CBC and differential (03/23/2017 3:01 PM EST) WBC 8.50 3.40 - 11.20 K/uL [facility] RBC 3.86(L) 4.50 - 5.50 M/uL [facility] HGB 10.3(L) 13.0 - 17.0 g/dL [facility] HCT 32.7(L) 40.0 - 51.0 % [facility] PLT 179 130 - 400 K/uL [facility] MCV 84.7 79.0 - 98.0 fL [facility] MCH 26.7(L) 27.0 - 34.8 pg [facility] MCHC 31.5 31.5 - 36.0 g/dL [facility] RDW 17.7(H) 10.8 - 14.6 % [facility] MPV 11.7 9.4 - 12.4 fl [facility] NRBC 0.00 /100 WBCs [facility] ABSOLUTE NRBC 0.00 K/uL [facility] DIFF METHOD Auto [facility] NEUTS 61.4 45.30 - 77.70 % [facility] LYMPHS 26.8 12.30 - 39.70 % [facility] MONOS 9.6 4.10 - 12.80 % [facility] EOS 1.6 0 - 7.2 % [facility] BASOS 0.5 0 - 2.80 % [facility] Granulocytes, immature (%) 0.1 0.0 - 0.9 % [facility] ABSOLUTE NEUTS 5.21 1.40 - 7.70 K/uL [facility] ABSOLUTE LYMPHS 2.28 0.60 - 3.20 K/uL [facility] ABSOLUTE MONOS 0.82(H) 0.11 - 0.59 K/uL [facility] ABSOLUTE EOS 0.14 0.01 - 0.50 K/uL [facility] ABSOLUTE BASOS 0.04 0.00 - 0.08 K/uL [facility] Granulocytes, immature 0.01 0.00 - 0.05 K/uL [facility] Blood 03/23/2017 3:01 PM EST 03/23/2017 3:03 PM EST [facility] BLOOD BKR ORDERABLES Final Result Performing Organization Address City/[facility]/ZIP Co de Phone Number [address] [address] * (ABNORMAL) Lipid panel (03/23/2017 3:01 PM EST) HDL 39 mg/dL [facility] Comment: Interpretation: Risk Level Males Decreased >45 mg/dL Average 40-45 mg/dL Increased <40 mg/dL CHOLESTEROL 111 0 - 240 mg/dL [facility] TRIGLYCERIDES 61 30 - 160 mg/dL [facility] LDL 60 50 - 129 mg/dL [facility] Comment: LDL levels in terms of risk for coronary heart disease: <100 mg/dL: Optimal 100-129 mg/dL: Near or above optimal 130-159 mg/dL: Borderline high 160-189 mg/dL: High >190 mg/dL: Very High CARDIAC RISK RATIO 2.8(L) 3.4 - 5.0 C [facility] Blood 03/23/2017 3:01 PM EST 03/23/2017 3:03 PM EST [facility] BLOOD BKR ORDERABLES Final Result [address] [address] * (ABNORMAL) Hemoglobin A1c (03/23/2017 3:01 PM EST) HEMOGLOBIN A1C 6.3(H) 4.3 - 5.8 % [facility] Blood 03/23/2017 3:01 PM EST 03/23/2017 3:03 PM EST [facility] LAB BLOOD BKR ORDERABLES Final Result Performing Organization Address City/[facility]/ZIP Co de Phone Number [address] [address] * Comprehensive metabolic panel (03/23/2017 3:01 PM EST) SODIUM 135 133 - 146 mmol/L [facility] POTASSIUM 4.7 3.3 - 5.1 mmol/L [facility] CHLORIDE 98 96 - 108 mmol/L [facility] CO2 27 21 - 35 mmol/L [facility] BUN 15 6 - 19 mg/dL [facility] CREATININE 0.60 0.5 - 1.5 mg/dL [facility] GLUCOSE 90 70 - 99 mg/dL [facility] ALBUMIN 4.1 3.9 - 4.8 g/dL [facility] TOTAL PROTEIN 7.0 6.5 - 8.0 g/dL [facility] CALCIUM 8.8 8.4 - 10.3 mg/dL [facility] ALKALINE PHOSPHATASE 66 39 - 117 U/L [facility] TOTAL BILIRUBIN 0.5 0 - 1.2 mg/dL [facility] AST 26 0 - 37 U/L [facility] ALT 24 0 - 40 U/L [facility] GLOBULIN 2.9 1 - 4.8 g/dL [facility] EGFR >60 mL/min/1.7 3m2 [facility] Comment:Abnormal if <60. If patient is -[place] Islander, multiply the result by 1.21. 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, without long-term current use of insulin Vitamin D insufficiency documented in this encounter Additional Health Concerns Infection Onset Date Last Indicated Resolved Time CoV-Risk 07/24/2021 07/24/2021 08/04/2021 1:22 AM EDT documented as of this encounter Care Teams Decorative Greens Cutter Relationship Specialty Start Date End Date Andrew Bah MD [address] [place] [address], [address] [place] [address] [email or web address] PCP - General Family Medicine 05/17/18 05/30/18 Andrew Bah MD [address] [place] [address], [address] [place] [address] PCP - General 06/07/18 06/29/18 Fahad Nolasco MD [address] [place] [address], [address] [place] [address] PCP - General 07/11/18 Andrew Bah MD [address] [place] [address], [address] [place] [address] PCP - General 07/05/18 07/09/18 Fahad Nolasco MD [address] [place] [address], [address] [place] [address] PCP - General Internal Medicine 07/10/18 07/10/18 Jose Elaine MD [address] [place] [address], [address] [place] [address] Supervisor Cabinetmaker Cardiology 04/21/18 Junior Mclain MD [address] [place] [address] Gastroenterology 12/01/19 documented as of this encounter Additional Source Comments The information contained in this document represents components of the legal health record. It is not the complete legal health record.[facility]
--- OUTSIDE RECORDS SUMMARY | 2024-12-27 22:42 | XMS_ITS | Encounter Summary ---
Author Organization [facility] Address [address] [facility] [address] [place] [address] Phone Care Team Providers Care Certified Peer Specialist Name Role Phone Jose Elaine MD Unavailable [phone] Andrew Bah MD Primary Care Provider [phone] Andrew Bah MD Primary Care Provider [phone] Fahad Nolasco MD Primary Care Provider [phone] Andrew Bah MD Primary Care Provider [phone] Fahad Nolasco MD Primary Care Provider [phone] Junior Mclain MD Unavailable [phone] Encounter Details Date Type Department Care Team (Latest Contact Info) Description 04/14/2018 Transcribe Orders [facility] Echocardiography [address] [place] [address] Sadaf Martinez [address] [place] [address] [email or web address] Cardiac arrhythmia, unspecified cardiac arrhythmia type (Primary [...] Description 02/07/2025 10:40 AM EST Office Visit [facility] [address] [facility] 3rd Floor, [address] [place] [address] Dillon Zazueta MD [address] [place] [address] 04/03/2025 2:00 PM EST Office Visit [facility] Medicine [address] [place] [address] Fahad Nolasco MD 22 [facility], [address] [place] [address] documented as of this encounter Procedures Procedure [...] QTC Interval 411 ms [facility] R Wave [place] 73 degrees [facility] T Wave [place] 34 degrees [facility] 04/14/2018 5:47 AM EST [...] documented as of this encounter Care Teams Certified Peer Specialist Relationship Specialty Start Date End Date Andrew Bah MD [address] [place] [address], [address] [place] [address] PCP - General Family Medicine 05/17/18 05/30/18 Andrew Bah MD [address] [place] [address], [address] [place] [address] PCP - General 06/07/18 06/29/18 Fahad Nolasco MD [address] [place] [address], [address] [place] [address] PCP - General 07/11/18 Andrew Bah MD [address] [place] [address], [address] [place] [address] PCP - General 07/05/18 07/09/18 Fahad Nolasco MD [address] [place] [address], [address] [place] [address] PCP - General Internal Medicine 07/10/18 07/10/18 Jose Elaine MD [address] [place] [address], [facility] [address] [place] [address] [email or web address] Ophthalmic Tech Cardiology 04/21/18 Junior Mclain MD [address] [place] [address] [email or web address] Gastroenterology 12/01/19 documented as of this encounter Additional Source Comments The information contained in this document represents components of the legal health record. It is not the complete legal health record.[facility]
--- OUTSIDE RECORDS SUMMARY | 2024-12-27 22:42 | XMS_ITS | Encounter Summary ---
Author Organization [facility] Address [address] [facility] [address] [place] [address] Phone Care Team Providers Care Title Insurance Examiner Name Role Phone Jose Elaine MD Unavailable [phone] Andrew Bah MD Primary Care Provider [phone] Andrew Bah MD Primary Care Provider [phone] Fahad Nolasco MD Primary Care Provider [phone] Andrew Bah MD Primary Care Provider [phone] Fahad Nolasco MD Primary Care Provider [phone] Junior Mclain MD Unavailable [phone] Encounter Details Date Type Department Care Team (Latest Contact Info) Description 10/22/2017 Transcribe Orders [address] [place] [address] Pieter Alamo DO [address] [place] [address] Hyperlipidemia, unspecified hyperlipidemia type (Primary Dx); Essential [...] Description 02/07/2025 10:40 AM EST Office Visit [facility] [address] 3rd Floor, [address] [place] [address] Dillon Zazueta MD [address] [place] [address] [email or web address] 04/03/2025 2:00 PM EST Office Visit [facility] [address] [place] [address] Fahad Nolasco MD 22 [facility], [address] [place] [address] [email or web address] documented as of this encounter Procedures Procedure Name Priority Date/Time Associated Diagnosis Comments ALANINE AMINOTRANSFERASE (ALT) Routine 10/22/2017 10:08 AM EDT Hyperlipidemia, unspecified hyperlipidemia type Essential hypertension, malignant ASPARTATE AMINOTRANSFERASE (AST) Routine 10/22/2017 10:08 AM EDT Hyperlipidemia, unspecified hyperlipidemia type Essential hypertension, malignant documented in this encounter Results * (ABNORMAL) Comprehensive metabolic panel (10/22/2017 10:08 AM EDT) SODIUM 139 133 - 146 mmol/L [facility] POTASSIUM 5.4(H) 3.3 - 5.1 mmol/L [facility] CHLORIDE 100 96 - 108 mmol/L [facility] CO2 24 21 - 35 mmol/L [facility] BUN 18 6 - 19 mg/dL [facility] CREATININE 0.70 0.5 - 1.5 mg/dL [facility] GLUCOSE 141(H) 70 - 99 mg/dL [facility] ALBUMIN 4.4 3.9 - 4.8 g/dL [facility] TOTAL PROTEIN 7.6 6.5 - 8.0 g/dL [facility] CALCIUM 9.7 8.4 - 10.3 mg/dL [facility] ALKALINE PHOSPHATASE 75 39 - 117 U/L [facility] TOTAL BILIRUBIN 0.6 0.0 - 1.2 mg/dL [facility] AST 23 0 - 37 U/L [facility] ALT 20 0 - 40 U/L [facility] GLOBULIN 3.2 1 - 4.8 g/dL [facility] EGFR 95 >59 mL/min/1.7 3m2 [facility] Comment:If patient is black, multiply result by 1.159. Estimated glomerular filtration rate calculated using the CKD-EPI equation. ANION GAP 20 10 - 20 mmol/L [facility] Blood 10/22/2017 10:0 8 AM EDT 10/22/2017 10:10 AM EDT [facility] BLOOD BKR ORDERABLES Final Result Performing Organization Address [facility]/ZIP Co de Phone Number [address] [address] * Alanine aminotransferase (ALT) (10/22/2017 10:08 AM EDT) ALT 20 0 - 40 U/L [facility] Blood 10/22/2017 10:0 8 AM EDT 10/22/2017 10:11 AM EDT [facility] BLOOD BKR ORDERABLES Final Result Performing Organization Address [facility] Co de Phone Number [address] [address] * Aspartate aminotransferase (AST) (10/22/2017 10:08 AM EDT) AST 24 0 - 37 U/L [facility] Blood 10/22/2017 10:0 8 AM EDT 10/22/2017 10:11 AM EDT [facility] BLOOD BKR ORDERABLES Final Result Performing Organization Address [facility]/ZIP Co de Phone Number [address] [address] * (ABNORMAL) Lipid panel (10/22/2017 10:08 AM EDT) HDL 42 mg/dL [facility] Comment: Interpretation: Risk Level Males Decreased >45 mg/dL Average 40-45 mg/dL Increased <40 mg/dL CHOLESTEROL 107 0 - 240 mg/dL [facility] TRIGLYCERIDES 51 30 - 160 mg/dL [facility] LDL 55 50 - 129 mg/dL [facility] Comment: LDL levels in terms of risk for coronary heart disease: <100 mg/dL: Optimal 100-129 mg/dL: Near or above optimal 130-159 mg/dL: Borderline high 160-189 mg/dL: High >190 mg/dL: Very High CARDIAC RISK RATIO 2.5(L) 3.4 - 5.0 [facility] Blood 10/22/2017 10:0 8 AM EDT 10/22/2017 10:10 AM EDT [facility] LAB BLOOD BKR ORDERABLES Final Result Performing Organization Address City/State/[facility] Co de Phone Number [facility] [address] [place] [address] documented in this encounter Visit Diagnoses Diagnosis Hyperlipidemia, unspecified hyperlipidemia type- Primary Essential hypertension, malignant documented in this encounter Additional Health Concerns Infection Onset Date Last Indicated Resolved Time CoV-Risk 07/24/2021 07/24/2021 08/04/2021 1:22 AM EDT documented as of this encounter Care Teams Title Insurance Examiner Relationship Specialty Start Date End Date Andrew Bah MD [address] [place] [address], [address] [place] [address] PCP - General Family Medicine 05/17/18 05/30/18 Andrew Bah MD [address] [place] [address], [address] [place] [address] PCP - General 06/07/18 06/29/18 Fahad Nolasco MD [address] [place] [address], [address] [place] [address] PCP - General 07/11/18 Andrew Bah MD [address] [place] [address], [address] [place] [address] PCP - General 07/05/18 07/09/18 Fahad Nolasco MD [address] [place] [address], [address] [place] [address] PCP - General Internal Medicine 07/10/18 07/10/18 Jose Elaine MD [address] [place] [address], [address] [place] [address] Newspaper Illustrator Cardiology 04/21/18 Junior Mclain MD [address] [place] [address] Gastroenterology 12/01/19 documented as of this encounter Additional Source Comments The information contained in this document represents components of the legal health record. It is not the complete legal health record.[facility]
--- OUTSIDE RECORDS SUMMARY | 2024-12-27 22:42 | XMS_ITS | Encounter Summary ---
Author Organization [facility] Address [address] [facility] [address] [place] [address] Phone Care Team Providers Care Machine Set Up Technician Name Role Phone Jose Elaine MD Unavailable [phone] Andrew Bah MD Primary Care Provider [phone] Andrew Bah MD Primary Care Provider [phone] Fahad Nolasco MD Primary Care Provider [phone] Andrew Bah MD Primary Care Provider [phone] Fahad Nolasco MD Primary Care Provider [phone] Junior Mclain MD Unavailable [phone] Encounter Details Date Type Department Care Team (Late st Contact Info) Description 04/12/2018 Procedure Pass [facility] Periop [address] [place] [address] Social History Tobacco Use Types Packs/Day Years [...] Description 02/07/2025 10:40 AM EST Office Visit [facility] [address] [place] [address] Dr 3rd Floor, [address] [place] [address] Dillon Zazueta MD [address] [place] [address] 04/03/2025 2:00 PM EST Office Visit [facility] [address] [place] [address] [place] [address] Fahad Nolasco MD [address] [place] [address], [address] [place] [address] documented as of this encounter Visit Diagnoses Not on filedocumented in this encounter Additional Health Concerns Infection Onset Date Last Indicated Resolved Time CoV-Risk 07/24/2021 07/24/2021 08/04/2021 1:22 AM EDT Assessment Noted Time PHQ-2 Depression Total Score: 0 03/17/19 12:19 PM EST documented as of this encounter Care Teams Machine Set Up Technician Relationship Specialty Start Date End Date Andrew Bah MD [address] [place] [address], [address] [place] [address] PCP - General Family Medicine 05/17/18 05/30/18 Andrew Bah MD [address] [place] [address], [address] [place] [address] PCP - General 06/07/18 06/29/18 Fahad Nolasco MD [address] [place] [address], [address] [place] [address] PCP - General 07/11/18 Andrew Bah MD [address] [place] [address], [address] [place] [address] PCP - General 07/05/18 07/09/18 Fahad Nolasco MD [address] [place] [address], [address] [place] [address] PCP - General Internal Medicine 07/10/18 07/10/18 Jose Elaine MD [address] [place] [address], [address] [place] [address] Clock Smith Cardiology 04/21/18 Junior Mclain MD [address] [place] [address] Gastroenterology 12/01/19 documented as of this encounter Additional Source Comments The information contained in this document represents components of the legal health record. It is not the complete legal health record.[facility]
--- OUTSIDE RECORDS SUMMARY | 2024-12-27 22:42 | XMS_ITS | Encounter Summary ---
Author Organization [facility] Address [address] [place] [address] Phone Care Team Providers Care Transportation Consultant Name Role Phone Jose Elaine MD Unavailable [phone] Fahad Nolasco MD Primary Care Provider Junior Mclain MD Unavailable [phone] Encounter Details Date Type Department Care Team (Late st Contact Info) Description 12/03/2019 Procedure Pass [facility] Endoscopy Admitting Dept Virtual Department [address] [place] [address] Social History Tobacco Use Types Packs/Day Years [...] Department Care Team (Late Contact Info) Description 02/07/2025 10:40 AM EST Office Visit [facility] [address] [facility] 3rd Floor, [address] [place] [address] Dillon Zazueta MD [address] [place] [address] 04/03/2025 2:00 PM EST Office Visit [facility] 22 [place] [address] Fahad Nolasco MD [address] [facility] [place] [address] [email or web address] documented as of this encounter Visit Diagnoses Not on filedocumented in this encounter Additional Health Concerns Infection Onset Date Last Indicated Resolved Time CoV-Risk 07/24/2021 07/24/2021 08/04/2021 1:22 AM EDT Assessment Noted Time PHQ-2 Depression Total Score: 0 07/12/19 2:17 PM EDT documented as of this encounter Care Teams Transportation Consultant Relationship Specialty Start Date End Date Fahad Nolasco MD [address] [place] [address], [address] [place] [address] PCP - General 07/11/18 Jose Elaine MD [address] [place] [address], [address] [place] [address] Public Relations Assistant Cardiology 04/21/18 Junior Mclain MD [address] [place] [address] Gastroenterology 12/01/19 documented as of this encounter Additional Source Comments The information contained in this document represents components of the legal health record. It is not the complete legal health record.[facility]
--- OUTSIDE RECORDS SUMMARY | 2024-12-27 22:42 | XMS_ITS | Encounter Summary ---
Author Organization [facility] Address [address] [facility] [address] [place] [address] Phone Care Team Providers Care Sack Department Supervisor Name Role Phone Jose Elaine MD Unavailable [phone] Fahad Nolasco MD Primary Care Provider [phone] Junior Mclain MD Unavailable [phone] Reason for Referral * MRI/CAT Scan - Closed Specialty Diagnoses / Procedures Referred By Aramis t Referred To Contact Radiology Diagnoses Anemia, unspecified type Elevated lipase Procedures CT Abdomen/Pelvis Isabel Katz PA-C Phone: tel: fax: mailto:[email or web address] Referral ID Status Reason Start Date Expiration Date Visits Re quested Visits Authorized [id number] Closed 05/06/2023 05/05/2024 1 1 Encounter Details Date Type Department Care Team (Latest Contact Info) Description 04/30/2023 Transcribe Orders Virtual Department 30 [place] [address] Isabel Katz PA-C [address] [place] [address] [email or web address] Anemia, unspecified type (Primary Dx); Abnormal digestive system diagnostic imaging; Elevated lipase Social History Tobacco Use Types Packs/Day Years Used Date Smoking Tobacco: Former Cigarettes 0.5 30 1 958 - 0155 Smokeless Tobacco: Never Alcohol Use Standard Drinks/Week [...] Description 02/07/2025 10:40 AM EST Office Visit [facility] [address] [place] [address] 3rd Floor, [address] [place] [address] Dillon Zazueta MD [address] [place] [address] 04/03/2025 2:00 PM EST Office Visit [facility] [address] [place] [address] [place] [address] Fahad Nolasco MD [address] [facility] [place] [address] [email or web address] documented as of this encounter Results * [...] clinician's provided indication for this examination in [facility]:Outside Radiology Order; anemia TECHNIQUE: Multidetector-row CT of [...] Elastography Consensus Statement. Radiology. 2020 Sep;296(2):263-274. doi: [id number]. Epub 2019Jul 17. PMID: [id number]. Procedure Note Marisel De La Cruz MD - 05/06/2023 US LIVER WITH ELASTOGRAPHY Referring clinician's provided indication for this examination in [facility]:Outside Radiology Order; anemia TECHNIQUE: US Limited Abdomen [...] Ultrasound Liver Elastography ConsensusStatement. Radiology. 2020 Sep;296(2):263-274. doi:[id number]. Epub 2019Jul 17. PMID: [id number]. IMPRESSION: 1. Mean Liver Stiffness Value 5.48 [...] documented as of this encounter Care Teams Sack Department Supervisor Relationship Specialty Start Date End Date Fahad Nolasco MD [address] [place] [address], [address] [place] [address] PCP - General 07/11/18 Jose Elaine MD [address] [place] [address], [address] [place] [address] [email or web address] Casting Director Cardiology 04/21/18 Junior Mclain MD [address] [place] [address] [email or web address] Gastroenterology 12/01/19 documented as of this encounter Additional Source Comments The information contained in this document represents components of the legal health record. It is not the complete legal health record.[facility]
--- OUTSIDE RECORDS SUMMARY | 2024-12-27 22:42 | XMS_ITS | Clinical Summary ---
Author Organization [facility] Address [address] [facility] [address] [place] [address] Phone Care Team Providers Care Senior Financial Reporting Accountant Name Role Phone Jose Elaine MD Unavailable [phone] Fahad Nolasco MD Primary Care Provider [phone] Junior Mclain MD Unavailable Allergies Active Allergy Reactions Criticality Noted Date [...] before meals. 100 each 1 2021 Active metoprolol succinate (TOPROL-XL) 50 MG 24 hr tabletIndications:Acut e on chronic diastolic heart failure TAKE ONE AND ONE-HALF TABLETS BY MOUTH EVERY DAY 135 tablet 3 2023 Active metFORMIN (GLUCOPHAGE) 1000 MG tablet TAKE ONE TABLET BY MOUTH TWICE A DAY WITH MEALS 180 tablet 1 2023 Active torsemide (DEMADEX) 100 MG tabletIndications:Control Officer patrice combined systolic and diastolic congestive heart failure TAKE ONE TABLET BY MOUTH TWICE A DAY 180 tablet 3 01/13/ 2025 Active ONETOUCH ULTRA TEST Strp stripsIndications:Type 2 [...] Active ferrous sulfate 325 mg (65 mg [place] iron) tabletIndications:Medi cation refill TAKE ONE TABLET BY MOUTH EVERY DAY WITH BREAKFAST 90 tablet 2024 Active JANTOVEN 2.5 mg tablet TAKE ONE TABLET BY MOUTH EVERY DAY 90 tablet 2024 Active clobetasol (TEMOVATE) 0.05 % cream APPLY TO AFFECTED AREA(S) TOPICALLY TWO TIMES A DAY 60 g 5 2024 Active losartan (COZAAR) 100 MG tablet Take 1 tablet (100 mg total) by mouth daily. Increase dose to 100 mg daily effective 04/04/21. 90 tablet 1 05/14 Discontinued clobetasol (TEMOVATE) 0.05 % cream APPLY TOPICALLY TWO TIMES A DAY 60 g 5 12/22 Discontinued Active Problems Problem Noted Date Diagnosed [...] to test atrial threshold. AP 38.9% and ELECTRO MECHANIC 91.4%. Paced AV delay to 220ms and [...] He also has a follow-up with his video production specialist in 3 months. Complete heart block 01/08/2020 [...] calls that he would receive from our [facility] as well as he did receive a [...] valve repair on April 12, 2018 at [facility]. he has done well. Dr. Elaine recommended that he have a repeat echocardiogram but the patient never had it done. I have reordered this. 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 He is doing well postoperatively. He is going to cardiac rehab. Last echocardiogram showed that his EF dropped from 65% to 50%. I increased his metoprolol succinate at his last visit. We will get another echocardiogram in a month or 2. Assessment & Plan (05/30/2018 1:55 PM EDT): Status post mitral valve repair on April 12 at [facility]. He is doing well postoperatively. He [...] (peripheral artery disease) 01/14/2017 Overview (03/18/2023): Sees HANSA Has claudication Assessment & Plan (05/13/2023 11:25 [...] duplex studies that I could see in [facility] that were recent. We will repeat [...] if this helps his symptoms. Atherosclerosis of [place] ronary artery of [place] heart without angina pectoris 01/14/2017 Assessment & [...] ongoing dyspnea on exertion. Patient presented to [facility] for a PATSY cardioversion as his [...] on Coumadin which is followed at the [facility]. He is generally rate controlled [...] He goes to the Cou[facility] clinic at [facility]. Reportedly, his INR has been greater than [...] December 2019: Needed RBC and Ferraheme at [facility] in November, EGD/COLO neg, capsule planned. [...] Encounters Date Type Department Care Team Description 12/22/[address] [place] [address] Fahad Nolasco MD Medication Refill 10/31/2024 2:02 PM EDT - 10/31/2024 11:59 PM EDT Hospital Encounter [facility] [address] [place] [address] Fahad Nolasco MD Discharge Disposition: Home or Self Care 10/31/2024 1:30 PM EDT Office Visit [address] [place] [address] Fahad Nolasco MD Primary hypertension (Primary Dx); Permanent atrial fibrillation; Chronic combined systolic and diastolic congestive heart failure; Bilateral carpal tunnel syndrome; Type 2 diabetes mellitus with chronic kidney disease, without long-term current use of insulin, unspecified CKD stage; Pure hypercholesterolemia ; Vitamin D deficiency, unspecified 10/23/[address] [place] [address] Fahad Nolasco MD Medication Refill 10/01/[address] [place] [address] Rinku Avery CNP Medication Refill 09/27/2024 Telephone [facility] [address] [place] [address] Fahad Nolasco MD Referral ([facility]) from Last 3 Months Immunizations Immunization Administration [...] Description 02/07/2025 10:40 AM EST Office Visit [facility] [address] [place] [address] 3rd Floor, [address] [place] [address] Dillon Zazueta MD [address] [place] [address] 04/03/2025 2:00 PM EST Office Visit [facility] [address] [place] [address] Fahad Nolasco MD [address] [facility] [place] [address] Health Maintenance Due Date Last Done Comments HEPATITIS A VACCINES (1 of 2 - Risk 2-dose series) 1964 RSV VACCINE (1 - 1-dose 75+ series) 2020 DEPRESSION SCREENING 03/18/2024 03/18/2023 COVID-19 VACCINE (5 - 2024- season) 2024 01/02/2023, 01/29/2021, 07/11/2020, Additional history exists DIABETIC EYE EXAM 01/31/2025 02/01/2024, , 12/18/2019, Additional history exists BLOOD PRESSURE 04/30/2025 10/31/2024 HEMOGLOBIN A1C 04/30/2025 10/31/2024, 10/10, 03/18/2023, Additional history exists CREATININE LEVEL 10/31/2025 10/31/2024, , 07/21/2023, Additional history exists Adult Td,Tdap Booster 03/18/2033 03/18/2023 ZOSTER VACCINES Completed 10/09/2020, 07/0 04/2020, 12/28/2019 PNEUMOCOCCAL VACCINES (50+ years) Completed 03/18/2023 HEPATITIS C SCREENING Completed 05/03/2023 , 05/03/2023, 03/18/2023 INFLUENZA VACCINE Completed 10/31/2024, , 11/21/2022, Additional [...] this topic Medical Devices Implanted Type Area [place] [employer] [place] Device Identifier Shelf Expiration Date Model / Serial / Lot Lead Pacemaker Capsure Fix Novus Is-1 Bi Atr/Vntr Pia 58 Cm - [id number] Implanted:Qty: 1 on 04/16/2018 by Katerin Carmona MD, MS at [facility] Lead Right: Ventricle [employer] 01/28/2020 [id number] / [id number] / Lead Pacemaker Capsure Fix Novus Is-1 Bi Atr/Vntr Pia 52 Cm - [id number] Implanted:Qty: 1 on 04/16/2018 by Katerin Carmona MD, MS at [facility] Lead Atrium [employer] 02/16/2020 [id number] / [id number] / Device Pacemaker Clara Xt Mri - [id number] Implanted:Qty: 1 on 04/16/2018 by Katrein Carmona MD, MS at [facility] Pacemaker Left: Chest [employer] 08/22/2019 [id number] / [id number] / Ring Annuloplasty 32mm Sjm Graft Cardiovascular Saddle Titanium Core Rigid - [id number] Implanted:Qty: 1 on 04/12/2018 by Doc Funes MD at [facility] SMDA N/A: Heart [employer] 04/27/2021 [id number] / [id number] / Ring Annuloplasty 34mm Mc3 Titanium Alloy Silicone Polyester Tricuspid - [id number] Implanted:Qty: 1 on 04/12/2018 by Doc Funes MD at [facility] SMDA N/A: Heart [employer] 10/19/2021 [id number] / [id number] / Procedures Procedure Name Priority Date/Time Associated Diagnosis Comments BASIC METABOLIC PANEL (BMP) Routine 10/31/2024 2:11 PM EDT Primary hypertension [...] EDT) TSH 1.00 0.27 - 4.20 uIU/mL [facility] Blood 10/31/2024 2:11 PM EDT 10/31/2024 2:17 PM EDT us Fahad Nolasco MD LAB BLOOD BKR ORDERABLES Final Result [address] [address] * (ABNORMAL) LFTs (hepatic panel) (10/31/2024 2:11 PM EDT) ALKALINE PHOSPHATASE 85 39 - 117 U/L [facility] TOTAL BILIRUBIN 0.8 0.0 - 1.2 mg/dL [facility] DIRECT BILIRUBIN 0.3(H) 0.0 - 0.2 mg/dL [facility] Bilirubin (Indirect) 0.5 0 - 1.5 mg/dL [facility] AST 32 0 - 37 U/L [facility] ALT 22 0 - 40 U/L [facility] TOTAL PROTEIN 7.5 6.5 - 8.0 g/dL [facility] ALBUMIN 4.4 3.9 - 4.8 g/dL [facility] GLOBULIN 3.1 1 - 4.8 g/dL [facility] A/G Ratio 1.42 1.00 - 4.80 RATIO [facility] Blood 10/31/2024 2:11 PM EDT 10/31/2024 2:17 PM EDT us Fahad Nolasco MD LAB BLOOD BKR ORDERABLES Final Result Performing Organization Address City/[facility]/ZIP Co de Phone Number [address] [address] * 25-OH vitamin D (10/31/2024 2:11 PM EDT) 25 OH VIT D (TOTAL) 50 30 - 60 ng/mL [facility] Blood 10/31/2024 2:11 PM EDT 10/31/2024 2:17 PM EDT us Fahad Nolasco MD LAB BLOOD BKR ORDERABLES Final Result Performing Organization Address [facility] Co de Phone Number [address] [address] * (ABNORMAL) CBC (10/31/2024 2:11 PM EDT) WBC 7.95 4.00 - 11.00 K/uL [facility] RBC 3.78(L) 4.50 - 5.90 M/uL [facility] HGB 12.5(L) 13.5 - 17.5 g/dL [facility] HCT 37.3(L) 41.0 - 53.0 % [facility] PLT 201 150 - 450 K/uL [facility] MCV 98.7 80.0 - 100.0 fL [facility] MCH 33.1(H) 27.0 - 31.0 pg [facility] MCHC 33.5 32.0 - 36.0 g/dL [facility] RDW 13.0 11.5 - 14.5 % [facility] MPV 11.2 8.4 - 12.0 fL [facility] NRBC 0.00 0.00 /100 WBCs [facility] ABSOLUTE NRBC 0.00 0.00 K/uL [facility] Blood 10/31/2024 2:11 PM EDT 10/31/2024 2:17 PM EDT us Fahad Nolasco MD LAB BLOOD BKR ORDERABLES Final Result Performing Organization Address [facility]/ZIP Co de Phone Number [address] [address] * (ABNORMAL) Hemoglobin A1c (10/31/2024 2:11 PM EDT) HEMOGLOBIN A1C 5.9(H) 4.3 - 5.8 % [facility] Blood 10/31/2024 2:11 PM EDT 10/31/2024 2:17 PM EDT us Fahad Nolasco MD LAB BLOOD BKR ORDERABLES Final Result Performing Organization Address [facility] Co de Phone Number [address] [address] * Vitamin B12 (10/31/2024 2:11 PM EDT) VITAMIN B12 1,046 232 - 1,245 pg/mL [facility] Blood 10/31/2024 2:11 PM EDT 10/31/2024 2:17 PM EDT us Fahad Nolasco MD LAB BLOOD BKR ORDERABLES Final Result Performing Organization Address [facility] Co de Phone Number [address] [address] * (ABNORMAL) Lipid panel (10/31/2024 2:11 PM EDT) HDL 54 mg/dL [facility] Comment: Interpretation <40 mg/dL: Low HDL cholesterol (major risk factor for CHD) Greater than or equal to 60 mg/dL: High HDL cholesterol ( negative risk factor for CHD) HDL - cholesterol is affected by a number of factors, e.g. smoking, excerise, hormones, sex and age. CHOLESTEROL 121 0 - 240 mg/dL [facility] TRIGLYCERIDES 117 30 - 160 mg/dL [facility] LDL 44(L) 50 - 129 mg/dL [facility] Comment: LDL levels in terms of risk for coronary heart disease: <100 mg/dL: Optimal 100-129 mg/dL: Near or above optimal 130-159 mg/dL: Borderline high 160-189 mg/dL: High >190 mg/dL: Very High CARDIAC RISK RATIO 2.2(L) 3.4 - 5.0 C [facility] Blood 10/31/2024 2:11 PM EDT 10/31/2024 2:17 PM EDT us Fahad Nolasco MD LAB BLOOD BKR ORDERABLES Final Result [facility] [address] [place], [place] [id number] * (ABNORMAL) Basic metabolic panel (10/31/2024 2:11 PM EDT) SODIUM 136 133 - 146 mmol/L [facility] CHLORIDE 96 96 - 108 mmol/L [facility] POTASSIUM 4.6 3.3 - 5.1 mmol/L [facility] CO2 25 21 - 35 mmol/L [facility] BUN 28(H) 6 - 19 mg/dL [facility] CREATININE 1.40 0.5 - 1.5 mg/dL [facility] GLUCOSE 165(H) 70 - 99 mg/dL [facility] CALCIUM 9.0 8.4 - 10.3 mg/dL [facility] EGFR 51(L) >59 mL/min/1.7 3m2 [facility] Comment:Estimated glomerular filtration rate calculated using the CKD-EPI refit equation. ANION GAP 20 10 - 20 mmol/L [facility] Blood 10/31/2024 2:11 PM EDT 10/31/2024 2:17 PM EDT us Fahad Nolasco MD LAB BLOOD BKR ORDERABLES Final Result Performing Organization Address City/[facility]/ZIP Co de Phone Number [address] [address] * DIABETES EYE EXAM FOR RESULT ENTRY ONLY (02/01/2024 2:23 PM EST) us Historical Provider HEALTH MAINTENANCE Edited Result - Final * Hepatitis C antibody, qualitative (05/03/2023 11:17 AM EDT) HCV NON-REACTIV E NON-REACTI VE [facility] Blood 05/03/2023 11:1 7 AM EDT 05/03/2023 11:21 AM EDT us Isabel Katz PA-C LAB BLOOD BKR ORDERABLES Final Result Performing Organization Address [facility] Co de Phone Number [address] [address] from Last 3 Months or Most Recently Relevant to Health Maintenance Insurance [facility] [employer] PREFERRED HMO REPLACEMENT [facility] [employer] [employer] [facility] [employer] [facility] [employer] [facility] [employer] [facility] [employer] Advance Directives For more information, please contact: [phone] (9AM - 5PM [facility], Wednesday-Wednesday) Documents on File Type Date Recorded Patient Marine Reporter Expl anation Healthcare Proxy 04/13/2018 12:43 PM [...] Agents on File Name Relationship Healthcare Agent [facility] p Communication Marissa Amo Spouse .Primary Health Care Agent (Proxy form on file) Care Teams Senior Financial Reporting Accountant Relationship Specialty Start Date End Date Fahad Nolasco MD [address] [place] [address], [address] [place] [address] [email or web address] PCP - General 07/11/18 Jose Elaine MD [address] [place] [address], [address] [place] [address] Prosecuting Attorney Cardiology 04/21/18 Junior Mclain MD [address] [place] [address] Gastroenterology 12/01/19 Additional Source Comments The information contained in this document represents components of the legal health record. It is not the complete legal health record.[facility]
--- OUTSIDE RECORDS SUMMARY | 2024-12-27 22:42 | XMS_ITS | Encounter Summary ---
Author Organization [facility] Address [address] [place] [address] Phone Care Team Providers Care Commercial Lines Manager Name Role Phone Jose Elaine MD Unavailable [phone] Fahad Nolasco MD Primary Care Provider Junior Mclain MD Unavailable [phone] Encounter Details Date Type Department Care Team (Late st Contact Info) Description 09/13/2018 Ancillary Orders Non-Invasive Cardiology [address] [place] [address] [place] [address] Kem Bowers MD [address] [place] [address] [email or web address] CHB (complete heart block) Social [...] EST Office Visit [facility] [address] Floor, [address] [place], [place] [address] Dillon Zazueta MD [address] [place] [address] 04/03/2025 2:00 PM EST Office Visit [facility] [address] [place] [address] Fahad Nolasco MD [address] [place] [address], [address] [place] [address] [email or web address] documented as of this encounter Visit Diagnoses Diagnosis CHB (complete heart block) Atrioventricular block, complete documented in this encounter Additional Health Concerns Infection Onset Date Last Indicated Resolved Time CoV-Risk 07/24/2021 07/24/2021 08/04/2021 1:22 AM EDT Assessment Noted Time PHQ-2 Depression Total Score: 0 07/12/19 2:17 PM EDT documented as of this encounter Care Teams Commercial Lines Manager Relationship Specialty Start Date End Date Fahad Nolasco MD [address] [place] [address], [address] [place] [address] PCP - General 07/11/18 Jose Elaine MD [address] [place] [address], [address] [place] [address] Customer Service Trainer Cardiology 04/21/18 Junior Mclain MD [address] [place] [address] Gastroenterology 12/01/19 documented as of this encounter Additional Source Comments The information contained in this document represents components of the legal health record. It is not the complete legal health record.[facility]
--- OUTSIDE RECORDS SUMMARY | 2024-12-27 22:42 | XMS_ITS | Encounter Summary ---
Author Organization [facility] Address [address] [place] [address] Phone Care Team Providers Care Spiral Tube Winder Name Role Phone Jose Elaine MD Unavailable [phone] Fahad Nolasco MD Primary Care Provider Junior Mclain MD Unavailable [phone] Encounter Details Date Type Department Care Team (Late st Contact Info) Description 12/02/2019 Procedure Pass [facility] Endoscopy Admitting Dept Virtual Department [address] [place] [address] Social History Tobacco Use Types Packs/Day Years [...] Description 02/07/2025 10:40 AM EST Office Visit [facility] [address] [facility] 3rd Floor, [address] [place] [address] Dillon Zazueta MD [address] [place] [address] 04/03/2025 2:00 PM EST Office Visit [facility] [address] [place] [address] Fahad Nolasco MD [address] [facility] [place] [address] [email or web address] documented as of this encounter Visit Diagnoses Not on filedocumented in this encounter Additional Health Concerns Infection Onset Date Last Indicated Resolved Time CoV-Risk 07/24/2021 07/24/2021 08/04/2021 1:22 AM EDT Assessment Noted Time PHQ-2 Depression Total Score: 0 07/12/19 2:17 PM EDT documented as of this encounter Care Teams Spiral Tube Winder Relationship Specialty Start Date End Date Fahad Nolasco MD [address] [place] [address], [address] [place] [address] PCP - General 07/11/18 Jose Elaine MD [address] [place] [address], [address] [place] [address] Disability Insurance Claim Examiner Cardiology 04/21/18 Junior Mclain MD [address] [place] [address] Gastroenterology 12/01/19 documented as of this encounter Additional Source Comments The information contained in this document represents components of the legal health record. It is not the complete legal health record.[facility]
--- OUTSIDE RECORDS SUMMARY | 2024-12-27 22:42 | XMS_ITS | Encounter Summary ---
Author Organization [facility] Address [address] [place] [address] Phone Care Team Providers Care Blind Installer Name Role Phone Jose Elaine MD Unavailable [phone] Fahad Nolasco MD Primary Care Provider Junior Mclain MD Unavailable [phone] Encounter Details Date Type Department Care Team (Late st Contact Info) Description 10/21/2020 Procedure Pass Non-Invasive Cardiology [address] [place] [address] Social History Tobacco Use Types Packs/Day Years [...] Description 02/07/2025 10:40 AM EST Office Visit [facility] [address] 3rd Floor, [address] [place] [address] Dillon Zazueta MD [address] [place] [address] 04/03/2025 2:00 PM EST Office Visit [facility] 22 [place] [address] Fahad Nolasco MD [address] [place] [address] [email or web address] documented as of this encounter Visit Diagnoses Not on filedocumented in this encounter Additional Health Concerns Infection Onset Date Last Indicated Resolved Time CoV-Risk 07/24/2021 07/24/2021 08/04/2021 1:22 AM EDT Assessment Noted Time PHQ-2 Depression Total Score: 0 07/12/19 2:17 PM EDT documented as of this encounter Care Teams Blind Installer Relationship Specialty Start Date End Date aFhad Nolasco MD [address] [place] [address], [address] [place] [address] PCP - General 07/11/18 Jose Elaine MD [address] [place] [address], [address] [place] [address] Aircraft Engine Assembler Cardiology 04/21/18 Junior Mclain MD [address] [place] [address] Gastroenterology 12/01/19 documented as of this encounter Additional Source Comments The information contained in this document represents components of the legal health record. It is not the complete legal health record.[facility]
--- OUTSIDE RECORDS SUMMARY | 2024-12-27 22:42 | XMS_ITS | Encounter Summary ---
Author Organization [facility] Address [address] [place] [address] Phone Care Team Providers Care Stone Sandblaster Name Role Phone Jose Elaine MD Unavailable [phone] Fahad Nolasco MD Primary Care Provider [phone] Junior Mclain MD Unavailable [phone] Encounter Details Date Type Department Care Team (Latest Contact Info) Description 10/21/2020 Ancillary Orders [facility] [address] Floor, [address] [place] [address] Ayala Morfin MD [address] [place] [phone] [email or web address] Complete heart block Social History Tobacco Use [...] Description 02/07/2025 10:40 AM EST Office Visit [facility] [address] Floor, [address] [place] [address] Dillon Zazueta MD [address] [place] [address] 04/03/2025 2:00 PM EST Office Visit [address] [address] Fahad Nolasco MD [address] [place] [address], [address] [place] [address] [email or web address] documented as of this encounter Visit Diagnoses Diagnosis Complete heart block Atrioventricular block, complete documented in this encounter Additional Health Concerns Infection Onset Date Last Indicated Resolved Time CoV-Risk 07/24/2021 07/24/2021 08/04/2021 1:22 AM EDT Assessment Noted Time PHQ-2 Depression Total Score: 0 07/12/19 2:17 PM EDT documented as of this encounter Care Teams Stone Sandblaster Relationship Specialty Start Date End Date Fahad Nolasco MD [address] [place] [address], [address] [place] [address] PCP - General 07/11/18 Jose Elaine MD [address] [place] [address], [address] [place] [address] Corn Cutter Operator Cardiology 04/21/18 Junior Mclain MD [address] [place] [address] Gastroenterology 12/01/19 documented as of this encounter Additional Source Comments The information contained in this document represents components of the legal health record. It is not the complete legal health record.[facility]
--- OUTSIDE RECORDS SUMMARY | 2024-12-27 22:42 | XMS_ITS | Encounter Summary ---
Author Organization [facility] Address [address] [place] [address] Phone Care Team Providers Care Headline Writer Name Role Phone Jose Elaine MD Unavailable [phone] Fahad Nolasco MD Primary Care Provider [phone] Junior Mclain MD Unavailable [phone] Encounter Details Date Type Department Care Team (Late st Contact Info) Description 09/13/2018 Ancillary Orders [facility] [address] [place] [address] Kem Bowers MD [address] [place], [place] [id number] [email or web address] Social History Tobacco Use Types Packs/Day Years [...] Description 02/07/2025 10:40 AM EST Office Visit [facility] [address] Floor, [address] [place], [place] [address] Dillon Zazueta MD [address] [place] [address] 04/03/2025 2:00 PM EST Office Visit [address] [address] Fahad Nolasco MD [address] [place] [address], [address] [place] [address] documented as of this encounter Visit Diagnoses Not on filedocumented in this encounter Additional Health Concerns Infection Onset Date Last Indicated Resolved Time CoV-Risk 07/24/2021 07/24/2021 08/04/2021 1:22 AM EDT Assessment Noted Time PHQ-2 Depression Total Score: 0 07/12/19 2:17 PM EDT documented as of this encounter Care Teams Headline Writer Relationship Specialty Start Date End Date Fahad Nolasco MD [address] [place] [address], [address] [place] [address] PCP - General 07/11/18 Jose Elaine MD [address] [place] [address], [address] [place] [address] Pulmonary Physical Therapist Cardiology 04/21/18 Junior Mclain MD [address] [place] [address] Gastroenterology 12/01/19 documented as of this encounter Additional Source Comments The information contained in this document represents components of the legal health record. It is not the complete legal health record.[facility]
--- OUTSIDE RECORDS SUMMARY | 2024-12-27 22:42 | XMS_ITS | Encounter Summary ---
Author Organization [facility] Address [address] [place] [address] Phone Care Team Providers Care Log Processor Operator Name Role Phone Jose Elaine MD Unavailable [phone] Fahad Nolasco MD Primary Care Provider Junior Mclain MD Unavailable [phone] Encounter Details Date Type Department Care Team (Late st Contact Info) Description 07/31/2020 Procedure Pass Non-Invasive Cardiology [address] [place] [address] Social History Tobacco Use Types Packs/Day Years [...] Description 02/07/2025 10:40 AM EST Office Visit [facility] [address] Floor, [address] [place] [address] Dillon Zazueta MD 50 [place] [address] 04/03/2025 2:00 PM EST Office Visit [facility] [address] [place] [address] Fahad Nolasco MD [address] [facility], [address] [place] [address] [email or web address] documented as of this encounter Visit Diagnoses Not on filedocumented in this encounter Additional Health Concerns Infection Onset Date Last Indicated Resolved Time CoV-Risk 07/24/2021 07/24/2021 08/04/2021 1:22 AM EDT Assessment Noted Time PHQ-2 Depression Total Score: 0 07/12/19 2:17 PM EDT documented as of this encounter Care Teams Log Processor Operator Relationship Specialty Start Date End Date Fahad Nolasco MD [address] [place] [address], [address] [place] [address] PCP - General 07/11/18 Jose Elaine MD [address] [place] [address], [address] [place] [address] Supervisor Pig Machine Cardiology 04/21/18 Junior Mclain MD [address] [place] [address] Gastroenterology 12/01/19 documented as of this encounter Additional Source Comments The information contained in this document represents components of the legal health record. It is not the complete legal health record.[facility]
--- OUTSIDE RECORDS SUMMARY | 2024-12-27 22:42 | XMS_ITS | Encounter Summary ---
Author Organization [facility] Address [address] [place] [address] Phone Care Team Providers Care Puzzle Assembler Name Role Phone Jose Elaine MD Unavailable [phone] Fahad Nolasco MD Primary Care Provider [phone] Junior Mclain MD Unavailable [phone] Encounter Details Date Type Department Care Team (Late st Contact Info) Description 10/21/2020 Procedure Pass Non-Invasive Cardiology [address] [place] [address] Social History Tobacco Use Types Packs/Day Years [...] Description 02/07/2025 10:40 AM EST Office Visit [facility] [address], [address] [place], [place] [address] Dillon Zazueta MD [address] [place] [address] 04/03/2025 2:00 PM EST Office Visit [facility] Medicine 22 [place] [address] Fahad Nolasco MD [address] [place] [address], [address] [place] [address] [email or web address] documented as of this encounter Visit Diagnoses Not on filedocumented in this encounter Additional Health Concerns Infection Onset Date Last Indicated Resolved Time CoV-Risk 07/24/2021 07/24/2021 08/04/2021 1:22 AM EDT Assessment Noted Time PHQ-2 Depression Total Score: 0 07/12/19 2:17 PM EDT documented as of this encounter Care Teams Puzzle Assembler Relationship Specialty Start Date End Date Fahad Nolasco MD [address] [place] [address], [address] [place] [address] PCP - General 07/11/18 Jose Elaine MD [address] [place] [address], [address] [place] [address] Cafe Attendant Cardiology 04/21/18 Junior Mclain MD [address] [place] [address] Gastroenterology 12/01/19 documented as of this encounter Additional Source Comments The information contained in this document represents components of the legal health record. It is not the complete legal health record.[facility]
--- OUTSIDE RECORDS SUMMARY | 2024-12-27 22:42 | XMS_ITS | Encounter Summary ---
Author Organization [facility] Address [address] [place] [address] Phone Care Team Providers Care Sales Service Coordinator Name Role Phone Jose Elaine MD Unavailable [phone] Fahad Nolasco MD Primary Care Provider [phone] Junior Mclain MD Unavailable [phone] Encounter Details Date Type Department Care Team (Late st Contact Info) Description 05/06/2023 Procedure Pass [facility] [address] [place] [address] Social History Tobacco Use Types Packs/Day Years [...] Description 02/07/2025 10:40 AM EST Office Visit [facility] [address] [facility] 3rd Floor, [address] [place] [address] Dillon Zazueta MD [address] [place] [address] 04/03/2025 2:00 PM EST Office Visit [facility] Medicine [address] [place] [address] Fahad Nolasco MD [address] [place] [address], [address] [place] [address] documented as of this encounter Visit Diagnoses Not on filedocumented in this encounter Additional Health Concerns Assessment Noted Time PHQ-2 Depression Total Score: 0 03/18/19 24 1:10 PM EST documented as of this encounter Care Teams Sales Service Coordinator Relationship Specialty Start Date End Date Fahad Nolasco MD [address] [place] [address], [address] [place] [address] PCP - General 07/11/18 Jose Elaine MD [address] [place] [address], [address] [place] [address] Car Spotter Cardiology 04/21/18 Junior Mclain MD [address] [place] [address] [email or web address] Gastroenterology 12/01/19 documented as of this encounter Additional Source Comments The information contained in this document represents components of the legal health record. It is not the complete legal health record.[facility]
--- OUTSIDE RECORDS SUMMARY | 2024-12-27 22:42 | XMS_ITS | Encounter Summary ---
Author Organization [facility] Address [address] [place] [address] Phone Care Team Providers Care Developmental Services Worker Name Role Phone Jose Elaine MD Unavailable [phone] Fahad Nolasco MD Primary Care Provider [phone] Junior Mclain MD Unavailable [phone] Reason for Visit * Reason Comments Medication Refill Encounter Details Date Type Department Care Team (Late st Contact Info) Description 12/22/2024 Refill [facility] Medicine [address] [place] [address] [place], [place] [phone] Fahad Nolasco MD 22 [facility], [address] [place] [address] [email or web address] Medication Refill Social History Tobacco Use Types [...] Progress Notes * Viktoria Buckner MA - 12/22/2024 10:58 AM EST Rx Care Gap Status - Instructions for Clinical Staff (prescriber discretion applies): > Mismatch review guide > N/a - No action needed Visit Info Last visit: 10/31/2024 Fahad Nolasco MD - Family Medicine [facility] > Requested f/u: Not specified Upcoming visit: 04/03/2025 Fahad Nolasco MD - Family Medicine [facility] ACTIONS TAKEN BY Viktoria Buckner MA - Criteria met. Topical / Dermatology Rx Protocol - clobetasol propionate Criteria met; renew for up to 12 months. Visit in the past 14 months: Yes documented in this encounter Plan of Treatment Upcoming Encounters Date Type Department Care Team (Late st Contact Info) Description 02/07/2025 10:40 AM EST Office Visit [facility] [address] [place] [address] 3rd Floor, [address] [place], [place] [phone] Dillon Zazueta MD 50 [place] [address] 04/03/2025 2:00 PM EST Office Visit [facility] [address] [facility] [facility] [place] [address] Fahad Nolasco MD 22 [facility], [address] [place] [address] [email or web address] documented as of this encounter Visit Diagnoses Not on filedocumented in this encounter Additional Health Concerns Assessment Noted Time PHQ-2 Depression Total Score: 0 03/18/19 24 1:10 PM EST documented as of this encounter Care Teams Developmental Services Worker Relationship Specialty Start Date End Date Fahad Nolasco MD 22 [facility], [address] [place] [address] [email or web address] PCP - General 07/11/18 Jose Elaine MD [address] [place] [address], [address] [place] [address] [email or web address] Window Glass Cutter Off Cardiology 04/21/18 Junior Mclain MD [address] [place] [address] [email or web address] Gastroenterology 12/01/19 documented as of this encounter Additional Source Comments The information contained in this document represents components of the legal health record. It is not the complete legal health record.[facility]
--- OUTSIDE RECORDS SUMMARY | 2024-12-27 22:42 | XMS_ITS | Encounter Summary ---
Author Organization [facility] Address [address] [place] [address] Phone Care Team Providers Care Naval Surface Fire Support Planner Name Role Phone Jose Elaine MD Unavailable [phone] Fahad Nolasco MD Primary Care Provider Junior Mclain MD Unavailable [phone] Encounter Details Date Type Department Care Team (Late st Contact Info) Description 11/10/2022 Procedure Pass Non-Invasive Cardiology [address] [place] [address] Social History Tobacco Use Types Packs/Day Years [...] Description 02/07/2025 10:40 AM EST Office Visit [facility] [address] [facility] 3rd Floor, [address] [place] [address] Dillon Zazueta MD [address] [place] [address] 04/03/2025 2:00 PM EST Office Visit [facility] Medicine 22 [place] [address] Fahad Nolasco MD [address] [place] [address], [address] [place] [address] documented as of this encounter Visit Diagnoses Not on filedocumented in this encounter Additional Health Concerns Assessment Noted Time PHQ-2 Depression Total Score: 0 07/12/19 19 2:17 PM EDT documented as of this encounter Care Teams Naval Surface Fire Support Planner Relationship Specialty Start Date End Date Fahad Nolasco MD 22 [facility], [address] [place] [address] PCP - General 07/11/18 Jose Elaine MD [address] [place] [address], [address] [place] [address] System Programmer Cardiology 04/21/18 Junior Mclain MD [address] [address] Gastroenterology 12/01/19 documented as of this encounter Additional Source Comments The information contained in this document represents components of the legal health record. It is not the complete legal health record.[facility]
--- OUTSIDE RECORDS SUMMARY | 2024-12-27 22:42 | XMS_ITS | Encounter Summary ---
Author Organization [facility] Address [address] [place] [address] Phone Care Team Providers Care Die Stamping Press Operator Name Role Phone Jose Elaine MD Unavailable [phone] Fahad Nolasco MD Primary Care Provider Junior Mclain MD Unavailable [phone] Encounter Details Date Type Department Care Team (Latest Contact Info) Description 08/10/2023 Transcribe Orders [facility] [address] 2nd [place] [address] Isabel Katz PA-C [address] [place] [address] [email or web address] Anemia, unspecified type (Primary Dx) Social History [...] Description 02/07/2025 10:40 AM EST Office Visit [facility] [address] [place] [address] 3rd Floor, [address] [place] [address] Dillon Zazueta MD [address] [place] [address] 04/03/2025 2:00 PM EST Office Visit [facility] [address] [place] [address] Fahad Nolasco MD 22 [facility], [address] [place] [address] documented as of this encounter Results * Ferritin (08/10/2023 2:26 PM EDT) FERRITIN 89 30 - 400 ug/L [facility] Blood 08/10/2023 2:26 PM EDT 08/10/2023 2:28 PM EDT us Isabel Katz PA-C LAB BLOOD BKR ORDERABLES Final Result [facility] [address] [place] [address] * Iron and iron binding capacity (08/10/2023 2:26 PM EDT) IRON 92 45 - 160 ug/dL [facility] IRON BINDING CAPACITY 366 228 - 428 ug/dL [facility] TRANSFERRIN SATURAT. 25 20 - 55 % [facility] Blood 08/10/2023 2:26 PM EDT 08/10/2023 2:28 PM EDT us Isabel Katz PA-C LAB BLOOD BKR ORDERABLES Final Result [address] [address] * (ABNORMAL) CBC (08/10/2023 2:26 PM EDT) WBC 7.41 4.00 - 11.00 K/uL [facility] RBC 3.58(L) 3.90 - 5.69 M/uL [facility] HGB 11.0(L) 12.4 - 17.3 g/dL [facility] HCT 34.4(L) 37.0 - 51.0 % [facility] PLT 183 140 - 430 K/uL [facility] MCV 96.1 78.0 - 97.0 fL [facility] MCH 30.7 25.0 - 33.0 pg [facility] MCHC 32.0 32.0 - 36.0 g/dL [facility] RDW 12.9 11.0 - 15.0 % [facility] MPV 11.9 8.4 - 12.8 fl [facility] Blood 08/10/2023 2:26 PM EDT 08/10/2023 2:28 PM EDT us Isabel Katz PA-C LAB BLOOD BKR ORDERABLES Final Result Performing Organization Address City/[facility]/ZIP Co de Phone Number [address] [address] documented in this encounter Visit Diagnoses Diagnosis Anemia, unspecified type- Primary documented in this encounter Additional Health Concerns Assessment Noted Time PHQ-2 Depression Total Score: 0 03/18/19 24 1:10 PM EST documented as of this encounter Care Teams Die Stamping Press Operator Relationship Specialty Start Date End Date Fahad Nolasco MD [address] [place] [address], [address] [place] [address] PCP - General 07/11/18 Jose Elaine MD [address] [place] [address], [address] [place] [address] Stave Hewer Cardiology 04/21/18 Junior Mclain MD [address] [place] [address] Gastroenterology 12/01/19 documented as of this encounter Additional Source Comments The information contained in this document represents components of the legal health record. It is not the complete legal health record.[facility]
--- OUTSIDE RECORDS SUMMARY | 2024-12-27 22:42 | XMS_ITS | Encounter Summary ---
Author Organization [facility] Address [address] [place] [address] Phone Care Team Providers Care Dope Pourer Name Role Phone Jose Elaine MD Unavailable [phone] Fahad Nolasco MD Primary Care Provider [phone] Junior Mclain MD Unavailable [phone] Encounter Details Date Type Department Care Team (Late st Contact Info) Description 01/11/2020 Procedure Pass [facility] Endoscopy Admitting Dept Virtual Department [address] [place] [address] Social History Tobacco Use Types Packs/Day Years [...] Description 02/07/2025 10:40 AM EST Office Visit [facility] [address] [facility] 3rd Floor, [address] [place] [address] Dillon Zazueta MD [address] [place] [address] 04/03/2025 2:00 PM EST Office Visit [facility] [address] [place] [address] Fahad Nolasco MD 22 [facility], [address] [place] [address] documented as of this encounter Visit Diagnoses Not on filedocumented in this encounter Additional Health Concerns Infection Onset Date Last Indicated Resolved Time CoV-Risk 07/24/2021 07/24/2021 08/04/2021 1:22 AM EDT Assessment Noted Time PHQ-2 Depression Total Score: 0 07/12/19 2:17 PM EDT documented as of this encounter Care Teams Dope Pourer Relationship Specialty Start Date End Date Fahad Nolasco MD [address] [place] [address], [address] [place] [address] PCP - General 07/11/18 Jose Elaine MD [address] [place] [address], [address] [place] [address] Rn Document Improvement Specialist Cardiology 04/21/18 Junior Mclain MD [address] [place] [address] Gastroenterology 12/01/19 documented as of this encounter Additional Source Comments The information contained in this document represents components of the legal health record. It is not the complete legal health record.[facility]
--- OUTSIDE RECORDS SUMMARY | 2024-12-27 22:42 | XMS_ITS | Encounter Summary ---
Author Organization [facility] Address [address] [facility] [address] [place] [address] Phone Care Team Providers Care Senior Engineering Tech Name Role Phone Jose Elaine MD Unavailable [phone] Andrew Bah MD Primary Care Provider [phone] Andrew Bah MD Primary Care Provider [phone] Fahad Nolasco MD Primary Care Provider [phone] Andrew Bah MD Primary Care Provider + [phone] Fahad Nolasco MD Primary Care Provider [phone] Junior Mclain MD Unavailable [phone] Encounter Details Date Type Department Care Team (Late st Contact Info) Description 12/14/2016 Procedure Pass [facility], Ct Scan - [address] [address] Social History Tobacco Use Types Packs/Day Years [...] Description 02/07/2025 10:40 AM EST Office Visit [facility] [address] [place] [address] Dr 3rd Floor, [address] [place] [address] Dillon Zazueta MD [address] [place] [address] 04/03/2025 2:00 PM EST Office Visit [facility] [address] [place] [address] [place] [address] Fahad Nolasco MD [address] [place] [address], [address] [place] [address] documented as of this encounter Visit Diagnoses Not on filedocumented in this encounter Additional Health Concerns Infection Onset Date Last Indicated Resolved Time CoV-Risk 07/24/2021 07/24/2021 08/04/2021 1:22 AM EDT documented as of this encounter Care Teams Senior Engineering Tech Relationship Specialty Start Date End Date Andrew Bah MD [address] [place] [address], [address] [place] [address] PCP - General Family Medicine 05/17/18 05/30/18 Andrew Bah MD [address] [place] [address], [address] [place] [address] PCP - General 06/07/18 06/29/18 Fahad Nolasco MD [address] [place] [address], [address] [place] [address] PCP - General 07/11/18 Andrew Bah MD [address] [place] [address], [address] [place] [address] PCP - General 07/05/18 07/09/18 Fahad Nolasco MD [address] [place] [address], [address] [place] [address] PCP - General Internal Medicine 07/10/18 07/10/18 Jose Elaine MD [address] [place] [address], [address] [place] [address] Registered Nurse Midwife Cardiology 04/21/18 Junior Mclain MD [address] [place] [address] Gastroenterology 12/01/19 documented as of this encounter Additional Source Comments The information contained in this document represents components of the legal health record. It is not the complete legal health record.[facility]
--- OUTSIDE RECORDS SUMMARY | 2024-12-27 22:42 | XMS_ITS | Encounter Summary ---
Author Organization [facility] Address [address] [facility] [address] [place] [address] Phone Care Team Providers Care Skin Lifter Bacon Name Role Phone Jose Elaine MD Unavailable [phone] Andrew Bah MD Primary Care Provider [phone] Andrew Bah MD Primary Care Provider [phone] Fahad Nolasco MD Primary Care Provider [phone] Andrew Bah MD Primary Care Provider [phone] Fahad Nolasco MD Primary Care Provider [phone] Junior Mclain MD Unavailable [phone] Encounter Details Date Type Department Care Team (Late st Contact Info) Description 04/18/2018 Procedure Pass [facility] Electrophysiology Lab [address] [place] [address] Social History Tobacco Use Types Packs/Day Years [...] Description 02/07/2025 10:40 AM EST Office Visit [facility] [address] [place] [address] Dr 3rd Floor, [address] [place] [address] Dillon Zazueta MD [address] [place] [address] 04/03/2025 2:00 PM EST Office Visit [facility] [address] [place] [address] [place] [address] Fahad Nolasco MD [address] [place] [address], [address] [place] [address] documented as of this encounter Visit Diagnoses Not on filedocumented in this encounter Additional Health Concerns Infection Onset Date Last Indicated Resolved Time CoV-Risk 07/24/2021 07/24/2021 08/04/2021 1:22 AM EDT Assessment Noted Time PHQ-2 Depression Total Score: 0 03/17/19 12:19 PM EST documented as of this encounter Care Teams Skin Lifter Bacon Relationship Specialty Start Date End Date Andrew Bah MD [address] [place] [address], [address] [place] [address] PCP - General Family Medicine 05/17/18 05/30/18 Andrew Bah MD [address] [place] [address], [address] [place] [address] PCP - General 06/07/18 06/29/18 Fahad Nolasco MD [address] [place] [address], [address] [place] [address] PCP - General 07/11/18 Andrew Bah MD [address] [place] [address], [address] [place] [address] PCP - General 07/05/18 07/09/18 Fahad Nolasco MD [address] [place] [address], [address] [place] [address] PCP - General Internal Medicine 07/10/18 07/10/18 Jose Elaine MD [address] [place] [address], [address] [place] [address] Petal Shaper Hand Cardiology 04/21/18 Junior Mclain MD [address] [place] [address] Gastroenterology 12/01/19 documented as of this encounter Additional Source Comments The information contained in this document represents components of the legal health record. It is not the complete legal health record.[facility]
== END 2024-12-27 12:08 | disposition home or self-care (01) ==
LOC: HO.ACS 11:36
PROVIDERS: PCP Internal Medicine; Visit Provider Internal Medicine Medical Oncology
DX: Z79.01 Long term (current) use of anticoagulants (principal)

== ENCOUNTER → 2024-12-27 11:36 | Outpatient (BNVA) | payer MEDICARE, SELFPAY | PROVIDERS: PCP Internal Medicine; Visit Provider Internal Medicine Medical Oncology | DX: Z79.01 Long term (current) use of anticoagulants (principal) | CPT/HCPCS: 85610; 99211 ==

== ENCOUNTER 2025-01-24 11:39 | Outpatient (AMB) | payer MEDICARE, SELFPAY ==
[2025-01-24 11:49] LABS: Prothrombin Time Whole Bld POC 32.0 sec (11.1-13.5); ~PT, ~INR - Anti Coag Clinic 2.7 (0.9-1.1)
--- NOTE | 2025-01-24 11:58 | MHC.OFFVISCO ---
Intake Intake Visit Reasons: Anticoagulation Allergies shrimp Allergy (Mild, Verified 01/24/25 11:43) JUEN Shahid. Allergy (Unknown, Uncoded 11/03/24 11:44) PT STATES NO KNOWN DRUG ALLERGIES Medication List - Last Reconciled 01/24/25 by Freida Manley RN atorvastatin 80 mg PO DAILY blood sugar diagnostic As directed cholecalciferol (vitamin D3) 25 mcg PO DAILY clobetasol 0.05% topical BID cyanocobalamin (vitamin B-12) (Vitamin B-12) 500 mcg PO DAILY ferrous sulfate 325 mg PO DAILY glipizide 5 mg PO BID hydroxyzine pamoate 25 mg PO TID PRN lancets (OneTouch Delica Plus Lancet) As directed metformin 1,000 mg PO DAILY metoprolol succinate ER 75 mg PO DAILY torsemide 100 mg PO BID triamcinolone acetonide 0.1% 1 appl topical BID warfarin See Protocol 2.5mg x 4, 1.25mg x 3 Nursing Note NO CP,SOB,DIET/MED CHANGES,FALLS OR SX OF BLEEDING. CONTINUE PRESENT DOSE AND FOLLOW-UP IN 4 WEEKS GOOD UNDETSTANDING OF DOSING INSTR. Coding Level of Care Code Est Patient Level 1 Diagnoses Current use of anticoagulant therapy Z79.01 Assessment & Plan Assessment & Plan (1) Current use of anticoagulant therapy: Code(s): Z79.01 - terminal make up operator (current) use of anticoagulants Category: Medical
--- OUTSIDE RECORDS SUMMARY | 2025-01-24 15:29 | XMS_ITS | Encounter Summary ---
Author Organization [facility] Address [address] [facility] [address] [place] [address] Phone Care Team Providers Care Production Control Technologist Name Role Phone Jose Elaine MD Unavailable Fahad Nolasco MD Primary Care Provider [phone] Junior Mclain MD Unavailable [phone] Encounter Details Date Type Department Care Team (Late st Contact Info) Description 12/15/2021 Procedure Pass [facility], Ct Scan - [facility] [address] [place] [address] Social History Tobacco Use Types Packs/Day Years [...] Description 02/07/2025 10:40 AM EST Office Visit [facility] [address] [facility] 3rd Floor, [address] [place] [address] Dillon Zazueta MD [address] [place] [address] 04/03/2025 2:00 PM EST Office Visit [facility] [address] [place] [address] Fahad Nolasco MD [address] [place] [address], [address] [place] [address] documented as of this encounter Visit Diagnoses Not on filedocumented in this encounter Additional Health Concerns Assessment Noted Time PHQ-2 Depression Total Score: 0 07/12/19 19 2:17 PM EDT documented as of this encounter Care Teams Production Control Technologist Relationship Specialty Start Date End Date Fahad Nolasco MD [address] [place] [address], [address] [place] [address] PCP - General 07/11/18 Jose Elaine MD [address] [place] [address], [address] [place] [address] Vice President Of Brand Management Cardiology 04/21/18 Junior Mclain MD [address] [place] [address] Gastroenterology 12/01/19 documented as of this encounter Additional Source Comments The information contained in this document represents components of the legal health record. It is not the complete legal health record.[facility]
--- OUTSIDE RECORDS SUMMARY | 2025-01-24 15:29 | XMS_ITS | Encounter Summary ---
Author Organization [facility] Address [address] [place] [address] Phone Care Team Providers Care Spike Machine Heater Name Role Phone Jose Elaine MD Unavailable [phone] Fahad Nolasco MD Primary Care Provider Junior Mclain MD Unavailable Encounter Details Date Type Department Care Team (Late st Contact Info) Description 02/20/2019 Ancillary Orders [facility] Non-Invasive Cardiology [address] [place] [address] Kem Bowers MD [address] [place] [address] [email or web address] Complete heart block Social History [...] Description 02/07/2025 10:40 AM EST Office Visit [facility] [address] Floor, [address] [place] [address] Dillon Zazueta MD [address] [place] [address] 04/03/2025 2:00 PM EST Office Visit [facility] Primary Care [facility] [place] [address] Fahad Nolasco MD [address] [facility], [address] [place] [address] [email or web address] documented as of this encounter Results * DEVICE CHECK: PPM REMOTE INTERROGATION WITH MASON FOREMAN/SUPERINTENDANT REVIEW (03/21/2019 4:59 PM EST) Narrative Kem Bowers MD - 03/22/2019 12:39 PM EST Reason for appointment: Remote pacemaker interrogation HPI: Routine 3 month remote pacemaker interrogation. No device related complaints. Indication for device: CHB. Examination: Device type: Pacemaker Trial Judge: Medtronic Mode: AAIR-DDDR LRL/UPL: 70/120 bpm Mode [...] documented as of this encounter Care Teams Spike Machine Heater Relationship Specialty Start Date End Date Fahad Nolasco MD [address] [place] [address], [address] [place] [address] PCP - General 07/11/18 Jose Elaine MD [address] [place] [address], [address] [place] [address] Property Management Bookkeeper Cardiology 04/21/18 Junior Mclain MD [address] [place] [address] Gastroenterology 12/01/19 documented as of this encounter Additional Source Comments The information contained in this document represents components of the legal health record. It is not the complete legal health record.[facility]
--- OUTSIDE RECORDS SUMMARY | 2025-01-24 15:29 | XMS_ITS | Encounter Summary ---
Author Organization [facility] Address [address] [facility] [address] [place] [address] Phone Care Team Providers Care Artificial Flowers Dyer Name Role Phone Jose Elaine MD Unavailable [phone] Fahad Nolasco MD Primary Care Provider [phone] Junior Mclain MD Unavailable [phone] Encounter Details Date Type Department Care Team (Late st Contact Info) Description 04/08/2020 Procedure Pass [facility] [address] [place], [place] [id number] Social History Tobacco Use Types Packs/Day Years [...] 10:40 AM EST Office Visit [facility] [address] [facility] 3rd Floor, [address] [place], [place] [address] Dillon Zazueta MD [address] [place] [address] 04/03/2025 2:00 PM EST Office Visit [facility] [address] [place] [address] Fahad Nolasco MD [address] [facility], [address] [place] [address] [email or web address] documented as of this encounter Visit Diagnoses Not on filedocumented in this encounter Additional Health Concerns Infection Onset Date Last Indicated Resolved Time CoV-Risk 07/24/2021 07/24/2021 08/04/2021 1:22 AM EDT Assessment Noted Time PHQ-2 Depression Total Score: 0 07/12/19 2:17 PM EDT documented as of this encounter Care Teams Artificial Flowers Dyer Relationship Specialty Start Date End Date Fahad Nolasco MD [address] [place] [address], [address] [place] [address] PCP - General 07/11/18 Jose Elaine MD [address] [place] [address], [address] [place] [address] Mechanical Engineering Director Cardiology 04/21/18 Junior Mclain MD [address] [place] [address] Gastroenterology 12/01/19 documented as of this encounter Additional Source Comments The information contained in this document represents components of the legal health record. It is not the complete legal health record.[facility]
--- OUTSIDE RECORDS SUMMARY | 2025-01-24 15:29 | XMS_ITS | Encounter Summary ---
Author Organization [facility] Address [address] [place] [address] Phone Care Team Providers Care Photoengraving Machine Operator/Tender Name Role Phone Jose Elaine MD Unavailable [phone] Fahad Nolasco MD Primary Care Provider Junior Mclain MD Unavailable [phone] Encounter Details Date Type Department Care Team (Late st Contact Info) Description 05/11/2022 Procedure Pass [facility] [address] [place] [address] Social History Tobacco Use Types Packs/Day Years [...] 10:40 AM EST Office Visit [facility] [address]rd Floor, [address] [place] [address] Dillon Zazueta MD 50 [place] [address] 04/03/2025 2:00 PM EST Office Visit [facility] 22 [place] [address] Fahad Nolasco MD [address] [place] [address], [address] [place] [address] documented as of this encounter Visit Diagnoses Not on filedocumented in this encounter Additional Health Concerns Assessment Noted Time PHQ-2 Depression Total Score: 0 07/12/19 19 2:17 PM EDT documented as of this encounter Care Teams Photoengraving Machine Operator/Tender Relationship Specialty Start Date End Date Fahad Nolasco MD [address] [place] [address], [address] [place] [address] PCP - General 07/11/18 Jose Elaine MD [address] [place] [address], [address] [place] [address] Field Radio Operator Cardiology 04/21/18 Junior Mclain MD [address] [place] [address] Gastroenterology 12/01/19 documented as of this encounter Additional Source Comments The information contained in this document represents components of the legal health record. It is not the complete legal health record.[facility]
--- OUTSIDE RECORDS SUMMARY | 2025-01-24 15:29 | XMS_ITS | Encounter Summary ---
Author Organization [facility] Address [address] [place] [address] Phone Care Team Providers Care Manager Transition Name Role Phone Jose Elaine MD Unavailable [phone] Fahad Nolasco MD Primary Care Provider [phone] Junior Mclain MD Unavailable [phone] Encounter Details Date Type Department Care Team (Late st Contact Info) Description 06/11/2020 Procedure Pass [facility], Ct [facility] - [facility] [address] [place] [address] Social History Tobacco Use Types Packs/Day Years [...] Description 02/07/2025 10:40 AM EST Office Visit [facility] [address] [facility] 3rd Floor, [address] [place] [address] Dillon Zazueta MD [address] [place] [address] 04/03/2025 2:00 PM EST Office Visit [facility] 22 [place] [address] Fahad Nolasco MD [address] [facility], [address] [place] [address] [email or web address] documented as of this encounter Visit Diagnoses Not on filedocumented in this encounter Additional Health Concerns Infection Onset Date Last Indicated Resolved Time CoV-Risk 07/24/2021 07/24/2021 08/04/2021 1:22 AM EDT Assessment Noted Time PHQ-2 Depression Total Score: 0 07/12/19 2:17 PM EDT documented as of this encounter Care Teams Manager Transition Relationship Specialty Start Date End Date Fahad Nolasco MD [address] [place] [address], [address] [place] [address] PCP - General 07/11/18 Jose Elaine MD [address] [place] [address], [address] [place] [address] [email or web address] Phlebotomist Cardiology 04/21/18 Junior Mclain MD [address] [place] [address] Gastroenterology 12/01/19 documented as of this encounter Additional Source Comments The information contained in this document represents components of the legal health record. It is not the complete legal health record.[facility]
--- OUTSIDE RECORDS SUMMARY | 2025-01-24 15:29 | XMS_ITS | Encounter Summary ---
Author Organization [facility] Address [address] [place] [address] Phone Care Team Providers Care Horticulture/Floriculture Teacher Name Role Phone Jose Elaine MD Unavailable Fahad Nolasco MD Primary Care Provider Junoir Mclain MD Unavailable [phone] Encounter Details Date Type Department Care Team (Late st Contact Info) Description 01/08/2020 Procedure Pass [facility] [address] [place] [address] Social History Tobacco Use Types Packs/Day Years [...] 10:40 AM EST Office Visit [facility] [address], [address] [place] [address] Dillon Zazueta MD 50 [place] [address] 04/03/2025 2:00 PM EST Office Visit [facility] 22 [place] [address] Fahad Nolasco MD [address] [place] [address], [address] [place] [address] [email or web address] documented as of this encounter Visit Diagnoses Not on filedocumented in this encounter Additional Health Concerns Infection Onset Date Last Indicated Resolved Time CoV-Risk 07/24/2021 07/24/2021 08/04/2021 1:22 AM EDT Assessment Noted Time PHQ-2 Depression Total Score: 0 07/12/19 2:17 PM EDT documented as of this encounter Care Teams Horticulture/Floriculture Teacher Relationship Specialty Start Date End Date Fahad Nolasco MD [address] [place] [address], [address] [place] [address] PCP - General 07/11/18 Jose Elaine MD [address] [place] [address], [address] [place] [address] Stone Rubber Cardiology 04/21/18 Junior Mclain MD [address] [place] [address] Gastroenterology 12/01/19 documented as of this encounter Additional Source Comments The information contained in this document represents components of the legal health record. It is not the complete legal health record.[facility]
--- OUTSIDE RECORDS SUMMARY | 2025-01-24 15:29 | XMS_ITS | Encounter Summary ---
Author Organization [facility] Address [address] [place] [address] Phone Care Team Providers Care Charge Rn Name Role Phone Jose Elaine MD Unavailable [phone] Fahad Nolasco MD Primary Care Provider Junior Mclain MD Unavailable [phone] Encounter Details Date Type Department Care Team (Late st Contact Info) Description 12/11/2020 Procedure Pass [facility] Non-Invasive Cardiology [address] [place] [address] Social History Tobacco Use Types Packs/Day Years [...] 10:40 AM EST Office Visit [facility] [address] 3rd Floor, [address] [place] [address] Dillon Zazueta MD [address] [place] [address] 04/03/2025 2:00 PM EST Office Visit [facility] 22 [place] [address] Fahad Nolasco MD [address] [place] [address], [address] [place] [address] [email or web address] documented as of this encounter Visit Diagnoses Not on filedocumented in this encounter Additional Health Concerns Infection Onset Date Last Indicated Resolved Time CoV-Risk 07/24/2021 07/24/2021 08/04/2021 1:22 AM EDT Assessment Noted Time PHQ-2 Depression Total Score: 0 07/12/19 2:17 PM EDT documented as of this encounter Care Teams Charge Rn Relationship Specialty Start Date End Date Fahad Nolasco MD [address] [place] [address], [address] [place] [address] PCP - General 07/11/18 Jose Elaine MD [address] [place] [address], [address] [place] [address] Spice Grinder Cardiology 04/21/18 Junior Mclain MD [address] [place] [address] Gastroenterology 12/01/19 documented as of this encounter Additional Source Comments The information contained in this document represents components of the legal health record. It is not the complete legal health record.[facility]
--- OUTSIDE RECORDS SUMMARY | 2025-01-24 15:29 | XMS_ITS | Encounter Summary ---
Author Organization [facility] Address [address] [place] [address] Phone Care Team Providers Care Environmental Services Lead Name Role Phone Jose Elaine MD Unavailable [phone] Fahad Nolasco MD Primary Care Provider Junior Mclain MD Unavailable [phone] Encounter Details Date Type Department Care Team (Late st Contact Info) Description 03/09/2022 Procedure Pass [email or web address] Non-Invasive Cardiology [address] [place] [address] Social History Tobacco Use Types Packs/Day Years [...] 10:40 AM EST Office Visit [facility] [address] [facility] 3rd Floor, [address] [place] [address] Dillon Zazueta MD [address] [place] [address] 04/03/2025 2:00 PM EST Office Visit [facility] 22 [place] [address] Fahad Nolasco MD [address] [place] [address], [address] [place] [address] documented as of this encounter Visit Diagnoses Not on filedocumented in this encounter Additional Health Concerns Assessment Noted Time PHQ-2 Depression Total Score: 0 07/12/19 19 2:17 PM EDT documented as of this encounter Care Teams Environmental Services Lead Relationship Specialty Start Date End Date Fahad Nolasco MD [address] [place] [address], [address] [place] [address] PCP - General 07/11/18 Jose Elaine MD [address] [place] [address], [address] [place] [address] Long Haul Truck Driver Cardiology 04/21/18 Junior Mclain MD [address] [place] [address] Gastroenterology 12/01/19 documented as of this encounter Additional Source Comments The information contained in this document represents components of the legal health record. It is not the complete legal health record.[facility]
--- OUTSIDE RECORDS SUMMARY | 2025-01-24 15:29 | XMS_ITS | Encounter Summary ---
Author Organization [facility] Address [address] [place] [address] Phone Care Team Providers Care Sap Fico Architect Name Role Phone Jose Elaine MD Unavailable [phone] Fahad Nolasco MD Primary Care Provider Junior Mclain MD Unavailable [phone] Encounter Details Date Type Department Care Team (Late st Contact Info) Description 03/17/2021 Procedure Pass [facility] [employer] Non-Invasive Cardiology [address] [place] [address] Social History Tobacco Use Types Packs/Day Years [...] 10:40 AM EST Office Visit [facility] [address]rd Floor, [address] [place] [address] Dillon Zazueta MD [address] [place] [address] 04/03/2025 2:00 PM EST Office Visit [facility] [address] [place] [address] Fahad Nolasco MD [address] [place] [address], [address] [place] [address] [email or web address] documented as of this encounter Visit Diagnoses Not on filedocumented in this encounter Additional Health Concerns Infection Onset Date Last Indicated Resolved Time CoV-Risk 07/24/2021 07/24/2021 08/04/2021 1:22 AM EDT Assessment Noted Time PHQ-2 Depression Total Score: 0 07/12/19 2:17 PM EDT documented as of this encounter Care Teams Sap Fico Architect Relationship Specialty Start Date End Date Fahad Nolasco MD [address] [place] [address], [address] [place] [address] PCP - General 07/11/18 Jose Elaine MD [address] [place] [address], [address] [place] [address] Point Of Sale Associate Cardiology 04/21/18 Junior Mclain MD [address] [place] [address] Gastroenterology 12/01/19 documented as of this encounter Additional Source Comments The information contained in this document represents components of the legal health record. It is not the complete legal health record.[facility]
--- OUTSIDE RECORDS SUMMARY | 2025-01-24 15:29 | XMS_ITS | Encounter Summary ---
Author Organization [facility] Address [address] [place] [address] Phone Care Team Providers Care Sephora Operations Consultant Name Role Phone Jose Elaine MD Unavailable [phone] Fahad Nolasco MD Primary Care Provider Junior Mclain MD Unavailable [phone] Encounter Details Date Type Department Care Team (Late st Contact Info) Description 11/19/2021 Procedure Pass [facility] Non-Invasive Cardiology [address] [place] [address] Social History Tobacco Use Types Packs/Day Years [...] 10:40 AM EST Office Visit [facility] [address] Floor, [address] [place] [address] Dillon Zazueta MD [address] [place] [address] 04/03/2025 2:00 PM EST Office Visit [facility] [address] [place] [address] Fahad Nolasco MD [address] [place] [address], [address] [place] [address] documented as of this encounter Visit Diagnoses Not on filedocumented in this encounter Additional Health Concerns Assessment Noted Time PHQ-2 Depression Total Score: 0 07/12/19 19 2:17 PM EDT documented as of this encounter Care Teams Sephora Operations Consultant Relationship Specialty Start Date End Date Fahad Nolasco MD [address] [place] [address], [address] [place] [address] PCP - General 07/11/18 Jose Elaine MD [address] [place] [address], [address] [place] [address] Sushi Chef Cardiology 04/21/18 Junior Mclain MD [address] [place] [address] Gastroenterology 12/01/19 documented as of this encounter Additional Source Comments The information contained in this document represents components of the legal health record. It is not the complete legal health record.[facility]
--- OUTSIDE RECORDS SUMMARY | 2025-01-24 15:29 | XMS_ITS | Encounter Summary ---
Author Organization [facility] Address [address] [place] [address] Phone Care Team Providers Care Heavy Line Technician Name Role Phone Jose Elaine MD Unavailable [phone] Fahad Nolasco MD Primary Care Provider [phone] Junior Mclain MD Unavailable [phone] Encounter Details Date Type Department Care Team (Late st Contact Info) Description 03/09/2020 Procedure Pass [facility] [employer] Non-Invasive Cardiology [address] [place] [address] Social History Tobacco Use Types Packs/Day Years [...] 10:40 AM EST Office Visit [facility] [address] Floor, [address] [place] [address] Dillon Zazueta MD [address] [place] [address] 04/03/2025 2:00 PM EST Office Visit [facility] 22 [place] [address] Fahad Nolasco MD [address] [place] [address], [address] [place] [address] [email or web address] documented as of this encounter Visit Diagnoses Not on filedocumented in this encounter Additional Health Concerns Infection Onset Date Last Indicated Resolved Time CoV-Risk 07/24/2021 07/24/2021 08/04/2021 1:22 AM EDT Assessment Noted Time PHQ-2 Depression Total Score: 0 07/12/19 2:17 PM EDT documented as of this encounter Care Teams Heavy Line Technician Relationship Specialty Start Date End Date Fahad Nolasco MD [address] [place] [address], [address] [place] [address] PCP - General 07/11/18 Jose Elaine MD [address] [place] [address], [address] [place] [address] Home Health Speech Therapist Cardiology 04/21/18 Junior Mclain MD [address] [place] [address] Gastroenterology 12/01/19 documented as of this encounter Additional Source Comments The information contained in this document represents components of the legal health record. It is not the complete legal health record.[facility]
--- OUTSIDE RECORDS SUMMARY | 2025-01-24 15:29 | XMS_ITS | Encounter Summary ---
Author Organization [facility] Address [address] [place] [address] Phone Care Team Providers Care Contact Worker Name Role Phone Jose Elaine MD Unavailable Fahad Nolasco MD Primary Care Provider [phone] Junior Mclain MD Unavailable [phone] Encounter Details Date Type Department Care Team (Late st Contact Info) Description 12/11/2020 Procedure Pass [facility] [address] [place] [address] Social History Tobacco Use Types Packs/Day Years [...] 10:40 AM EST Office Visit [facility] [address], [address] [place] [address] Dillon Zazueta MD [address] [place] [address] 04/03/2025 2:00 PM EST Office Visit [facility] 22 [place] [address] Fahad Nolasco MD [address] [place] [address], [address] [place] [address] [email or web address] documented as of this encounter Visit Diagnoses Not on filedocumented in this encounter Additional Health Concerns Infection Onset Date Last Indicated Resolved Time CoV-Risk 07/24/2021 07/24/2021 08/04/2021 1:22 AM EDT Assessment Noted Time PHQ-2 Depression Total Score: 0 07/12/19 2:17 PM EDT documented as of this encounter Care Teams Contact Worker Relationship Specialty Start Date End Date Fahad Nolasco MD [address] [place] [address], [address] [place] [address] PCP - General 07/11/18 Jose Elaine MD [address] [place] [address], [address] [place] [address] Window Display Designer Cardiology 04/21/18 Junior Mclain MD [address] [place] [address] Gastroenterology 12/01/19 documented as of this encounter Additional Source Comments The information contained in this document represents components of the legal health record. It is not the complete legal health record.[facility]
--- OUTSIDE RECORDS SUMMARY | 2025-01-24 15:30 | XMS_ITS | Encounter Summary ---
Author Organization [facility] Address [address] [place] [address] Phone Care Team Providers Care Flavorer Name Role Phone Jose Elaine MD Unavailable [phone] Fahad Nolasco MD Primary Care Provider Junior Mclain MD Unavailable [phone] Encounter Details Date Type Department Care Team (Late st Contact Info) Description 12/02/2019 Procedure Pass [facility] Endoscopy Admitting Dept Virtual Department [address] [place] [address] Social History Tobacco Use Types Packs/Day Years [...] Description 02/07/2025 10:40 AM EST Office Visit [facility] [address] [facility] [address] 3[address] Floor, [address] [place] [address] Dillon Zazueta MD [address] [place] [address] 04/03/2025 2:00 PM EST Office Visit [facility] 22 [place] [address] Fahad oNlasco MD [address] [place] [address], [address] [place] [address] [email or web address] documented as of this encounter Visit Diagnoses Not on filedocumented in this encounter Additional Health Concerns Infection Onset Date Last Indicated Resolved Time CoV-Risk 07/24/2021 07/24/2021 08/04/2021 1:22 AM EDT Assessment Noted Time PHQ-2 Depression Total Score: 0 07/12/19 2:17 PM EDT documented as of this encounter Care Teams Flavorer Relationship Specialty Start Date End Date Fahad Nolasco MD [address] [place] [address], [address] [place] [address] PCP - General 07/11/18 Jose Elaine MD [address] [place] [address], [address] [place] [address] Chemist Enzymes Cardiology 04/21/18 Junior Mclain MD [address] [place] [address] Gastroenterology 12/01/19 documented as of this encounter Additional Source Comments The information contained in this document represents components of the legal health record. It is not the complete legal health record.[facility]
--- OUTSIDE RECORDS SUMMARY | 2025-01-24 15:30 | XMS_ITS | Clinical Summary ---
Author Organization [facility] Address [address] [place] [address] Phone Care Team Providers Care Kettle Operator Name Role Phone Jose Elaine MD Unavailable [phone] Fahad Nolasco MD Primary Care Provider [phone] Junior Mclain MD Unavailable [phone] Allergies Active Allergy Reactions Criticality Noted Date [...] before meals. 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 Funeral Director patrice combined systolic and diastolic congestive heart failure TAKE ONE TABLET BY MOUTH TWICE A DAY 180 tablet 3 2024 Active ONETOUCH ULTRA TEST Strp stripsIndications:Type 2 diabetes mellitus with stage 2 chronic kidney disease, without long-term current use of insulin USE 1 STRIP THREE TIMES A DAY DAILY BEFORE MEALS 200 strip 2 2024 Active atorvastatin (LIPITOR) 80 MG tabletIndications:Pure hypercholesterolemia TAKE ONE TABLET BY MOUTH EVERY DAY 90 tablet 2024 Active ferrous sulfate 325 mg (65 mg [place] iron) tabletIndications:Medi cation refill TAKE ONE TABLET BY MOUTH EVERY DAY WITH BREAKFAST 90 tablet 2024 Active JANTOVEN 2.5 mg tablet TAKE ONE TABLET BY MOUTH EVERY DAY 90 tablet 2024 Active clobetasol (TEMOVATE) 0.05 % cream APPLY TO AFFECTED AREA(S) TOPICALLY TWO TIMES A DAY 60 g 5 2024 Active metoprolol succinate (TOPROL-XL) 50 MG 24 hr tabletIndications:Acut e on chronic diastolic heart failure TAKE 1&1/2 TABLETS BY MOUTH DAILY. 135 tablet 3 2024 Active glipiZIDE (GLUCOTROL) 5 MG tablet TAKE ONE TABLET BY MOUTH TWICE A DAY 180 tablet 2024 Active losartan (COZAAR) 100 MG tablet Take 1 tablet (100 mg total) by mouth daily. Increase dose to 100 mg daily effective 04/04/21. 90 tablet 1 05/14 Discontinued metoprolol succinate (TOPROL-XL) 50 MG 24 hr tabletIndications:Acut e on chronic diastolic heart failure TAKE ONE AND ONE-HALF TABLETS BY MOUTH EVERY DAY 135 tablet 3 01/01 Discontinued glipiZIDE (GLUCOTROL) 5 MG tablet TAKE ONE TABLET BY MOUTH TWICE A DAY 180 tablet 01/15 Discontinued Active Problems Problem Noted Date Diagnosed [...] to test atrial threshold. AP 38.9% and SCOREKEEPER 91.4%. Paced AV delay to 220ms and [...] He also has a follow-up with his plant operations coordinator in 3 months. Complete heart block 01/08/2020 [...] valve repair on April 12, 2018 at [facility]. he has done well. Dr. Elaine recommended that he have a repeat echocardiogram but the patient never had it done. I have reordered this. 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 He is doing well postoperatively. He is going to cardiac rehab. Last echocardiogram showed that his EF dropped from 65% to 50%. I increased his metoprolol succinate at his last visit. We will get another echocardiogram in a month or 2. 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 He is doing well postoperatively. He [...] duplex studies that I could see in [facility] that were recent. We will [...] if this helps his symptoms. 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 Patient presented to [facility] for a PATSY cardioversion as his [...] on Coumadin which is followed at the [place] [facility]. He is generally rate controlled [...] He goes to the Coumadin clinic at [place]. Reportedly, his INR has been greater than [...] December 2019: Needed RBC and Ferraheme at [facility] in November, EGD/COLO neg, capsule planned. [...] Encounters Date Type Department Care Team Description 01/13/[address] [place] [address] Will Crane PA-C, [facility] Medication Refill 12/30/[address] [place] [address] Fahad Nolasco MD Medication Refill 12/22/[address] [place] [address] Fahad Nolasco MD Medication Refill 10/31/2024 2:02 PM EDT - 10/31/2024 11:59 PM EDT Hospital Encounter [facility] [address] [place] [address] Fahad Nolasco MD Discharge Disposition: Home or Self Care 10/31/2024 1:30 PM EDT Office Visit [address] [place] [address] Fahad Nolasco MD Primary hypertension (Primary Dx); Permanent atrial fibrillation; Chronic combined systolic and diastolic congestive heart failure; Bilateral carpal tunnel syndrome; Type 2 diabetes mellitus with chronic kidney disease, without long-term current use of insulin, unspecified CKD stage; Pure hypercholesterolemia ; Vitamin D deficiency, unspecified from Last 3 Months Immunizations Immunization Administration [...] Description 02/07/2025 10:40 AM EST Office Visit [facility] [address] [place] [address] 3rd Floor, [address] [place] [address] Dillon Zazueta MD [address] [place] [address] 04/03/2025 2:00 PM EST Office Visit [facility] Primary Care [facility] [address] [place] [address] Fahad Nolasco MD [address] [facility] [place] [address] Health Maintenance Due Date Last Done Comments [...] this topic Medical Devices Implanted Type Area [place] Device Identifier Shelf Expiration Date Model / Serial / Lot Lead Pacemaker Capsure Fix Novus Is-1 Bi Atr/Vntr Pia 58 Cm - [id number] Implanted:Qty: 1 on 04/16/2018 by Katerin Carmona MD, MS at [facility] Lead Right: Ventricle [employer] 01/28/2020 5076-58 / [id number] / Lead Pacemaker Capsure Fix Novus Is-1 Bi Atr/Vntr Pia 52 Cm - [id number] Implanted:Qty: 1 on 04/16/2018 by Katerin Carmona MD, MS at [facility] Lead Atrium [employer] 02/16/2020 5076-52 / [id number] / Device Pacemaker Clara Xt Mri - [id number] Implanted:Qty: 1 on 04/16/2018 by Katerin Carmona MD, MS at [facility] Pacemaker Left: Chest [employer] 08/22/2019 [id number] / [id number] / Ring Annuloplasty 32mm Sjm Graft Cardiovascular Saddle Titanium Core Rigid - [id number] Implanted:Qty: 1 on 04/12/2018 by Doc Funes MD at [facility] SMDA N/A: Heart [employer] 04/27/2021 [id number]-[id number] / [id number] / Ring Annuloplasty 34mm Mc3 Titanium Alloy Silicone Polyester Tricuspid - [id number] Implanted:Qty: 1 on 04/12/2018 by Doc Funes MD at [facility] SMDA N/A: Heart [employer] 10/19/2021 [id number] / [id number] / Procedures Procedure Name Priority Date/Time Associated [...] EDT) TSH 1.00 0.27 - 4.20 uIU/mL [facility] Blood 10/31/2024 2:11 PM EDT 10/31/2024 2:17 PM EDT us Fahad Nolasco MD LAB BLOOD BKR ORDERABLES Final Result [address] [address] * (ABNORMAL) LFTs (hepatic panel) (10/31/2024 2:11 PM EDT) ALKALINE PHOSPHATASE 85 39 - 117 U/L [facility] TOTAL BILIRUBIN 0.8 0.0 - 1.2 mg/dL [facility] DIRECT BILIRUBIN 0.3(H) 0.0 - 0.2 mg/dL [facility] Bilirubin (Indirect) 0.5 0 - 1.5 mg/dL [facility] AST 32 0 - 37 U/L [facility] ALT 22 0 - 40 U/L [facility] TOTAL PROTEIN 7.5 6.5 - 8.0 g/dL [facility] ALBUMIN 4.4 3.9 - 4.8 g/dL [facility] GLOBULIN 3.1 1 - 4.8 g/dL [facility] A/G Ratio 1.42 1.00 - 4.80 RATIO [facility] Blood 10/31/2024 2:11 PM EDT 10/31/2024 2:17 PM EDT us Fahad Nolasco MD LAB BLOOD BKR ORDERABLES Final Result Performing Organization Address City/[facility]/ZIP Co de Phone Number [address] [address] * 25-OH vitamin D (10/31/2024 2:11 PM EDT) 25 [place] VIT D (TOTAL) 50 30 - 60 ng/mL [facility] Blood 10/31/2024 2:11 PM EDT 10/31/2024 2:17 PM EDT us Fahad Nolasco MD LAB BLOOD BKR ORDERABLES Final Result Performing Organization Address [facility] Co de Phone Number [address] [address] * (ABNORMAL) CBC (10/31/2024 2:11 PM EDT) WBC 7.95 4.00 - 11.00 K/uL [facility] RBC 3.78(L) 4.50 - 5.90 M/uL [facility] HGB 12.5(L) 13.5 - 17.5 g/dL [facility] HCT 37.3(L) 41.0 - 53.0 % [facility] PLT 201 150 - 450 K/uL [facility] MCV 98.7 80.0 - 100.0 fL [facility] MCH 33.1(H) 27.0 - 31.0 pg [facility] MCHC 33.5 32.0 - 36.0 g/dL [facility] RDW 13.0 11.5 - 14.5 % [facility] MPV 11.2 8.4 - 12.0 fL [facility] NRBC 0.00 0.00 /100 WBCs [facility] ABSOLUTE NRBC 0.00 0.00 K/uL [facility] Blood 10/31/2024 2:11 PM EDT 10/31/2024 2:17 PM EDT us Fahad Nolasco MD LAB BLOOD BKR ORDERABLES Final Result Performing Organization Address [facility] Co de Phone Number [address] [address] * (ABNORMAL) Hemoglobin A1c (10/31/2024 2:11 PM EDT) HEMOGLOBIN A1C 5.9(H) 4.3 - 5.8 % [facility] Blood 10/31/2024 2:11 PM EDT 10/31/2024 2:17 PM EDT us Fahad Nolasco MD LAB BLOOD BKR ORDERABLES Final Result Performing Organization Address [facility] Co de Phone Number [address] [address] * Vitamin B12 (10/31/2024 2:11 PM EDT) VITAMIN B12 1,046 232 - 1,245 pg/mL [facility] Blood 10/31/2024 2:11 PM EDT 10/31/2024 2:17 PM EDT us Fahad Nolasco MD LAB BLOOD BKR ORDERABLES Final Result Performing Organization Address [facility] Co de Phone Number [address] [address] * (ABNORMAL) Lipid panel (10/31/2024 2:11 PM EDT) HDL 54 mg/dL [facility] Comment: Interpretation <40 mg/dL: Low HDL cholesterol (major risk factor for CHD) Greater than or equal to 60 mg/dL: High HDL cholesterol ( negative risk factor for CHD) HDL - cholesterol is affected by a number of factors, e.g. smoking, excerise, hormones, sex and age. CHOLESTEROL 121 0 - 240 mg/dL [facility] TRIGLYCERIDES 117 30 - 160 mg/dL [facility] LDL 44(L) 50 - 129 mg/dL [facility] Comment: LDL levels in terms of risk for coronary heart disease: <100 mg/dL: Optimal 100-129 mg/dL: Near or above optimal 130-159 mg/dL: Borderline high 160-189 mg/dL: High >190 mg/dL: Very High CARDIAC RISK RATIO 2.2(L) 3.4 - 5.0 C [facility] Blood 10/31/2024 2:11 PM EDT 10/31/2024 2:17 PM EDT Fahad Nolasco MD LAB BLOOD BKR ORDERABLES Final Result [facility] [address] [place], [place] [id number] * (ABNORMAL) Basic metabolic panel (10/31/2024 2:11 PM EDT) SODIUM 136 133 - 146 mmol/L [facility] CHLORIDE 96 96 - 108 mmol/L [facility] POTASSIUM 4.6 3.3 - 5.1 mmol/L [facility] CO2 25 21 - 35 mmol/L [facility] BUN 28(H) 6 - 19 mg/dL [facility] CREATININE 1.40 0.5 - 1.5 mg/dL [facility] GLUCOSE 165(H) 70 - 99 mg/dL [facility] CALCIUM 9.0 8.4 - 10.3 mg/dL [facility] EGFR 51(L) >59 mL/min/1.7 3m2 [facility] Comment:Estimated glomerular filtration rate calculated using the CKD-EPI refit equation. ANION GAP 20 10 - 20 mmol/L [facility] Blood 10/31/2024 2:11 PM EDT 10/31/2024 2:17 PM EDT us Fahad Nolasco MD LAB BLOOD BKR ORDERABLES Final Result Performing Organization Address City/[facility]/ZIP Co de Phone Number [address] [address] * DIABETES EYE EXAM FOR RESULT ENTRY ONLY (02/01/2024 2:23 PM EST) us Historical Provider HEALTH MAINTENANCE Edited Result - Final * Hepatitis C antibody, qualitative (05/03/2023 11:17 AM EDT) HCV NON-REACTIV E NON-REACTI VE [facility] Blood 05/03/2023 11:1 7 AM EDT 05/03/2023 11:21 AM EDT us Isabel Katz PA-C LAB BLOOD BKR ORDERABLES Final Result Performing Organization Address [facility] Co de Phone Number [address] [address] from Last 3 Months or Most Recently [...] Advance Directives For more information, please contact: [phone] (9AM - 5PM [facility], Wednesday-Wednesday) Documents on File Type Date Recorded Patient Passenger Service Supervisor Expl anation Healthcare Proxy 04/13/2018 12:43 PM [...] Agents on File Name Relationship Healthcare Agent [facility] p Communication Marissa Eagle Spouse .Primary Health Care Agent (Proxy form on file) Care Teams Kettle Operator Relationship Specialty Start Date End Date Fahad Nolasco MD [address] [facility] [place] [address] [email or web address] PCP - General 07/11/18 Jose Elaine MD [address] [facility], [address] [place] [address] Shirring Machine Operator Automatic Cardiology 04/21/18 Junior Mclain MD [address] [place] [id number] Gastroenterology 12/01/19 Additional Source Comments The information contained in this document represents components of the legal health record. It is not the complete legal health record.[facility]
--- OUTSIDE RECORDS SUMMARY | 2025-01-24 15:30 | XMS_ITS | Encounter Summary ---
Author Organization [facility] Address [address] [place] [address] Phone Care Team Providers Care Business Process Lead Name Role Phone Jose Elaine MD Unavailable [phone] Fahad Nolasco MD Primary Care Provider Junior Mclain MD Unavailable [phone] Encounter Details Date Type Department Care Team (Late st Contact Info) Description 09/25/2019 Ancillary Orders [facility] [address] [place] [address] Kem Bowers MD [address] [place] [address] [email or web address] Complete heart block Social History Tobacco Use [...] 10:40 AM EST Office Visit [facility] [address], [address] [place] [address] Dillon Zazueta MD [address] [place] [address] 04/03/2025 2:00 PM EST Office Visit [facility] [address] [place] [address] Fahad Nolasco MD [address] [place] [address], [address] [place] [address] [email or web address] documented as of this encounter Visit Diagnoses Diagnosis Complete heart block Atrioventricular block, complete documented in this encounter Additional Health Concerns Infection Onset Date Last Indicated Resolved Time CoV-Risk 07/24/2021 07/24/2021 08/04/2021 1:22 AM EDT Assessment Noted Time PHQ-2 Depression Total Score: 0 07/12/19 2:17 PM EDT documented as of this encounter Care Teams Business Process Lead Relationship Specialty Start Date End Date Fahad Nolasco MD [address] [place] [address], [address] [place] [address] PCP - General 07/11/18 Jose Elaine MD [address] [place] [address], [address] [place] [address] Music Store Manager Cardiology 04/21/18 Junior Mclain MD [address] [place] [address] Gastroenterology 12/01/19 documented as of this encounter Additional Source Comments The information contained in this document represents components of the legal health record. It is not the complete legal health record.[facility]
--- OUTSIDE RECORDS SUMMARY | 2025-01-24 15:30 | XMS_ITS | Encounter Summary ---
Author Organization [facility] Address [address] [place] [address] Phone Care Team Providers Care Breaker Oiler Name Role Phone Jose Elaine MD Unavailable [phone] Fahad Nolasco MD Primary Care Provider [phone] Junior Mclain MD Unavailable [phone] Encounter Details Date Type Department Care Team (Late st Contact Info) Description 07/10/2020 Procedure Pass [facility] Non-Invasive Cardiology [address] [place], [place] [id number] Social History Tobacco Use Types Packs/Day Years [...] 10:40 AM EST Office Visit [facility] [address] [facility] 3rd Floor, [address] [place], [place] [id number] Dillon Zazueta MD [address] [place] [address] 04/03/2025 2:00 PM EST Office Visit [facility] [address] [place] [address] Fahad Nolasco MD [address] [facility], [address] [place] [address] [email or web address] documented as of this encounter Visit Diagnoses Not on filedocumented in this encounter Additional Health Concerns Infection Onset Date Last Indicated Resolved Time CoV-Risk 07/24/2021 07/24/2021 08/04/2021 1:22 AM EDT Assessment Noted Time PHQ-2 Depression Total Score: 0 07/12/19 2:17 PM EDT documented as of this encounter Care Teams Breaker Oiler Relationship Specialty Start Date End Date Fahad Nolasco MD [address] [place] [address], [address] [place] [address] PCP - General 07/11/18 Jose Elaine MD [address] [place] [address], [address] [place] [address] Applicator Sprayer Cardiology 04/21/18 Junior Mclain MD [address] [place] [address] Gastroenterology 12/01/19 documented as of this encounter Additional Source Comments The information contained in this document represents components of the legal health record. It is not the complete legal health record.[facility]
--- OUTSIDE RECORDS SUMMARY | 2025-01-24 15:30 | XMS_ITS | Encounter Summary ---
Author Organization [facility] Address [address] [place] [address] Phone Care Team Providers Care Public Address System Mechanic Name Role Phone Jose Elaine MD Unavailable [phone] Fahad Nolasco MD Primary Care Provider Junior Mclain MD Unavailable [phone] Encounter Details Date Type Department Care Team (Late st Contact Info) Description 06/10/2021 Procedure Pass [facility] Non-Invasive Cardiology [address] [place] [address] Social History Tobacco Use Types Packs/Day Years [...] 10:40 AM EST Office Visit [facility] [address] Floor, [address] [place] [address] Dillon Zazueta MD [address] [place] [address] 04/03/2025 2:00 PM EST Office Visit [facility] [address] [place] [address] Fahad Nolasco MD [address] [place] [address], [address] [place] [address] [email or web address] documented as of this encounter Visit Diagnoses Not on filedocumented in this encounter Additional Health Concerns Infection Onset Date Last Indicated Resolved Time CoV-Risk 07/24/2021 07/24/2021 08/04/2021 1:22 AM EDT Assessment Noted Time PHQ-2 Depression Total Score: 0 07/12/19 2:17 PM EDT documented as of this encounter Care Teams Public Address System Mechanic Relationship Specialty Start Date End Date Fahad Nolasco MD [address] [place] [address], [address] [place] [address] PCP - General 07/11/18 Jose Elaine MD [address] [place] [address], [address] [place] [address] Dispatcher Motor Vehicle Cardiology 04/21/18 Junior Mclain MD [address] [place] [address] Gastroenterology 12/01/19 documented as of this encounter Additional Source Comments The information contained in this document represents components of the legal health record. It is not the complete legal health record.[facility]
--- OUTSIDE RECORDS SUMMARY | 2025-01-24 15:30 | XMS_ITS | Encounter Summary ---
Author Organization [facility] Address [address] [facility] [address] [place] [address] Phone Care Team Providers Care Daily Release And Dupe Printer Name Role Phone Jose Elaine MD Unavailable [phone] Andrew Bah MD Primary Care Provider [phone] Andrew Bah MD Primary Care Provider [phone] Fahad Nolasco MD Primary Care Provider [phone] Andrew Bah MD Primary Care Provider [phone] Fahad Nolasco MD Primary Care Provider [phone] Junior Mclain MD Unavailable [phone] Encounter Details Date Type Department Care Team (Late st Contact Info) Description 12/14/2016 Procedure Pass [facility], Ct Scan - [address] [address] Social History Tobacco Use Types Packs/Day Years [...] Description 02/07/2025 10:40 AM EST Office Visit [facility] [address] Floor, [address] [place] [address] Dillon Zazueta MD [address] [place] [address] 04/03/2025 2:00 PM EST Office Visit [facility] [address] [place] [address] Fahad Nolasco MD [address] [place] [address], [address] [place] [address] [email or web address] documented as of this encounter Visit Diagnoses Not on filedocumented in this encounter Additional Health Concerns Infection Onset Date Last Indicated Resolved Time CoV-Risk 07/24/2021 07/24/2021 08/04/2021 1:22 AM EDT documented as of this encounter Care Teams Daily Release And Dupe Printer Relationship Specialty Start Date End Date Andrew Bah MD [address] [place] [address], [address] [place] [address] PCP - General Family Medicine 05/17/18 05/30/18 Andrew Bah MD [address] [place] [address], [address] [place] [address] PCP - General 06/07/18 06/29/18 Fahad Nolasco MD [address] [place] [address], [address] [place] [address] PCP - General 07/11/18 Andrew Bah MD [address] [place] [address], [address] [place] [address] PCP - General 07/05/18 07/09/18 Fahad Nolasco MD [address] [place] [address], [address] [place] [address] PCP - General Internal Medicine 07/10/18 07/10/18 Jose Elaine MD [address] [place] [address], [address] [place] [address] Mobile Developer Cardiology 04/21/18 Junior Mclain MD [address] [place] [address] Gastroenterology 12/01/19 documented as of this encounter Additional Source Comments The information contained in this document represents components of the legal health record. It is not the complete legal health record.[facility]
--- OUTSIDE RECORDS SUMMARY | 2025-01-24 15:30 | XMS_ITS | Encounter Summary ---
Author Organization [facility] Address [address] [place] [address] Phone Care Team Providers Care Parole Board Member Name Role Phone Jose Elaine MD Unavailable [phone] Fahad Nolasco MD Primary Care Provider Junior Mclain MD Unavailable [phone] Encounter Details Date Type Department Care Team (Late st Contact Info) Description 09/06/2019 Ancillary Orders [facility] Murray Non-Invasive Cardiology [address] [place] [address] Kem Bowers MD [address] [place] [address] [email or web address] Complete heart block Social History Tobacco [...] 10:40 AM EST Office Visit [facility] [address], [address] [place] [address] Dillon Zazueta MD [address] [place] [address] 04/03/2025 2:00 PM EST Office Visit [facility] [address] [place] [address] Fahad Nolasco MD [address] [facility], [address] [place] [address] [email or web address] documented as of this encounter Results * DEVICE CHECK: PPM IN-HOME INTERROGATION (09/25/2019 10:41 AM EDT) Narrative Kem Bowers MD - 09/26/2019 1:03 PM EDT Reason for appointment: Remote pacemaker interrogation HPI: Routine 3 month remote pacemaker interrogation. No device related complaints. Indication for device: CHB. Examination: Device type: Pacemaker Blockers Skiver: Medtronic Mode: AAIR-DDDR LRL/UPL: 70/120 bpm Mode [...] documented as of this encounter Care Teams Parole Board Member Relationship Specialty Start Date End Date Fahad Nolasco MD [address] [facility], [address] [place] [address] [email or web address] PCP - General 07/11/18 Jose Elaine MD [address] [facility], [address] [place] [address] Curator Medical Museum Cardiology 04/21/18 Junior Mclain MD [address] [place] [address] Gastroenterology 12/01/19 documented as of this encounter Additional Source Comments The information contained in this document represents components of the legal health record. It is not the complete legal health record.[facility]
--- OUTSIDE RECORDS SUMMARY | 2025-01-24 15:30 | XMS_ITS | Encounter Summary ---
Author Organization [facility] Address [address] [place] [address] Phone Care Team Providers Care Sheet Metal Smith Name Role Phone Jose Elaine MD Unavailable [phone] Fahad Nolasco MD Primary Care Provider Junior Mclain MD Unavailable [phone] Encounter Details Date Type Department Care Team (Late st Contact Info) Description 08/05/2020 Procedure Pass [facility] [address] [place] [address] Social History Tobacco Use Types Packs/Day Years [...] Description 02/07/2025 10:40 AM EST Office Visit [facility] [address] [facility] [address] [facility], [address] [place] [address] Dillon Zazueta MD [address] [place] [address] 04/03/2025 2:00 PM EST Office Visit [facility] 22 [place] [address] Fahad Nolasco MD [address] [place] [address], [address] [place] [address] [email or web address] documented as of this encounter Visit Diagnoses Not on filedocumented in this encounter Additional Health Concerns Infection Onset Date Last Indicated Resolved Time CoV-Risk 07/24/2021 07/24/2021 08/04/2021 1:22 AM EDT Assessment Noted Time PHQ-2 Depression Total Score: 0 07/12/19 2:17 PM EDT documented as of this encounter Care Teams Sheet Metal Smith Relationship Specialty Start Date End Date Fahad Nolasco MD [address] [place] [address], [address] [place] [address] PCP - General 07/11/18 Jose Elaine MD [address] [place] [address], [address] [place] [address] Wireless Sales Expert Cardiology 04/21/18 Junior Mclain MD [address] [place] [address] Gastroenterology 12/01/19 documented as of this encounter Additional Source Comments The information contained in this document represents components of the legal health record. It is not the complete legal health record.[facility]
--- OUTSIDE RECORDS SUMMARY | 2025-01-24 15:30 | XMS_ITS | Encounter Summary ---
Author Organization [facility] Address [address] [facility] [address] [place] [address] Phone Care Team Providers Care Corporate Communications Manager Name Role Phone Jose Elaine MD Unavailable [phone] Fahad Nolasco MD Primary Care Provider Junior Mclain MD Unavailable [phone] Encounter Details Date Type Department Care Team (Latest Contact Info) Description 11/30/2019 Transcribe Orders [facility] [address] 2nd [place] [address] Isabel Katz PA-C [address] [place] [address] [email or web address] Iron deficiency anemia, unspecified [...] Description 02/07/2025 10:40 AM EST Office Visit [facility] [address] [place] [address] 3rd Floor, [address] [place] [address] Dillon Zazueta MD [address] [place] [address] 04/03/2025 2:00 PM EST Office Visit [facility] [address] [place] [address] Fahad Nolasco MD [address] [facility], [address] [place] [address] [email or web address] documented as of this encounter Results * Vitamin B12 (11/30/2019 12:16 PM EDT) VITAMIN B12 491 232 - 1,245 pg/mL [facility] Blood 11/30/2019 12:1 6 PM EDT 11/30/2019 12:23 PM EDT us Isabel Katz PA-C LAB BLOOD BKR ORDERABLES Final Result [address] [address] * (ABNORMAL) Ferritin (11/30/2019 12:16 PM EDT) FERRITIN 19(L) 30 - 400 ug/L [facility] Blood 11/30/2019 12:1 6 PM EDT 11/30/2019 12:23 PM EDT us Isabel Katz PA-C LAB BLOOD BKR ORDERABLES Final Result [address] [address] * Folate (11/30/2019 12:16 PM EDT) FOLIC ACID 15.7 4.2 - 19.9 ng/mL [facility] Blood 11/30/2019 12:1 6 PM EDT 11/30/2019 12:23 PM EDT Isabel Katz PA-C LAB BLOOD BKR ORDERABLES Final Result [address] [address] * (ABNORMAL) Iron and iron binding capacity (11/30/2019 12:16 PM EDT) IRON 25(L) 45 - 160 ug/dL [facility] IRON BINDING CAPACITY 510(H) 228 - 428 ug/dL [facility] TRANSFERRIN SATURAT. 5(L) 20 - 55 % [facility] Blood 11/30/2019 12:1 6 PM EDT 11/30/2019 12:23 PM EDT Isabel Katz PA-C LAB BLOOD BKR ORDERABLES Final Result [address] [address] * (ABNORMAL) Comprehensive metabolic panel (11/30/2019 12:16 PM EDT) SODIUM 133 133 - 146 mmol/L [facility] POTASSIUM 4.7 3.3 - 5.1 mmol/L [facility] CHLORIDE 95(L) 96 - 108 mmol/L [facility] CO2 23 21 - 35 mmol/L [facility] BUN 13 6 - 19 mg/dL [facility] CREATININE 0.70 0.5 - 1.5 mg/dL [facility] GLUCOSE 159(H) 70 - 99 mg/dL [facility] ALBUMIN 4.2 3.9 - 4.8 g/dL [facility] TOTAL PROTEIN 6.9 6.5 - 8.0 g/dL [facility] CALCIUM 9.2 8.4 - 10.3 mg/dL [facility] ALKALINE PHOSPHATASE 72 39 - 117 U/L [facility] TOTAL BILIRUBIN 0.5 0.0 - 1.2 mg/dL [facility] AST 39(H) 0 - 37 U/L [facility] ALT 25 0 - 40 U/L [facility] GLOBULIN 2.7 1 - 4.8 g/dL [facility] EGFR 93 >59 mL/min/1.7 3m2 [facility] Comment:Estimated glomerular filtration rate calculated using the CKD-EPI equation. ANION GAP 20 10 - 20 mmol/L [facility] Blood 11/30/2019 12:1 6 PM EDT 11/30/2019 12:23 PM EDT us Isabel Katz PA-C LAB BLOOD BKR ORDERABLES Final Result [facility] [address] [place] [address] * (ABNORMAL) CBC (11/30/2019 12:16 PM EDT) WBC 5.84 4.00 - 11.00 K/uL [facility] Comment:Note Reference Range updates to all CBC and Differential results. RBC 2.83(L) 3.90 - 5.69 M/uL [facility] HGB 7.0(LL) 12.4 - 17.3 g/dL [facility] Comment: checked by repeat analysis This result has been called to PROSPER Lundberg by Madhuri Butt on 11 30 2019 at 1601, and has been read back. Note updated Reference Ranges for all CBC and Differential results. HCT 23.2(L) 37.0 - 51.0 % [facility] PLT 294 140 - 430 K/uL [facility] MCV 82.0 78.0 - 97.0 fL [facility] MCH 24.7(L) 25.0 - 33.0 pg [facility] MCHC 30.2(L) 32.0 - 36.0 g/dL [facility] RDW 14.7 11.0 - 15.0 % [facility] MPV 10.3 8.4 - 12.8 [facility] NRBC 0.00 0 /100 WBCs [facility] ABSOLUTE NRBC 0.00 0 K/uL [facility] Blood 11/30/2019 12:1 6 PM EDT 11/30/2019 12:23 PM EDT us Isabel Katz PA-C LAB BLOOD BKR ORDERABLES Final Result [address] [address] * (ABNORMAL) Immunoglobulin A (11/30/2019 12:16 PM EDT) IgA 460(H) 70 - 400 mg/dL [facility] Blood 11/30/2019 12:1 6 PM EDT 11/30/2019 12:23 PM EDT us Isabel Katz PA-C LAB BLOOD BKR ORDERABLES Final Result Performing Organization Address [facility] Co de Phone Number [address] [address] * Tissue transglutaminase IgA (11/30/2019 12:16 PM EDT) TTG IGA ANTIBODY <1.2 <4.0 (Negative) U/mL [facility] Blood 11/30/2019 12:1 6 PM EDT 11/30/2019 12:22 PM EDT Isabel Katz PA-C LAB BLOOD BKR ORDERABLES Final Result Performing Organization Address City/[facility] Co de Phone Number [facility] [address] [place] [address] documented in this encounter Visit Diagnoses Diagnosis Iron deficiency anemia, unspecified iron deficiency anemia type- Primary documented in this encounter Additional Health Concerns Infection Onset Date Last Indicated Resolved Time CoV-Risk 07/24/2021 07/24/2021 08/04/2021 1:22 AM EDT Assessment Noted Time PHQ-2 Depression Total Score: 0 07/12/19 19 2:17 PM EDT documented as of this encounter Care Teams Corporate Communications Manager Relationship Specialty Start Date End Date Fahad Nolasco MD [address] [place] [address], [address] [place] [address] PCP - General 07/11/18 Jose Elaine MD [address] [place] [address] [address] [place] [address] Rn Cardiac Cardiology 04/21/18 Junior Mclain MD [address] [place] [address] Gastroenterology 12/01/19 documented as of this encounter Additional Source Comments The information contained in this document represents components of the legal health record. It is not the complete legal health record.[facility]
--- OUTSIDE RECORDS SUMMARY | 2025-01-24 15:31 | XMS_ITS | Encounter Summary ---
Author Organization [facility] Address [address] [place] [address] Phone Care Team Providers Care Polymerization Oven Tender Name Role Phone Jose Elaine MD Unavailable [phone] Faahd Nolasco MD Primary Care Provider Junior Mclain MD Unavailable [phone] Encounter Details Date Type Department Care Team (Late st Contact Info) Description 10/21/2020 Procedure Pass [facility] Non-Invasive Cardiology [address] [place], [place] [id number] Social History Tobacco Use Types Packs/Day Years [...] 10:40 AM EST Office Visit [facility] [address] Floor, [address] [place], [place] [address] Dillon Zazueta MD [address] [place] [address] 04/03/2025 2:00 PM EST Office Visit [facility] [address] [place] [address] Fahad Nolasco MD [address] [place] [address], [address] [place] [address] [email or web address] documented as of this encounter Visit Diagnoses Not on filedocumented in this encounter Additional Health Concerns Infection Onset Date Last Indicated Resolved Time CoV-Risk 07/24/2021 07/24/2021 08/04/2021 1:22 AM EDT Assessment Noted Time PHQ-2 Depression Total Score: 0 07/12/19 2:17 PM EDT documented as of this encounter Care Teams Polymerization Oven Tender Relationship Specialty Start Date End Date Fahad Nolasco MD [address] [place] [address], [address] [place] [address] PCP - General 07/11/18 Jose Elaine MD [address] [place] [address], [address] [place] [address] [email or web address] Arc Furnace Operator Cardiology 04/21/18 Junior Mclain MD [address] [place] [address] Gastroenterology 12/01/19 documented as of this encounter Additional Source Comments The information contained in this document represents components of the legal health record. It is not the complete legal health record.[facility]
--- OUTSIDE RECORDS SUMMARY | 2025-01-24 15:31 | XMS_ITS | Encounter Summary ---
Author Organization [facility] Address [address] [facility] [address] [place] [address] Phone Care Team Providers Care Well Tender Name Role Phone Jose Elaine MD Unavailable [phone] Andrew Bah MD Primary Care Provider [phone] Andrew Bah MD Primary Care Provider [phone] Fahad Nolasco MD Primary Care Provider [phone] Andrew Bah MD Primary Care Provider + [phone] Fahad Nolasco MD Primary Care Provider [phone] Junior Mclain MD Unavailable [phone] Encounter Details Date Type Department Care Team (Late st Contact Info) Description 12/02/2017 Procedure Pass [facility] Cardiovascular And Interventional Radiology [address] [place] [address] Social History Tobacco Use Types Packs/Day Years [...] Description 02/07/2025 10:40 AM EST Office Visit [facility] [address] 3rd Floor, [address] [place] [address] [place] Zazueta MD [address] [place] [address] 04/03/2025 2:00 PM EST Office Visit [facility] [address] [place] [address] Fahad Nolasco MD [address] [place] [address], [address] [place] [address] [email or web address] documented as of this encounter Visit Diagnoses Not on filedocumented in this encounter Additional Health Concerns Infection Onset Date Last Indicated Resolved Time CoV-Risk 07/24/2021 07/24/2021 08/04/2021 1:22 AM EDT documented as of this encounter Care Teams Well Tender Relationship Specialty Start Date End Date Andrew Bah MD [address] [place] [address], [address] [place] [address] PCP - General Family Medicine 05/17/18 05/30/18 Andrew Bah MD [address] [place] [address], [address] [place] [address] PCP - General 06/07/18 06/29/18 Fahad Nolasco MD [address] [place] [address], [address] [place] [address] PCP - General 07/11/18 Andrew Bah MD [address] [place] [address], [address] [place] [address] PCP - General 07/05/18 07/09/18 Fahad Nolasco MD [address] [place] [address], [address] [place] [address] PCP - General Internal Medicine 07/10/18 07/10/18 Jose Elaine MD [address] [place] [address], [address] [place] [address] Learning Consultant Cardiology 04/21/18 Junior Mclain MD [address] [place] [address] Gastroenterology 12/01/19 documented as of this encounter Additional Source Comments The information contained in this document represents components of the legal health record. It is not the complete legal health record.[facility]
--- OUTSIDE RECORDS SUMMARY | 2025-01-24 15:31 | XMS_ITS | Encounter Summary ---
Author Organization [facility] Address [address] [place] [address] Phone Care Team Providers Care Pneumatic Tester Mechanic Name Role Phone Jose Elaine MD Unavailable [phone] Fahad Nolasco MD Primary Care Provider Junior Mclain MD Unavailable [phone] Encounter Details Date Type Department Care Team (Latest Contact Info) Description 08/10/2023 Transcribe Orders [facility] [address] 2nd [place] [address] Isabel Katz PA-C [address] [place] [address] [email or web address] Anemia, unspecified type (Primary Dx) Social History [...] Description 02/07/2025 10:40 AM EST Office Visit [facility] [address] [facility] 3rd Floor, [address] [place] [address] [place] Zazueta MD [address] [place] [address] 04/03/2025 2:00 PM EST Office Visit [facility] [address] [place] [address] Fahad Nolasco MD [address] [facility], [address] [place] [address] documented as of this encounter Results * Ferritin (08/10/2023 2:26 PM EDT) FERRITIN 89 30 - 400 ug/L [facility] Blood 08/10/2023 2:26 PM EDT 08/10/2023 2:28 PM EDT us Isabel Katz PA-C LAB BLOOD BKR ORDERABLES Final Result [facility] 30 [place] [address] * Iron and iron binding capacity (08/10/2023 2:26 PM EDT) IRON 92 45 - 160 ug/dL [facility] IRON BINDING CAPACITY 366 228 - 428 ug/dL [facility] TRANSFERRIN SATURAT. 25 20 - 55 % [facility] Blood 08/10/2023 2:26 PM EDT 08/10/2023 2:28 PM EDT us Isabel Katz PA-C LAB BLOOD BKR ORDERABLES Final Result [address] [address] * (ABNORMAL) CBC (08/10/2023 2:26 PM EDT) WBC 7.41 4.00 - 11.00 K/uL [facility] RBC 3.58(L) 3.90 - 5.69 M/uL [facility] HGB 11.0(L) 12.4 - 17.3 g/dL [facility] HCT 34.4(L) 37.0 - 51.0 % [facility] PLT 183 140 - 430 K/uL [facility] MCV 96.1 78.0 - 97.0 fL [facility] MCH 30.7 25.0 - 33.0 pg [facility] MCHC 32.0 32.0 - 36.0 g/dL [facility] RDW 12.9 11.0 - 15.0 % [facility] MPV 11.9 8.4 - 12.8 fl [facility] Blood 08/10/2023 2:26 PM EDT 08/10/2023 2:28 PM EDT us Isabel Katz PA-C LAB BLOOD BKR ORDERABLES Final Result Performing Organization Address City/[facility]/ZIP Co de Phone Number [address] [address] documented in this encounter Visit Diagnoses Diagnosis Anemia, unspecified type- Primary documented in this encounter Additional Health Concerns Assessment Noted Time PHQ-2 Depression Total Score: 0 03/18/19 24 1:10 PM EST documented as of this encounter Care Teams Pneumatic Tester Mechanic Relationship Specialty Start Date End Date Fahad Nolasco MD [address] [place] [address], [address] [place] [address] PCP - General 07/11/18 Jose Elaine MD [address] [facility], [address] [place] [address] Conference Concierge Cardiology 04/21/18 Junior Mclain MD [address] [place] [address] Gastroenterology 12/01/19 documented as of this encounter Additional Source Comments The information contained in this document represents components of the legal health record. It is not the complete legal health record.[facility]
--- OUTSIDE RECORDS SUMMARY | 2025-01-24 15:31 | XMS_ITS | Encounter Summary ---
Author Organization [facility] Address [address] [facility] [address] [place] [address] Phone Care Team Providers Care Punching Machine Operator Name Role Phone Jose Elaine MD Unavailable [phone] Fahad Nolasco MD Primary Care Provider [phone] Junior Mclain MD Unavailable [phone] Reason for Referral * MRI/CAT Scan - Closed Specialty Diagnoses / Procedures Referred By Aramis t Referred To Contact Radiology Diagnoses Anemia, unspecified type Elevated lipase Procedures CT Abdomen/Pelvis Isabel Katz PA-C Phone: tel: fax: [email or web address] Referral ID Status Reason Start Date Expiration Date Visits Re quested Visits Authorized [id number] Closed 05/06/2023 05/05/2024 1 1 Encounter Details Date Type Department Care Team (Latest Contact Info) Description 04/30/2023 Transcribe Orders Virtual Department 30 [place] [address] Isabel Katz PA-C [address] [place] [address] [email or web address] Anemia, unspecified type (Primary Dx); Abnormal digestive system diagnostic imaging; Elevated lipase Social History Tobacco Use Types Packs/Day Years Used Date Smoking Tobacco: Former Cigarettes 0.5 30 1 958 - 0503 Smokeless Tobacco: Never Alcohol Use Standard Drinks/Week [...] Description 02/07/2025 10:40 AM EST Office Visit [facility] [address] [place] [address] 3rd Floor, [address] [place] [address] [place] Zazueta MD 50 [place] [address] 04/03/2025 2:00 PM EST Office Visit [facility] [address] [place] [address] Fahad Nolasco MD [address] [facility], [address] [place] [address] [email or web address] documented as of this encounter Results * [...] clinician's provided indication for this examination in [facility]:Outside Radiology Order; anemia TECHNIQUE: Multidetector-row CT of [...] Elastography Consensus Statement. Radiology. 2020 Sep;296(2):263-274. doi: 10.1148/radiol.[id number]. Epub 2019Jul 17. PMID: [id number]. Procedure Note Marisel De La Cruz MD - 05/06/2023 US LIVER WITH ELASTOGRAPHY Referring clinician's provided indication for this examination in [facility]:Outside Radiology Order; anemia TECHNIQUE: US Limited Abdomen [...] D, Cr-Christy G, Howard G. Update to theSociety of Radiologists in Ultrasound Liver Elastography ConsensusStatement. Radiology. 2020 Sep;296(2):263-274. doi:10.1148/radiol.[id number]. Epub 2019Jul 17. PMID: [id number]. IMPRESSION: 1. Mean Liver Stiffness Value 5.48 [...] documented as of this encounter Care Teams Punching Machine Operator Relationship Specialty Start Date End Date Fahad Nolasco MD [address] [place] [address], [address] [place] [address] PCP - General 07/11/18 Jose Elaine MD [address] [facility], [address] [place] [address] [email or web address] Storm Door Maker Cardiology 04/21/18 Junior Mclain MD [address] [place] [address] [email or web address] Gastroenterology 12/01/19 documented as of this encounter Additional Source Comments The information contained in this document represents components of the legal health record. It is not the complete legal health record.[facility]
--- OUTSIDE RECORDS SUMMARY | 2025-01-24 15:31 | XMS_ITS | Encounter Summary ---
Author Organization [facility] Address [address] [place] [address] Phone Care Team Providers Care Bonderite Operator Name Role Phone Jose Elaine MD Unavailable [phone] Fahad Nolasco MD Primary Care Provider Junior Mclain MD Unavailable [phone] Encounter Details Date Type Department Care Team (Latest Contact Info) Description 08/16/2023 Transcribe Orders Virtual Department 30 [place] [address] Isabel Katz PA-C [address] [place] [address] [email or web address] Anemia, unspecified type (Primary Dx); Pancreatic calcification Social History Tobacco Use Types Packs/Day Years Used Date Smoking Tobacco: Former Cigarettes 30 1 298 - 1988 Smokeless Tobacco: Never Alcohol Use [...] Description 02/07/2025 10:40 AM EST Office Visit [facility] [address] [place] [address] 3rd Floor, [address] [place] [address] Dillon Zazueta MD [address] [place] [address] [email or web address] 04/03/2025 2:00 PM EST Office Visit [facility] [address] [place] [address] Fahad Nolasco MD [address] [place] [address], [address] [place] [address] documented as of this encounter Visit Diagnoses Diagnosis Anemia, unspecified type- Primary Pancreatic calcification documented in this encounter Additional Health Concerns Assessment Noted Time PHQ-2 Depression Total Score: 0 03/18/19 24 1:10 PM EST documented as of this encounter Care Teams Bonderite Operator Relationship Specialty Start Date End Date Fahad Nolasco MD [address] [place] [address], [address] [place] [address] PCP - General 07/11/18 Jose Elaine MD [address] [facility], [address] [place] [address] [email or web address] Cheese Tester Cardiology 04/21/18 Junior Mclain MD [address] [place] [address] [email or web address] Gastroenterology 12/01/19 documented as of this encounter Additional Source Comments The information contained in this document represents components of the legal health record. It is not the complete legal health record.[facility]
--- OUTSIDE RECORDS SUMMARY | 2025-01-24 15:31 | XMS_ITS | Encounter Summary ---
Author Organization [facility] Address [address] [facility] [address] [place] [address] Phone Care Team Providers Care Exercise Instructor Name Role Phone Jose Elaine MD Unavailable [phone] Andrew Bah MD Primary Care Provider [phone] Andrew Bah MD Primary Care Provider [phone] Fahad Nolasco MD Primary Care Provider [phone] Andrew Bah MD Primary Care Provider [phone] Fahad Nolasco MD Primary Care Provider [phone] Junior Mclain MD Unavailable [phone] Encounter Details Date Type Department Care Team (Latest Contact Info) Description 10/22/2017 Transcribe Orders [address] [place] [address] Pieter Alamo DO [address] [place] [address] Hyperlipidemia, unspecified hyperlipidemia type (Primary Dx); Essential [...] Description 02/07/2025 10:40 AM EST Office Visit [facility] [address] [facility] 3rd Floor, [address] [place] [address] Dillon Zazueta MD 50 [place] [address] [email or web address] 04/03/2025 2:00 PM EST Office Visit [facility] Primary Care [facility] [address] [place] [address] Fahad Nolasco MD [address] [facility], [address] [place] [address] [email or web address] [...] EDT) SODIUM 139 133 - 146 mmol/L [facility] POTASSIUM 5.4(H) 3.3 - 5.1 mmol/L [facility] CHLORIDE 100 96 - 108 mmol/L [facility] CO2 24 21 - 35 mmol/L [facility] BUN 18 6 - 19 mg/dL [facility] CREATININE 0.70 0.5 - 1.5 mg/dL [facility] GLUCOSE 141(H) 70 - 99 mg/dL [facility] ALBUMIN 4.4 3.9 - 4.8 g/dL [facility] TOTAL PROTEIN 7.6 6.5 - 8.0 g/dL [facility] CALCIUM 9.7 8.4 - 10.3 mg/dL [facility] ALKALINE PHOSPHATASE 75 39 - 117 U/L [facility] TOTAL BILIRUBIN 0.6 0.0 - 1.2 mg/dL [facility] AST 23 0 - 37 U/L [facility] ALT 20 0 - 40 U/L [facility] GLOBULIN 3.2 1 - 4.8 g/dL [facility] EGFR 95 >59 mL/min/1.7 3m2 [facility] Comment:If patient is black, multiply result by 1.159. Estimated glomerular filtration rate calculated using the CKD-EPI equation. ANION GAP 20 10 - 20 mmol/L [facility] Blood 10/22/2017 10:0 8 AM EDT 10/22/2017 10:10 AM EDT [facility] BLOOD BKR ORDERABLES Final Result Performing Organization Address [facility]/ZIP Co de Phone Number [address] [address] * Alanine aminotransferase (ALT) (10/22/2017 10:08 AM EDT) ALT 20 0 - 40 U/L [facility] Blood 10/22/2017 10:0 8 AM EDT 10/22/2017 10:11 AM EDT [facility] BLOOD BKR ORDERABLES Final Result Performing Organization Address [facility] Co de Phone Number [address] [address] * Aspartate aminotransferase (AST) (10/22/2017 10:08 AM EDT) AST 24 0 - 37 U/L [facility] Blood 10/22/2017 10:0 8 AM EDT 10/22/2017 10:11 AM EDT [facility] BLOOD BKR ORDERABLES Final Result Performing Organization Address [facility]/ZIP Co de Phone Number [address] [address] * (ABNORMAL) Lipid panel (10/22/2017 10:08 AM EDT) HDL 42 mg/dL [facility] Comment: Interpretation: Risk Level Males Decreased >45 mg/dL Average 40-45 mg/dL Increased <40 mg/dL CHOLESTEROL 107 0 - 240 mg/dL [facility] TRIGLYCERIDES 51 30 - 160 mg/dL [facility] LDL 55 50 - 129 mg/dL [facility] Comment: LDL levels in terms of risk for coronary heart disease: <100 mg/dL: Optimal 100-129 mg/dL: Near or above optimal 130-159 mg/dL: Borderline high 160-189 mg/dL: High >190 mg/dL: Very High CARDIAC RISK RATIO 2.5(L) 3.4 - 5.0 [facility] Blood 10/22/2017 10:0 8 AM EDT 10/22/2017 10:10 AM EDT [facility] LAB BLOOD BKR ORDERABLES Final Result Performing Organization Address City/State/[facility] Co de Phone Number [facility] [address] [place] [address] documented in this encounter Visit Diagnoses Diagnosis Hyperlipidemia, unspecified hyperlipidemia type- Primary Essential hypertension, malignant documented in this encounter Additional Health Concerns Infection Onset Date Last Indicated Resolved Time CoV-Risk 07/24/2021 07/24/2021 08/04/2021 1:22 AM EDT documented as of this encounter Care Teams Exercise Instructor Relationship Specialty Start Date End Date Andrew Bah MD [address] [place] [address], [address] [address] PCP - General Family Medicine 05/17/18 05/30/18 Andrew Bah MD [address] [place] [address], [address] [place] [address] PCP - General 06/07/18 06/29/18 Fahad Nolasco MD [address] [facility], [address] [place] [address] PCP - General 07/11/18 Andrew Bah MD [address] [place] [address], [address] [place] [address] PCP - General 07/05/18 07/09/18 Fahad Nolasco MD [address] [place] [address], [address] [place] [address] PCP - General Internal Medicine 07/10/18 07/10/18 Jose Elaine MD [address] [place] [address], [address] [place] [address] City Plant Supervisor Cardiology 04/21/18 Junior Mclain MD [address] [place] [address] Gastroenterology 12/01/19 documented as of this encounter Additional Source Comments The information contained in this document represents components of the legal health record. It is not the complete legal health record.[facility]
--- OUTSIDE RECORDS SUMMARY | 2025-01-24 15:31 | XMS_ITS | Encounter Summary ---
Author Organization [facility] Address [address] [place] [address] Phone Care Team Providers Care Charge Auditor Name Role Phone Jose Elaine MD Unavailable [phone] Fahad Nolasco MD Primary Care Provider [phone] Junior Mclain MD Unavailable [phone] Encounter Details Date Type Department Care Team (Late st Contact Info) Description 09/13/2018 Ancillary Orders [facility] [address] [place] [address] Kem Bowers MD [address] [facility] [place] [id number] [email or web address] Social History Tobacco Use Types Packs/Day Years [...] Description 02/07/2025 10:40 AM EST Office Visit [facility] [address], [address] [place], [place] [id number] Dillon Zazueta MD [address] [place] [address] 04/03/2025 2:00 PM EST Office Visit [facility] [address] [place] [address] Fahad Nolasco MD [address] [place] [address], [address] [place] [address] documented as of this encounter Visit Diagnoses Not on filedocumented in this encounter Additional Health Concerns Infection Onset Date Last Indicated Resolved Time CoV-Risk 07/24/2021 07/24/2021 08/04/2021 1:22 AM EDT Assessment Noted Time PHQ-2 Depression Total Score: 0 07/12/19 2:17 PM EDT documented as of this encounter Care Teams Charge Auditor Relationship Specialty Start Date End Date Fahad Nolasco MD [address] [place] [address], [address] [place] [address] PCP - General 07/11/18 Jose Elaine MD [address] [place] [address], [address] [place] [address] Equity Sales Assistant Cardiology 04/21/18 Junior Mclain MD [address] [place] [address] Gastroenterology 12/01/19 documented as of this encounter Additional Source Comments The information contained in this document represents components of the legal health record. It is not the complete legal health record.[facility]
--- OUTSIDE RECORDS SUMMARY | 2025-01-24 15:31 | XMS_ITS | Encounter Summary ---
Author Organization [facility] Address [address] [place] [address] Phone Care Team Providers Care Relationship Specialist Name Role Phone Jose Elaine MD Unavailable [phone] Fahad Nloasco MD Primary Care Provider [phone] Junior Mclain MD Unavailable [phone] Encounter Details Date Type Department Care Team (Late st Contact Info) Description 12/03/2019 Procedure Pass [facility] Endoscopy Admitting Dept Virtual Department [address] [place] [address] Social History Tobacco Use Types Packs/Day Years [...] Description 02/07/2025 10:40 AM EST Office Visit [facility] [address] [facility] 3rd Floor, [address] [place] [address] [place] Zazueta MD 50 [place] [address] 04/03/2025 2:00 PM EST Office Visit [facility] 22 [place] [address] Fahad Nolasco MD [address] [place] [address], [address] [place] [address] [email or web address] documented as of this encounter Visit Diagnoses Not on filedocumented in this encounter Additional Health Concerns Infection Onset Date Last Indicated Resolved Time CoV-Risk 07/24/2021 07/24/2021 08/04/2021 1:22 AM EDT Assessment Noted Time PHQ-2 Depression Total Score: 0 07/12/19 2:17 PM EDT documented as of this encounter Care Teams Relationship Specialist Relationship Specialty Start Date End Date Fahad Nolasco MD [address] [place] [address], [address] [place] [address] PCP - General 07/11/18 Jose Elaine MD [address] [place] [address], [address] [place] [address] Chick Grader Cardiology 04/21/18 Junior Mclain MD [address] [place] [address] Gastroenterology 12/01/19 documented as of this encounter Additional Source Comments The information contained in this document represents components of the legal health record. It is not the complete legal health record.[facility]
--- OUTSIDE RECORDS SUMMARY | 2025-01-24 15:31 | XMS_ITS | Encounter Summary ---
Author Organization [facility] Address [address] [facility] [address] [place] [address] Phone Care Team Providers Care Manager Infrastructure Name Role Phone Jose Elaine MD Unavailable [phone] Andrew Bah MD Primary Care Provider [phone] Andrew Bah MD Primary Care Provider [phone] Fahad Nolasco MD Primary Care Provider [phone] Andrew Bah MD Primary Care Provider + [phone] Fahad Nolasco MD Primary Care Provider [phone] Junior Mclain MD Unavailable [phone] Encounter Details Date Type Department Care Team (Latest Contact Info) Description 03/23/2017 Transcribe Orders [facility] [address] [place] [address] Pieter Alamo DO [address] [place] [address] Essential hypertension, benign (Primary Dx); Uncontrolled type [...] Description 02/07/2025 10:40 AM EST Office Visit [facility] [address] [facility] 3rd Floor, [address] [place] [address] Dillon Zazueta MD [address] [place] [address] 04/03/2025 2:00 PM EST Office Visit [facility] [address] [place] [address] Fahad Nolasco MD [address] [facility], [address] [place] [address] [email or web address] documented as of this encounter Results * Microalbumin/creatinine ratio, random urine (10/22/2017 10:08 AM EDT) URINE MICROALBUMIN 0.8 0 - 2.3 mg/dL [facility] URINE CREATININE 52 mg/dL [facility] MICROALB/CRE RATIO NOT CALCULATED 0 - 20 mg/g Cre [facility] Comment:due to Microalbumin <1.2 Urine (Urine) 10/22/2017 10: 08 AM EDT 10/22/2017 10:11 AM EDT us Pieter Alamo DO LAB URINE ORDERABLES Final Resu lt [facility] [address] [place] [address] * (ABNORMAL) 25-OH vitamin D (03/23/2017 3:01 PM EST) 25 [place] VIT D (TOTAL) 27(L) 30 - 1,000 ng/mL [facility] Blood 03/23/2017 3:01 PM EST 03/23/2017 3:03 PM EST us Pieter Alamo DO LAB BLOOD BKR ORDERABLES Final Result [facility] [address] [place] [address] * (ABNORMAL) CBC and differential (03/23/2017 3:01 PM EST) WBC 8.50 3.40 - 11.20 K/uL [facility] RBC 3.86(L) 4.50 - 5.50 M/uL [facility] HGB 10.3(L) 13.0 - 17.0 g/dL [facility] HCT 32.7(L) 40.0 - 51.0 % [facility] PLT 179 130 - 400 K/uL [facility] MCV 84.7 79.0 - 98.0 fL [facility] MCH 26.7(L) 27.0 - 34.8 pg [facility] MCHC 31.5 31.5 - 36.0 g/dL [facility] RDW 17.7(H) 10.8 - 14.6 % [facility] MPV 11.7 9.4 - 12.4 fl [facility] NRBC 0.00 /100 WBCs [facility] ABSOLUTE NRBC 0.00 K/uL [facility] DIFF METHOD Auto [facility] NEUTS 61.4 45.30 - 77.70 % [facility] LYMPHS 26.8 12.30 - 39.70 % [facility] MONOS 9.6 4.10 - 12.80 % [facility] EOS 1.6 0 - 7.2 % [facility] BASOS 0.5 0 - 2.80 % [facility] Granulocytes, immature (%) 0.1 0.0 - 0.9 % [facility] ABSOLUTE NEUTS 5.21 1.40 - 7.70 K/uL [facility] ABSOLUTE LYMPHS 2.28 0.60 - 3.20 K/uL [facility] ABSOLUTE MONOS 0.82(H) 0.11 - 0.59 K/uL [facility] ABSOLUTE EOS 0.14 0.01 - 0.50 K/uL [facility] ABSOLUTE BASOS 0.04 0.00 - 0.08 K/uL [facility] Granulocytes, immature 0.01 0.00 - 0.05 K/uL [facility] Blood 03/23/2017 3:01 PM EST 03/23/2017 3:03 PM EST [facility] BLOOD BKR ORDERABLES Final Result [address] [address] * (ABNORMAL) Lipid panel (03/23/2017 3:01 PM EST) HDL 39 mg/dL [facility] Comment: Interpretation: Risk Level Males Decreased >45 mg/dL Average 40-45 mg/dL Increased <40 mg/dL CHOLESTEROL 111 0 - 240 mg/dL [facility] TRIGLYCERIDES 61 30 - 160 mg/dL [facility] LDL 60 50 - 129 mg/dL [facility] Comment: LDL levels in terms of risk for coronary heart disease: <100 mg/dL: Optimal 100-129 mg/dL: Near or above optimal 130-159 mg/dL: Borderline high 160-189 mg/dL: High >190 mg/dL: Very High CARDIAC RISK RATIO 2.8(L) 3.4 - 5.0 C [facility] Blood 03/23/2017 3:01 PM EST 03/23/2017 3:03 PM EST [facility] BLOOD BKR ORDERABLES Final Result [address] [address] * (ABNORMAL) Hemoglobin A1c (03/23/2017 3:01 PM EST) HEMOGLOBIN A1C 6.3(H) 4.3 - 5.8 % [facility] Blood 03/23/2017 3:01 PM EST 03/23/2017 3:03 PM EST [facility] BLOOD BKR ORDERABLES Final Result Performing Organization Address City/[facility]/ZIP Co de Phone Number [address] [address] * Comprehensive metabolic panel (03/23/2017 3:01 PM EST) SODIUM 135 133 - 146 mmol/L [facility] POTASSIUM 4.7 3.3 - 5.1 mmol/L [facility] CHLORIDE 98 96 - 108 mmol/L [facility] CO2 27 21 - 35 mmol/L [facility] BUN 15 6 - 19 mg/dL [facility] CREATININE 0.60 0.5 - 1.5 mg/dL [facility] GLUCOSE 90 70 - 99 mg/dL [facility] ALBUMIN 4.1 3.9 - 4.8 g/dL [facility] TOTAL PROTEIN 7.0 6.5 - 8.0 g/dL [facility] CALCIUM 8.8 8.4 - 10.3 mg/dL [facility] ALKALINE PHOSPHATASE 66 39 - 117 U/L [facility] TOTAL BILIRUBIN 0.5 0 - 1.2 mg/dL [facility] AST 26 0 - 37 U/L [facility] ALT 24 0 - 40 U/L [facility] GLOBULIN 2.9 1 - 4.8 g/dL [facility] EGFR >60 mL/min/1.7 3m2 [facility] Comment:Abnormal if <60. If patient is -Georgian, multiply the result by 1.21. 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, without long-term current use of insulin Vitamin D insufficiency documented in this encounter Additional Health Concerns Infection Onset Date Last Indicated Resolved Time CoV-Risk 07/24/2021 07/24/2021 08/04/2021 1:22 AM EDT documented as of this encounter Care Teams Manager Infrastructure Relationship Specialty Start Date End Date Andrew Bah MD [address] [place] [address], [address] [place] [address] [email or web address] PCP - General Family Medicine 05/17/18 05/30/18 Andrew Bah MD [address] [place] [address], [address] [place] [address] PCP - General 06/07/18 06/29/18 Fahad Nolasco MD [address] [place] [address], [address] [place] [address] PCP - General 07/11/18 Andrew Bah MD [address] [place] [address], [address] [place] [address] PCP - General 07/05/18 07/09/18 Fahad Nolasco MD [address] [place] [address], [address] [place] [address] PCP - General Internal Medicine 07/10/18 07/10/18 Jose Elaine MD [address] [place] [address], [address] [place] [address] Junior Architect Cardiology 04/21/18 Junior Mclain MD [address] [place] [address] Gastroenterology 12/01/19 documented as of this encounter Additional Source Comments The information contained in this document represents components of the legal health record. It is not the complete legal health record.[facility]
--- OUTSIDE RECORDS SUMMARY | 2025-01-24 15:31 | XMS_ITS | Encounter Summary ---
Author Organization [facility] Address [address] [place] [address] Phone Care Team Providers Care Fibreglass Gun Hand Name Role Phone Jose Elaine MD Unavailable [phone] Fahad Nolasco MD Primary Care Provider [phone] Junior Mclain MD Unavailable [phone] Encounter Details Date Type Department Care Team (Late st Contact Info) Description 05/06/2023 Procedure Pass [facility] Scan - [facility] [address] [place] [address] Social History Tobacco Use Types Packs/Day Years [...] Description 02/07/2025 10:40 AM EST Office Visit [facility] [address] [place] [address] 3rd Floor, [address] [place] [address] Dillon Zazueta MD [address] [place] [address] 04/03/2025 2:00 PM EST Office Visit [facility] [address] [place] [address] Fahad Nolasco MD [address] [place] [address], [address] [place] [address] documented as of this encounter Visit Diagnoses Not on filedocumented in this encounter Additional Health Concerns Assessment Noted Time PHQ-2 Depression Total Score: 0 03/18/19 24 1:10 PM EST documented as of this encounter Care Teams Fibreglass Gun Hand Relationship Specialty Start Date End Date Fahad Nolasco MD [address] [place] [address], [address] [place] [address] PCP - General 07/11/18 Jose Elaine MD [address] [place] [address], [address] [place] [address] Torts Law Professor Cardiology 04/21/18 Junior Mclain MD [address] [place] [address] [email or web address] Gastroenterology 12/01/19 documented as of this encounter Additional Source Comments The information contained in this document represents components of the legal health record. It is not the complete legal health record.[facility]
--- OUTSIDE RECORDS SUMMARY | 2025-01-24 15:31 | XMS_ITS | Encounter Summary ---
Author Organization [facility] Address [address] [place] [address] Phone Care Team Providers Care Budget Coordinator Name Role Phone Jose Elaine MD Unavailable [phone] Fahad Nolasco MD Primary Care Provider Junior Mclain MD Unavailable Encounter Details Date Type Department Care Team (Late st Contact Info) Description 09/13/2018 Ancillary Orders [facility] Non-Invasive Cardiology [address] [place] [address] Kem Bowers MD [address] [place] [address] [email or web address] (complete heart block) Social History Tobacco Use Types Packs/Day Years Used Date Smoking Tobacco: Former Cigarettes Q uit: 1987 Smokeless Tobacco: Former Alcohol Use Standard Drinks/Week [...] 10:40 AM EST Office Visit [facility] [address] 3rd Floor, [address] [place] [address] Dillon Zazueta MD [address] [place] [address] 04/03/2025 2:00 PM EST Office Visit [facility] [address] [place] [address] Fahad Nolasco MD [address] [place] [address], [address] [place] [address] [email or web address] documented as of this encounter Visit Diagnoses Diagnosis CHB (complete heart block) Atrioventricular block, complete documented in this encounter Additional Health Concerns Infection Onset Date Last Indicated Resolved Time CoV-Risk 07/24/2021 07/24/2021 08/04/2021 1:22 AM EDT Assessment Noted Time PHQ-2 Depression Total Score: 0 07/12/19 2:17 PM EDT documented as of this encounter Care Teams Budget Coordinator Relationship Specialty Start Date End Date Fahad Nolasco MD [address] [place] [address], [address] [place] [address] PCP - General 07/11/18 Jose Elaine MD [address] [place] [address], [address] [place] [address] Cda Teacher Cardiology 04/21/18 Junior Mclain MD [address] [place] [address] Gastroenterology 12/01/19 documented as of this encounter Additional Source Comments The information contained in this document represents components of the legal health record. It is not the complete legal health record.[facility]
--- OUTSIDE RECORDS SUMMARY | 2025-01-24 15:31 | XMS_ITS | Encounter Summary ---
Author Organization [facility] Address [address] [place] [address] Phone Care Team Providers Care Pediatric Oncologist Name Role Phone Jose Elaine MD Unavailable [phone] Fahad Nolasco MD Primary Care Provider Junior Mclain MD Unavailable [phone] Encounter Details Date Type Department Care Team (Latest Contact Info) Description 10/21/2020 Ancillary Orders [facility] [address] 3rd Floor, [address] [place], [place] [id number] Ayala Morfin MD [address] [place] [phone] [email or web address] Complete heart block Social History Tobacco Use [...] Description 02/07/2025 10:40 AM EST Office Visit [facility] [address] 3rd Floor, [address] [place] [address] Dillon Zazueta MD [address] [place] [address] 04/03/2025 2:00 PM EST Office Visit [facility] [address] [place] [address] Fahad Nolasco MD [address] [place] [address], [address] [place] [address] [email or web address] documented as of this encounter Visit Diagnoses Diagnosis Complete heart block Atrioventricular block, complete documented in this encounter Additional Health Concerns Infection Onset Date Last Indicated Resolved Time CoV-Risk 07/24/2021 07/24/2021 08/04/2021 1:22 AM EDT Assessment Noted Time PHQ-2 Depression Total Score: 0 07/12/19 2:17 PM EDT documented as of this encounter Care Teams Pediatric Oncologist Relationship Specialty Start Date End Date Fahad Nolasco MD [address] [place] [address], [address] [place] [address] PCP - General 07/11/18 Jose Elaien MD [address] [place] [address], [address] [place] [address] Food And Beverage Manager Cardiology 04/21/18 Junior Mclain MD [address] [place] [address] Gastroenterology 12/01/19 documented as of this encounter Additional Source Comments The information contained in this document represents components of the legal health record. It is not the complete legal health record.[facility]
--- OUTSIDE RECORDS SUMMARY | 2025-01-24 15:31 | XMS_ITS | Encounter Summary ---
Author Organization [facility] Address [address] [place] [address] Phone Care Team Providers Care Uptwist Spinner Name Role Phone Jose Elaine MD Unavailable [phone] Andrew Bah MD Primary Care Provider [phone] Andrew Bah MD Primary Care Provider [phone] Fahad Nolasco MD Primary Care Provider [phone] Andrew Bah MD Primary Care Provider [phone] Fahad Nolasco MD Primary Care Provider [phone] Junior Mclain MD Unavailable [phone] Encounter Details Date Type Department Care Team (Latest Contact Info) Description 04/14/2018 Transcribe Orders [facility] [address] [place] [address] Sadaf [address] [place] [address] [email or web address] Cardiac arrhythmia, unspecified cardiac arrhythmia type (Primary [...] Description 02/07/2025 10:40 AM EST Office Visit [facility] [address] [facility] 3rd Floor, [address] [place] [address] Dillon Zazueta MD [address] [place] [address] 04/03/2025 2:00 PM EST Office Visit [facility] [address] [place] [address] Fahad Nolasco MD [address] [facility], [address] [place] [address] documented as of this encounter Procedures Procedure [...] QTC Interval 411 ms MUSE_B[facility] R [place] 73 degrees MUSE_BWH T [place] 34 degrees MUSE_BWH 04/14/2018 5:47 AM EST [...] documented as of this encounter Care Teams Uptwist Spinner Relationship Specialty Start Date End Date Andrew Bah MD [address] [place] [address], [address] [place] [address] PCP - General Family Medicine 05/17/18 05/30/18 Andrew Bah MD [address] [place] [address], [address] [place] [address] PCP - General 06/07/18 06/29/18 Fahad Nolasco MD [address] [place] [address], [address] [place] [address] PCP - General 07/11/18 Andrew Bah MD [address] [place] [address], [address] [place] [address] PCP - General 07/05/18 07/09/18 Fahad Nolasco MD [address] [place] [address], [address] [place] [address] PCP - General Internal Medicine 07/10/18 07/10/18 Jose Elaine MD [address] [place] [address], [facility] [address] [place] [address] [email or web address] Industrial Maintenance Technician Cardiology 04/21/18 Junior Mclain MD [address] [place] [address] [email or web address] Gastroenterology 12/01/19 documented as of this encounter Additional Source Comments The information contained in this document represents components of the legal health record. It is not the complete legal health record.[facility]
--- OUTSIDE RECORDS SUMMARY | 2025-01-24 15:31 | XMS_ITS | Encounter Summary ---
Author Organization [facility] Address [address] [place] [address] Phone Care Team Providers Care Research And Insights Executive Name Role Phone Jose Elaine MD Unavailable [phone] Andrew Bah MD Primary Care Provider [phone] Andrew Bah MD Primary Care Provider [phone] Fahad Nolasco MD Primary Care Provider [phone] Andrew Bah MD Primary Care Provider [phone] Fahad Nolasco MD Primary Care Provider [phone] Junior Mclain MD Unavailable [phone] Encounter Details Date Type Department Care Team (Late st Contact Info) Description 04/18/2018 Procedure Pass [facility] Electrophysiology [facility] [address] [place] [address] Social History Tobacco Use Types Packs/Day Years [...] Visit [facility] [address] 3rd Floor, [address] [place] [address] Dillon Zazueta MD 50 [place] [address] 04/03/2025 2:00 PM EST Office Visit [facility] [address] [place] [address] Fahad Nolasco MD [address] [place] [address], [address] [place] [address] documented as of this encounter Visit Diagnoses Not on filedocumented in this encounter Additional Health Concerns Infection Onset Date Last Indicated Resolved Time CoV-Risk 07/24/2021 07/24/2021 08/04/2021 1:22 AM EDT Assessment Noted Time PHQ-2 Depression Total Score: 0 03/17/19 12:19 PM EST documented as of this encounter Care Teams Research And Insights Executive Relationship Specialty Start Date End Date Andrew Bah MD [address] [place] [address], [address] [place] [address] PCP - General Family Medicine 05/17/18 05/30/18 Andrew Bah MD [address] [place] [address], [address] [place] [address] PCP - General 06/07/18 06/29/18 Fahad Nolasco MD [address] [place] [address], [address] [place] [address] PCP - General 07/11/18 Andrew Bah MD [address] [facility], [address] [place] [address] PCP - General 07/05/18 07/09/18 Fahad Nolasco MD [address] [place] [address], [address] [place] [address] PCP - General Internal Medicine 07/10/18 07/10/18 Jose Elaine MD [address] [place] [address], [address] [place] [address] Metal Roofing Mechanic Cardiology 04/21/18 Junior Mclain MD [address] [place] [address] Gastroenterology 12/01/19 documented as of this encounter Additional Source Comments The information contained in this document represents components of the legal health record. It is not the complete legal health record.[facility]
--- OUTSIDE RECORDS SUMMARY | 2025-01-24 15:31 | XMS_ITS | Encounter Summary ---
Author Organization [facility] Address [address] [place] [address] Phone Care Team Providers Care Installations Inspector Name Role Phone Jose Elaine MD Unavailable [phone] Fahad Nolasco MD Primary Care Provider [phone] Junior Mclain MD Unavailable [phone] Encounter Details Date Type Department Care Team (Late st Contact Info) Description 08/30/2018 Prep for Surgery [facility] [address] 3rd Floor, [address] [place], [place] [id number] Jose Elaine MD [address] [facility], [address] [place], [place] [id number] [email or web address] Social History Tobacco Use Types Packs/Day Years [...] Description 02/07/2025 10:40 AM EST Office Visit [facility] [address] 3rd Floor, [address] [place] [address] Dillon Zazueta MD [address] [place] [address] 04/03/2025 2:00 PM EST Office Visit [facility] [address] [place] [address] Fahad Nolasco MD [address] [place] [address], [address] [place] [address] documented as of this encounter Visit Diagnoses Not on filedocumented in this encounter Additional Health Concerns Infection Onset Date Last Indicated Resolved Time CoV-Risk 07/24/2021 07/24/2021 08/04/2021 1:22 AM EDT Assessment Noted Time PHQ-2 Depression Total Score: 0 07/12/19 2:17 PM EDT documented as of this encounter Care Teams Installations Inspector Relationship Specialty Start Date End Date Fahad Nolasco MD [address] [place] [address], [address] [place] [address] PCP - General 07/11/18 Jose Elaine MD [address] [place] [address], [address] [place] [address] Fuel Storage Technician Cardiology 04/21/18 Junior Mclain MD [address] [place] [address] Gastroenterology 12/01/19 documented as of this encounter Additional Source Comments The information contained in this document represents components of the legal health record. It is not the complete legal health record.[facility]
--- OUTSIDE RECORDS SUMMARY | 2025-01-24 15:31 | XMS_ITS | Encounter Summary ---
Author Organization [facility] Address [address] [facility] [address] [place] [address] Phone Care Team Providers Care Batch Room Technician Name Role Phone Jose Elaine MD Unavailable [phone] Andrew Bah MD Primary Care Provider [phone] Andrew Bah MD Primary Care Provider [phone] Fahad Nolasco MD Primary Care Provider [phone] Andrew Bah MD Primary Care Provider [phone] Fahad Nolasco MD Primary Care Provider [phone] Junior Mclain MD Unavailable [phone] Encounter Details Date Type Department Care Team (Late st Contact Info) Description 04/16/2018 Procedure Pass [facility] Periop [address] [place] [address] Social History Tobacco Use Types Packs/Day Years [...] 02/07/2025 10:40 AM EST Office Visit [facility] [address] Floor, [address] [place] [address] Dillon Zazueta MD [address] [place] [address] 04/03/2025 2:00 PM EST Office Visit [facility] [address] [place] [address] Fahad Nolasco MD [address] [place] [address], [address] [place] [address] documented as of this encounter Visit Diagnoses Not on filedocumented in this encounter Additional Health Concerns Infection Onset Date Last Indicated Resolved Time CoV-Risk 07/24/2021 07/24/2021 08/04/2021 1:22 AM EDT Assessment Noted Time PHQ-2 Depression Total Score: 0 03/17/19 12:19 PM EST documented as of this encounter Care Teams Batch Room Technician Relationship Specialty Start Date End Date Andrew Bah MD [address] [place] [address], [address] [place] [address] PCP - General Family Medicine 05/17/18 05/30/18 Andrew Bah MD [address] [place] [address], [address] [place] [address] PCP - General 06/07/18 06/29/18 Fahad Nolasco MD [address] [place] [address], [address] [place] [address] PCP - General 07/11/18 Andrew Bah MD [address] [place] [address], [address] [place] [address] PCP - General 07/05/18 07/09/18 Fahad Nolasco MD [address] [place] [address], [address] [place] [address] PCP - General Internal Medicine 07/10/18 07/10/18 Jose Elaine MD [address] [place] [address], [address] [place] [address] Pig Lead Melter Helper Cardiology 04/21/18 Junior Mclain MD [address] [place] [address] Gastroenterology 12/01/19 documented as of this encounter Additional Source Comments The information contained in this document represents components of the legal health record. It is not the complete legal health record.[facility]
--- OUTSIDE RECORDS SUMMARY | 2025-01-24 15:31 | XMS_ITS | Encounter Summary ---
Author Organization [facility] Address [address] [place] [address] Phone Care Team Providers Care Lap Cutter Truer Operator Name Role Phone Jose Elaine MD Unavailable [phone] Fahad Nolasco MD Primary Care Provider Junior Mclain MD Unavailable [phone] Encounter Details Date Type Department Care Team (Late st Contact Info) Description 07/31/2020 Procedure Pass [facility] [facility] Non-Invasive Cardiology [address] [place] [address] Social History Tobacco Use Types Packs/Day Years [...] 10:40 AM EST Office Visit [facility] [address] Floor, [address] [place] [address] Dillon Zazueta MD [address] [place] [address] 04/03/2025 2:00 PM EST Office Visit [facility] [address] [place] [address] Fahad Nolasco MD [address] [place] [address], [address] [place] [address] [email or web address] documented as of this encounter Visit Diagnoses Not on filedocumented in this encounter Additional Health Concerns Infection Onset Date Last Indicated Resolved Time CoV-Risk 07/24/2021 07/24/2021 08/04/2021 1:22 AM EDT Assessment Noted Time PHQ-2 Depression Total Score: 0 07/12/19 2:17 PM EDT documented as of this encounter Care Teams Lap Cutter Truer Operator Relationship Specialty Start Date End Date Fahad Nolasco MD [address] [place] [address], [address] [place] [address] PCP - General 07/11/18 Jose Elaine MD [address] [place] [address], [address] [place] [address] Supervisor [employer] Cardiology 04/21/18 Junior Mclain MD [address] [place] [address] Gastroenterology 12/01/19 documented as of this encounter Additional Source Comments The information contained in this document represents components of the legal health record. It is not the complete legal health record.[facility]
--- OUTSIDE RECORDS SUMMARY | 2025-01-24 15:31 | XMS_ITS | Encounter Summary ---
Author Organization [facility] Address [address] [place] [address] Phone Care Team Providers Care Product Specialist Name Role Phone Jose Elaine MD Unavailable [phone] Fahad Nolasco MD Primary Care Provider [phone] Junior Mclain MD Unavailable [phone] Encounter Details Date Type Department Care Team (Late st Contact Info) Description 11/10/2022 Procedure Pass [facility] Non-Invasive Cardiology [address] [place] [address] Social History Tobacco Use Types Packs/Day Years [...] Description 02/07/2025 10:40 AM EST Office Visit [facility] [address] [facility] 3rd Floor, [address] [place] [address] Dillon Zazueta MD [address] [place] [address] 04/03/2025 2:00 PM EST Office Visit [facility] [address] [place] [address] Fahad Nolasco MD [address] [place] [address], [address] [place] [address] documented as of this encounter Visit Diagnoses Not on filedocumented in this encounter Additional Health Concerns Assessment Noted Time PHQ-2 Depression Total Score: 0 07/12/19 19 2:17 PM EDT documented as of this encounter Care Teams Product Specialist Relationship Specialty Start Date End Date Fahad Nolasco MD [address] [facility], [address] [place] [address] PCP - General 07/11/18 Jose Elaine MD [address] [place] [address], [address] [place] [address] Gas Substation Operator Cardiology 04/21/18 Junior Mclain MD [address] [place] [address] Gastroenterology 12/01/19 documented as of this encounter Additional Source Comments The information contained in this document represents components of the legal health record. It is not the complete legal health record.[facility]
--- OUTSIDE RECORDS SUMMARY | 2025-01-24 15:31 | XMS_ITS | Encounter Summary ---
Author Organization [facility] Address [address] [place] [address] Phone Care Team Providers Care Coremaker Floor Name Role Phone Jose Elaine MD Unavailable [phone] Fahad Nolasco MD Primary Care Provider [phone] Junior Mclain MD Unavailable [phone] Encounter Details Date Type Department Care Team (Late st Contact Info) Description 01/11/2020 Procedure Pass [facility] Admitting Dept Virtual Department [address] [place] [address] Social History Tobacco Use Types Packs/Day Years [...] Description 02/07/2025 10:40 AM EST Office Visit [facility] [address] [place] [address] 3rd Floor, [address] [place] [address] Dillon Zazueta MD [address] [place] [address] 04/03/2025 2:00 PM EST Office Visit [facility] [address] [place] [address] Fahad Nolasco MD [address] [place] [address], [address] [place] [address] [email or web address] documented as of this encounter Visit Diagnoses Not on filedocumented in this encounter Additional Health Concerns Infection Onset Date Last Indicated Resolved Time CoV-Risk 07/24/2021 07/24/2021 08/04/2021 1:22 AM EDT Assessment Noted Time PHQ-2 Depression Total Score: 0 07/12/19 2:17 PM EDT documented as of this encounter Care Teams Coremaker Floor Relationship Specialty Start Date End Date Fahad Nolasco MD [address] [place] [address], [address] [place] [address] PCP - General 07/11/18 Jose Elaine MD [address] [place] [address], [address] [place] [address] Restaurant Floor Manager Cardiology 04/21/18 Junior Mclain MD [address] [place] [address] Gastroenterology 12/01/19 documented as of this encounter Additional Source Comments The information contained in this document represents components of the legal health record. It is not the complete legal health record.[facility]
--- OUTSIDE RECORDS SUMMARY | 2025-01-24 15:31 | XMS_ITS | Encounter Summary ---
Author Organization [facility] Address [address] [place] [address] Phone Care Team Providers Care Streetcar Motorman Name Role Phone Jose Elaine MD Unavailable [phone] Fahad Nolasco MD Primary Care Provider [phone] Junior Mclain MD Unavailable [phone] Encounter Details Date Type Department Care Team (Late st Contact Info) Description 10/21/2020 Procedure Pass [facility] Non-In[facility] [address] [place] [address] Social History Tobacco Use Types Packs/Day Years [...] 10:40 AM EST Office Visit [facility] [address], [address] [place] [address] Dillon Zazueta MD [address] [place] [address] 04/03/2025 2:00 PM EST Office Visit [facility] [address] [place] [address] Fahad Nolasco MD [address] [place] [address], [address] [place] [address] [email or web address] documented as of this encounter Visit Diagnoses Not on filedocumented in this encounter Additional Health Concerns Infection Onset Date Last Indicated Resolved Time CoV-Risk 07/24/2021 07/24/2021 08/04/2021 1:22 AM EDT Assessment Noted Time PHQ-2 Depression Total Score: 0 07/12/19 2:17 PM EDT documented as of this encounter Care Teams Streetcar Motorman Relationship Specialty Start Date End Date Fahad Nolasco MD [address] [place] [address], [address] [place] [address] PCP - General 07/11/18 Jose Elaine MD [address] [place] [address], [address] [place] [address] Social Services Manager Cardiology 04/21/18 Junior Mclain MD [address] [place] [address] Gastroenterology 12/01/19 documented as of this encounter Additional Source Comments The information contained in this document represents components of the legal health record. It is not the complete legal health record.[facility]
--- OUTSIDE RECORDS SUMMARY | 2025-01-24 15:31 | XMS_ITS | Encounter Summary ---
Author Organization [facility] Address [address] [facility] [address] [place] [address] Phone Care Team Providers Care Hemodialysis Charge Nurse Name Role Phone Jose Elaine MD Unavailable [phone] Andrew Bah MD Primary Care Provider [phone] Andrew Bah MD Primary Care Provider [phone] Fahad Nolasco MD Primary Care Provider [phone] Andrew Bah MD Primary Care Provider [phone] Fahad Nolasco MD Primary Care Provider [phone] Junior Mclain MD Unavailable [phone] Encounter Details Date Type Department Care Team (Late st Contact Info) Description 04/12/2018 Procedure Pass [facility] Periop [address] [place] [address] Social History Tobacco Use Types Packs/Day Years [...] 02/07/2025 10:40 AM EST Office Visit [facility] [address], [address] [place] [address] Dillon Zazueta MD [address] [place] [address] 04/03/2025 2:00 PM EST Office Visit [facility] [address] [place] [address] Fahad Nolasco MD [address] [place] [address], [address] [place] [address] documented as of this encounter Visit Diagnoses Not on filedocumented in this encounter Additional Health Concerns Infection Onset Date Last Indicated Resolved Time CoV-Risk 07/24/2021 07/24/2021 08/04/2021 1:22 AM EDT Assessment Noted Time PHQ-2 Depression Total Score: 0 03/17/19 12:19 PM EST documented as of this encounter Care Teams Hemodialysis Charge Nurse Relationship Specialty Start Date End Date Andrew Bah MD [address] [place] [address], [address] [place] [address] PCP - General Family Medicine 05/17/18 05/30/18 Andrew Bah MD [address] [place] [address], [address] [place] [address] PCP - General 06/07/18 06/29/18 Fahad Nolasco MD [address] [place] [address], [address] [place] [address] PCP - General 07/11/18 Andrew Bah MD [address] [place] [address], [address] [place] [address] PCP - General 07/05/18 07/09/18 Fahad Nolasco MD [address] [place] [address], [address] [place] [address] PCP - General Internal Medicine 07/10/18 07/10/18 Jose Elaine MD [address] [place] [address], [address] [place] [address] Group Fitness Manager Cardiology 04/21/18 Junior Mclain MD [address] [place] [address] Gastroenterology 12/01/19 documented as of this encounter Additional Source Comments The information contained in this document represents components of the legal health record. It is not the complete legal health record.[facility]
== END 2025-01-24 11:59 | disposition home or self-care (01) ==
LOC: HO.ACS 11:39
PROVIDERS: PCP Internal Medicine; Visit Provider Internal Medicine Medical Oncology
DX: Z79.01 Long term (current) use of anticoagulants (principal)

== ENCOUNTER → 2025-01-24 11:39 | Outpatient (BNVA) | payer MEDICARE, SELFPAY | PROVIDERS: PCP Internal Medicine; Visit Provider Internal Medicine Medical Oncology | DX: Z86.718 Personal history of other venous thrombosis and embolism (principal); Z79.01 Long term (current) use of anticoagulants; Z51.81 Encounter for therapeutic drug level monitoring | CPT/HCPCS: 85610; 99211 ==